=== PATIENT | female | born 1940 | race Hispanic/Latino ===

== ENCOUNTER 2017-02-15 16:27 | Inpatient (IN) | payer MEDICARE, MEDICAID ==
--- NOTE | 2017-02-15 17:59 | ED PDOC ---
HPI: Psych/Substance Abuse Time Seen by Provider: 02/15/17 17:17 Chief Complaint (Nursing): Psychiatric Evaluation Chief Complaint (Provider): Psychiatric Evaluation History Per: Patient History/Exam Limitations: no limitations Current Symptoms Are (Timing): Still Present Suicide/Self Injury Attempted (Context): None Severity: Moderate Associated Symptoms: Other (patient is hearing voices and reportedly sees the future) Additional Complaint(s): 77 year old female with a pertinent medical history of hypertension, hypercholesterolemia, schizophrenia, and COPD is [facility] for a psychiatric evaluation for increasing paranoid delusions. She reports that she can see the future and "it does not look good and I am going to suffer". She reports that she hears "screaming children, including my son is not but is buried alive". She denies having any medical complaints. PMD: Dr. Tobin Past Medical History Reviewed: Historical Data, Nursing Documentation, Vital Signs Vital Signs: Last Vital Signs Temp 98.4 F 02/15/17 16:38 Pulse 88 02/15/17 16:38 Resp 18 02/15/17 16:38 BP 114/69 02/15/17 16:38 Pulse Ox 94 L 02/15/17 16:38 - Medical History PMH: Anxiety, Asthma, Atrial Fibrillation, COPD, HTN, Hypercholesterolemia, Hypothyroidism, Schizophrenia, Seizures - Surgical History Surgical History: No Surg Hx - Family History Family History: States: No Known Family Hx - Living Arrangements Living Arrangements: Half-Way/Assist Lvng - Social History Current smoker - smoking cessation education provided: No Ex-Smoker (has not smoked in the last 12 months): Yes (patient stopped smoking 4x years ago) Alcohol: None Drugs: Denies - Immunization History Hx Tetanus Toxoid Vaccination: No (refuse) Hx Influenza Vaccination: No Hx Pneumococcal Vaccination: No - Home Medications Home Medications: Ambulatory Orders Medication Instructions Recorded Dronedarone [Multaq] 400 mg PO BID 02/15/17 Fluticasone/Salmeterol 250/50 1 puff IH Q12 02/15/17 [Advair Diskus] Furosemide [Lasix] 20 mg PO DAILY 02/15/17 Levothyroxine [Synthroid] 25 mcg PO DAILY 02/15/17 Metoprolol Succinate [Toprol XL] 25 mg PO DAILY 02/15/17 Ranitidine HCl [Zantac] 150 mg PO DAILY 02/15/17 cloZAPine [Clozaril] 100 mg PO HS 02/15/17 cloZAPine [Clozaril] 150 mg PO DAILY 02/15/17 diltiaZEM [Cardizem] 120 mg PO BID 02/15/17 - Allergies Allergies/Adverse Reactions: Allergies Allergy/AdvReac Type Severity Reaction Status Date / Time No Known Allergies Allergy Verified 02/15/17 16:36 Review of Systems ROS Statement: Except As Marked, All Systems Reviewed And Found Negative Constitutional: Negative for: Fever, Chills Cardiovascular: Negative for: Chest Pain Respiratory: Negative for: Shortness of Breath Psych: Positive for: Psychosis. Negative for: Suicidal ideation Physical Exam - Reviewed Nursing Documentation Reviewed: Yes Vital Signs Reviewed: Yes - Physical Exam Appears: Positive for: Well, Non-toxic, No Acute Distress Head Exam: Positive for: ATRAUMATIC, NORMOCEPHALIC Skin: Positive for: Normal Color, Warm, Dry Eye Exam: Positive for: EOMI, PERRL ENT: Negative for: Pharyngeal Erythema, Tonsillar Exudate Neck: Positive for: Painless ROM, Supple Cardiovascular/Chest: Positive for: Regular Rate, Rhythm Respiratory: Positive for: Wheezing (minimal diffuse expiratory wheeze). Negative for: Respiratory Distress Gastrointestinal/Abdominal: Positive for: Soft. Negative for: Tenderness Back: Positive for: Normal Inspection. Negative for: Vertebral Tenderness Extremity: Positive for: Normal ROM, Tenderness. Negative for: Deformity Neurologic/Psych: Positive for: Alert, Oriented (3x), Mood/Affect (flat affect, depressed mood. patient has delusions as reported in HPI.). Negative for: Motor /Sensory Deficits - Laboratory Results Result Diagrams: 02/16/17 06:25 02/15/17 18:04 - ECG O2 Sat by Pulse Oximetry: 94 (RA) Pulse Ox Interpretation: Abnormal Medical Decision Making Medical Decision Makin:17 Initial impression: 77 year old female with delusions. Initial plan: * XRay chest * EKG * crisis evaluation as ordered * bloodwork * labs * urine * accucheck Labs unremarkable. EKG unremarkable Crisis evaluated pt and spoke with family. Pt to be admitted to [facility]. Medically stable for [facility] floor. Scribe Attestation: Documented by Dari Fritz, acting as a scribe for Lay Freedman MD. Provider Scribe Attestation: All medical record entries made by the Scribe were at my direction and personally dictated by me. I have reviewed the chart and agree that the record accurately reflects my personal performance of the history, physical exam, medical decision making, and the department course for this patient. I have also personally directed, reviewed, and agree with the discharge instructions and disposition. Disposition - Clinical Impression Clinical Impression: Schizophrenia Counseled Patient/Family Regarding: Studies Performed, Diagnosis - Disposition Disposition Time: 19:00 Condition: STABLE - Pt Status Changed To: Hospital Disposition Of: Inpatient - Admit Certification Admit to Inpatient:: After my assessment, the patient will require hospitalization for at least two midnights. This is because of the severity of symptoms shown, intensity of services needed, and/or the medical risk in this patient being treated as an outpatient. - POA Present On Arrival: None
[2017-02-15 18:16] LABS: BASO # 0.1 K/uL (0.0-0.2); BASO % 0.9 % (0.0-2.0); EOS # 0.1 K/uL (0.0-0.7); EOS % 0.7 % (0.0-4.0); HEMOGLOBIN 12.6 g/dL (12.0-16.0); LYMPH # 1.9 K/uL (1.0-4.3); MEAN CELL VOLUME 91.2 fl (81.0-99.0); MEAN CORPUSCULAR HEMOGLOBIN 29.7 pg (27.0-31.0); MEAN CORPUSCULAR HGB CONC 32.5 g/dL (33.0-37.0); MEAN PLATELET VOLUME 7.2 fl (7.2-11.7); MONO # 1.3 K/uL (0.0-0.8); MONO % 10.8 % (0.0-10.0); NEUT % 72.6 % (50.0-75.0); NRBC % 0.1 % (0.0-0.0); RBC 4.24 Mil/uL (3.80-5.20); WHITE BLOOD COUNT 12.4 K/uL (4.8-10.8)
[2017-02-15 18:35] LABS: ALB/GLOB RATIO 1.4 (1.0-2.1); ALT/SGPT 36 U/L (9-52); AST/SGOT 24 U/L (14-36); BLOOD UREA NITROGEN 9 mg/dl (7-17); CALCIUM 9.4 mg/dL (8.4-10.2); GFR AFRICAN-AMERICAN > 60; GFR NON-AFRICAN AMERICAN > 60
[2017-02-15 18:54] LABS: INR 2.1 (0.9-1.2); PARTIAL THROMBOPLASTIN TIME 33.9 Seconds (25.6-37.1); PROTHROMBIN TIME 23.6 Seconds (9.8-13.1)
[2017-02-15] MEDS ORDERED: Magnesium Hydroxide Susp 30 ml UD PO PRN (20:27)
[2017-02-15] MEDS ORDERED: Bismuth Subsalicylate 262 mg/15 ml Sus (240 ml) PO PRN (20:27)
[2017-02-15] MEDS ORDERED: Alum-Mag Hydrox-Simethicone Susp (30 mL) PO PRN (20:27)
[2017-02-15] MEDS: Fluticasone-Salmeterol 250-50mcg Diskus IH SCH (22:17)
[2017-02-15] MEDS ORDERED: Fluticasone-Salmeterol 250-50mcg Diskus IH STA (23:06)
[2017-02-16 07:10] LABS: HEMOGLOBIN 11.8 g/dL (12.0-16.0); MEAN CELL VOLUME 90.4 fl (81.0-99.0); MEAN CORPUSCULAR HEMOGLOBIN 29.9 pg (27.0-31.0); MEAN CORPUSCULAR HGB CONC 33.1 g/dL (33.0-37.0); RBC 3.93 Mil/uL (3.80-5.20); RED CELL DISTRIBUTION WIDTH 15.1 % (11.5-14.5); WHITE BLOOD COUNT 10.8 K/uL (4.8-10.8)
[2017-02-16 07:30] LABS: T4 7.15 ug/dl (5.5-11.0)
[2017-02-16 07:47] LABS: FERRITIN 32.4 ng/mL
--- NOTE | 2017-02-16 08:18 | CARD ---
APPROVED REPORT EKG Measurement Heart [id number] <Conclusion> Normal sinus rhythm Possible Left atrial enlargement Left axis deviation Pulmonary disease pattern Nonspecific T wave abnormality Prolonged QT Abnormal ECG
[2017-02-16] MEDS: Metoprolol Succinate 25 mg XL Tab PO SCH (08:51)
[2017-02-16] MEDS: Levothyroxine 25 MCG TAB PO SCH (08:51)
--- NOTE | 2017-02-16 10:45 | RAD ---
HISTORY: ams COMPARISON: No prior. FINDINGS: LUNGS: No active pulmonary disease. PLEURA: No significant pleural effusion identified, no pneumothorax apparent. CARDIOVASCULAR: No radiographic findings to suggest acute or significant cardiovascular disease. OSSEOUS STRUCTURES: No significant abnormalities. VISUALIZED UPPER ABDOMEN: Normal. OTHER FINDINGS: None. IMPRESSION: No active disease.
[2017-02-16 11:49] LABS: PROTHROMBIN TIME 22.7 Seconds (9.8-13.1)
--- NOTE | 2017-02-16 12:48 | PCM.PSYCH ---
Initial Psychiatric Evaluation - Initial Psychiatric Evaluation Type of Admission: Voluntary Legal Status: DPOA Chief Complaint (in patient's own words): "They are going to kill me" Patient's Reaction to Hospitalization: History limited because the patient is a poor historian and is currently psychotic. History obtained from the chart and collateral history. HPI: 77 year old female with a pertinent medical history of hypertension, hypercholesterolemia, schizophrenia, and COPD is sent to the ED by her skilled nursing for a psychiatric evaluation for increasing paranoid delusions. She reports that she can see the future and it does not look good. She reports that she hears screaming children, including her son (who is alive). She denies having any medical complaints. She also reports that "they" are trying to kill her, when asked who they are, she said that entire world. She is unable to provide much information and can not state where she is or why she is in the hospital. She is oriented to February 2017. Collateral from ER: 77 y/o female with a pertinent medical hystory of hypertension, hypercholesterolemia, schizophenia and COPD is sent to the ED by her senior living for a psychiatric evaluation due to increase paranoid delusions. Pt reports that she can see the future, that she is seeing her son and sister, that she is Red and is going to be cruzified because she is jainism. Retirement reports stated that patient refer to herself as "Red'. Pt. states that when she hears music or noise, she is hearing her family members yelling for help. Pt states that she wrote the bible and she can see into her family future and "it doesn't look to good". Pt. refused to speak to the psychiatrist while she was in the skilled nursing. During assessment patient repeated being Harini, and stated that she know what her son was saying , patient is confused, delusional, naming family members that are deseased. Pt. was calm , no shows of distress, pt. stated that she knnow that her son was talking about harini and that people when they go is in a better place but that is not going to happen to her, for being Harini. Pt's son stated that patient have a long history of mental illness with psychiatric admission at [facility] and [facility], the last admission was two years ago. Family is asking for patient to be admitted for medication adjustment, patient was prescribed a new medication that family [place] that is causing patient to loose her balance as patient had incidents in which she had fall. Pt. had suicidal attempts in the past. As per family patient had been residing in a Retirement for a year, and she is scare of being in a new place, confused, son is asking for patient to be seeing by a neurologist as the same as a psychiatrist. Son believes that patient's medications need to be adjusted or need to be change. Radha Morales [phone] PPHx: As per family patient had numerous admissions in the past for schizophrenia, the last admission was 2 years ago at [facility]. PMD: Dr. Tobin PMHx: hypertension, hypercholesterolemia, schizophrenia, and COPD All: NKDA SHx: lives in a skilled nursing, POA are son + [id number] Current Medications: Active Medications Generic Name Dose Route Start Last Admin Trade Name Freq PRN Reason Stop Dose Admin Acetaminophen 650 mg 02/15/17 20:27 Tylenol 325mg Tab PO Q4 PRN Pain, moderate (4-7) Al Hydrox/Mg Hydrox/Simethicone 30 ml 02/15/17 20:27 Maalox Plus 30 Ml PO Q4 PRN Dyspepsia Bismuth Subsalicylate 524 mg 02/15/17 20:27 Pepto-Bismol PO Q4 PRN Diarrhea Clozapine 150 mg 02/16/17 10:30 02/16/17 11:30 Clozaril PO 150 mg DAILY JOON Administration Clozapine 100 mg 02/16/17 22:00 Clozaril PO HS JOON Diltiazem HCl 120 mg 02/16/17 09:00 02/16/17 08:50 Cardizem PO 120 mg BID JOON Administration Dronedarone 400 mg 02/16/17 09:00 02/16/17 10:58 Multaq PO 400 mg BID JOON Administration Furosemide 20 mg 02/16/17 09:00 02/16/17 08:50 Lasix PO 20 mg DAILY JOON Administration Levothyroxine Sodium 25 mcg 02/16/17 06:30 02/16/17 08:51 Synthroid PO 25 mcg DAILY@0630 JOON Administration Lorazepam 0.5 mg 02/16/17 05:01 Ativan PO 03/02/17 05:02 HS PRN Insomnia Lorazepam 0.5 mg 02/16/17 05:01 Ativan PO 03/02/17 05:02 Q6 PRN Anixety/Agitation Magnesium Hydroxide 30 ml 02/15/17 20:27 Milk Of Magnesia PO HS PRN Constipation Metoprolol Succinate 25 mg 02/16/17 09:00 02/16/17 08:51 Toprol Xl PO 25 mg DAILY JOON Administration Fluticasone/Salmeterol 1 puff 02/16/17 23:45 Advair Diskus 250/50 IH Q12 JOON Past Psychiatric History - Past Psychiatric History Previous Treatment History: Inpatient Pertinent Medical Hx (Current Medical&Sleep Prob, Allergies): Allergies Allergy/AdvReac Type Severity Reaction Status Date / Time No Known Allergies Allergy Verified 02/15/17 16:36 Dronedarone [Multaq] 400 mg PO BID 02/15/17 Fluticasone/Salmeterol 250/50 [Advair Diskus] 1 puff IH Q12 02/15/17 Furosemide [Lasix] 20 mg PO DAILY 02/15/17 Levothyroxine [Synthroid] 25 mcg PO DAILY 02/15/17 Metoprolol Succinate [Toprol XL] 25 mg PO DAILY 02/15/17 Ranitidine HCl [Zantac] 150 mg PO DAILY 02/15/17 cloZAPine [Clozaril] 100 mg PO HS 02/15/17 cloZAPine [Clozaril] 150 mg PO DAILY 02/15/17 diltiaZEM [Cardizem] 120 mg PO BID 02/15/17 Review of Systems - Psychiatric Psychiatric: Behavioral Changes, Confusion, Difficulty Concentrating, Other ( Delusions) Mental Status Examination - Personal Presentation Personal Presentation: Looks stated age - Affect Affect: Constricted - Motor Activity Motor Activity: Calm - Reliability in Providing Information Reliability in Providing Information: Poor, due to cognitve impairment - Speech Speech: Coherent, Other (Focused on discussing delusional content) - Mood Mood: Anxious - Formal Thought Process Formal Thought Process: Delusions, Paranoia - Obsessions/Compulsions Obsessions: No Compulsions: No - Cognitive Functions Orientation: Person, Time (February 2017) Sensorium: Alert Attention/Concentration: Easily distracted Judgement: Imparied, as evidence by: Poor judgement, Imparied, as evidence by: Lack of insight into illness Memory: Recent impaired, as evidence by: Inability to recall events of the day, Recent imparied as evidence by:Inability to complete 3/3 object recall, Remote impaired as evidenced by: Inability to recall sig life events, Remote impaired as evidenced by: Inability to recall historical events - Risk Risk: Diminished functioning - Strength & Assets Inventory Strength & Assets Inventory: Family support, Cooperative - Limitations Limitations: Decreased memory, recent DSM 5 DX - DSM 5 DSM 5 Diagnosis: Schizophrenia - Recommended/Plan of Treatment Treatment Recommendations and Plan of Treatment: -Admit to geriatric psychiatry unit -Increase Clozapine to 150 mg PO Q12 hr -Case discussed with POA, business writer given permission to adjust medications as clinically appropriate -Individual and group therapy -Disposition planning Projected ELOS: 5-7 days Discharge Plan and Discharge Criteria: Discharge when psychiatrically stable - Smoking Cessation Smoking Cessation Initiated: No Reason for not providing: Not indicated
[2017-02-16 14:53] LABS: FOLATE 6.7 ng/mL
--- NOTE | 2017-02-16 20:28 | CP.PCM.CON ---
History of Present Illness - History of Present Illness History of Present Illness: 77 yo female with history of AFib, HLD, Hypothyroid, COPD and [facility] Paranoid ideation Review of Systems - Review of Systems All systems: reviewed and no additional remarkable complaints except (aside from those mentioned above, 12 point system review were negative by me) Past Patient History - Tetanus Immunizations Tetanus Immunization: Unknown - Past Social History Smoking Status: Unknown If Ever Smoked Alcohol: None Drugs: Denies - CARDIAC Hx Atrial Fibrillation: Yes Hx Hypercholesterolemia: Yes Hx Hypertension: Yes - PULMONARY Hx Asthma: Yes Hx Chronic Obstructive Pulmonary Disease (COPD): Yes - NEUROLOGICAL Hx Seizures: Yes - ENDOCRINE/METABOLIC Hx Hypothyroidism: Yes - HEMATOLOGICAL/ONCOLOGICAL Hx Cancer: Yes (breast and colon) - MUSCULOSKELETAL/RHEUMATOLOGICAL Hx Falls: No - GASTROINTESTINAL Hx Gastroesophageal Reflux: Yes Other/Comment: COLON CA - GENITOURINARY/GYNECOLOGICAL Hx Incontinence: Yes - PSYCHIATRIC Hx Anxiety: Yes Hx Schizophrenia: Yes - SURGICAL HISTORY Hx Appendectomy: Yes Hx Breast Biopsy: Yes (r breast lumpectomy) Hx Cholecystectomy: Yes Hx Joint Replacement: Yes (l knee replacement) - ANESTHESIA Hx Anesthesia: Yes Meds Allergies/Adverse Reactions: Allergies Allergy/AdvReac Type Severity Reaction Status Date / Time No Known Allergies Allergy Verified 02/15/17 16:36 - Medications Medications: Current Medications Acetaminophen (Tylenol 325mg Tab) 650 mg PO Q4 PRN PRN Reason: Pain, moderate (4-7) Al Hydrox/Mg Hydrox/Simethicone (Maalox Plus 30 Ml) 30 ml PO Q4 PRN PRN Reason: Dyspepsia Bismuth Subsalicylate (Pepto-Bismol) 524 mg PO Q4 PRN PRN Reason: Diarrhea Clozapine (Clozaril) 150 mg PO DAILY [facility] Last Admin: 02/16/17 11:30 Dose: 150 mg Clozapine (Clozaril) 150 mg PO [facility] Diltiazem HCl (Cardizem) 120 mg PO BID [facility] Last Admin: 02/16/17 16:41 Dose: Not Given Dronedarone (Multaq) 400 mg PO BID [facility] Last Admin: 02/16/17 16:41 Dose: 400 mg Furosemide (Lasix) 20 mg PO DAILY [facility] Last Admin: 02/16/17 08:50 Dose: 20 mg Levothyroxine Sodium (Synthroid) 25 mcg PO DAILY@0630 [facility] Last Admin: 02/16/17 08:51 Dose: 25 mcg Lorazepam (Ativan) 0.5 mg PO HS PRN PRN Reason: Insomnia Stop: 03/02/17 05:02 Lorazepam (Ativan) 0.5 mg PO Q6 PRN PRN Reason: Anixety/Agitation Stop: 03/02/17 05:02 Magnesium Hydroxide (Milk Of Magnesia) 30 ml PO HS PRN PRN Reason: Constipation Metoprolol Succinate (Toprol Xl) 25 mg PO DAILY [facility] Last Admin: 02/16/17 08:51 Dose: 25 mg Fluticasone/Salmeterol (Advair Diskus 250/50) 1 puff IH Q12 [facility] Physical Exam - Constitutional Appears: No Acute Distress - Head Exam Head Exam: ATRAUMATIC - Eye Exam Eye Exam: absent: Scleral icterus - ENT Exam ENT Exam: Mucous Membranes Moist - Neck Exam Neck exam: Negative for: Meningismus - Respiratory Exam Respiratory Exam: absent: Rhonchi, Wheezes, Respiratory Distress - Cardiovascular Exam Cardiovascular Exam: REGULAR RHYTHM, +S1, +S2 - GI/Abdominal Exam GI & Abdominal Exam: Soft. absent: Tenderness - Rectal Exam Rectal Exam: Deferred - Neurological Exam Neurological exam: Alert, Oriented x3 - Psychiatric Exam Psychiatric exam: Normal Affect - Skin Skin Exam: Dry, Intact Results - Vital Signs Recent Vital Signs: Last Vital Signs Temp 99 F 02/16/17 16:05 Pulse 83 02/16/17 16:05 Resp 20 02/16/17 16:05 BP 107/66 02/16/17 16:05 Pulse Ox 94 L 02/16/17 15:37 - Labs Result Diagrams: 02/16/17 06:25 02/15/17 18:04 Labs: Laboratory Results - last 24 hr 02/16/17 02/16/17 02/16/17 06:25 06:25 06:25 WBC 10.8 RBC 3.93 Hgb 11.8 L Hct 35.6 MCV 90.4 MCH 29.9 MCHC 33.1 RDW 15.1 H Plt Count 447 H PT INR Hemoglobin A1c 5.8 Ferritin 32.4 Triglycerides 72 Cholesterol 147 LDL Cholesterol Direct 63 HDL Cholesterol 57 Vitamin B12 470 Folate 6.7 Free T4 Thyroxine (T4) 7.15 TSH 3rd Generation 2.13 RPR 02/16/17 02/16/17 02/16/17 06:25 06:25 10:50 WBC RBC Hgb Hct MCV MCH MCHC RDW Plt Count PT 22.7 H INR 2.0 H Hemoglobin A1c Ferritin Triglycerides Cholesterol LDL Cholesterol Direct HDL Cholesterol Vitamin B12 Folate Free T4 0.98 Thyroxine (T4) TSH 3rd Generation RPR Nonreactive Assessment & Plan (1) Schizophrenia Status: Acute Comment: psyche is managing (2) HTN (hypertension) Status: Acute Comment: BP stable. continue Metoprolol and Cardizem (3) Afib Status: Acute Comment: rate controlled. continue Cardizem and Metoprolol
[2017-02-17] MEDS: Levothyroxine 25 MCG TAB PO SCH (06:40)
[2017-02-17] MEDS: Fluticasone-Salmeterol 250-50mcg Diskus IH SCH ×2 (08:28→21:07)
[2017-02-17] MEDS: Metoprolol Succinate 25 mg XL Tab PO SCH (08:32)
--- NOTE | 2017-02-17 09:45 | PCM.PYCHPN ---
Psychiatric Progress Note - Psychiatric Progress Note Patient seen today, length of contact: Patient evaluated, case discussed with team, chart reviewed, 35 min Patient Chief Complaint: "They are going to kill me" Problems Identified/Issues Discussed: Patient continues to be paranoid and delusional that people want to kill her and her family. She constantly talks about her concerns that her family is in danger. She has difficulty reality testing. Denies AH/VH. Medication Change: No Medical Record Reviewed: Yes Mental Status Examination - Cognitive Function Orientation: Person, Time (February 2017) Memory: Impaired Attention: Poor Association: Loose Fund of Knowledge: Poor Decription of patient's judgement and insights: Poor insight/judgment - Mood Mood: Anxious - Affect Affect: Constricted - Formal Thought Process Formal Thought Process: Delusions, Paranoia Psychotic Thoughts and Behaviors: +Paranoid and persecutory delusions - Suicidal Ideation Suicidal Ideation: No - Homicidal Ideation Homicidal Ideation: No Goal/Treatment Plan - Goal/Treatment Plan Need for Continued Stay: Remain at risks for inpatient hospitalization, Discharge may exacerbated symptoms, Severe functional impairment Progress Toward Problem(s) and Goals/Treatment Plan: Schizophrenia; patient continues to be acutely psychotic and paranoid. -Continue Clozapine 150 mg PO Q12 hr -Case discussed with JAZMÍN, real estate underwriter given permission to adjust medications as clinically appropriate -Individual and group therapy -Disposition planning Estimated Date of D/C: 02/22/17 - Smoking Cessation Smoking Cessation Initiated: No Reason for not providing: Not indicated
[2017-02-17 23:17] LABS: SQUAMOUS EPITHIAL 1 /hpf (0-5); URINE BACTERIA RARE (<OCC); URINE BILIRUBIN NEGATIVE (NEGATIVE); URINE BLOOD NEGATIVE (NEGATIVE); URINE CLARITY CLEAR (Clear); URINE COLOR YELLOW (YELLOW); URINE GLUCOSE (UA) NEG (Normal); URINE LEUKOCYTE ESTERASE TRACE Leu/uL (Negative); URINE NITRATE NEGATIVE (NEGATIVE); URINE PROTEIN NEGATIVE (NEGATIVE); URINE UROBILINOGEN 0.2-1.0 mg/dL (0.2-1.0)
[2017-02-18] MEDS: Levothyroxine 25 MCG TAB PO SCH (05:50)
[2017-02-18] MEDS: Fluticasone-Salmeterol 250-50mcg Diskus IH SCH ×2 (09:09→21:13)
[2017-02-18] MEDS: Metoprolol Succinate 25 mg XL Tab PO SCH (09:11)
--- NOTE | 2017-02-18 09:17 | PCM.PYCHPN ---
Psychiatric Progress Note - Psychiatric Progress Note Patient seen today, length of contact: Patient evaluated, case discussed with team, chart reviewed, 35 min Patient Chief Complaint: "I want to see my sons" Problems Identified/Issues Discussed: Patient continues to be paranoid and delusional that people want to kill her and her family. She is currently refusing to talk with the selling underwriter. She later told the nurse that the selling underwriter is an actress, not a doctor. Denies AH/VH. Medication Change: No Medical Record Reviewed: Yes Mental Status Examination - Cognitive Function Orientation: Person, Time (February 2017) Memory: Impaired Attention: Poor Association: Loose Fund of Knowledge: Poor Decription of patient's judgement and insights: Poor insight/judgment - Mood Mood: Anxious - Affect Affect: Constricted - Formal Thought Process Formal Thought Process: Delusions, Paranoia Psychotic Thoughts and Behaviors: +Paranoid and persecutory delusions - Suicidal Ideation Suicidal Ideation: No - Homicidal Ideation Homicidal Ideation: No Goal/Treatment Plan - Goal/Treatment Plan Need for Continued Stay: Remain at risks for inpatient hospitalization, Discharge may exacerbated symptoms, Severe functional impairment Progress Toward Problem(s) and Goals/Treatment Plan: Schizophrenia; patient continues to be acutely psychotic and paranoid. -Continue Clozapine 150 mg PO Q12 hr; will consider further titration -Case discussed with writer JAZMÍN given permission to adjust medications as clinically appropriate -Individual and group therapy -Disposition planning Estimated Date of D/C: 02/22/17
[2017-02-18 09:31] LABS: INR 2.5 (0.9-1.2)
--- NOTE | 2017-02-19 08:41 | PCM.PYCHPN ---
Psychiatric Progress Note - Psychiatric Progress Note Patient seen today, length of contact: Patient evaluated, case discussed with team, chart reviewed, 35 min Patient Chief Complaint: "They're going to kill me" Problems Identified/Issues Discussed: Patient continues to be paranoid and delusional that people want to kill her and her family. She is unable to engage in reality testing. She does not know where she is or why she is in the hospital. No side effects to Clozaril noted. She refuses blood work intermittently due to paranoia. Denies AH/VH. Medication Change: Yes (Increase Clozaril to 175 mg PO AM/ 150 mg PO HS) Medical Record Reviewed: Yes Mental Status Examination - Cognitive Function Orientation: Person Memory: Impaired Attention: Poor Association: Loose Fund of Knowledge: Poor Decription of patient's judgement and insights: Poor insight/judgment - Mood Mood: Anxious - Affect Affect: Constricted - Formal Thought Process Formal Thought Process: Delusions, Paranoia Psychotic Thoughts and Behaviors: +Paranoid and persecutory delusions - Suicidal Ideation Suicidal Ideation: No - Homicidal Ideation Homicidal Ideation: No Goal/Treatment Plan - Goal/Treatment Plan Need for Continued Stay: Remain at risks for inpatient hospitalization, Discharge may exacerbated symptoms, Severe functional impairment Progress Toward Problem(s) and Goals/Treatment Plan: Schizophrenia; patient continues to be acutely psychotic and paranoid. -Increase Clozaril to 175 mg PO AM/ 150 mg PO HS -Case discussed with JAZMÍN, senior grant writer given permission to adjust medications as clinically appropriate -Individual and group therapy -Disposition planning Estimated Date of D/C: 02/25/17
[2017-02-19] MEDS: Fluticasone-Salmeterol 250-50mcg Diskus IH SCH ×2 (08:59→21:00)
[2017-02-19] MEDS: Metoprolol Succinate 25 mg XL Tab PO SCH (09:04)
[2017-02-19] MEDS: Levothyroxine 25 MCG TAB PO SCH (09:04)
[2017-02-19 13:56] LABS: PROTHROMBIN TIME 34.4 Seconds (9.8-13.1)
--- NOTE | 2017-02-20 08:18 | PCM.PYCHPN ---
Psychiatric Progress Note - Psychiatric Progress Note Patient seen today, length of contact: Patient evaluated, case discussed with team, chart reviewed, 35 min Patient Chief Complaint: "I need my sons" Problems Identified/Issues Discussed: Patient continues to be paranoid and delusional that people want to kill her and her family. She is unable to engage in reality testing. She does not know where she is or why she is in the hospital. No side effects to Clozaril noted. Denies AH/VH. Medication Change: Yes (Increase Clozaril to 150 mg PO AM/ 200 mg PO HS) Medical Record Reviewed: Yes Mental Status Examination - Cognitive Function Orientation: Person Memory: Impaired Attention: Poor Concentration: Poor Association: Loose Fund of Knowledge: Poor Decription of patient's judgement and insights: Poor insight/judgment - Mood Mood: Anxious - Affect Affect: Constricted - Speech Speech: Appropriate - Formal Thought Process Formal Thought Process: Delusions, Paranoia Psychotic Thoughts and Behaviors: +Paranoid and persecutory delusions - Suicidal Ideation Suicidal Ideation: No - Homicidal Ideation Homicidal Ideation: No Goal/Treatment Plan - Goal/Treatment Plan Need for Continued Stay: Remain at risks for inpatient hospitalization, Discharge may exacerbated symptoms, Severe functional impairment Progress Toward Problem(s) and Goals/Treatment Plan: Schizophrenia; patient continues to be acutely psychotic and paranoid. -Increase Clozaril to 150 mg PO AM/ 200 mg PO HS; Check Clozapine level -Case discussed with JAZMÍN, development writer given permission to adjust medications as clinically appropriate -Individual and group therapy -Disposition planning Estimated Date of D/C: 02/25/17
[2017-02-20 08:31] LABS: PROTHROMBIN TIME 34.6 Seconds (9.8-13.1)
[2017-02-20] MEDS: Fluticasone-Salmeterol 250-50mcg Diskus IH SCH ×2 (08:56→21:02)
[2017-02-20] MEDS: Levothyroxine 25 MCG TAB PO SCH (08:58)
[2017-02-20] MEDS: Metoprolol Succinate 25 mg XL Tab PO SCH (11:40)
[2017-02-21] MEDS: Fluticasone-Salmeterol 250-50mcg Diskus IH SCH ×2 (08:39→21:04)
[2017-02-21] MEDS: Levothyroxine 25 MCG TAB PO SCH (08:41)
--- NOTE | 2017-02-21 08:41 | PCM.PYCHPN ---
Psychiatric Progress Note - Psychiatric Progress Note Patient seen today, length of contact: Patient evaluated, case discussed with team, chart reviewed, 35 min Patient Chief Complaint: "I need my sons" Problems Identified/Issues Discussed: Patient continues to be paranoid and delusional that people want to kill her and her family. She does not know where she is or why she is in the hospital. Patient has some mild muscle rigidity noted by staff, will lower Clozapine at this time and monitor. She also has not slept well for 3 days. Denies AH/VH. Medication Change: Yes (Decrease Clozaril to 100 mg PO AM/ 200 mg PO HS) Medical Record Reviewed: Yes Mental Status Examination - Cognitive Function Orientation: Person Memory: Impaired Attention: Poor Concentration: Poor Association: Loose Fund of Knowledge: Poor Decription of patient's judgement and insights: Poor insight/judgment - Mood Mood: Anxious - Affect Affect: Constricted - Speech Speech: Appropriate - Formal Thought Process Formal Thought Process: Delusions, Paranoia, Other (Responding to internal stimuli) Psychotic Thoughts and Behaviors: +Paranoid and persecutory delusions - Suicidal Ideation Suicidal Ideation: No - Homicidal Ideation Homicidal Ideation: No Goal/Treatment Plan - Goal/Treatment Plan Need for Continued Stay: Remain at risks for inpatient hospitalization, Discharge may exacerbated symptoms, Severe functional impairment Progress Toward Problem(s) and Goals/Treatment Plan: Schizophrenia; patient continues to be acutely psychotic and paranoid. -Decrease Clozaril to 100 mg PO AM/ 200 mg PO HS; Check Clozapine level -Case discussed with POA, marketing copywriter given permission to adjust medications as clinically appropriate -Individual and group therapy -Disposition planning -Continue 1:1 for safety Estimated Date of D/C: 02/25/17
[2017-02-21] MEDS: Metoprolol Succinate 25 mg XL Tab PO SCH (11:10)
[2017-02-21 14:27] LABS: PROTHROMBIN TIME 23.9 Seconds (9.8-13.1)
[2017-02-21 14:28] LABS: INR 2.1 (0.9-1.2)
[2017-02-22] MEDS: Albuterol-Ipratrop 3 mg / 0.5 (3 ml) UD INH PRN ×2 (00:51→07:43)
[2017-02-22] MEDS: Levothyroxine 25 MCG TAB PO SCH ×2 (06:22→09:46)
[2017-02-22] MEDS: Albuterol-Ipratrop 3 mg / 0.5 (3 ml) UD INH SCH ×2 (07:45→11:43)
[2017-02-22 09:06] VITALS: PULSE 110; RESP 20; TEMP 97.2; O2SAT 90
[2017-02-22] MEDS: Fluticasone-Salmeterol 250-50mcg Diskus IH SCH (09:47)
[2017-02-22] MEDS: Metoprolol Succinate 25 mg XL Tab PO SCH (09:48)
[2017-02-22 09:49] VITALS: BP 108/78
--- NOTE | 2017-02-22 10:23 | RAD ---
PROCEDURE: CHEST RADIOGRAPH, 1 VIEW HISTORY: r/o pneumonia COMPARISON: Comparison chest 02/15/2017 FINDINGS: LUNGS: Poor inspiration with low lung volumes, crowded bronchovascular markings and mild bibasilar atelectasis. PLEURA: No pneumothorax or pleural fluid seen. CARDIOVASCULAR: Heart appears enlarged OSSEOUS STRUCTURES: No significant abnormalities. VISUALIZED UPPER ABDOMEN: Normal. OTHER FINDINGS: None. IMPRESSION: Poor inspiration with low lung volumes, crowded bronchovascular markings and mild bibasilar atelectasis. Scroll
[2017-02-22 10:27] LABS: HEMOGLOBIN 12.6 g/dL (12.0-16.0); MEAN CELL VOLUME 91.4 fl (81.0-99.0); MEAN CORPUSCULAR HEMOGLOBIN 30.4 pg (27.0-31.0); MEAN CORPUSCULAR HGB CONC 33.2 g/dL (33.0-37.0); RBC 4.14 Mil/uL (3.80-5.20); RED CELL DISTRIBUTION WIDTH 15.5 % (11.5-14.5)
[2017-02-22 10:45] LABS: BLOOD UREA NITROGEN 17 mg/dl (7-17); CALCIUM 9.5 mg/dL (8.4-10.2); GFR AFRICAN-AMERICAN > 60; GFR NON-AFRICAN AMERICAN > 60; INR 2.2 (0.9-1.2); PROTHROMBIN TIME 25.2 Seconds (9.8-13.1)
[2017-02-22] MEDS ORDERED: levoFLOXacin 500 MG TAB PO SCH (11:15)
[2017-02-22] MEDS ORDERED: Potassium Chloride 20 mEq/15 ml LIQ UD PO ONE (11:45)
--- NOTE | 2017-02-22 12:50 | PCM.PYCHDC ---
Mental Status Examination - Mental Status Examination Orientation: Person Memory: Impaired Attention: Poor Concentration: Poor Association: Loose Fund of Knowledge: Poor Formal Thought Process: Loosening of associations Description of patient's judgement and insight: Poor insight/judgment Psychotic Thoughts and Behaviors: +Paranoid and persecutory delusions Suicidal Ideation: No Current Homicidal Ideation?: No Discharge Summary - Discharge Note Reason for Hospitalization: History limited because the patient is a poor historian and is currently psychotic. History obtained from the chart and collateral history. HPI: 77 year old female with a pertinent medical history of hypertension, hypercholesterolemia, schizophrenia, and COPD is sent to the ED by her retirement for a psychiatric evaluation for increasing paranoid delusions. She reports that she can see the future and it does not look good. She reports that she hears screaming children, including her son (who is alive). She denies having any medical complaints. She also reports that "they" are trying to kill her, when asked who they are, she said that entire world. She is unable to provide much information and can not state where she is or why she is in the hospital. She is oriented to February 2017. Collateral from ER: 77 y/o female with a pertinent medical hystory of hypertension, hypercholesterolemia, schizophenia and COPD is sent to the ED by her [facility] for a psychiatric evaluation due to increase paranoid delusions. Pt reports that she can see the future, that she is seeing her son and sister, that she is Red and is going to be cruzified because she is mandaeism. Custodial reports stated that patient refer to herself as "Red'. Pt. states that when she hears music or noise, she is hearing her family members yelling for help. Pt states that she wrote the bible and she can see into her family future and "it doesn't look to good". Pt. refused to speak to the psychiatrist while she was in the retirement. During assessment patient repeated being Harini, and stated that she know what her son was saying , patient is confused, delusional, naming family members that are deseased. Pt. was calm , no shows of distress, pt. stated that she knnow that her son was talking about harini and that people when they go is in a better place but that is not going to happen to her, for being Harini. Pt's son stated that patient have a long history of mental illness with psychiatric admission at [facility] and [facility], the last admission was two years ago. Family is asking for patient to be admitted for medication adjustment, patient was prescribed a new medication that family beleive that is causing patient to loose her balance as patient had incidents in which she had fall. Pt. had suicidal attempts in the past. As per family patient had been residing in a Custodial for a year, and she is scare of being in a new place, confused, son is asking for patient to be seeing by a neurologist as the same as a psychiatrist. Son believes that patient's medications need to be adjusted or need to be change. Radha Luuper [phone] PPHx: As per family patient had numerous admissions in the past for schizophrenia, the last admission was 2 years ago at [facility]. PMD: Dr. Tobin PMHx: hypertension, hypercholesterolemia, schizophrenia, and COPD All: NKDA SHx: lives in a retirement, POA are son + [id number] Laboratory Data: Abnormal Lab Results 02/21/17 02/22/17 02/22/17 13:20 10:20 10:20 WBC 16.0 H RBC 4.14 Hgb 12.6 Hct 37.8 MCV 91.4 MCH 30.4 MCHC 33.2 RDW 15.5 H Plt Count 379 PT 23.9 H D 25.2 H INR 2.1 H D 2.2 H Sodium Potassium Chloride Carbon Dioxide Anion Gap BUN Creatinine Est GFR ( Amer) Est GFR (Non-Af Amer) Random Glucose Calcium 02/22/17 10:20 WBC RBC Hgb Hct MCV MCH MCHC RDW Plt Count PT INR Sodium 143 Potassium 3.0 L Chloride 102 Carbon Dioxide 30 Anion Gap 14 BUN 17 Creatinine 0.9 Est GFR ( Amer) > 60 Est GFR (Non-Af Amer) > 60 Random Glucose 120 H Calcium 9.5 Consultations:: List each consultation separately and include: 1. Reason for request. 2. Findings. 3. Follow-up Consultations: Medicine consult Summary of Hospital Course include:: 1. Description of specific treatment plan utilized for patients during their course of treatmen. 2. Summarize the time- course for resolution of acute symptoms and/or regressed behaviors. 3. Describe issues identified and worked on during hospitalization. 4. Describe medication utilized. 5. Describe medical problems identified and treated. 6. Reassessment of suicide risk Summary of Hospital Course: Patient treated with Clozapine which was increased to 100 mg PO AM/HS. Over the course of hospitalization, the patient has become medically ill with an URI r/o PNA; now acutely delirious, will be discharged to the ER for further evaluation. - Final Diagnosis (DSM 5) DSM 5: Schizophrenia Disposition: TRANS TO OBS Follow-up Treatment Plan: Schizophrenia; Patient treated with Clozapine which was increased to 100 mg PO AM/HS. Over the course of hospitalization, the patient has become medically ill with an URI r/o PNA; now acutely delirious, will be discharged to the ER for further evaluation. -Continue 1:1 for safety - Smoking Cessation Smoking Cessation Medication prescribed: No Reason for not providing: Not indicated - Antipsychotic Medications Pt discharged on 2 or more routine antipsychotic medications: No
[2017-02-22] MEDS ORDERED: Potassium CL 10mEq/100ml 100 ML IVPB SCH (13:00)
== END 2017-02-22 13:10 | disposition short-term general hospital (02) | DRG 885 ==
LOC: H.ER 16:27 → H.ERHOLD 19:10 → H.STEP 20:24
PROVIDERS: ADMIT Psychiatry & Neurology Psychiatry; ATTEND Psychiatry & Neurology Psychiatry
PROC: GZHZZZZ Group Psychotherapy (ICD-10-PCS; principal; 2017-02-15)
DX: F20.9 Schizophrenia, unspecified (principal); I48.91 Unspecified atrial fibrillation; J44.9 Chronic obstructive pulmonary disease, unspecified; I10 Essential (primary) hypertension; E03.9 Hypothyroidism, unspecified; E78.00 Pure hypercholesterolemia, unspecified; E78.5 Hyperlipidemia, unspecified; J06.9 Acute upper respiratory infection, unspecified; J45.909 Unspecified asthma, uncomplicated; Z87.891 Personal history of nicotine dependence

== ENCOUNTER 2017-02-22 13:37 | Inpatient (IN) | payer MEDICARE, MEDICAID ==
[2017-02-22 14:09] LABS: VENOUS BLOOD GAS BASE EXCESS 8.2 mmol/L (0.0-2.0); VENOUS BLOOD GAS PCO2 44 mmHg (40-60); VENOUS BLOOD GAS PO2 44 mm/Hg (30-55); VENOUS BLOOD PH 7.48 (7.32-7.43)
[2017-02-22 14:10] LABS: BASO # 0.1 K/uL (0.0-0.2); BASO % 0.3 % (0.0-2.0); EOS % 0.1 % (0.0-4.0); HEMOGLOBIN 12.4 g/dL (12.0-16.0); LYMPH # 1.2 K/uL (1.0-4.3); LYMPH % 6.3 % (20.0-40.0); MEAN CELL VOLUME 91.6 fl (81.0-99.0); MEAN CORPUSCULAR HEMOGLOBIN 30.3 pg (27.0-31.0); MEAN CORPUSCULAR HGB CONC 33.1 g/dL (33.0-37.0); MEAN PLATELET VOLUME 8.4 fl (7.2-11.7); MONO # 1.3 K/uL (0.0-0.8); MONO % 6.9 % (0.0-10.0); NEUT # 16.6 K/uL (1.8-7.0); NEUT % 86.4 % (50.0-75.0); PLATELET COUNT 398 K/uL (130-400); RBC 4.09 Mil/uL (3.80-5.20); RED CELL DISTRIBUTION WIDTH 15.1 % (11.5-14.5); WHITE BLOOD COUNT 19.3 K/uL (4.8-10.8)
[2017-02-22] MEDS ORDERED: Sodium Chloride 0.9% 1,000 ML IV STA (14:15)
[2017-02-22] MEDS ORDERED: Albuterol-Ipratrop 3 mg / 0.5 (3 ml) UD INH STA (14:20)
[2017-02-22] MEDS ORDERED: MethylPREDNISolone 40 mg Vial ONE (14:21)
[2017-02-22 14:22] LABS: ALB/GLOB RATIO 1.4 (1.0-2.1); ALBUMIN 4.1 g/dL (3.5-5.0); ALT/SGPT 35 U/L (9-52); AST/SGOT 29 U/L (14-36); BLOOD UREA NITROGEN 18 mg/dl (7-17); CALCIUM 9.4 mg/dL (8.4-10.2); GFR AFRICAN-AMERICAN > 60; GFR NON-AFRICAN AMERICAN > 60
[2017-02-22] MEDS ORDERED: Piperacillin/Tazobact 4.5 GM in Sodium Chloride 0.9% 100 ML IVPB STA (14:28)
--- NOTE | 2017-02-22 14:42 | ED PDOC ---
HPI: SOB/CHF/COPD Time Seen by Provider: 02/22/17 13:41 Chief Complaint (Nursing): Shortness Of Breath Chief Complaint (Provider): Shortness Of Breath History Per: Patient History/Exam Limitations: clinical condition (psychosis) Onset/Duration Of Symptoms: Days (x1; this morning) Current Symptoms Are (Timing): Still Present Additional Complaint(s): Dulce Medina is a 77 year old female with previous medical history of psychosis who presents to the emergency department from [facility] for an evaluation of shortness of breath, cough, and elevated WBC found on recent bloodwork since this morning. Patient is a poor historian due to her psychosis so further medical history was unable to be obtained. PMD: none provided Past Medical History Reviewed: Historical Data, Nursing Documentation, Vital Signs Vital Signs: Last Vital Signs Temp 97.8 F 02/24/17 08:16 Pulse 89 02/24/17 09:12 Resp 18 02/24/17 08:16 BP 116/69 02/24/17 09:12 Pulse Ox 99 02/24/17 08:16 - Medical History PMH: Anxiety, Asthma, Atrial Fibrillation, COPD, HTN, Hypercholesterolemia, Hypothyroidism, Schizophrenia, Seizures - Surgical History Surgical History: Appendectomy, Cholecystectomy - Family History Family History: States: Unknown Family Hx - Social History Alcohol: None Drugs: Denies - Immunization History Hx Tetanus Toxoid Vaccination: No (refuse) Hx Influenza Vaccination: No Hx Pneumococcal Vaccination: No - Home Medications Home Medications: Ambulatory Orders Medication Instructions Recorded Dronedarone [Multaq] 400 mg PO BID 02/15/17 Fluticasone/Salmeterol 250/50 1 puff IH Q12 02/15/17 [Advair Diskus 250/50] Furosemide [Lasix] 20 mg PO DAILY 02/15/17 Levothyroxine [Synthroid] 25 mcg PO DAILY 02/15/17 Metoprolol Succinate [Toprol XL] 25 mg PO DAILY 02/15/17 diltiaZEM [Cardizem] 120 mg PO BID 02/15/17 Albuterol/Ipratropium [Duoneb 3 3 ml INH RQ4 02/22/17 mg/0.5 mg (3 ml) UD] LORazepam [Ativan] 0.5 mg IM Q8 PRN vial 07/17/17 LORazepam [Ativan] 0.5 mg PO Q8 PRN tab 02/22/17 Warfarin [Coumadin] 3 mg PO QD5 tab 02/22/17 cloZAPine [Clozaril] 100 mg PO DAILY tab 02/22/17 cloZAPine [Clozaril] 200 mg PO HS tab 02/22/17 levoFLOXacin 500 mg in D5W 500 mg IVPB DAILY 02/22/17 [Levaquin 500MG] - Allergies Allergies/Adverse Reactions: Allergies Allergy/AdvReac Type Severity Reaction Status Date / Time No Known Allergies Allergy Verified 02/22/17 13:39 Review of Systems Review Of Systems: ROS cannot be obtained secondary to pt's inabilty to answer questions. (psychosis) Respiratory: Positive for: Cough, Shortness of Breath Physical Exam - Reviewed Nursing Documentation Reviewed: Yes Vital Signs Reviewed: Yes - Physical Exam Appears: Positive for: Non-toxic, No Acute Distress (but paranoid, mildly dyspneic and dehydrated). Negative for: Well Respiratory: Positive for: Rhonchi (bilaterally). Negative for: Normal Breath Sounds Neurologic/Psych: Positive for: Alert, press operator II-XII (intact bilaterally), Other ( garbled speech and has poor insight). Negative for: Oriented - Laboratory Results Result Diagrams: 02/24/17 06:05 02/24/17 06:10 - ECG O2 Sat by Pulse Oximetry: 95 (RA) Pulse Ox Interpretation: Normal Medical Decision Making Medical Decision Making: Initial Impression: Shortness of breath; Cough Initial Plan: * EKG * Labs * PTT * PT * CXR * Tylenol 650mg PO * Duoneb 3ml INH * Methylprednisolone 60mg IVP * NS 1,000ml IV per 1,000mls/hr * Vancocin 250ml IVPB * Zosyn 100ml IVPB * Blood culture * Urine culture * Urinary straight catherization * Urinalysis * Re-evaluation Time: 09:00 --EKG: findings of sinus tachycardia: 112 HR. Nonspecific changes Time: 13:53 --CXR: crowded bronchial markings Time: 15:00 --Patient appears febrile. Sepsis work-up ordered --Labs: increase in WBC --Admitted to hospital for hospital-acquired clinical pneumonia and further management Scribe Attestation: Documented by Amanda Morris, acting as a scribe for Jose Camejo III, MD. Provider Scribe Attestation: All medical record entries made by the Scribe were at my direction and personally dictated by me. I have reviewed the chart and agree that the record accurately reflects my personal performance of the history, physical exam, medical decision making, and the department course for this patient. I have also personally directed, reviewed, and agree with the discharge instructions and disposition. Disposition - Clinical Impression Clinical Impression: Pneumonia, SIRS (systemic inflammatory response syndrome), Respiratory distress - Patient ED Disposition Is Patient to be Admitted: Yes Doctor Will See Patient In The: Hospital Counseled Patient/Family Regarding: Studies Performed, Diagnosis, Need For Followup - Disposition Disposition Time: 15:00 Condition: STABLE - Pt Status Changed To: Hospital Disposition Of: Inpatient - Admit Certification Admit to Inpatient:: After my assessment, the patient will require hospitalization for at least two midnights. This is because of the severity of symptoms shown, intensity of services needed, and/or the medical risk in this patient being treated as an outpatient. - POA Present On Arrival: Poor Glycemic Control
[2017-02-22] MEDS ORDERED: Piperacillin/Tazobact 3.375 gm Inj IVPB ONE (14:46)
[2017-02-22] MEDS ORDERED: Vancomycin 1 g Inj ONE (14:46)
[2017-02-22 15:04] LABS: SQUAMOUS EPITHIAL < 1 /hpf (0-5); URINE BILIRUBIN NEGATIVE (NEGATIVE); URINE BLOOD NEGATIVE (NEGATIVE); URINE CLARITY CLEAR (Clear); URINE COLOR YELLOW (YELLOW); URINE GLUCOSE (UA) NEG (Normal); URINE LEUKOCYTE ESTERASE NEG Leu/uL (Negative); URINE NITRATE NEGATIVE (NEGATIVE); URINE PROTEIN NEGATIVE (NEGATIVE); URINE UROBILINOGEN 0.2-1.0 mg/dL (0.2-1.0)
[2017-02-22 15:05] LABS: LYMPHOCYTE 7 % (20-50); MONOCYTE 6 % (0-10); NEUTROPHIL 87 % (42-75); TOTAL CELLS COUNTED 100
[2017-02-22 15:06] LABS: PLATELET ESTIMATE NORMAL (NORMAL)
[2017-02-22 15:07] LABS: ANISOCYTOSIS SLIGHT
[2017-02-22 15:27] LABS: INR 2.4 (0.9-1.2); PARTIAL THROMBOPLASTIN TIME 40.3 Seconds (25.6-37.1); PROTHROMBIN TIME 27.3 Seconds (9.8-13.1)
--- NOTE | 2017-02-22 16:27 | CP.PCM.HP ---
History of Present Illness - History of Present Illness History of Present Illness: CC: LETHARGY, AMS HPI: [id number] PMH AFIB, HLD, hypothyroid, COPD, schizophrenia was initially admitted to [facility] for worsening paranoia and psychosis. Patient is poor historian, unable to give history due to psychiatric condition. Per nursing and psychiatry team, patient has been worsening clinically with cough and congestion, and today patient mental status became altered as she became increasingly agitated, delusional. WBC was elevated, +rhonchi on physical exam, in ER pt febrile 101.2 rectally. CXR neg, however this may be due to delay in pneumonia visibility on cxr. Pt received steroids and breathing treatments with some improvement. Patient admitted for sepsis due to pneumonia. Zosyn and Vanc started in ER. ROS: per HPI all other systems neg by me PMSH: AFIB, HLD, hypothyroid, COPD, schizophrenia, appendectomy, breast lumpectomy, cholecystectomy, L knee replacement FH: unable to obtain at this time SH: unable to obtain at this time MEDS as below NKDA Temp Pulse Resp BP Pulse Ox 100.8 F H 105 H 18 129/98 H 97 02/22/17 16:46 02/22/17 16:46 02/22/17 16:46 02/22/17 16:46 02/22/17 16:24 GEN: WDWN, alert, cooperative HEENT: NCAT, PERRL, EOMI dry MMM NECK: supple, no JVD, no lymphadenopathy CARDIAC: +S1S2 RRR LUNG: +rhochi bilaterally ABD: SOFT NT ND BSX4 NO MASSES NO HSM EXT: +pedal pulses, equal strength SKIN warm, dry PSYCH +PARANOIA, PSYCHOSIS 02/22/17 02/22/17 02/22/17 14:31 14:05 14:00 WBC RBC Hgb Hct MCV MCH MCHC RDW Plt Count MPV Neut % (Auto) Lymph % (Auto) Smyth % (Auto) Eos % (Auto) Baso % (Auto) Neut # Lymph # Smyth # Eos # Baso # Neutrophils % (Manual) Lymphocytes % (Manual) Monocytes % (Manual) Platelet Estimate Anisocytosis (manual) PT 27.3 H INR 2.4 H APTT 40.3 H pO2 44 VBG pH 7.48 H VBG pCO2 44 VBG HCO3 30.9 VBG Total CO2 34.2 H VBG O2 Sat (Calc) 84.3 H VBG Base Excess 8.2 H VBG Potassium 3.9 Glucose 125 H Lactate 1.8 FiO2 21.0 Sodium 143.0 Potassium Chloride 105.0 Carbon Dioxide Anion Gap BUN Creatinine Est GFR ( Amer) Est GFR (Non-Af Amer) Random Glucose Calcium Phosphorus Magnesium Total Bilirubin AST ALT Alkaline Phosphatase Total Protein Albumin Globulin Albumin/Globulin Ratio Venous Blood Potassium 3.9 Urine Color Yellow Urine Clarity Clear Urine pH 6.0 Ur Specific Caroline 1.011 Urine Protein Negative Urine Glucose (UA) Neg Urine Ketones Negative Urine Blood Negative Urine Nitrate Negative Urine Bilirubin Negative Urine Urobilinogen 0.2-1.0 Ur Leukocyte Esterase Neg Urine RBC (Auto) 1 Urine Microscopic WBC < 1 Ur Squamous Epith Cells < 1 02/22/17 02/22/17 14:00 14:00 WBC 19.3 H RBC 4.09 Hgb 12.4 Hct 37.5 MCV 91.6 MCH 30.3 MCHC 33.1 RDW 15.1 H Plt Count 398 MPV 8.4 Neut % (Auto) 86.4 H Lymph % (Auto) 6.3 L Smyth % (Auto) 6.9 Eos % (Auto) 0.1 Baso % (Auto) 0.3 Neut # 16.6 H Lymph # 1.2 Smyth # 1.3 H Eos # 0.0 Baso # 0.1 Neutrophils % (Manual) 87 H Lymphocytes % (Manual) 7 L Monocytes % (Manual) 6 Platelet Estimate Normal Anisocytosis (manual) Slight PT INR APTT pO2 VBG pH VBG pCO2 VBG HCO3 VBG Total CO2 VBG O2 Sat (Calc) VBG Base Excess VBG Potassium Glucose Lactate FiO2 Sodium 142 Potassium 3.3 L Chloride 102 Carbon Dioxide 29 Anion Gap 14 BUN 18 H Creatinine 0.9 Est GFR ( Amer) > 60 Est GFR (Non-Af Amer) > 60 Random Glucose 120 H Calcium 9.4 Phosphorus 3.9 Magnesium 2.0 Total Bilirubin 1.2 AST 29 ALT 35 Alkaline Phosphatase 117 Total Protein 7.0 Albumin 4.1 Globulin 2.9 Albumin/Globulin Ratio 1.4 Venous Blood Potassium Urine Color Urine Clarity Urine pH Ur Specific Caroline Urine Protein Urine Glucose (UA) Urine Ketones Urine Blood Urine Nitrate Urine Bilirubin Urine Urobilinogen Ur Leukocyte Esterase Urine RBC (Auto) Urine Microscopic WBC Ur Squamous Epith Cells cxr without any acute pathology 77F PMH AFIB, HLD, hypothyroid, COPD, schizophrenia was initially admitted to [facility] for worsening paranoia and psychosis. Patient is poor historian, unable to give history due to psychiatric condition. Per nursing and psychiatry team, patient has been worsening clinically with cough and congestion, and today patient mental status became altered as she became increasingly agitated, delusional. WBC was elevated, +rhonchi on physical exam, in ER pt febrile 101.2 rectally, tachycardic 110. CXR neg, however this may be due to delay in pneumonia visibility on cxr. Pt received steroids and breathing treatments with some improvement. Patient admitted for sepsis due to pneumonia. Zosyn and Vanc started in ER. Sepsis 2/2 Pneumonia on admission, Febrile 101.2, Tachycardic 110, WBC elevated, +rhonchi lactate was neg Vanc and Zosyn started in ER Bronchodilators Solumedrol 60 q8h repeat labs in AM AFIB HR 110 on Warfarin 3 mg po daily repeat PT INR in AM Toprol 25 mg po daily Diltiazem 120 mg po BID Hypothyroid cont synthroid Schizophrenia cont clozaril Psychiatry consult Present on Admission - Present on Admission Any Indicators Present on Admission: No Past Patient History - Tetanus Immunizations Tetanus Immunization: Unknown - Past Social History Alcohol: None Drugs: Denies - CARDIAC Hx Atrial Fibrillation: Yes Hx Hypercholesterolemia: Yes Hx Hypertension: Yes - PULMONARY Hx Asthma: Yes Hx Chronic Obstructive Pulmonary Disease (COPD): Yes - NEUROLOGICAL Hx Seizures: Yes - ENDOCRINE/METABOLIC Hx Hypothyroidism: Yes - HEMATOLOGICAL/ONCOLOGICAL Hx Cancer: Yes (breast and colon) - MUSCULOSKELETAL/RHEUMATOLOGICAL Hx Falls: No - GASTROINTESTINAL Hx Gastroesophageal Reflux: Yes - GENITOURINARY/GYNECOLOGICAL Hx Incontinence: Yes - PSYCHIATRIC Hx Anxiety: Yes Hx Schizophrenia: Yes - SURGICAL HISTORY Hx Appendectomy: Yes Hx Cholecystectomy: Yes - ANESTHESIA Hx Anesthesia: Yes Meds Allergies/Adverse Reactions: Allergies Allergy/AdvReac Type Severity Reaction Status Date / Time No Known Allergies Allergy Verified 02/22/17 13:39 Results - Vital Signs Recent Vital Signs: Last Vital Signs Temp 100.8 F H 02/22/17 16:24 Pulse 105 H 02/22/17 16:24 Resp 18 02/22/17 16:24 BP 129/98 H 02/22/17 16:24 Pulse Ox 97 02/22/17 16:24 - Labs Result Diagrams: 02/22/17 14:00 02/22/17 14:00
--- NOTE | 2017-02-22 17:05 | RAD ---
HISTORY: Fever, shortness of breath COMPARISON: February 21, 2017. Performed portable technique 09:00. TECHNIQUE: Chest PA and lateral FINDINGS: LUNGS: No active pulmonary disease. PLEURA: No significant pleural effusion identified. No pneumothorax apparent. CARDIOVASCULAR: No radiographic findings to suggest acute or significant cardiovascular disease. OSSEOUS STRUCTURES: No significant abnormalities. VISUALIZED UPPER ABDOMEN: Normal. OTHER FINDINGS: None. IMPRESSION: No active disease.
[2017-02-22] MEDS: Piperacillin/Tazobact 3.375 GM in Sodium Chloride 0.9% 100 ML IVPB SCH ×2 (20:06→20:07)
[2017-02-22] MEDS: Fluticasone-Salmeterol 250-50mcg Diskus IH SCH (21:19)
[2017-02-22] MEDS: Albuterol 0.083% Inhal Sol (2.5 mg/3 mL) UD INH SCH (21:25)
[2017-02-23] MEDS: methylPREDNISolone 60 MG in Sodium Chloride 0.9% 50 ML IVPB SCH ×3 (00:25→16:13)
[2017-02-23] MEDS: Piperacillin/Tazobact 3.375 GM in Sodium Chloride 0.9% 100 ML IVPB SCH ×3 (01:05→16:14)
[2017-02-23 05:18] LABS: BASO # 0.1 K/uL (0.0-0.2); BASO % 0.4 % (0.0-2.0); HEMOGLOBIN 12.2 g/dL (12.0-16.0); LYMPH # 0.7 K/uL (1.0-4.3); LYMPH % 3.7 % (20.0-40.0); MEAN CELL VOLUME 91.9 fl (81.0-99.0); MEAN CORPUSCULAR HEMOGLOBIN 29.4 pg (27.0-31.0); MONO # 0.4 K/uL (0.0-0.8); MONO % 1.8 % (0.0-10.0); NEUT # 18.9 K/uL (1.8-7.0); NEUT % 94.1 % (50.0-75.0); PLATELET COUNT 359 K/uL (130-400); RBC 4.15 Mil/uL (3.80-5.20); RED CELL DISTRIBUTION WIDTH 15.3 % (11.5-14.5); WHITE BLOOD COUNT 20.1 K/uL (4.8-10.8)
[2017-02-23 05:28] LABS: BLOOD UREA NITROGEN 24 mg/dl (7-17); CALCIUM 9.5 mg/dL (8.4-10.2); GFR AFRICAN-AMERICAN > 60; GFR NON-AFRICAN AMERICAN > 60
[2017-02-23 05:45] LABS: INR 2.8 (0.9-1.2); PARTIAL THROMBOPLASTIN TIME 36.2 Seconds (25.6-37.1)
[2017-02-23 05:53] LABS: PROTHROMBIN TIME 31.8 Seconds (9.8-13.1)
[2017-02-23] MEDS: Levothyroxine 25 MCG TAB PO SCH (06:00)
[2017-02-23] MEDS ORDERED: Potassium Chloride 20 mEq ER Tab PO ONE (07:23)
[2017-02-23 07:42] LABS: ANISOCYTOSIS SLIGHT; BANDS 2 % (0-2); LYMPHOCYTE 2 % (20-50); MONOCYTE 6 % (0-10); NEUTROPHIL 90 % (42-75); PLATELET ESTIMATE NORMAL (NORMAL); TOTAL CELLS COUNTED 100
[2017-02-23] MEDS: Albuterol 0.083% Inhal Sol (2.5 mg/3 mL) UD INH SCH ×3 (07:45→19:33)
[2017-02-23 08:58] LABS: INR 3.3 (0.9-1.2)
[2017-02-23 09:02] LABS: PROTHROMBIN TIME 38.7 Seconds (9.8-13.1)
[2017-02-23] MEDS: Metoprolol Succinate 25 mg XL Tab PO SCH (09:13)
--- NOTE | 2017-02-23 09:15 | CP.PCM.PN ---
Subjective - Date & Time of Evaluation Date of Evaluation: 02/23/17 Time of Evaluation: 08:30 - Subjective Subjective: No fever today + cough mild SOB sl wheeze denies CP no abd pain Objective - Vital Signs/Intake and Output Vital Signs (last 24 hours): Temp Pulse Resp BP Pulse Ox 97.7 F 99 H 18 111/60 97 02/23/17 08:10 02/23/17 08:10 02/23/17 08:10 02/23/17 08:10 02/23/17 08:10 - Medications Medications: Current Medications Albuterol Sulfate (Albuterol 0.083% Inhal Sybil (2.5 Mg/3 Ml) Ud) 2.5 mg INH RTID [facility] Last Admin: 02/23/17 07:45 Dose: 2.5 mg Clozapine (Clozaril) 100 mg PO DAILY [facility] Clozapine (Clozaril) 200 mg PO HS [facility] Last Admin: 02/22/17 21:11 Dose: 200 mg Diltiazem HCl (Cardizem) 120 mg PO BID [facility] Last Admin: 02/22/17 20:58 Dose: 120 mg Dronedarone (Multaq) 400 mg PO BID [facility] Last Admin: 02/22/17 20:58 Dose: 400 mg Furosemide (Lasix) 20 mg PO DAILY [facility] Vancomycin HCl 1 gm/ Sodium (Chloride) 250 mls @ 250 mls/hr IVPB Q12H [facility] Last Admin: 02/23/17 04:16 Dose: 250 mls/hr Piperacillin Sod/Tazobactam (Sod 3.375 gm/ Sodium Chloride) 100 mls @ 100 mls/ hr IVPB Q8 [facility] Last Admin: 02/23/17 01:05 Dose: 100 mls/hr Methylprednisolone 60 mg/ (Sodium Chloride) 50 mls @ 100 mls/hr IVPB Q8 [facility] Last Admin: 02/23/17 00:25 Dose: 100 mls/hr Levothyroxine Sodium (Synthroid) 25 mcg PO DAILY@0630 [facility] Last Admin: 02/23/17 06:00 Dose: 25 mcg Lorazepam (Ativan) 0.5 mg PO Q8 PRN PRN Reason: Anxiety Lorazepam (Ativan) 0.5 mg IM Q8 PRN PRN Reason: Agitation Last Admin: 02/22/17 22:40 Dose: 0.5 mg Metoprolol Succinate (Toprol Xl) 25 mg PO DAILY [facility] Fluticasone/Salmeterol (Advair Diskus 250/50) 1 puff IH Q12 [facility] Last Admin: 02/22/17 21:19 Dose: 1 puff Warfarin Sodium (Coumadin) 3 mg PO QD5 [facility] PRN Reason: Protocol Last Admin: 02/22/17 20:58 Dose: 3 mg - Labs Labs: 02/23/17 04:40 02/23/17 04:40 PT 38.7 Seconds (9.8-13.1) H D 02/23/17 08:30 INR 3.3 (0.9-1.2) H 02/23/17 08:30 APTT 36.2 Seconds (25.6-37.1) 02/23/17 04:40 - Constitutional Appears: Chronically Ill - Head Exam Head Exam: NORMAL INSPECTION, NORMOCEPHALIC - Eye Exam Eye Exam: EOMI, Normal appearance Pupil Exam: NORMAL ACCOMODATION - ENT Exam ENT Exam: Mucous Membranes Moist, Normal External Ear Exam - Neck Exam Neck Exam: Full ROM. absent: Meningismus - Respiratory Exam Respiratory Exam: Decreased Breath Sounds, Rales, Rhonchi, Wheezes. absent: Respiratory Distress - Cardiovascular Exam Cardiovascular Exam: REGULAR RHYTHM, +S1, +S2 - GI/Abdominal Exam GI & Abdominal Exam: Soft, Normal Bowel Sounds. absent: Tenderness - Extremities Exam Extremities Exam: Normal Capillary Refill. absent: Calf Tenderness, Pedal Edema - Back Exam Back Exam: absent: CVA tenderness (L), CVA tenderness (R) - Neurological Exam Neurological Exam: Alert, Awake Additional comments: orientd to person and place moves all extremities voice very tremulous - Psychiatric Exam Psychiatric exam: Agitated - Skin Skin Exam: Dry, Normal Color, Warm Assessment and Plan - Assessment and Plan (Free Text) Assessment: 77F PMH AFIB, HLD, hypothyroid, COPD, schizophrenia was initially admitted to [facility] for worsening paranoia and psychosis. Patient is poor historian, unable to give history due to psychiatric condition. Per nursing and psychiatry team, patient has been worsening clinically with cough and congestion, and today patient mental status became altered as she became increasingly agitated, delusional. WBC was elevated, +rhonchi on physical exam, in ER , pt febrile 101.2 rectally, tachycardic 110. CXR Pt received steroids and breathing treatments with some improvement. Patient admitted for sepsis due to pneumonia. Zosyn and Vanc started in ER. Sepsis 2/2 Pneumonia on admission, Febrile 101.2, Tachycardic 110, WBC elevated, +rhonchi lactate was neg CXR : neg cont Vanco and Zosyn ID consult : Dr Oliveira Pulm consult CT of the chest Speech for Swallow eval COPD Exacerbation Bronchodilators Solumedrol 60 q8h repeat labs in AM A. FIB, Paroxysmal INR = 3.3, will hold Coumadin for now Toprol 25 mg po daily Diltiazem 120 mg po BID Hypothyroid cont synthroid Schizophrenia cont clozaril Psychiatry consult
--- NOTE | 2017-02-23 09:22 | CARD ---
APPROVED REPORT EKG Measurement Heart [id number] <Conclusion> Sinus tachycardia Possible Left atrial enlargement Nonspecific T wave abnormality Abnormal ECG
[2017-02-23] MEDS: Fluticasone-Salmeterol 250-50mcg Diskus IH SCH ×2 (09:28→21:57)
--- NOTE | 2017-02-23 12:01 | CP.PCM.CON ---
History of Present Illness - History of Present Illness History of Present Illness: Infectious Disease consult Note- asked to see this patietn at the request of for pneumonia and sepsis. HPI- History obtained from the medical chart as pt. does not give any history and has schizophrenia not well controlled. Pt. is a 77 year old female with pmh of schizophrenia, hypothyroidism, COPD, and a.fib. apparently pt. was first admitted to [facility] for paranoia and psychosis and in [facility] pt. was noted to have thick cough and congested and was found to have increased wbc and worsening agitation and was transferred to ED and was found to have fever of 102 and rhonchi there and hence admitted to tele floor for further evaluation and treatment. pt. has been started on vanco and zosyn by the hospitalist team for presumed pneumonia. PMSH: AFIB, HLD, hypothyroid, COPD, schizophrenia, appendectomy, breast lumpectomy, cholecystectomy, L knee replacement FH: unable to obtain at this time SH: unable to obtain at this time MEDS as below NKDA Review of Systems - Review of Systems Review of Systems: ROS- unable to obtain as pt. does not answer any of my questions and just talks to herself. Past Patient History - Tetanus Immunizations Tetanus Immunization: Unknown - Past Social History Smoking Status: Former Smoker - CARDIAC Hx Atrial Fibrillation: Yes Hx Hypercholesterolemia: Yes Hx Hypertension: Yes - PULMONARY Hx Asthma: Yes Hx Chronic Obstructive Pulmonary Disease (COPD): Yes - NEUROLOGICAL Hx Seizures: Yes - ENDOCRINE/METABOLIC Hx Hypothyroidism: Yes - MUSCULOSKELETAL/RHEUMATOLOGICAL Hx Falls: No - GASTROINTESTINAL Hx Gastroesophageal Reflux: Yes - GENITOURINARY/GYNECOLOGICAL Hx Incontinence: Yes - PSYCHIATRIC Hx Anxiety: Yes Hx Schizophrenia: Yes Hx Substance Use: No - SURGICAL HISTORY Hx Appendectomy: Yes Hx Cholecystectomy: Yes - ANESTHESIA Hx Anesthesia: Yes Meds Allergies/Adverse Reactions: Allergies Allergy/AdvReac Type Severity Reaction Status Date / Time No Known Allergies Allergy Verified 02/22/17 13:39 - Medications Medications: Current Medications Albuterol Sulfate (Albuterol 0.083% Inhal Sybil (2.5 Mg/3 Ml) Ud) 2.5 mg INH RTID [facility] Last Admin: 02/23/17 07:45 Dose: 2.5 mg Clozapine (Clozaril) 100 mg PO DAILY ON LICENSE OF [facility] Last Admin: 02/23/17 09:28 Dose: 100 mg Clozapine (Clozaril) 200 mg PO HS ON [facility] OF [facility] Last Admin: 02/22/17 21:11 Dose: 200 mg Diltiazem HCl (Cardizem) 120 mg PO BID ON [facility] OF [facility] Last Admin: 02/23/17 09:28 Dose: 120 mg Dronedarone (Multaq) 400 mg PO BID ON [facility] Last Admin: 02/23/17 09:30 Dose: 400 mg Furosemide (Lasix) 20 mg PO DAILY ON [facility] Last Admin: 02/23/17 09:30 Dose: 20 mg Vancomycin HCl 1 gm/ Sodium (Chloride) 250 mls @ 250 mls/hr IVPB Q12H ON [facility] Last Admin: 02/23/17 04:16 Dose: 250 mls/hr Piperacillin Sod/Tazobactam (Sod 3.375 gm/ Sodium Chloride) 100 mls @ 100 mls/ hr IVPB Q8 ON [facility] Last Admin: 02/23/17 09:31 Dose: 100 mls/hr Methylprednisolone 60 mg/ (Sodium Chloride) 50 mls @ 100 mls/hr IVPB Q8 ON [facility] Last Admin: 02/23/17 09:31 Dose: 100 mls/hr Levothyroxine Sodium (Synthroid) 25 mcg PO DAILY@0630 ON [facility] Last Admin: 02/23/17 06:00 Dose: 25 mcg Lorazepam (Ativan) 0.5 mg PO Q8 PRN PRN Reason: Anxiety Lorazepam (Ativan) 0.5 mg IM Q8 PRN PRN Reason: Agitation Last Admin: 02/22/17 22:40 Dose: 0.5 mg Metoprolol Succinate (Toprol Xl) 25 mg PO DAILY ON [facility] Fluticasone/Salmeterol (Advair Diskus 250/50) 1 puff IH Q12 ON [facility] Last Admin: 02/23/17 09:28 Dose: 1 puff Physical Exam - Constitutional Appears: Agitated, Confused - Head Exam Head Exam: ATRAUMATIC - Eye Exam Eye Exam: EOMI - ENT Exam Additional comments: poor dentition, dry oral mucosa - Respiratory Exam Respiratory Exam: NORMAL BREATHING PATTERN Additional comments: decreased breasth sounds bibasilar no wheezing mild rhonchi - Cardiovascular Exam Cardiovascular Exam: RRR, +S1, +S2 - GI/Abdominal Exam GI & Abdominal Exam: Normal Bowel Sounds, Soft Additional comments: NT, ND - Extremities Exam Extremities exam: Positive for: normal inspection - Neurological Exam Neurological exam: Altered Results - Vital Signs Recent Vital Signs: Last Vital Signs Temp 97.7 F 02/23/17 08:10 Pulse 99 H 02/23/17 08:10 Resp 18 02/23/17 08:10 BP 118/76 02/23/17 09:30 Pulse Ox 97 02/23/17 08:10 - Labs Result Diagrams: 02/23/17 04:40 02/23/17 04:40 Labs: Laboratory Results - last 24 hr 02/23/17 02/23/17 02/23/17 04:40 04:40 04:40 WBC 20.1 H RBC 4.15 Hgb 12.2 Hct 38.1 MCV 91.9 MCH 29.4 MCHC 32.0 L RDW 15.3 H Plt Count 359 MPV 8.0 Neut % (Auto) 94.1 H Lymph % (Auto) 3.7 L [place] % (Auto) 1.8 Eos % (Auto) 0.0 Baso % (Auto) 0.4 Neut # 18.9 H Lymph # 0.7 L [place] # 0.4 Eos # 0.0 Baso # 0.1 Neutrophils % (Manual) 90 H Band Neutrophils % 2 Lymphocytes % (Manual) 2 L Monocytes % (Manual) 6 Platelet Estimate Normal Anisocytosis (manual) Slight PT 31.8 H INR 2.8 H APTT 36.2 Sodium 147 Potassium 3.4 L Chloride 107 Carbon Dioxide 27 Anion Gap 16 BUN 24 H Creatinine 0.9 Est GFR ( Amer) > 60 Est GFR (Non-Af Amer) > 60 Random Glucose 158 H Calcium 9.5 02/23/17 08:30 WBC RBC Hgb Hct MCV MCH MCHC RDW Plt Count MPV Neut % (Auto) Lymph % (Auto) [place] % (Auto) Eos % (Auto) Baso % (Auto) Neut # Lymph # [place] # Eos # Baso # Neutrophils % (Manual) Band Neutrophils % Lymphocytes % (Manual) Monocytes % (Manual) Platelet Estimate Anisocytosis (manual) PT 38.7 H D INR 3.3 H APTT Sodium Potassium Chloride Carbon Dioxide Anion Gap BUN Creatinine Est GFR ( Amer) Est GFR (Non-Af Amer) Random Glucose Calcium Laboratory Results - last 72 hr 02/22/17 02/22/17 02/22/17 14:00 14:00 14:00 WBC 19.3 H RBC 4.09 Hgb 12.4 Hct 37.5 MCV 91.6 MCH 30.3 MCHC 33.1 RDW 15.1 H Plt Count 398 MPV 8.4 Neut % (Auto) 86.4 H Lymph % (Auto) 6.3 L [place] % (Auto) 6.9 Eos % (Auto) 0.1 Baso % (Auto) 0.3 Neut # 16.6 H Lymph # 1.2 [place] # 1.3 H Eos # 0.0 Baso # 0.1 Neutrophils % (Manual) 87 H Band Neutrophils % Lymphocytes % (Manual) 7 L Monocytes % (Manual) 6 Platelet Estimate Normal Anisocytosis (manual) Slight PT 27.3 H INR 2.4 H APTT 40.3 H pO2 VBG pH VBG pCO2 VBG HCO3 VBG Total CO2 VBG O2 Sat (Calc) VBG Base Excess VBG Potassium Glucose Lactate FiO2 Sodium 142 Potassium 3.3 L Chloride 102 Carbon Dioxide 29 Anion Gap 14 BUN 18 H Creatinine 0.9 Est GFR ( Amer) > 60 Est GFR (Non-Af Amer) > 60 Random Glucose 120 H Calcium 9.4 Phosphorus 3.9 Magnesium 2.0 Total Bilirubin 1.2 AST 29 ALT 35 Alkaline Phosphatase 117 Total Protein 7.0 Albumin 4.1 Globulin 2.9 Albumin/Globulin Ratio 1.4 Venous Blood Potassium Urine Color Urine Clarity Urine pH Ur Specific [place] Urine Protein Urine Glucose (UA) Urine Ketones Urine Blood Urine Nitrate Urine Bilirubin Urine Urobilinogen Ur Leukocyte Esterase Urine RBC (Auto) Urine Microscopic WBC Ur Squamous Epith Cells 02/22/17 02/22/17 02/23/17 14:05 14:31 04:40 WBC 20.1 H RBC 4.15 Hgb 12.2 Hct 38.1 MCV 91.9 MCH 29.4 MCHC 32.0 L RDW 15.3 H Plt Count 359 MPV 8.0 Neut % (Auto) 94.1 H Lymph % (Auto) 3.7 L [place] % (Auto) 1.8 Eos % (Auto) 0.0 Baso % (Auto) 0.4 Neut # 18.9 H Lymph # 0.7 L [place] # 0.4 Eos # 0.0 Baso # 0.1 Neutrophils % (Manual) 90 H Band Neutrophils % 2 Lymphocytes % (Manual) 2 L Monocytes % (Manual) 6 Platelet Estimate Normal Anisocytosis (manual) Slight PT INR APTT pO2 44 VBG pH 7.48 H VBG pCO2 44 VBG HCO3 30.9 VBG Total CO2 34.2 H VBG O2 Sat (Calc) 84.3 H VBG Base Excess 8.2 H VBG Potassium 3.9 Glucose 125 H Lactate 1.8 FiO2 21.0 Sodium 143.0 Potassium Chloride 105.0 Carbon Dioxide Anion Gap BUN Creatinine Est GFR ( Amer) Est GFR (Non-Af Amer) Random Glucose Calcium Phosphorus Magnesium Total Bilirubin AST ALT Alkaline Phosphatase Total Protein Albumin Globulin Albumin/Globulin Ratio Venous Blood Potassium 3.9 Urine Color Yellow Urine Clarity Clear Urine pH 6.0 Ur Specific [place] 1.011 Urine Protein Negative Urine Glucose (UA) Neg Urine Ketones Negative Urine Blood Negative Urine Nitrate Negative Urine Bilirubin Negative Urine Urobilinogen 0.2-1.0 Ur Leukocyte Esterase Neg Urine RBC (Auto) 1 Urine Microscopic WBC < 1 Ur Squamous Epith Cells < 1 02/23/17 02/23/17 02/23/17 04:40 04:40 08:30 WBC RBC Hgb Hct MCV MCH MCHC RDW Plt Count MPV Neut % (Auto) Lymph % (Auto) [place] % (Auto) Eos % (Auto) Baso % (Auto) Neut # Lymph # [place] # Eos # Baso # Neutrophils % (Manual) Band Neutrophils % Lymphocytes % (Manual) Monocytes % (Manual) Platelet Estimate Anisocytosis (manual) PT 31.8 H 38.7 H D INR 2.8 H 3.3 H APTT 36.2 pO2 VBG pH VBG pCO2 VBG HCO3 VBG Total CO2 VBG O2 Sat (Calc) VBG Base Excess VBG Potassium Glucose Lactate FiO2 Sodium 147 Potassium 3.4 L Chloride 107 Carbon Dioxide 27 Anion Gap 16 BUN 24 H Creatinine 0.9 Est GFR ( Amer) > 60 Est GFR (Non-Af Amer) > 60 Random Glucose 158 H Calcium 9.5 Phosphorus Magnesium Total Bilirubin AST ALT Alkaline Phosphatase Total Protein Albumin Globulin Albumin/Globulin Ratio Venous Blood Potassium Urine Color Urine Clarity Urine pH Ur Specific [place] Urine Protein Urine Glucose (UA) Urine Ketones Urine Blood Urine Nitrate Urine Bilirubin Urine Urobilinogen Ur Leukocyte Esterase Urine RBC (Auto) Urine Microscopic WBC Ur Squamous Epith Cells Microbiology 02/22/17 14:00 Blood Blood Culture - Preliminary NO GROWTH AFTER 24 HOURS 02/22/17 14:31 Urine,Catheterized Urine Culture - Final No Growth (<1,000 CFU/ML) Accession No. : [id number] Patient Name / ID : LUIS ALBERTO SCALES / [id number] Exam Date : 02/22/2017 13:55:44 ( Approved ) Study Comment : Sex / Age : F / 77Y Creator : Armin Lorenzana MD Dictator : Armin Lorenzana MD Anesthesiologist Attending : Ribbon Tier : Armin Lorenzana MD Approver2 : Report Date : 02/22/2017 17:03:46 My Comment : HISTORY: Fever, shortness of breath COMPARISON: February 21, 2017. Performed portable technique 09:00. TECHNIQUE: Chest PA and lateral FINDINGS: LUNGS: No active pulmonary disease. PLEURA: No significant pleural effusion identified. No pneumothorax apparent. CARDIOVASCULAR: No radiographic findings to suggest acute or significant cardiovascular disease. OSSEOUS STRUCTURES: No significant abnormalities. VISUALIZED UPPER ABDOMEN: Normal. OTHER FINDINGS: None. IMPRESSION: No active disease. Accession No. : [id number] Patient Name / ID : LUIS ALBERTO SCALES / [id number] Exam Date : 02/23/2017 15:10:50 ( Approved ) Study Comment : Sex / Age : F / 77Y Creator : Armin Lorenzana MD Dictator : Armin Lorenzana MD Anesthesiologist Attending : Ribbon Tier : Armin Lorenzana MD Approver2 : Report Date : 02/23/2017 18:05:19 My Comment : PROCEDURE: CT Chest without contrast HISTORY: eval for Pneumonia COMPARISON: February 21, 2017. Two-view chest TECHNIQUE: Contiguous axial images were obtained through the chest without intravenous contrast enhancement. Sagittal and coronal reconstructions were performed. Radiation dose (DLP): 1255.68 mGy-cm. This CT exam was performed using one or more of the following dose reduction techniques: Automated exposure control, adjustment of the mA and/or kV according to patient size, and/or use of iterative reconstruction technique. FINDINGS: LUNGS: Bilateral lower lobe infiltrates right greater than left. Basilar/dependent atelectasis suggests perhaps aspiration pneumonia. MEDIASTINUM: Unremarkable thoracic aorta. No aneurysm. No radiographic findings to suggest acute or significant cardiovascular disease. Main pulmonary artery unremarkable. No vascular congestion. No lymphadenopathy. PLEURA: No pleural fluid. No pneumothorax. BONES: No fracture. No destructive lesion. UPPER ABDOMEN: Grossly unremarkable. OTHER FINDINGS: None. IMPRESSION: Bilateral lower lobe infiltrates right greater than left. No Assessment & Plan (1) Pneumonia Status: Acute (2) SIRS (systemic inflammatory response syndrome) Status: Acute (3) Schizophrenia Status: Acute (4) Leukocytosis Status: Acute - Assessment and Plan (Free Text) Assessment: A/P- 77 year old female with COPD, schizophrenia admitted with fever, leukocytosis and rhonchi found to have pneumonia on chest CT . afebrile now but had fever of 102 in ed. leukocytosis with left shift. chest ct reported as b/l lower lobe infiltrates. plan- check sputum cx. r/o legionell and mycoplasma. check blood cx x 2. monitor aspiration precautions. advise to continue with IV vancomycin to cover for possible MRSA. advise to d/c zosyn and place on meropenem for broader Gram neg coverage. advise to add zithromax as well to cover for atypicals. Thank you fro allowing met o take part in the care of this patient. will f/u inpatient.
--- NOTE | 2017-02-23 12:49 | PQF GENQUE ---
This form is a permanent part of the medical record 02/23/17 Dr. Escobar, Please clarify the type of atrial fibrillation if known. Documentation of a history of atrial fibrillation. EKG: Sinus tachycardia, possible LA enlargement, nonspecific T wave abnormality. Medications include: Coumadin, Cardizem, Multaq Clarification of your documentation is requested to better reflect the severity of illness and intensity of treatment of your patient. Indicators present PHYSICIAN'S RESPONSE Paroxysmal A fib Please clarify the type of atrial fibrillation: [] Chronic [] Paroxysmal [] Permanent [] Persistent [] Other (please specify type) [] Clinically unable to determine [] Unknown Based on your medical judgment of the clinical indicators outlined above please clarify the following: [] Practitioner response [] If unable to determine, please check the box, sign and date. Present On Admission (POA) Indicator: [] Present at the time of admission [] Not present at the time of admission [] Clinically Undetermined In responding to this query, please exercise your independent professional judgment. The fact that a question is asked does not imply that any particular answer is desired or expected. Thank you for your clarification on this documentation. If you have any questions please call:ext [phone] * Thank you, Alice Irizarry RN [facility]
--- NOTE | 2017-02-23 18:11 | CT ---
PROCEDURE: CT Chest without contrast HISTORY: eval for Pneumonia COMPARISON: February 21, 2017. Two-view chest TECHNIQUE: Contiguous axial images were obtained through the chest without intravenous contrast enhancement. Sagittal and coronal reconstructions were performed. Radiation dose (DLP): 1255.68 mGy-cm. This CT exam was performed using one or more of the following dose reduction techniques: Automated exposure control, adjustment of the mA and/or kV according to patient size, and/or use of iterative reconstruction technique. FINDINGS: LUNGS: Bilateral lower lobe infiltrates right greater than left. Basilar/dependent atelectasis suggests perhaps aspiration pneumonia. MEDIASTINUM: Unremarkable thoracic aorta. No aneurysm. No radiographic findings to suggest acute or significant cardiovascular disease. Main pulmonary artery unremarkable. No vascular congestion. No lymphadenopathy. PLEURA: No pleural fluid. No pneumothorax. BONES: No fracture. No destructive lesion. UPPER ABDOMEN: Grossly unremarkable. OTHER FINDINGS: None. IMPRESSION: Bilateral lower lobe infiltrates right greater than left. No
[2017-02-23] MEDS: Meropenem 1 GM in Sodium Chloride 0.9% 100 ML IVPB SCH (22:05)
[2017-02-24] MEDS: methylPREDNISolone 60 MG in Sodium Chloride 0.9% 50 ML IVPB SCH ×3 (00:14→21:17)
[2017-02-24] MEDS: Meropenem 1 GM in Sodium Chloride 0.9% 100 ML IVPB SCH ×3 (00:49→16:00)
[2017-02-24] MEDS: Levothyroxine 25 MCG TAB PO SCH (06:50)
--- NOTE | 2017-02-24 07:00 | PQF GENQUE ---
This form is a permanent part of the medical record 02/24/17 Dr. Escobar, After workup would you please clarify the possible type/ organism ( causing) of pneumonia if known. Admitted with sob, cough and elevated WBC from geropsych unit. CT chest bilateral pneumonia. WBC 19.3, Febrile. Medications include: Merrem and Vancomycin. 1. Please specify type of pneumonia in the progress notes: Aspiration pneumonia Please document specific aspirate (food, liquids, etc.) [place] (please indicate specific cause) Please indicate if this is postprocedural Bacterial (specify organism) Bronchopneumonia (specify organism) Interstitual pneumonia Organizing pneumonia/BOOP Pneumonia with influenza, [place]onne flu, or H1N1 flu RSV pneumonia Tuberculosis, pulmonary Viral pneumonia Other pneumonia (specify organism or type) Clinically unable to determine Unknown Note: Probable and suspected conditions can be coded as if they exist if still documented at the time of discharge. 2. Sputum culture grew . Please document the causal relationship to the pneumonia being treated. 3. Please specify the organism causing the pneumonia Note: CAP, HAP, and HCAP indicate where the pneumonia was acquired, not a specific type. Clarification of your documentation is requested to better reflect the severity of illness and intensity of treatment of your patient. PHYSICIAN'S RESPONSE Suspected Aspiration Pneumonia Based on your medical judgment of the clinical indicators outlined above please clarify the following: [] Practitioner response [] If unable to determine, please check the box, sign and date. Present On Admission (POA) Indicator: [] Present at the time of admission [] Not present at the time of admission [] Clinically Undetermined In responding to this query, please exercise your independent professional judgment. The fact that a question is asked does not imply that any particular answer is desired or expected. Thank you for your clarification on this documentation. If you have any questions please call:ext [phone] * Thank you, Alice Irizarry RN [facility]
[2017-02-24 07:22] LABS: BASO % 0.1 % (0.0-2.0); HEMOGLOBIN 11.3 g/dL (12.0-16.0); LYMPH % 6.4 % (20.0-40.0); MEAN CORPUSCULAR HEMOGLOBIN 30.1 pg (27.0-31.0); MEAN CORPUSCULAR HGB CONC 32.7 g/dL (33.0-37.0); MEAN PLATELET VOLUME 8.2 fl (7.2-11.7); MONO # 0.3 K/uL (0.0-0.8); MONO % 2.1 % (0.0-10.0); NEUT # 14.5 K/uL (1.8-7.0); NEUT % 91.4 % (50.0-75.0); PLATELET COUNT 362 K/uL (130-400); RBC 3.76 Mil/uL (3.80-5.20); RED CELL DISTRIBUTION WIDTH 15.4 % (11.5-14.5); WHITE BLOOD COUNT 15.9 K/uL (4.8-10.8)
[2017-02-24 07:30] LABS: ALB/GLOB RATIO 1.5 (1.0-2.1); ALBUMIN 3.8 g/dL (3.5-5.0); ALT/SGPT 47 U/L (9-52); AST/SGOT 33 U/L (14-36); BLOOD UREA NITROGEN 28 mg/dl (7-17); CALCIUM 9.5 mg/dL (8.4-10.2); GFR AFRICAN-AMERICAN > 60; GFR NON-AFRICAN AMERICAN > 60
[2017-02-24] MEDS: Albuterol 0.083% Inhal Sol (2.5 mg/3 mL) UD INH SCH ×3 (07:30→19:31)
[2017-02-24] MEDS ORDERED: Potassium CL 10mEq/100ml 100 ML IVPB SCH (08:00)
[2017-02-24] MEDS: Fluticasone-Salmeterol 250-50mcg Diskus IH SCH (09:10)
[2017-02-24] MEDS: Metoprolol Succinate 25 mg XL Tab PO SCH (09:12)
[2017-02-24 09:38] LABS: LYMPHOCYTE 4 % (20-50); MONOCYTE 1 % (0-10); NEUTROPHIL 95 % (42-75); TOTAL CELLS COUNTED 100
[2017-02-24 09:39] LABS: ANISOCYTOSIS SLIGHT; HYPOCHROMIC SLIGHT; LARGE PLATELETS PRESENT; OVALOCYTES SLIGHT; PLATELET ESTIMATE NORMAL (NORMAL); POIKILOCYTOSIS SLIGHT; SCHISTOCYTES SLIGHT; TEARDROP CELLS SLIGHT
[2017-02-24 09:40] LABS: INR 4.7 (0.9-1.2); PROTHROMBIN TIME 55.3 Seconds (9.8-13.1)
[2017-02-24] MEDS ORDERED: Potassium Chloride 20 mEq ER Tab PO ONE (09:45)
[2017-02-24] MEDS ORDERED: Potassium Chloride 20 mEq/15 ml LIQ UD PO ONE (10:19)
--- NOTE | 2017-02-24 11:56 | CP.PCM.PN ---
Subjective - Date & Time of Evaluation Date of Evaluation: 02/24/17 Time of Evaluation: 10:30 - Subjective Subjective: No fever for more than 24 hours still with cough denies SOB voice tremulous prob related to Psych med Pt is alert, oriented to person answers simple questions however at times just suddenly cries Denies CP No abd pain Objective - Vital Signs/Intake and Output Vital Signs (last 24 hours): Temp Pulse Resp BP Pulse Ox 97.8 F 89 18 116/69 95 02/24/17 08:16 02/24/17 09:12 02/24/17 08:16 02/24/17 09:12 02/24/17 10:39 - Medications Medications: Current Medications Albuterol Sulfate (Albuterol 0.083% Inhal Sybil (2.5 Mg/3 Ml) Ud) 2.5 mg INH RTID [facility] Last Admin: 02/24/17 07:30 Dose: 2.5 mg Clozapine (Clozaril) 100 mg PO DAILY [facility] Last Admin: 02/24/17 09:11 Dose: 100 mg Clozapine (Clozaril) 200 mg PO HS [facility] Last Admin: 02/23/17 21:58 Dose: 200 mg Diltiazem HCl (Cardizem) 120 mg PO BID [facility] Last Admin: 02/24/17 09:11 Dose: 120 mg Dronedarone (Multaq) 400 mg PO BID [facility] Last Admin: 02/24/17 09:12 Dose: 400 mg Furosemide (Lasix) 20 mg PO DAILY [facility] Last Admin: 02/24/17 09:11 Dose: 20 mg Vancomycin HCl 1 gm/ Sodium (Chloride) 250 mls @ 250 mls/hr IVPB Q12H [facility] Last Admin: 02/24/17 03:52 Dose: 250 mls/hr Meropenem 1 gm/ Sodium (Chloride) 100 mls @ 100 mls/hr IVPB Q8 [facility] Last Admin: 02/24/17 09:14 Dose: 100 mls/hr Methylprednisolone 60 mg/ (Sodium Chloride) 50 mls @ 100 mls/hr IVPB Q12 [facility] Last Admin: 02/24/17 09:13 Dose: 100 mls/hr Levothyroxine Sodium (Synthroid) 25 mcg PO DAILY@0630 [facility] Last Admin: 02/24/17 06:50 Dose: 25 mcg Lorazepam (Ativan) 0.5 mg PO Q8 PRN PRN Reason: Anxiety Last Admin: 02/24/17 00:09 Dose: 0.5 mg Lorazepam (Ativan) 0.5 mg IM Q8 PRN PRN Reason: Agitation Last Admin: 02/23/17 22:06 Dose: 0.5 mg Metoprolol Succinate (Toprol Xl) 25 mg PO DAILY [facility] Last Admin: 02/24/17 09:12 Dose: 25 mg - Labs Labs: 02/24/17 06:05 02/24/17 06:10 PT 55.3 Seconds (9.8-13.1) H* 02/24/17 09:05 INR 4.7 (0.9-1.2) H D 02/24/17 09:05 APTT 36.2 Seconds (25.6-37.1) 02/23/17 04:40 - Constitutional Appears: Chronically Ill - Head Exam Head Exam: NORMAL INSPECTION, NORMOCEPHALIC - Eye Exam Eye Exam: EOMI, Normal appearance Pupil Exam: NORMAL ACCOMMODATION - ENT Exam ENT Exam: Mucous Membranes Moist, Normal External Ear Exam - Neck Exam Neck Exam: Full ROM. absent: Meningismus - Respiratory Exam Respiratory Exam: + Rales, Rhonchi, Wheezes. absent: Respiratory Distress - Cardiovascular Exam Cardiovascular Exam: REGULAR RHYTHM, +S1, +S2 - GI/Abdominal Exam GI & Abdominal Exam: Soft, Normal Bowel Sounds. absent: Tenderness - Extremities Exam Extremities Exam: Normal Capillary Refill. absent: Calf Tenderness, Pedal Edema - Back Exam Back Exam: absent: CVA tenderness (L), CVA tenderness (R) - Neurological Exam Neurological Exam: Alert, Awake Additional comments: oriented to person and place moves all extremities voice very tremulous ( Parkinson like ? SE of Psych med) - Psychiatric Exam Psychiatric exam: Agitated - Skin Skin Exam: Dry, Normal Color, Warm Assessment and Plan (1) Sepsis due to pneumonia Status: Acute (2) Aspiration pneumonia Status: Suspected (3) Elevated INR (international normalized ratio) due to prior anticoagulant medication ingestion Status: Acute (4) Paroxysmal atrial fibrillation Status: Chronic (5) HTN (hypertension) Status: Chronic (6) Schizophrenia Status: Chronic (7) COPD with acute exacerbation Status: Acute (8) Supratherapeutic INR Status: Acute (9) Hypothyroidism Status: Chronic - Assessment and Plan (Free Text) Assessment: 77F PMH AFIB, HLD, hypothyroid, COPD, schizophrenia was initially admitted to [facility] for worsening paranoia and psychosis. Patient is poor historian, unable to give history due to psychiatric condition. Per nursing and psychiatry team, patient has been worsening clinically with cough and congestion, and today patient mental status became altered as she became increasingly agitated, delusional. WBC was elevated, +rhonchi on physical exam, in ER , pt febrile 101.2 rectally, tachycardic 110. CXR Pt received steroids and breathing treatments with some improvement. Patient admitted for sepsis due to pneumonia. Zosyn and Vanc started in ER. Sepsis 2/2 Pneumonia ( bilateral LL) prob Aspiration PNA on admission, Febrile 101.2, Tachycardic 110, WBC elevated, +rales and rhonchi lactate was neg CXR : neg cont Vanco and Meropenem ID consult : Dr Oliveira CT of the chest: bilateral lower lobe infiltrates Speech for Swallow eval Pulmonary consult: Dr Sandoval COPD Exacerbation Bronchodilators Solumedrol 60 q8h - decrease to q 12 repeat labs in AM A. FIB, Paroxysmal , rate controlled Toprol 25 mg po daily Diltiazem 120 mg po BID Hold Coumadin due to elevated level Supratherapeutic INR on Coumadin hold Coumadin no signs of bleeding monitor INR Hypothyroid Low TSH rpt in am with bT4 level Pt on Levothyroxine- decrease dose to 12.5 mg daily Schizophrenia cont clozaril Psychiatry consulted
--- NOTE | 2017-02-24 13:37 | CP.PCM.CON ---
History of Present Illness - History of Present Illness History of Present Illness: CC: COPD Exacerbation, PNA. 77 y/o F, seen in Pulmonary Consultation for moderate SOB associated to productive cough, chest congestion on DOA, with no relief. Pt was admitted in Psychiatric Unit for Schizophrenia on 02/15/17 and on 02/22/17 AM Pt began with new onset of present illness, eventually was sent to ER and after evaluation was admitted to Telemetry floor. Worsening symptoms: On evaluation WBC were elevated in 19.3, TMAx: 101.2 HR: 110. EKG + for Tachycardia and CT Chest showing PNA b/l. Also Hx of COPD/Asthma , former smoker. Aggravated factor: Pt poor historian, unable to cooperate with clinical information 2nd to psychiatric disorders. No: Fever, chills, n/v/d, abdominal pain, syncope, CP, LOC, sick contact. PMHx: COPD,HTN, A Fib, HLD, Hypothyroidism, E. Reflux, Anxiety, Schizophrenia, Seizure, Hx L TKR, Breast Ca, and Colon Ca. CT chest: LLL infiltrate b/l R > L. Review of Systems - Review of Systems Systems not reviewed;Unavailable: Acuity of Condition (Schyzophrenia, Paranoia) , Respiratory Distress Past Patient History - Tetanus Immunizations Tetanus Immunization: Unknown - Past Medical History & Family History Pertinent Family History: Unknown - Past Social History Smoking Status: Former Smoker Alcohol: None Drugs: Denies Home Situation {Lives}: With Family - CARDIAC Hx Cardiac Disorders: Yes Hx Atrial Fibrillation: Yes Hx Hypercholesterolemia: Yes Hx Hypertension: Yes - PULMONARY Hx Respiratory Disorders: Yes Hx Asthma: Yes Hx Chronic Obstructive Pulmonary Disease (COPD): Yes - NEUROLOGICAL Hx Neurological Disorder: Yes Hx Seizures: Yes - HEENT Hx HEENT Problems: No - RENAL Hx Chronic Kidney Disease: No - ENDOCRINE/METABOLIC Hx Endocrine Disorders: Yes Hx Hypothyroidism: Yes - HEMATOLOGICAL/ONCOLOGICAL Hx Blood Disorders: Yes Hx Cancer: Yes (breast and colon) - INTEGUMENTARY Hx Dermatological Problems: No - MUSCULOSKELETAL/RHEUMATOLOGICAL Hx Musculoskeletal Disorders: No Hx Falls: No - GASTROINTESTINAL Hx Gastrointestinal Disorders: Yes Hx Gastroesophageal Reflux: Yes - GENITOURINARY/GYNECOLOGICAL Hx Genitourinary Disorders: Yes Hx Incontinence: Yes - PSYCHIATRIC Hx Psychophysiologic Disorder: Yes Hx Anxiety: Yes Hx Schizophrenia: Yes - SURGICAL HISTORY Hx Surgeries: Yes Hx Appendectomy: Yes Hx Cholecystectomy: Yes - ANESTHESIA Hx Anesthesia: Yes Hx Anesthesia Reactions: No Meds Allergies/Adverse Reactions: Allergies Allergy/AdvReac Type Severity Reaction Status Date / Time No Known Allergies Allergy Verified 02/22/17 13:39 - Medications Medications: Current Medications Albuterol Sulfate (Albuterol 0.083% Inhal Sybil (2.5 Mg/3 Ml) Ud) 2.5 mg INH RTID [facility] Last Admin: 02/24/17 07:30 Dose: 2.5 mg Clozapine (Clozaril) 100 mg PO DAILY [facility] Last Admin: 02/24/17 09:11 Dose: 100 mg Clozapine (Clozaril) 200 mg PO HS [facility] Last Admin: 02/23/17 21:58 Dose: 200 mg Diltiazem HCl (Cardizem) 120 mg PO BID [facility] Last Admin: 02/24/17 09:11 Dose: 120 mg Dronedarone (Multaq) 400 mg PO BID [facility] Last Admin: 02/24/17 09:12 Dose: 400 mg Furosemide (Lasix) 20 mg PO DAILY [facility] Last Admin: 02/24/17 09:11 Dose: 20 mg Vancomycin HCl 1 gm/ Sodium (Chloride) 250 mls @ 250 mls/hr IVPB Q12H [facility] Last Admin: 02/24/17 03:52 Dose: 250 mls/hr Meropenem 1 gm/ Sodium (Chloride) 100 mls @ 100 mls/hr IVPB Q8 [facility] Last Admin: 02/24/17 09:14 Dose: 100 mls/hr Methylprednisolone 60 mg/ (Sodium Chloride) 50 mls @ 100 mls/hr IVPB Q12 [facility] Last Admin: 02/24/17 09:13 Dose: 100 mls/hr Levothyroxine Sodium (Synthroid) 25 mcg PO DAILY@0630 [facility] Last Admin: 02/24/17 06:50 Dose: 25 mcg Lorazepam (Ativan) 0.5 mg PO Q8 PRN PRN Reason: Anxiety Last Admin: 02/24/17 00:09 Dose: 0.5 mg Lorazepam (Ativan) 0.5 mg IM Q8 PRN PRN Reason: Agitation Last Admin: 02/23/17 22:06 Dose: 0.5 mg Metoprolol Succinate (Toprol Xl) 25 mg PO DAILY [facility] Last Admin: 02/24/17 09:12 Dose: 25 mg Physical Exam - Constitutional Appears: Agitated, Confused, Chronically Ill - Head Exam Head Exam: NORMAL INSPECTION - Eye Exam Eye Exam: PERRL - ENT Exam ENT Exam: Normal Oropharynx - Neck Exam Neck exam: Positive for: Normal Inspection - Respiratory Exam Respiratory Exam: Decreased Breath Sounds, Rales, Rhonchi (b/l) - Cardiovascular Exam Cardiovascular Exam: REGULAR RHYTHM - GI/Abdominal Exam GI & Abdominal Exam: Normal Bowel Sounds, Soft - Extremities Exam Extremities exam: Positive for: normal inspection - Neurological Exam Additional comments: Alert x 1, Awake, confused, moves all extremities, incomprehensible speech. - Psychiatric Exam Psychiatric exam: Agitated - Skin Skin Exam: Warm Results - Vital Signs Recent Vital Signs: Last Vital Signs Temp 98.1 F 02/24/17 12:27 Pulse 107 H 02/24/17 12:27 Resp 18 02/24/17 12:27 BP 125/63 02/24/17 12:27 Pulse Ox 97 02/24/17 12:27 reviewed Florentino - Labs Result Diagrams: 02/25/17 07:00 02/25/17 07:00 Labs: Laboratory Results - last 24 hr 02/23/17 02/24/17 02/24/17 20:55 06:05 06:10 WBC 15.9 H RBC 3.76 L Hgb 11.3 L Hct 34.6 MCV 92.0 MCH 30.1 MCHC 32.7 L RDW 15.4 H Plt Count 362 MPV 8.2 Neut % (Auto) 91.4 H Lymph % (Auto) 6.4 L [place] % (Auto) 2.1 Eos % (Auto) 0.0 Baso % (Auto) 0.1 Neut # 14.5 H Lymph # 1.0 [place] # 0.3 Eos # 0.0 Baso # 0.0 Neutrophils % (Manual) 95 H Lymphocytes % (Manual) 4 L Monocytes % (Manual) 1 Platelet Estimate Normal Large Platelets Present Hypochromasia (manual) Slight Poikilocytosis (manual Slight Anisocytosis (manual) Slight Tear Drop Cells Slight Ovalocytes Slight Schistocytes Slight PT INR Sodium 149 H Potassium 3.4 L Chloride 111 H Carbon Dioxide 30 Anion Gap 11 BUN 28 H Creatinine 0.9 Est GFR ( Amer) > 60 Est GFR (Non-Af Amer) > 60 Random Glucose 148 H Calcium 9.5 Total Bilirubin 0.7 AST 33 ALT 47 Alkaline Phosphatase 94 Total Protein 6.5 Albumin 3.8 Globulin 2.6 Albumin/Globulin Ratio 1.5 TSH 3rd Generation 0.34 L Vancomycin Trough 20.6 H 02/24/17 09:05 WBC RBC Hgb Hct MCV MCH MCHC RDW Plt Count MPV Neut % (Auto) Lymph % (Auto) [place] % (Auto) Eos % (Auto) Baso % (Auto) Neut # Lymph # [place] # Eos # Baso # Neutrophils % (Manual) Lymphocytes % (Manual) Monocytes % (Manual) Platelet Estimate Large Platelets Hypochromasia (manual) Poikilocytosis (manual Anisocytosis (manual) Tear Drop Cells Ovalocytes Schistocytes PT 55.3 H* INR 4.7 H D Sodium Potassium Chloride Carbon Dioxide Anion Gap BUN Creatinine Est GFR ( Amer) Est GFR (Non-Af Amer) Random Glucose Calcium Total Bilirubin AST ALT Alkaline Phosphatase Total Protein Albumin Globulin Albumin/Globulin Ratio TSH 3rd Generation Vancomycin Trough reviewed J.P. - EKG Data EKG comments: reviewed J.P. - Imaging and Cardiology Chest x-ray Status: Report reviewed by me (J.P.) CT scan - chest Status: Report reviewed by me (Juvenal.P.) Assessment & Plan (1) Pneumonia Status: Acute Priority: High (2) COPD with acute exacerbation Status: Acute Priority: High - Assessment and Plan (Free Text) Plan: Agree with current abx coverage, continue NC 2 L/M, Solumedrol and current Tx. - Date & Time Date: 02/24/17 Time: 10:30
[2017-02-25] MEDS: Meropenem 1 GM in Sodium Chloride 0.9% 100 ML IVPB SCH ×3 (01:22→16:38)
[2017-02-25] MEDS: Levothyroxine 25 MCG TAB PO SCH (06:26)
[2017-02-25 07:38] LABS: BASO % 0.1 % (0.0-2.0); HEMOGLOBIN 11.8 g/dL (12.0-16.0); LYMPH # 0.8 K/uL (1.0-4.3); LYMPH % 6.8 % (20.0-40.0); MEAN CELL VOLUME 92.4 fl (81.0-99.0); MEAN CORPUSCULAR HEMOGLOBIN 29.7 pg (27.0-31.0); MEAN CORPUSCULAR HGB CONC 32.1 g/dL (33.0-37.0); MEAN PLATELET VOLUME 8.1 fl (7.2-11.7); MONO # 0.3 K/uL (0.0-0.8); MONO % 2.8 % (0.0-10.0); NEUT # 10.6 K/uL (1.8-7.0); NEUT % 90.3 % (50.0-75.0); NRBC % 0.1 % (0.0-0.0); PLATELET COUNT 376 K/uL (130-400); RBC 3.99 Mil/uL (3.80-5.20); RED CELL DISTRIBUTION WIDTH 15.8 % (11.5-14.5); WHITE BLOOD COUNT 11.8 K/uL (4.8-10.8)
[2017-02-25] MEDS: Albuterol 0.083% Inhal Sol (2.5 mg/3 mL) UD INH SCH ×3 (07:45→20:36)
[2017-02-25 07:52] LABS: ALB/GLOB RATIO 1.5 (1.0-2.1); ALBUMIN 3.8 g/dL (3.5-5.0); ALT/SGPT 64 U/L (9-52); AST/SGOT 54 U/L (14-36); BLOOD UREA NITROGEN 35 mg/dl (7-17); CALCIUM 9.9 mg/dL (8.4-10.2); GFR AFRICAN-AMERICAN > 60; GFR NON-AFRICAN AMERICAN > 60
[2017-02-25 07:57] LABS: T4 7.66 ug/dl (5.5-11.0)
[2017-02-25 08:10] LABS: T3 0.611 nmol/L (1.49-2.60)
[2017-02-25] MEDS: methylPREDNISolone 60 MG in Sodium Chloride 0.9% 50 ML IVPB SCH ×2 (08:30→20:55)
[2017-02-25] MEDS ORDERED: Dextrose 5%/0.9% NS 1,000 ML IV SCH (09:30)
[2017-02-25 09:38] LABS: INR 4.8 (0.9-1.2)
[2017-02-25 09:41] LABS: PROTHROMBIN TIME 55.6 Seconds (9.8-13.1)
[2017-02-25] MEDS: Metoprolol Succinate 25 mg XL Tab PO SCH ×2 (09:53→10:34)
[2017-02-25] MEDS ORDERED: Flumazenil 0.1 mg/ml Inj (5ml) IVP ONE ×3 (10:12→20:13)
--- NOTE | 2017-02-25 10:13 | CP.PCM.PN ---
Subjective - Date & Time of Evaluation Date of Evaluation: 02/25/17 Time of Evaluation: 09:00 - Subjective Subjective: No fever pt was noted to be very lethargic by RN responds only to pain with eye opening, moves all ext- Romazicon gievn and pt woke up + cough Objective - Vital Signs/Intake and Output Vital Signs (last 24 hours): Temp Pulse Resp BP Pulse Ox 98.2 F 89 18 122/79 93 L 02/25/17 08:09 02/25/17 08:09 02/25/17 08:09 02/25/17 08:09 02/25/17 08:09 Intake and Output: 02/25/17 02/25/17 06:59 18:59 Intake Total 1050 Balance 1050 - Medications Medications: Current Medications Albuterol Sulfate (Albuterol 0.083% Inhal Sybil (2.5 Mg/3 Ml) Ud) 2.5 mg INH RTID [facility] Last Admin: 02/25/17 07:45 Dose: 2.5 mg Clozapine (Clozaril) 100 mg PO DAILY [facility] Last Admin: 02/25/17 09:52 Dose: Not Given Clozapine (Clozaril) 200 mg PO HS [facility] Last Admin: 02/24/17 21:18 Dose: 200 mg Diltiazem HCl (Cardizem) 120 mg PO BID [facility] Last Admin: 02/25/17 09:52 Dose: Not Given Dronedarone (Multaq) 400 mg PO BID [facility] Last Admin: 02/25/17 09:53 Dose: Not Given Furosemide (Lasix) 20 mg PO DAILY [facility] Last Admin: 02/25/17 09:52 Dose: Not Given Vancomycin HCl 1 gm/ Sodium (Chloride) 250 mls @ 250 mls/hr IVPB Q12H [facility] Last Admin: 02/25/17 04:13 Dose: Not Given Meropenem 1 gm/ Sodium (Chloride) 100 mls @ 100 mls/hr IVPB Q8 [facility] Last Admin: 02/25/17 09:53 Dose: 100 mls/hr Methylprednisolone 60 mg/ (Sodium Chloride) 50 mls @ 100 mls/hr IVPB Q12 [facility] Last Admin: 02/25/17 08:30 Dose: 100 mls/hr Dextrose (Dextrose 5% In Water 1000 Ml) 1,000 mls @ 125 mls/hr IV .Q8H [facility] Stop: 02/25/17 17:41 Levothyroxine Sodium (Synthroid) 12.5 mcg PO DAILY@0630 [facility] Last Admin: 02/25/17 06:26 Dose: 12.5 mcg Lorazepam (Ativan) 0.5 mg PO Q8 PRN PRN Reason: Anxiety Last Admin: 02/24/17 00:09 Dose: 0.5 mg Lorazepam (Ativan) 0.5 mg IM Q8 PRN PRN Reason: Agitation Last Admin: 02/24/17 20:12 Dose: 0.5 mg Metoprolol Succinate (Toprol Xl) 25 mg PO DAILY [facility] Last Admin: 02/25/17 09:53 Dose: Not Given - Labs Labs: 02/25/17 07:00 02/25/17 07:00 PT 55.6 Seconds (9.8-13.1) H* 02/25/17 08:20 INR 4.8 (0.9-1.2) H 02/25/17 08:20 APTT 36.2 Seconds (25.6-37.1) 02/23/17 04:40 Assessment and Plan (1) Sepsis due to pneumonia Status: Acute (2) Aspiration pneumonia Status: Deleted (3) Elevated INR (international normalized ratio) due to prior anticoagulant medication ingestion Status: Acute (4) Paroxysmal atrial fibrillation Status: Chronic (5) HTN (hypertension) Status: Chronic (6) Schizophrenia Status: Chronic (7) COPD with acute exacerbation Status: Acute (8) Supratherapeutic INR Status: Acute (9) Hypothyroidism Status: Chronic - Assessment and Plan (Free Text) Assessment: - Constitutional Appears: Chronically Ill, - Head Exam Head Exam: NORMAL INSPECTION, NORMOCEPHALIC - Eye Exam Eye Exam: EOMI, Normal appearance Pupil Exam: NORMAL ACCOMMODATION - ENT Exam ENT Exam: Mucous Membranes Moist, Normal External Ear Exam - Neck Exam Neck Exam: Full ROM. absent: Meningismus - Respiratory Exam Respiratory Exam: + Rales, Rhonchi, Wheezes. absent: Respiratory Distress - Cardiovascular Exam Cardiovascular Exam: REGULAR RHYTHM, +S1, +S2 - GI/Abdominal Exam GI & Abdominal Exam: Soft, Normal Bowel Sounds. absent: Tenderness - Extremities Exam Extremities Exam: Normal Capillary Refill. absent: Calf Tenderness, Pedal Edema - Back Exam Back Exam: absent: CVA tenderness (L), CVA tenderness (R) - Neurological Exam Neurological Exam: Alert, Awake Additional comments: oriented to person and place moves all extremities voice very tremulous ( Parkinson like ? SE of Psych med) - Psychiatric Exam Psychiatric exam: Agitated - Skin Skin Exam: Dry, Normal Color, Warm 77F PMH AFIB, HLD, hypothyroid, COPD, schizophrenia was initially admitted to [facility] for worsening paranoia and psychosis. Patient is poor historian, unable to give history due to psychiatric condition. Per nursing and psychiatry team, patient has been worsening clinically with cough and congestion, and today patient mental status became altered as she became increasingly agitated, delusional. WBC was elevated, +rhonchi on physical exam, in ER , pt febrile 101.2 rectally, tachycardic 110. CXR Pt received steroids and breathing treatments with some improvement. Patient admitted for sepsis due to pneumonia. Zosyn and Vanc started in ER. Sepsis 2/2 Pneumonia ( bilateral LL) prob Aspiration PNA on admission, Febrile 101.2, Tachycardic 110, WBC elevated, +rales and rhonchi lactate was neg CXR : neg cont Vanco and Meropenem ID consult : Dr Oliveira CT of the chest: bilateral lower lobe infiltrates Speech for Swallow eval - rec Pureed diet and to do Mod Barium Swallow Pulmonary consult: Dr Sandoval COPD Exacerbation Bronchodilators Solumedrol 60 q8h - decrease to q 12 repeat labs in AM A. FIB, Paroxysmal , rate controlled Toprol 25 mg po daily Diltiazem 120 mg po BID Hold Coumadin due to elevated level Supratherapeutic INR on Coumadin hold Coumadin no signs of bleeding monitor INR Hypothyroid Low TSH Pt on Levothyroxine- decrease dose to 12.5 mg daily Schizophrenia cont clozaril Psychiatry consulted Episode of Unresponsiveness sec to Ativan Pt noted to be very lethargic, responds to pain by eye opening received IV Ativan 2x last night Romazicon 0.2 mg given and pt woke up CT of head- neg bleed
[2017-02-25 10:46] LABS: ANISOCYTOSIS SLIGHT; LYMPHOCYTE 6 % (20-50); MONOCYTE 3 % (0-10); NEUTROPHIL 91 % (42-75); PLATELET ESTIMATE NORMAL (NORMAL); TOTAL CELLS COUNTED 100
[2017-02-25 10:47] LABS: HYPOCHROMIC SLIGHT; OVALOCYTES SLIGHT; POIKILOCYTOSIS SLIGHT; SCHISTOCYTES SLIGHT; TEARDROP CELLS SLIGHT
--- NOTE | 2017-02-25 12:19 | CT ---
PROCEDURE: CT HEAD WITHOUT CONTRAST. HISTORY: AMS, on Coumadin, r/o bleed COMPARISON: None available. TECHNIQUE: Axial computed tomography images were obtained through the head/brain without intravenous contrast. Radiation dose: Total exam DLP = 819.73 mGy-cm. This CT exam was performed using one or more of the following dose reduction techniques: Automated exposure control, adjustment of the mA and/or kV according to patient size, and/or use of iterative reconstruction technique. FINDINGS: HEMORRHAGE: No intracranial hemorrhage. BRAIN: No mass effect or edema. Moderate age-appropriate diffuse atrophy. Mild to moderate periventricular white matter lucency consistent with chronic microvascular ischemic change. No evidence of acute infarct. Please note that evaluation of the posterior fossa is limited due to patient motion and beam hardening artifact. VENTRICLES: Unremarkable. No hydrocephalus. CALVARIUM: Status post right occipital craniectomy. PARANASAL SINUSES: Large left maxillary retention cyst/polyp. MASTOID AIR CELLS: Unremarkable as visualized. No inflammatory changes. OTHER FINDINGS: None. IMPRESSION: No intracranial mass, hemorrhage or evidence of acute infarct. Age related involutional change. Limited evaluation of posterior fossa due to patient motion and beam hardening artifact. Status post right occipital craniectomy. Left maxillary retention cyst/polyp.
--- NOTE | 2017-02-25 14:18 | CP.PCM.PN ---
Subjective - Date & Time of Evaluation Date of Evaluation: 02/25/17 Time of Evaluation: 14:18 - Subjective Subjective: ID Note- Pt. seen and examined today. no new events overnight. resting in bed . Objective - Vital Signs/Intake and Output Vital Signs (last 24 hours): Temp Pulse Resp BP Pulse Ox 98.3 F 88 20 102/60 95 02/25/17 13:00 02/25/17 13:00 02/25/17 13:00 02/25/17 13:00 02/25/17 13:00 Intake and Output: 02/25/17 02/25/17 06:59 18:59 Intake Total 1050 Balance 1050 - Medications Medications: Current Medications Albuterol Sulfate (Albuterol 0.083% Inhal Sybil (2.5 Mg/3 Ml) Ud) 2.5 mg INH RTID [facility] Last Admin: 02/25/17 13:03 Dose: 2.5 mg Clozapine (Clozaril) 100 mg PO DAILY [facility] Last Admin: 02/25/17 10:33 Dose: 100 mg Clozapine (Clozaril) 200 mg PO HS [facility] Last Admin: 02/24/17 21:18 Dose: 200 mg Diltiazem HCl (Cardizem) 120 mg PO BID [facility] Last Admin: 02/25/17 10:33 Dose: 120 mg Dronedarone (Multaq) 400 mg PO BID [facility] Last Admin: 02/25/17 10:34 Dose: 400 mg Furosemide (Lasix) 20 mg PO DAILY [facility] Last Admin: 02/25/17 10:33 Dose: 20 mg Vancomycin HCl 1 gm/ Sodium (Chloride) 250 mls @ 250 mls/hr IVPB Q12H [facility] Last Admin: 02/25/17 04:13 Dose: Not Given Meropenem 1 gm/ Sodium (Chloride) 100 mls @ 100 mls/hr IVPB Q8 [facility] Last Admin: 02/25/17 09:53 Dose: 100 mls/hr Methylprednisolone 60 mg/ (Sodium Chloride) 50 mls @ 100 mls/hr IVPB Q12 [facility] Last Admin: 02/25/17 08:30 Dose: 100 mls/hr Dextrose (Dextrose 5% In Water 1000 Ml) 1,000 mls @ 125 mls/hr IV .Q8H [facility] Stop: 02/25/17 17:41 Last Admin: 02/25/17 10:43 Dose: 125 mls/hr Levothyroxine Sodium (Synthroid) 12.5 mcg PO DAILY@0630 [facility] Last Admin: 02/25/17 06:26 Dose: 12.5 mcg Lorazepam (Ativan) 0.5 mg PO Q8 PRN PRN Reason: Anxiety Last Admin: 02/24/17 00:09 Dose: 0.5 mg Lorazepam (Ativan) 0.5 mg IM Q8 PRN PRN Reason: Agitation Last Admin: 02/24/17 20:12 Dose: 0.5 mg Metoprolol Succinate (Toprol Xl) 25 mg PO DAILY [facility] Last Admin: 02/25/17 10:34 Dose: 25 mg - Labs Labs: - Additional Findings Additional findings: - Constitutional Appears: Agitated, Confused - Head Exam Head Exam: ATRAUMATIC - Eye Exam Eye Exam: EOMI - ENT Exam Additional comments: poor dentition, dry oral mucosa - Respiratory Exam Respiratory Exam: NORMAL BREATHING PATTERN Additional comments: decreased breasth sounds bibasilar no wheezing mild rhonchi - Cardiovascular Exam Cardiovascular Exam: RRR, +S1, +S2 - GI/Abdominal Exam GI & Abdominal Exam: Normal Bowel Sounds, Soft Additional comments: NT, ND - Extremities Exam Extremities exam: Positive for: normal inspection - Neurological Exam Neurological exam: awake with baseline schizophrenia Laboratory Results - last 72 hr 02/23/17 02/23/17 02/23/17 04:40 04:40 04:40 WBC 20.1 H RBC 4.15 Hgb 12.2 Hct 38.1 MCV 91.9 MCH 29.4 MCHC 32.0 L RDW 15.3 H Plt Count 359 MPV 8.0 Neut % (Auto) 94.1 H Lymph % (Auto) 3.7 L Dawes % (Auto) 1.8 Eos % (Auto) 0.0 Baso % (Auto) 0.4 Neut # 18.9 H Lymph # 0.7 L Dawes # 0.4 Eos # 0.0 Baso # 0.1 Neutrophils % (Manual) 90 H Band Neutrophils % 2 Lymphocytes % (Manual) 2 L Monocytes % (Manual) 6 Platelet Estimate Normal Large Platelets Hypochromasia (manual) Poikilocytosis (manual Anisocytosis (manual) Slight Tear Drop Cells Ovalocytes Schistocytes PT 31.8 H INR 2.8 H APTT 36.2 Sodium 147 Potassium 3.4 L Chloride 107 Carbon Dioxide 27 Anion Gap 16 BUN 24 H Creatinine 0.9 Est GFR ( Amer) > 60 Est GFR (Non-Af Amer) > 60 POC Glucose (mg/dL) Random Glucose 158 H Calcium 9.5 Total Bilirubin AST ALT Alkaline Phosphatase Total Protein Albumin Globulin Albumin/Globulin Ratio Thyroxine (T4) Total T3 TSH 3rd Generation Vancomycin Trough 02/23/17 02/23/17 02/24/17 08:30 20:55 06:05 WBC 15.9 H RBC 3.76 L Hgb 11.3 L Hct 34.6 MCV 92.0 MCH 30.1 MCHC 32.7 L RDW 15.4 H Plt Count 362 MPV 8.2 Neut % (Auto) 91.4 H Lymph % (Auto) 6.4 L Dawes % (Auto) 2.1 Eos % (Auto) 0.0 Baso % (Auto) 0.1 Neut # 14.5 H Lymph # 1.0 Dawes # 0.3 Eos # 0.0 Baso # 0.0 Neutrophils % (Manual) 95 H Band Neutrophils % Lymphocytes % (Manual) 4 L Monocytes % (Manual) 1 Platelet Estimate Normal Large Platelets Present Hypochromasia (manual) Slight Poikilocytosis (manual Slight Anisocytosis (manual) Slight Tear Drop Cells Slight Ovalocytes Slight Schistocytes Slight PT 38.7 H D INR 3.3 H APTT Sodium Potassium Chloride Carbon Dioxide Anion Gap BUN Creatinine Est GFR ( Amer) Est GFR (Non-Af Amer) POC Glucose (mg/dL) Random Glucose Calcium Total Bilirubin AST ALT Alkaline Phosphatase Total Protein Albumin Globulin Albumin/Globulin Ratio Thyroxine (T4) Total T3 TSH 3rd Generation Vancomycin Trough 20.6 H 02/24/17 02/24/17 02/24/17 06:10 09:05 17:31 WBC RBC Hgb Hct MCV MCH MCHC RDW Plt Count MPV Neut % (Auto) Lymph % (Auto) Dawes % (Auto) Eos % (Auto) Baso % (Auto) Neut # Lymph # Dawes # Eos # Baso # Neutrophils % (Manual) Band Neutrophils % Lymphocytes % (Manual) Monocytes % (Manual) Platelet Estimate Large Platelets Hypochromasia (manual) Poikilocytosis (manual Anisocytosis (manual) Tear Drop Cells Ovalocytes Schistocytes PT 55.3 H* INR 4.7 H D APTT Sodium 149 H Potassium 3.4 L Chloride 111 H Carbon Dioxide 30 Anion Gap 11 BUN 28 H Creatinine 0.9 Est GFR ( Amer) > 60 Est GFR (Non-Af Amer) > 60 POC Glucose (mg/dL) Random Glucose 148 H Calcium 9.5 Total Bilirubin 0.7 AST 33 ALT 47 Alkaline Phosphatase 94 Total Protein 6.5 Albumin 3.8 Globulin 2.6 Albumin/Globulin Ratio 1.5 Thyroxine (T4) Total T3 TSH 3rd Generation 0.34 L Vancomycin Trough 23.8 H 02/25/17 02/25/17 02/25/17 07:00 07:00 08:20 WBC 11.8 H RBC 3.99 Hgb 11.8 L Hct 36.8 MCV 92.4 MCH 29.7 MCHC 32.1 L RDW 15.8 H Plt Count 376 MPV 8.1 Neut % (Auto) 90.3 H Lymph % (Auto) 6.8 L Dawes % (Auto) 2.8 Eos % (Auto) 0.0 Baso % (Auto) 0.1 Neut # 10.6 H Lymph # 0.8 L Dawes # 0.3 Eos # 0.0 Baso # 0.0 Neutrophils % (Manual) 91 H Band Neutrophils % Lymphocytes % (Manual) 6 L Monocytes % (Manual) 3 Platelet Estimate Normal Large Platelets Hypochromasia (manual) Slight Poikilocytosis (manual Slight Anisocytosis (manual) Slight Tear Drop Cells Slight Ovalocytes Slight Schistocytes Slight PT 55.6 H* INR 4.8 H APTT Sodium 153 H Potassium 3.9 Chloride 114 H Carbon Dioxide 30 Anion Gap 13 BUN 35 H Creatinine 0.9 Est GFR ( Amer) > 60 Est GFR (Non-Af Amer) > 60 POC Glucose (mg/dL) Random Glucose 149 H Calcium 9.9 Total Bilirubin 0.7 AST 54 H D ALT 64 H D Alkaline Phosphatase 85 Total Protein 6.2 L Albumin 3.8 Globulin 2.5 Albumin/Globulin Ratio 1.5 Thyroxine (T4) 7.66 Total T3 0.611 L TSH 3rd Generation 0.26 L Vancomycin Trough 02/25/17 10:11 WBC RBC Hgb Hct MCV MCH MCHC RDW Plt Count MPV Neut % (Auto) Lymph % (Auto) Dawes % (Auto) Eos % (Auto) Baso % (Auto) Neut # Lymph # Dawes # Eos # Baso # Neutrophils % (Manual) Band Neutrophils % Lymphocytes % (Manual) Monocytes % (Manual) Platelet Estimate Large Platelets Hypochromasia (manual) Poikilocytosis (manual Anisocytosis (manual) Tear Drop Cells Ovalocytes Schistocytes PT INR APTT Sodium Potassium Chloride Carbon Dioxide Anion Gap BUN Creatinine Est GFR ( Amer) Est GFR (Non-Af Amer) POC Glucose (mg/dL) 139 H Random Glucose Calcium Total Bilirubin AST ALT Alkaline Phosphatase Total Protein Albumin Globulin Albumin/Globulin Ratio Thyroxine (T4) Total T3 TSH 3rd Generation Vancomycin Trough Microbiology 02/22/17 14:00 Blood Blood Culture - Preliminary NO GROWTH AFTER 3 DAYS 02/24/17 14:00 Urine,Catheterized Urine Culture - Final No Growth (<1,000 CFU/ML) 02/23/17 21:00 Blood-Venous Blood Culture - Preliminary NO GROWTH AFTER 24 HOURS 02/23/17 21:00 Blood-Venous Blood Culture - Preliminary NO GROWTH AFTER 24 HOURS 02/22/17 14:31 Urine,Catheterized Urine Culture - Final No Growth (<1,000 CFU/ML) Assessment and Plan (1) Pneumonia Status: Acute (2) SIRS (systemic inflammatory response syndrome) Status: Acute (3) Schizophrenia Status: Chronic (4) Leukocytosis Status: Acute - Assessment and Plan (Free Text) Assessment: A/P- 77 year old female with COPD, schizophrenia admitted with fever, leukocytosis and rhonchi found to have pneumonia on chest CT . clinically improving remains afebrile leukocytosis trending down. chest ct reported as b/l lower lobe infiltrates. blood cx- neg x 3 urine cx- neg x 2 plan- monitor aspiration precautions. advise to continue with IV vancomycin to cover for possible MRSA. day #3. however hold vanco today since trough is high. advise to continue with meropenem for broader Gram neg coverage. day $3 keep vanco trough <15. may need repeat chest CT in few days.
--- NOTE | 2017-02-25 15:33 | CP.PCM.PN ---
Subjective - Date & Time of Evaluation Date of Evaluation: 02/25/17 Time of Evaluation: 09:30 - Subjective Subjective: F/U PNA Pt lethargic, arousable, having cough during the exam. Objective - Vital Signs/Intake and Output Vital Signs (last 24 hours): Temp Pulse Resp BP Pulse Ox 98.3 F 88 20 102/60 95 02/25/17 13:00 02/25/17 13:00 02/25/17 13:00 02/25/17 13:00 02/25/17 13:00 Intake and Output: 02/25/17 02/25/17 06:59 18:59 Intake Total 1050 Balance 1050 - Medications Medications: Current Medications Albuterol Sulfate (Albuterol 0.083% Inhal Sybil (2.5 Mg/3 Ml) Ud) 2.5 mg INH RTID [facility] Last Admin: 02/25/17 13:03 Dose: 2.5 mg Clozapine (Clozaril) 100 mg PO DAILY [facility] Last Admin: 02/25/17 10:33 Dose: 100 mg Clozapine (Clozaril) 200 mg PO HS [facility] Last Admin: 02/24/17 21:18 Dose: 200 mg Diltiazem HCl (Cardizem) 120 mg PO BID [facility] Last Admin: 02/25/17 10:33 Dose: 120 mg Dronedarone (Multaq) 400 mg PO BID [facility] Last Admin: 02/25/17 10:34 Dose: 400 mg Furosemide (Lasix) 20 mg PO DAILY [facility] Last Admin: 02/25/17 10:33 Dose: 20 mg Vancomycin HCl 1 gm/ Sodium (Chloride) 250 mls @ 250 mls/hr IVPB Q12H [facility] Last Admin: 02/25/17 04:13 Dose: Not Given Meropenem 1 gm/ Sodium (Chloride) 100 mls @ 100 mls/hr IVPB Q8 [facility] Last Admin: 02/25/17 09:53 Dose: 100 mls/hr Methylprednisolone 60 mg/ (Sodium Chloride) 50 mls @ 100 mls/hr IVPB Q12 [facility] Last Admin: 02/25/17 08:30 Dose: 100 mls/hr Dextrose (Dextrose 5% In Water 1000 Ml) 1,000 mls @ 125 mls/hr IV .Q8H [facility] Stop: 02/25/17 17:41 Last Admin: 02/25/17 10:43 Dose: 125 mls/hr Levothyroxine Sodium (Synthroid) 12.5 mcg PO DAILY@0630 [facility] Last Admin: 02/25/17 06:26 Dose: 12.5 mcg Lorazepam (Ativan) 0.5 mg PO Q8 PRN PRN Reason: Anxiety Last Admin: 02/24/17 00:09 Dose: 0.5 mg Lorazepam (Ativan) 0.5 mg IM Q8 PRN PRN Reason: Agitation Last Admin: 02/24/17 20:12 Dose: 0.5 mg Metoprolol Succinate (Toprol Xl) 25 mg PO DAILY [facility] Last Admin: 02/25/17 10:34 Dose: 25 mg - Labs Labs: 02/25/17 07:00 02/25/17 07:00 PT 55.6 Seconds (9.8-13.1) H* 02/25/17 08:20 INR 4.8 (0.9-1.2) H 02/25/17 08:20 APTT 36.2 Seconds (25.6-37.1) 02/23/17 04:40 - Constitutional Appears: No Acute Distress, Chronically Ill - Head Exam Head Exam: NORMAL INSPECTION - Eye Exam Eye Exam: PERRL - ENT Exam ENT Exam: Normal Oropharynx - Neck Exam Neck Exam: Normal Inspection - Respiratory Exam Respiratory Exam: Decreased Breath Sounds, Rhonchi (b/l) - Cardiovascular Exam Cardiovascular Exam: REGULAR RHYTHM - GI/Abdominal Exam GI & Abdominal Exam: Soft, Normal Bowel Sounds - Extremities Exam Extremities Exam: Normal Inspection - Back Exam Back Exam: NORMAL INSPECTION - Neurological Exam Neurological Exam: Alert (Oriented x1, confused) Additional comments: Moves all extremities, incomprehensible speech. - Psychiatric Exam Additional comments: Calm - Skin Skin Exam: Warm Assessment and Plan (1) COPD with acute exacerbation Status: Acute (2) Pneumonia Status: Acute - Assessment and Plan (Free Text) Plan: Continue Vanco, Meropenem, Solumedrol, Albuterol and rest of Tx.
[2017-02-25] MEDS ORDERED: Dextrose 5%/0.45% NS 1,000 ML IV SCH (20:26)
[2017-02-25 22:14] LABS: ABG ALLEN TEST YES; ARTERIAL BLOOD GAS HCO3 34.3 mmol/L (21-28); ARTERIAL BLOOD GAS HEMOGLOBIN 11.8 g/dL (11.7-17.4); ARTERIAL BLOOD GAS O2 CAPACITY 16.2 mL/dL (16-24); ARTERIAL BLOOD GAS O2 CONTENT 14.9 ML/dL (15-23); ARTERIAL BLOOD GAS O2 SAT 92.2 % (95-98); ARTERIAL BLOOD GAS PCO2 46 mm/Hg (35-45); ARTERIAL BLOOD GAS PH 7.51 (7.35-7.45); ARTERIAL BLOOD GAS PO2 57 mm/Hg (80-100); ARTERIAL BLOOD GAS TCO2 38.1 mmol/L (22-28)
[2017-02-26] MEDS: Meropenem 1 GM in Sodium Chloride 0.9% 100 ML IVPB SCH ×3 (00:52→16:51)
[2017-02-26] MEDS: Levothyroxine 25 MCG TAB PO SCH (05:43)
[2017-02-26 06:57] LABS: BASO % 0.3 % (0.0-2.0); HEMOGLOBIN 11.7 g/dL (12.0-16.0); LYMPH % 6.6 % (20.0-40.0); MEAN CORPUSCULAR HEMOGLOBIN 29.7 pg (27.0-31.0); MEAN PLATELET VOLUME 8.2 fl (7.2-11.7); MONO # 0.5 K/uL (0.0-0.8); MONO % 3.8 % (0.0-10.0); NEUT # 12.8 K/uL (1.8-7.0); NEUT % 89.3 % (50.0-75.0); RBC 3.93 Mil/uL (3.80-5.20); RED CELL DISTRIBUTION WIDTH 15.4 % (11.5-14.5); WHITE BLOOD COUNT 14.3 K/uL (4.8-10.8)
[2017-02-26 07:17] LABS: ALB/GLOB RATIO 1.4 (1.0-2.1); ALBUMIN 3.3 g/dL (3.5-5.0); ALT/SGPT 116 U/L (9-52); AST/SGOT 86 U/L (14-36); BLOOD UREA NITROGEN 35 mg/dl (7-17); CALCIUM 9.3 mg/dL (8.4-10.2); GFR AFRICAN-AMERICAN > 60; GFR NON-AFRICAN AMERICAN > 60
[2017-02-26] MEDS: Albuterol 0.083% Inhal Sol (2.5 mg/3 mL) UD INH SCH ×3 (07:46→19:27)
[2017-02-26] MEDS ORDERED: Potassium Chloride 10 MEQ in Dextrose 5%/0.45% NS 1,000 ML IV SCH (08:12)
[2017-02-26] MEDS: Metoprolol Succinate 25 mg XL Tab PO SCH (08:58)
[2017-02-26] MEDS: methylPREDNISolone 60 MG in Sodium Chloride 0.9% 50 ML IVPB SCH ×2 (09:02→21:23)
[2017-02-26 10:07] LABS: INR 5.9 (0.9-1.2); PROTHROMBIN TIME 68.9 Seconds (9.8-13.1)
--- NOTE | 2017-02-26 10:12 | CP.PCM.PN ---
Subjective - Date & Time of Evaluation Date of Evaluation: 02/26/17 Time of Evaluation: 09:30 - Subjective Subjective: No fever Pt more alert and calm today- eating her breakfast and tolerating- no signs of aspiration was very lethargic yesterday - received 2 doses of Ativan the night before denies CP + cough no abd pain Objective - Vital Signs/Intake and Output Vital Signs (last 24 hours): Temp Pulse Resp BP Pulse Ox 98.2 F 87 18 121/77 98 02/26/17 08:17 02/26/17 08:58 02/26/17 08:17 02/26/17 08:58 02/26/17 08:17 - Medications Medications: Current Medications Albuterol Sulfate (Albuterol 0.083% Inhal Sybil (2.5 Mg/3 Ml) Ud) 2.5 mg INH RTID [facility] Last Admin: 02/26/17 07:46 Dose: 2.5 mg Clozapine (Clozaril) 100 mg PO DAILY [facility] Last Admin: 02/26/17 08:57 Dose: Not Given Clozapine (Clozaril) 200 mg PO HS [facility] Last Admin: 02/25/17 22:00 Dose: Not Given Diltiazem HCl (Cardizem) 120 mg PO BID [facility] Last Admin: 02/26/17 08:56 Dose: 120 mg Dronedarone (Multaq) 400 mg PO BID [facility] Last Admin: 02/26/17 08:56 Dose: 400 mg Furosemide (Lasix) 20 mg PO DAILY [facility] Last Admin: 02/26/17 08:57 Dose: 20 mg Vancomycin HCl 1 gm/ Sodium (Chloride) 250 mls @ 250 mls/hr IVPB Q12H [facility] Last Admin: 02/25/17 16:40 Dose: 250 mls/hr Meropenem 1 gm/ Sodium (Chloride) 100 mls @ 100 mls/hr IVPB Q8 [facility] Last Admin: 02/26/17 08:57 Dose: 100 mls/hr Methylprednisolone 60 mg/ (Sodium Chloride) 50 mls @ 100 mls/hr IVPB Q12 [facility] Last Admin: 02/26/17 09:02 Dose: 100 mls/hr Potassium Chloride 10 meq/ (Dextrose/Sodium Chloride) 1,005 mls @ 80 mls/hr IV .[id number] [facility] Stop: 02/27/17 09:19 Levothyroxine Sodium (Synthroid) 12.5 mcg PO DAILY@0630 [facility] Last Admin: 02/26/17 05:43 Dose: 12.5 mcg Lorazepam (Ativan) 0.5 mg PO Q8 PRN PRN Reason: Anxiety Last Admin: 02/24/17 00:09 Dose: 0.5 mg Lorazepam (Ativan) 0.5 mg IM Q8 PRN PRN Reason: Agitation Last Admin: 02/24/17 20:12 Dose: 0.5 mg Metoprolol Succinate (Toprol Xl) 25 mg PO DAILY [facility] Last Admin: 02/26/17 08:58 Dose: 25 mg - Labs Labs: 02/26/17 05:20 02/26/17 05:20 PT 68.9 Seconds (9.8-13.1) H* 02/26/17 08:50 INR 5.9 (0.9-1.2) H D 02/26/17 08:50 APTT 36.2 Seconds (25.6-37.1) 02/23/17 04:40 Assessment and Plan (1) Sepsis due to pneumonia Status: Acute (2) Aspiration pneumonia Status: Deleted (3) Elevated INR (international normalized ratio) due to prior anticoagulant medication ingestion Status: Acute (4) Paroxysmal atrial fibrillation Status: Chronic (5) HTN (hypertension) Status: Chronic (6) Schizophrenia Status: Chronic (7) COPD with acute exacerbation Status: Acute (8) Supratherapeutic INR Status: Acute (9) Hypothyroidism Status: Chronic - Assessment and Plan (Free Text) Assessment: - Constitutional Appears: Chronically Ill, - Head Exam Head Exam: NORMAL INSPECTION, NORMOCEPHALIC - Eye Exam Eye Exam: EOMI, Normal appearance Pupil Exam: NORMAL ACCOMMODATION - ENT Exam ENT Exam: Mucous Membranes Moist, Normal External Ear Exam - Neck Exam Neck Exam: Full ROM. absent: Meningismus - Respiratory Exam Respiratory Exam: + Rales, Rhonchi, Wheezes. absent: Respiratory Distress - Cardiovascular Exam Cardiovascular Exam: REGULAR RHYTHM, +S1, +S2 - GI/Abdominal Exam GI & Abdominal Exam: Soft, Normal Bowel Sounds. absent: Tenderness - Extremities Exam Extremities Exam: Normal Capillary Refill. absent: Calf Tenderness, Pedal Edema - Back Exam Back Exam: absent: CVA tenderness (L), CVA tenderness (R) - Neurological Exam Neurological Exam: Alert, Awake Additional comments: oriented to person and place moves all extremities voice very tremulous ( Parkinson like ? SE of Psych med) - Psychiatric Exam Psychiatric exam: calm - Skin Skin Exam: Dry, Normal Color, Warm 77F PMH AFIB, HLD, hypothyroid, COPD, schizophrenia was initially admitted to [facility] for worsening paranoia and psychosis. Patient is poor historian, unable to give history due to psychiatric condition. Per nursing and psychiatry team, patient has been worsening clinically with cough and congestion, and today patient mental status became altered as she became increasingly agitated, delusional. WBC was elevated, +rhonchi on physical exam, in ER , pt febrile 101.2 rectally, tachycardic 110. CXR Pt received steroids and breathing treatments with some improvement. Patient admitted for sepsis due to pneumonia. Sepsis 2/2 Pneumonia ( bilateral LL) prob Aspiration PNA on admission, Febrile 101.2, Tachycardic 110, WBC elevated, +rales and rhonchi lactate was neg CXR : neg cont Vanco and Meropenem ID consult : Dr Oliveira following pt CT of the chest: bilateral lower lobe infiltrates Speech for Swallow eval - rec Pureed diet and to do Mod Barium Swallow Pulmonary consult: Dr Sandoval COPD Exacerbation Bronchodilators Solumedrol 60 q8h - decrease to q 12 Acute Hypercapneic , Hypoxemic Respiratory Failure, Pt placed on 40% Ventimask - discussed with Dr Lori Heaton FIB, Paroxysmal , rate controlled Toprol 25 mg po daily Diltiazem 120 mg po BID Hold Coumadin due to elevated INR Supratherapeutic INR on Coumadin hold Coumadin no signs of bleeding monitor INR CT of head : neg Hematology consulted - discussed case with Dr millan - rec to information architect only very low dose Phytonadione 1mg SQ x 1 Hypothyroidism Low TSH Pt on Levothyroxine- decrease dose to 12.5 mg daily Schizophrenia cont Clozaril Psychiatry consulted- discussed case with Dr Camargo Will transfer pt to [facility] once medically stable Episode of Unresponsiveness sec to Ativan Pt noted to be very lethargic, responds to pain by eye opening received IV Ativan Romazicon 0.2 mg given and pt woke up CT of head- neg bleed Hypernatremia likely due to Dehydration IVF hydration with D5 W Abn LFT ? sec to medications will monitor
[2017-02-26] MEDS ORDERED: Phytonadione 1 mg/0.5 ml Inj (Neonatal) SC ONE (12:38)
[2017-02-26] MEDS ORDERED: Barium Sulfate Susp 0.1% w/v, 0.1% w/w 450 mL Bottle PO ONE (13:10)
--- NOTE | 2017-02-26 13:29 | CP.PCM.CON ---
History of Present Illness - History of Present Illness History of Present Illness: 77 year old female with a history of schizophrenia, HTN, HL, afib on anticoagulation, initially admitted for exacerbation of schizophrenia, currently being treated for pneumonia and COPD exacerbation with progressive coagulopathy. The patient is currently agitated and I am unable to obtain further history. Review of her medical records shows a progressive elevated on his PT/PTT. There are no overt signs of bleeding. Past medical, surgical, family, social history cannot be obtained from the patient. Allergies: Per documentation [facility] Review of systems cannot be obtained from the patient. Past Patient History - Tetanus Immunizations Tetanus Immunization: Unknown - Past Social History Smoking Status: Former Smoker Alcohol: None Drugs: Denies Home Situation {Lives}: With Family - CARDIAC Hx Cardiac Disorders: Yes Hx Atrial Fibrillation: Yes Hx Hypercholesterolemia: Yes Hx Hypertension: Yes - PULMONARY Hx Respiratory Disorders: Yes Hx Asthma: Yes Hx Chronic Obstructive Pulmonary Disease (COPD): Yes - NEUROLOGICAL Hx Neurological Disorder: Yes Hx Seizures: Yes - HEENT Hx HEENT Problems: No - RENAL Hx Chronic Kidney Disease: No - ENDOCRINE/METABOLIC Hx Endocrine Disorders: Yes Hx Hypothyroidism: Yes - HEMATOLOGICAL/ONCOLOGICAL Hx Blood Disorders: Yes Hx Cancer: Yes (breast and colon) - INTEGUMENTARY Hx Dermatological Problems: No - MUSCULOSKELETAL/RHEUMATOLOGICAL Hx Musculoskeletal Disorders: No Hx Falls: No - GASTROINTESTINAL Hx Gastrointestinal Disorders: Yes Hx Gastroesophageal Reflux: Yes - GENITOURINARY/GYNECOLOGICAL Hx Genitourinary Disorders: Yes Hx Incontinence: Yes - PSYCHIATRIC Hx Psychophysiologic Disorder: Yes Hx Anxiety: Yes Hx Schizophrenia: Yes - SURGICAL HISTORY Hx Surgeries: Yes Hx Appendectomy: Yes Hx Cholecystectomy: Yes - ANESTHESIA Hx Anesthesia: Yes Hx Anesthesia Reactions: No Meds Allergies/Adverse Reactions: Allergies Allergy/AdvReac Type Severity Reaction Status Date / Time No Known Allergies Allergy Verified 02/22/17 13:39 - Medications Medications: Current Medications Albuterol Sulfate (Albuterol 0.083% Inhal Sybil (2.5 Mg/3 Ml) Ud) 2.5 mg INH RTID [facility] Last Admin: 02/26/17 07:46 Dose: 2.5 mg Clozapine (Clozaril) 100 mg PO DAILY [facility] Last Admin: 02/26/17 08:57 Dose: Not Given Clozapine (Clozaril) 200 mg PO HS [facility] Last Admin: 02/25/17 22:00 Dose: Not Given Diltiazem HCl (Cardizem) 120 mg PO BID [facility] Last Admin: 02/26/17 08:56 Dose: 120 mg Dronedarone (Multaq) 400 mg PO BID [facility] Last Admin: 02/26/17 08:56 Dose: 400 mg Furosemide (Lasix) 20 mg PO DAILY [facility] Last Admin: 02/26/17 08:57 Dose: 20 mg Vancomycin HCl 1 gm/ Sodium (Chloride) 250 mls @ 250 mls/hr IVPB Q12H [facility] Last Admin: 02/25/17 16:40 Dose: 250 mls/hr Meropenem 1 gm/ Sodium (Chloride) 100 mls @ 100 mls/hr IVPB Q8 [facility] Last Admin: 02/26/17 08:57 Dose: 100 mls/hr Methylprednisolone 60 mg/ (Sodium Chloride) 50 mls @ 100 mls/hr IVPB Q12 [facility] Last Admin: 02/26/17 09:02 Dose: 100 mls/hr Potassium Chloride 10 meq/ (Dextrose/Sodium Chloride) 1,005 mls @ 80 mls/hr IV .[id number] [facility] Stop: 02/27/17 09:19 Last Admin: 02/26/17 11:37 Dose: 80 mls/hr Levothyroxine Sodium (Synthroid) 12.5 mcg PO DAILY@0630 [facility] Last Admin: 02/26/17 05:43 Dose: 12.5 mcg Lorazepam (Ativan) 0.5 mg PO Q8 PRN PRN Reason: Anxiety Last Admin: 02/24/17 00:09 Dose: 0.5 mg Lorazepam (Ativan) 0.5 mg IM Q8 PRN PRN Reason: Agitation Last Admin: 02/24/17 20:12 Dose: 0.5 mg Metoprolol Succinate (Toprol Xl) 25 mg PO DAILY [facility] Last Admin: 02/26/17 08:58 Dose: 25 mg Physical Exam - Head Exam Head Exam: ATRAUMATIC - Eye Exam Eye Exam: Normal appearance - ENT Exam ENT Exam: Mucous Membranes Dry - Respiratory Exam Respiratory Exam: Decreased Breath Sounds - Cardiovascular Exam Cardiovascular Exam: +S1, +S2 - GI/Abdominal Exam GI & Abdominal Exam: Normal Bowel Sounds - Extremities Exam Extremities exam: Positive for: normal inspection - Neurological Exam Neurological exam: Altered - Psychiatric Exam Psychiatric exam: Agitated - Skin Skin Exam: Warm Results - Vital Signs Recent Vital Signs: Last Vital Signs Temp 97.7 F 02/26/17 12:00 Pulse 84 02/26/17 12:00 Resp 18 02/26/17 12:00 BP 100/62 02/26/17 12:00 Pulse Ox 98 02/26/17 12:00 - Labs Result Diagrams: 02/28/17 05:30 02/28/17 05:30 Labs: Laboratory Results - last 24 hr 02/25/17 02/26/17 02/26/17 22:00 05:20 05:20 WBC 14.3 H RBC 3.93 Hgb 11.7 L Hct 36.5 MCV 93.0 MCH 29.7 MCHC 32.0 L RDW 15.4 H Plt Count 338 MPV 8.2 Neut % (Auto) 89.3 H Lymph % (Auto) 6.6 L Lee % (Auto) 3.8 Eos % (Auto) 0.0 Baso % (Auto) 0.3 Neut # 12.8 H Lymph # 1.0 Lee # 0.5 Eos # 0.0 Baso # 0.0 PT INR pCO2 46 H pO2 57 L HCO3 34.3 H ABG pH 7.51 H ABG Total CO2 38.1 H ABG O2 Saturation 92.2 L ABG O2 Content 14.9 L ABG Base Excess 12.2 H ABG Hemoglobin 11.8 ABG Carboxyhemoglobin 1.1 POC ABG HHb (Measured) 7.6 H ABG Methemoglobin 1.4 ABG O2 Capacity 16.2 Bernardo Test Yes A-a O2 Difference 57.0 Hgb O2 Saturation 89.9 L FiO2 24.0 Sodium Potassium Chloride Carbon Dioxide Anion Gap BUN Creatinine Est GFR ( Amer) Est GFR (Non-Af Amer) Random Glucose Calcium Total Bilirubin AST ALT Alkaline Phosphatase Total Protein Albumin Globulin Albumin/Globulin Ratio Vancomycin Trough 15.8 H 02/26/17 02/26/17 05:20 08:50 WBC RBC Hgb Hct MCV MCH MCHC RDW Plt Count MPV Neut % (Auto) Lymph % (Auto) Lee % (Auto) Eos % (Auto) Baso % (Auto) Neut # Lymph # Lee # Eos # Baso # PT 68.9 H* INR 5.9 H D pCO2 pO2 HCO3 ABG pH ABG Total CO2 ABG O2 Saturation ABG O2 Content ABG Base Excess ABG Hemoglobin ABG Carboxyhemoglobin POC ABG HHb (Measured) ABG Methemoglobin ABG O2 Capacity Bernardo Test A-a O2 Difference Hgb O2 Saturation FiO2 Sodium 149 H Potassium 3.5 L Chloride 110 H Carbon Dioxide 33 H Anion Gap 10 BUN 35 H Creatinine 0.9 Est GFR ( Amer) > 60 Est GFR (Non-Af Amer) > 60 Random Glucose 160 H Calcium 9.3 Total Bilirubin 0.7 AST 86 H D ALT 116 H D Alkaline Phosphatase 78 Total Protein 5.7 L Albumin 3.3 L Globulin 2.4 Albumin/Globulin Ratio 1.4 Vancomycin Trough Assessment & Plan (1) Coagulopathy Assessment and Plan: secondary to coumadin, now on hold agree with vit k 1mg subq Status: Acute (2) Leukocytosis Assessment and Plan: on antibiotics and steroids. Thank you for this interesting consult. Status: Acute
--- NOTE | 2017-02-26 15:10 | CP.PCM.PN ---
Subjective - Date & Time of Evaluation Date of Evaluation: 02/26/17 Time of Evaluation: 10:40 - Subjective Subjective: F/U COPD Exacerbation. Pt confused, lethargic, no A/D, coughing at times.. Objective - Vital Signs/Intake and Output Vital Signs (last 24 hours): Temp Pulse Resp BP Pulse Ox 97.7 F 84 18 100/62 98 02/26/17 12:00 02/26/17 12:00 02/26/17 12:00 02/26/17 12:00 02/26/17 12:00 - Medications Medications: Current Medications Albuterol Sulfate (Albuterol 0.083% Inhal Sybil (2.5 Mg/3 Ml) Ud) 2.5 mg INH RTID [facility] Last Admin: 02/26/17 13:58 Dose: Not Given Clozapine (Clozaril) 100 mg PO DAILY [facility] Last Admin: 02/26/17 08:57 Dose: Not Given Clozapine (Clozaril) 200 mg PO HS [facility] Last Admin: 02/25/17 22:00 Dose: Not Given Diltiazem HCl (Cardizem) 120 mg PO BID [facility] Last Admin: 02/26/17 08:56 Dose: 120 mg Dronedarone (Multaq) 400 mg PO BID [facility] Last Admin: 02/26/17 08:56 Dose: 400 mg Furosemide (Lasix) 20 mg PO DAILY [facility] Last Admin: 02/26/17 08:57 Dose: 20 mg Vancomycin HCl 1 gm/ Sodium (Chloride) 250 mls @ 250 mls/hr IVPB Q12H [facility] Last Admin: 02/25/17 16:40 Dose: 250 mls/hr Meropenem 1 gm/ Sodium (Chloride) 100 mls @ 100 mls/hr IVPB Q8 [facility] Last Admin: 02/26/17 08:57 Dose: 100 mls/hr Methylprednisolone 60 mg/ (Sodium Chloride) 50 mls @ 100 mls/hr IVPB Q12 [facility] Last Admin: 02/26/17 09:02 Dose: 100 mls/hr Potassium Chloride 10 meq/ (Dextrose/Sodium Chloride) 1,005 mls @ 80 mls/hr IV .[id number] [facility] Stop: 02/27/17 09:19 Last Admin: 02/26/17 11:37 Dose: 80 mls/hr Levothyroxine Sodium (Synthroid) 12.5 mcg PO DAILY@0630 [facility] Last Admin: 02/26/17 05:43 Dose: 12.5 mcg Lorazepam (Ativan) 0.5 mg PO Q8 PRN PRN Reason: Anxiety Last Admin: 02/24/17 00:09 Dose: 0.5 mg Lorazepam (Ativan) 0.5 mg IM Q8 PRN PRN Reason: Agitation Last Admin: 02/24/17 20:12 Dose: 0.5 mg Metoprolol Succinate (Toprol Xl) 25 mg PO DAILY [facility] Last Admin: 02/26/17 08:58 Dose: 25 mg - Labs Labs: 02/26/17 05:20 02/26/17 05:20 PT 68.9 Seconds (9.8-13.1) H* 02/26/17 08:50 INR 5.9 (0.9-1.2) H D 02/26/17 08:50 APTT 36.2 Seconds (25.6-37.1) 02/23/17 04:40 - Constitutional Appears: No Acute Distress, Chronically Ill - Head Exam Head Exam: NORMAL INSPECTION - Eye Exam Eye Exam: PERRL - ENT Exam ENT Exam: Normal Oropharynx - Neck Exam Neck Exam: Normal Inspection - Respiratory Exam Respiratory Exam: Decreased Breath Sounds, Rhonchi (b/l) - Cardiovascular Exam Cardiovascular Exam: REGULAR RHYTHM - GI/Abdominal Exam GI & Abdominal Exam: Soft, Normal Bowel Sounds - Extremities Exam Extremities Exam: Normal Inspection - Back Exam Back Exam: NORMAL INSPECTION - Neurological Exam Additional comments: Lethargic, O x 1, moves all extremities, incomprehensible speech. - Psychiatric Exam Additional comments: Calm - Skin Skin Exam: Warm Assessment and Plan (1) COPD with acute exacerbation Status: Acute (2) Pneumonia Status: Acute - Assessment and Plan (Free Text) Plan: Continue Vanco, Merren, Solumedrol.
--- NOTE | 2017-02-26 15:19 | CP.PCM.CON ---
History of Present Illness - History of Present Illness History of Present Illness: psychiatry consult ordered by dr. pickering reason: psychosis hpi: pt was transfered from step unit earlier for this week with pneumonia. currently on telemetry. dr. pickering states pt was overly sedated after getting low dose of ativan for restlessness and inability to sleep. pt on clozaril 100mg in am and 200mg hs. pt is too confused to give information now and is with a rebreather mask. she is currently calm and redirectable. history from dr. richards's psych assessment is below: Collateral from ER: 77 y/o female with a pertinent medical hystory of hypertension, hypercholesterolemia, schizophenia and COPD is sent to the ED by her skilled nursing for a psychiatric evaluation due to increase paranoid delusions. Pt reports that she can see the future, that she is seeing her son and sister, that she is Red and is going to be cruzified because she is uatsdin. [facility] reports stated that patient refer to herself as "Red'. Pt. states that when she hears music or noise, she is hearing her family members yelling for help. Pt states that she wrote the bible and she can see into her family future and "it doesn't look to good". Pt. refused to speak to the psychiatrist while she was in the [facility]. During assessment patient repeated being Harini, and stated that she know what her son was saying , patient is confused, delusional, naming family members that are deseased. Pt. was calm , no shows of distress, pt. stated that she knnow that her son was talking about harini and that people when they go is in a better place but that is not going to happen to her, for being Harini. Pt's son stated that patient have a long history of mental illness with psychiatric admission at [facility] and [facility], the last admission was two years ago. Family is asking for patient to be admitted for medication adjustment, patient was prescribed a new medication that family beleive that is causing patient to loose her balance as patient had incidents in which she had fall. Pt. had suicidal attempts in the past. As per family patient had been residing in a [facility] for a year, and she is scare of being in a new place, confused, son is asking for patient to be seeing by a neurologist as the same as a psychiatrist. Son believes that patient's medications need to be adjusted or need to be change. Radha Morales [phone] PPHx: As per family patient had numerous admissions in the past for schizophrenia, the last admission was 2 years ago at [facility]. PMD: Dr. Tobin PMHx: hypertension, hypercholesterolemia, schizophrenia, and COPD All: NKDA SHx: lives in a [facility], POA are son + [id number] mse: pt is oriented to self only. she is mumbling and has some moments where her speech is clear. she talks about her grandson but she is mostly mumbling her speech. mood is anxious. affect constricted. unable to assess memory. no aggression or agitation. poor i/j. assessment: schizophrenia delirum secondry to pneumonia recommendation: would hold am dose of clozaril and may consider restarting at lower dose avoid benzodiazapine medications as very sedating combined with clozaril low dose of remeron 7.5mg hs prn for insomnia low dose of haldol for confusion/agitation 1mg q 4hr prn. can return to step when medically stable will follow Past Patient History - Tetanus Immunizations Tetanus Immunization: Unknown - Past Social History Smoking Status: Former Smoker Alcohol: None Drugs: Denies Home Situation {Lives}: With Family - CARDIAC Hx Cardiac Disorders: Yes Hx Atrial Fibrillation: Yes Hx Hypercholesterolemia: Yes Hx Hypertension: Yes - PULMONARY Hx Respiratory Disorders: Yes Hx Asthma: Yes Hx Chronic Obstructive Pulmonary Disease (COPD): Yes - NEUROLOGICAL Hx Neurological Disorder: Yes Hx Seizures: Yes - HEENT Hx HEENT Problems: No - RENAL Hx Chronic Kidney Disease: No - ENDOCRINE/METABOLIC Hx Endocrine Disorders: Yes Hx Hypothyroidism: Yes - HEMATOLOGICAL/ONCOLOGICAL Hx Blood Disorders: Yes Hx Cancer: Yes (breast and colon) - INTEGUMENTARY Hx Dermatological Problems: No - MUSCULOSKELETAL/RHEUMATOLOGICAL Hx Musculoskeletal Disorders: No Hx Falls: No - GASTROINTESTINAL Hx Gastrointestinal Disorders: Yes Hx Gastroesophageal Reflux: Yes - GENITOURINARY/GYNECOLOGICAL Hx Genitourinary Disorders: Yes Hx Incontinence: Yes - PSYCHIATRIC Hx Psychophysiologic Disorder: Yes Hx Anxiety: Yes Hx Schizophrenia: Yes - SURGICAL HISTORY Hx Surgeries: Yes Hx Appendectomy: Yes Hx Cholecystectomy: Yes - ANESTHESIA Hx Anesthesia: Yes Hx Anesthesia Reactions: No Meds Allergies/Adverse Reactions: Allergies Allergy/AdvReac Type Severity Reaction Status Date / Time No Known Allergies Allergy Verified 02/22/17 13:39 - Medications Medications: Current Medications Albuterol Sulfate (Albuterol 0.083% Inhal Sybil (2.5 Mg/3 Ml) Ud) 2.5 mg INH RTID [facility] Last Admin: 02/26/17 13:58 Dose: Not Given Clozapine (Clozaril) 100 mg PO DAILY [facility] Last Admin: 02/26/17 08:57 Dose: Not Given Clozapine (Clozaril) 200 mg PO HS [facility] Last Admin: 02/25/17 22:00 Dose: Not Given Diltiazem HCl (Cardizem) 120 mg PO BID [facility] Last Admin: 02/26/17 08:56 Dose: 120 mg Dronedarone (Multaq) 400 mg PO BID [facility] Last Admin: 02/26/17 08:56 Dose: 400 mg Furosemide (Lasix) 20 mg PO DAILY [facility] Last Admin: 02/26/17 08:57 Dose: 20 mg Vancomycin HCl 1 gm/ Sodium (Chloride) 250 mls @ 250 mls/hr IVPB Q12H [facility] Last Admin: 02/25/17 16:40 Dose: 250 mls/hr Meropenem 1 gm/ Sodium (Chloride) 100 mls @ 100 mls/hr IVPB Q8 [facility] Last Admin: 02/26/17 08:57 Dose: 100 mls/hr Methylprednisolone 60 mg/ (Sodium Chloride) 50 mls @ 100 mls/hr IVPB Q12 [facility] Last Admin: 02/26/17 09:02 Dose: 100 mls/hr Potassium Chloride 10 meq/ (Dextrose/Sodium Chloride) 1,005 mls @ 80 mls/hr IV .[id number] [facility] Stop: 02/27/17 09:19 Last Admin: 02/26/17 11:37 Dose: 80 mls/hr Levothyroxine Sodium (Synthroid) 12.5 mcg PO DAILY@0630 [facility] Last Admin: 02/26/17 05:43 Dose: 12.5 mcg Lorazepam (Ativan) 0.5 mg PO Q8 PRN PRN Reason: Anxiety Last Admin: 02/24/17 00:09 Dose: 0.5 mg Lorazepam (Ativan) 0.5 mg IM Q8 PRN PRN Reason: Agitation Last Admin: 07/19/17 20:12 Dose: 0.5 mg Metoprolol Succinate (Toprol Xl) 25 mg PO DAILY [facility] Last Admin: 02/26/17 08:58 Dose: 25 mg Results - Vital Signs Recent Vital Signs: Last Vital Signs Temp 97.7 F 02/26/17 12:00 Pulse 84 02/26/17 12:00 Resp 18 02/26/17 12:00 BP 100/62 02/26/17 12:00 Pulse Ox 98 02/26/17 12:00 - Labs Result Diagrams: 02/26/17 05:20 02/26/17 05:20 Labs: Laboratory Results - last 24 hr 02/25/17 02/26/17 02/26/17 22:00 05:20 05:20 WBC 14.3 H RBC 3.93 Hgb 11.7 L Hct 36.5 MCV 93.0 MCH 29.7 MCHC 32.0 L RDW 15.4 H Plt Count 338 MPV 8.2 Neut % (Auto) 89.3 H Lymph % (Auto) 6.6 L [place] % (Auto) 3.8 Eos % (Auto) 0.0 Baso % (Auto) 0.3 Neut # 12.8 H Lymph # 1.0 [place] # 0.5 Eos # 0.0 Baso # 0.0 PT INR pCO2 46 H pO2 57 L HCO3 34.3 H ABG pH 7.51 H ABG Total CO2 38.1 H ABG O2 Saturation 92.2 L ABG O2 Content 14.9 L ABG Base Excess 12.2 H ABG Hemoglobin 11.8 ABG Carboxyhemoglobin 1.1 POC ABG HHb (Measured) 7.6 H ABG Methemoglobin 1.4 ABG O2 Capacity 16.2 Bernardo Test Yes A-a O2 Difference 57.0 Hgb O2 Saturation 89.9 L FiO2 24.0 Sodium Potassium Chloride Carbon Dioxide Anion Gap BUN Creatinine Est GFR ( Amer) Est GFR (Non-Af Amer) Random Glucose Calcium Total Bilirubin AST ALT Alkaline Phosphatase Total Protein Albumin Globulin Albumin/Globulin Ratio Vancomycin Trough 15.8 H 02/26/17 02/26/17 05:20 08:50 WBC RBC Hgb Hct MCV MCH MCHC RDW Plt Count MPV Neut % (Auto) Lymph % (Auto) [place] % (Auto) Eos % (Auto) Baso % (Auto) Neut # Lymph # [place] # Eos # Baso # PT 68.9 H* INR 5.9 H D pCO2 pO2 HCO3 ABG pH ABG Total CO2 ABG O2 Saturation ABG O2 Content ABG Base Excess ABG Hemoglobin ABG Carboxyhemoglobin POC ABG HHb (Measured) ABG Methemoglobin ABG O2 Capacity Bernardo Test A-a O2 Difference Hgb O2 Saturation FiO2 Sodium 149 H Potassium 3.5 L Chloride 110 H Carbon Dioxide 33 H Anion Gap 10 BUN 35 H Creatinine 0.9 Est GFR ( Amer) > 60 Est GFR (Non-Af Amer) > 60 Random Glucose 160 H Calcium 9.3 Total Bilirubin 0.7 AST 86 H D ALT 116 H D Alkaline Phosphatase 78 Total Protein 5.7 L Albumin 3.3 L Globulin 2.4 Albumin/Globulin Ratio 1.4 Vancomycin Trough
[2017-02-27] MEDS: Meropenem 1 GM in Sodium Chloride 0.9% 100 ML IVPB SCH ×3 (02:44→16:40)
[2017-02-27] MEDS: Levothyroxine 25 MCG TAB PO SCH (06:00)
[2017-02-27 07:15] LABS: BASO % 0.1 % (0.0-2.0); HEMOGLOBIN 12.4 g/dL (12.0-16.0); LYMPH % 7.2 % (20.0-40.0); MEAN CELL VOLUME 92.8 fl (81.0-99.0); MEAN CORPUSCULAR HEMOGLOBIN 29.7 pg (27.0-31.0); MEAN PLATELET VOLUME 8.5 fl (7.2-11.7); MONO # 0.4 K/uL (0.0-0.8); NEUT # 12.7 K/uL (1.8-7.0); NEUT % 89.7 % (50.0-75.0); NRBC % 0.1 % (0.0-0.0); RBC 4.17 Mil/uL (3.80-5.20); RED CELL DISTRIBUTION WIDTH 15.5 % (11.5-14.5); WHITE BLOOD COUNT 14.1 K/uL (4.8-10.8)
[2017-02-27 07:19] LABS: ALB/GLOB RATIO 1.4 (1.0-2.1); ALBUMIN 3.3 g/dL (3.5-5.0); ALT/SGPT 132 U/L (9-52); AST/SGOT 58 U/L (14-36); BLOOD UREA NITROGEN 34 mg/dl (7-17); CALCIUM 9.2 mg/dL (8.4-10.2); GFR AFRICAN-AMERICAN > 60; GFR NON-AFRICAN AMERICAN > 60
[2017-02-27 07:42] LABS: INR 4.5 (0.9-1.2)
[2017-02-27 07:47] LABS: PROTHROMBIN TIME 52.3 Seconds (9.8-13.1)
[2017-02-27] MEDS: Albuterol 0.083% Inhal Sol (2.5 mg/3 mL) UD INH SCH ×3 (08:06→19:27)
[2017-02-27] MEDS: methylPREDNISolone 60 MG in Sodium Chloride 0.9% 50 ML IVPB SCH (08:38)
[2017-02-27] MEDS: Metoprolol Succinate 25 mg XL Tab PO SCH (08:39)
--- NOTE | 2017-02-27 09:41 | CP.PCM.PN ---
Subjective - Date & Time of Evaluation Date of Evaluation: 02/27/17 Time of Evaluation: 09:30 - Subjective Subjective: Patient seen and examined bedside.Elderly female, lying in bed in NAD ,sleepy. at present not responding to any questions but as per staff danny more awake earlier and was responding to questions Hemodynamically stable, afebrile , on ventimask FIo2 40 % saturating 98 % BP 138 /81 HR 86 WBC 14 K Hgb 12 No acute issues overnight. Objective - Vital Signs/Intake and Output Vital Signs (last 24 hours): Temp Pulse Resp BP Pulse Ox 97.5 F L 86 20 138/81 99 02/27/17 08:33 02/27/17 08:39 02/27/17 08:33 02/27/17 08:39 02/27/17 08:33 - Medications Medications: Current Medications Albuterol Sulfate (Albuterol 0.083% Inhal Sybil (2.5 Mg/3 Ml) Ud) 2.5 mg INH RTID [facility] Last Admin: 02/27/17 08:06 Dose: 2.5 mg Clozapine (Clozaril) 200 mg PO HS [facility] Last Admin: 02/26/17 21:22 Dose: 200 mg Diltiazem HCl (Cardizem) 120 mg PO BID [facility] Last Admin: 02/27/17 08:38 Dose: 120 mg Dronedarone (Multaq) 400 mg PO BID [facility] Last Admin: 02/27/17 08:38 Dose: 400 mg Furosemide (Lasix) 20 mg PO DAILY [facility] Last Admin: 02/27/17 08:38 Dose: 20 mg Vancomycin HCl 1 gm/ Sodium (Chloride) 250 mls @ 250 mls/hr IVPB Q12H [facility] Last Admin: 02/25/17 16:40 Dose: 250 mls/hr Meropenem 1 gm/ Sodium (Chloride) 100 mls @ 100 mls/hr IVPB Q8 [facility] Last Admin: 02/27/17 08:37 Dose: 100 mls/hr Methylprednisolone 60 mg/ (Sodium Chloride) 50 mls @ 100 mls/hr IVPB Q12 [facility] Last Admin: 02/27/17 08:38 Dose: 100 mls/hr Levothyroxine Sodium (Synthroid) 12.5 mcg PO DAILY@0630 [facility] Last Admin: 02/27/17 06:00 Dose: 12.5 mcg Metoprolol Succinate (Toprol Xl) 25 mg PO DAILY [facility] Last Admin: 02/27/17 08:39 Dose: 25 mg Mirtazapine (Remeron) 7.5 mg PO HS PRN PRN Reason: Insomnia - Labs Labs: 02/27/17 06:56 02/27/17 06:56 PT 52.3 Seconds (9.8-13.1) H* 02/27/17 06:56 INR 4.5 (0.9-1.2) H D 02/27/17 06:56 APTT 36.2 Seconds (25.6-37.1) 02/23/17 04:40 - Constitutional Appears: Non-toxic, In Acute Distress, Other (sleepy ) - Head Exam Head Exam: ATRAUMATIC, NORMOCEPHALIC - Eye Exam Eye Exam: PERRL - ENT Exam ENT Exam: Mucous Membranes Dry, Normal Exam - Neck Exam Neck Exam: Normal Inspection - Respiratory Exam Respiratory Exam: absent: Accessory Muscle Use, Wheezes, Respiratory Distress Additional comments: coarse breath sounds bilaterally - Cardiovascular Exam Cardiovascular Exam: Irregular Rhythm, +S1, +S2. absent: JVD - GI/Abdominal Exam GI & Abdominal Exam: Soft, Normal Bowel Sounds. absent: Distended, Guarding, Tenderness, Rebound - Rectal Exam Rectal Exam: Deferred - Extremities Exam Extremities Exam: Full ROM, Normal Capillary Refill, Normal Inspection. absent : Pedal Edema - Neurological Exam Additional comments: sleepy , not responding to questions - Skin Skin Exam: Dry, Warm Assessment and Plan - Assessment and Plan (Free Text) Assessment: 77 F with PMH AFIB, HLD, hypothyroid, COPD, schizophrenia was initially admitted to [facility] for worsening paranoia and psychosis. Patient is poor historian, unable to give history due to psychiatric condition. Per nursing and psychiatry team, patient had been worsening clinically with cough ,congestion, and worsening mental status, increasingly agitated, delusional. WBC was elevated, +rhonchi on physical exam,febrile 101.2 rectally, tachycardic 110. Patient admitted for sepsis due to pneumonia. 1.Sepsis 2/2 Pneumonia ( bilateral LL) prob Aspiration PNA on admission, Febrile 101.2, Tachycardic 110, WBC elevated, +rales and rhonchi lactate was neg CXR : neg CT of the chest: bilateral lower lobe infiltrates cont Vanco and Meropenem ID consult : Dr Oliveira following pt Speech for Swallow eval appreciated and recommended pureed diet f/u Modified Barium Swallow report Pulmonary consult: Dr Sandoval 2.COPD Exacerbation Bronchodilators stella Solumedrol 40 Q12 3.Acute Hypercapneic , Hypoxemic Respiratory Failure, improving on venti mask FIO2 40 % saturating 98% 4.A. FIB, Paroxysmal , rate controlled Toprol 25 mg po daily Diltiazem 120 mg po BID INR 4.5 today Hold Coumadin due to elevated INR 5.Supratherapeutic INR on Coumadin hold Coumadin no signs of bleeding CT of head : neg Hematology consulted, Dr Downs . Given l Phytonadione 1mg SQ x 1 6.Hypothyroidism Low TSH Pt was on Levothyroxine decreased dose to 12.5 mg daily 7.Schizophrenia cont Clozaril bedtime Started Remeron HS for sleep Avoid benzos haldol PRN for agitation Psychiatry consulted Will transfer pt to [facility] once medically stable 8.Episode of Unresponsiveness sec to Ativan Pt noted to be very lethargic, responds to pain by eye opening received IV Ativan Romazicon 0.2 mg given and pt woke up CT of head- neg bleed 9.Hypernatremia likely due to Dehydration IVF hydration with D5 W improving 10.Abn LFT ? sec to medications will monitor 11. DVT prophylaxis on Coumadin SCD
--- NOTE | 2017-02-27 15:37 | CP.PCM.PN ---
Subjective - Date & Time of Evaluation Date of Evaluation: 02/27/17 Time of Evaluation: 13:00 - Subjective Subjective: F/U COPD Exacerbation. Pt confused, able to talk, no A/D, on Ventimask 40%, no desaturating according to nurses , f/u CT Chest , continue Yudith Bertrand , trial of NC after reviewing CT Chest Objective - Vital Signs/Intake and Output Vital Signs (last 24 hours): Temp Pulse Resp BP Pulse Ox 98.4 F 81 18 118/74 93 L 02/27/17 12:00 02/27/17 12:00 02/27/17 12:00 02/27/17 12:00 02/27/17 12:00 - Medications Medications: Current Medications Albuterol Sulfate (Albuterol 0.083% Inhal Sybil (2.5 Mg/3 Ml) Ud) 2.5 mg INH RTID [facility] Last Admin: 02/27/17 14:06 Dose: 2.5 mg Clozapine (Clozaril) 200 mg PO HS [facility] Last Admin: 02/26/17 21:22 Dose: 200 mg Diltiazem HCl (Cardizem) 120 mg PO BID [facility] Last Admin: 02/27/17 08:38 Dose: 120 mg Dronedarone (Multaq) 400 mg PO BID [facility] Last Admin: 02/27/17 08:38 Dose: 400 mg Furosemide (Lasix) 20 mg PO DAILY [facility] Last Admin: 02/27/17 08:38 Dose: 20 mg Haloperidol Lactate (Haldol) 1 mg IVP Q4 PRN PRN Reason: Agitation Vancomycin HCl 1 gm/ Sodium (Chloride) 250 mls @ 250 mls/hr IVPB Q12H [facility] Last Admin: 02/25/17 16:40 Dose: 250 mls/hr Meropenem 1 gm/ Sodium (Chloride) 100 mls @ 100 mls/hr IVPB Q8 [facility] Last Admin: 02/27/17 08:37 Dose: 100 mls/hr Methylprednisolone 40 mg/ (Sodium Chloride) 50 mls @ 100 mls/hr IV Q12 [facility] Levothyroxine Sodium (Synthroid) 12.5 mcg PO DAILY@0630 [facility] Last Admin: 02/27/17 06:00 Dose: 12.5 mcg Metoprolol Succinate (Toprol Xl) 25 mg PO DAILY [facility] Last Admin: 02/27/17 08:39 Dose: 25 mg Mirtazapine (Remeron) 7.5 mg PO HS PRN PRN Reason: Insomnia - Labs Labs: 02/27/17 06:56 02/27/17 06:56 PT 52.3 Seconds (9.8-13.1) H* 02/27/17 06:56 INR 4.5 (0.9-1.2) H D 02/27/17 06:56 APTT 36.2 Seconds (25.6-37.1) 02/23/17 04:40 - Constitutional Appears: No Acute Distress, Chronically Ill - Head Exam Head Exam: NORMAL INSPECTION - Eye Exam Eye Exam: PERRL - ENT Exam ENT Exam: Normal Oropharynx - Neck Exam Neck Exam: Normal Inspection - Respiratory Exam Respiratory Exam: Decreased Breath Sounds (at bases), Rhonchi (b/l) Additional comments: Crackles at bases - Cardiovascular Exam Cardiovascular Exam: REGULAR RHYTHM - GI/Abdominal Exam GI & Abdominal Exam: Soft, Normal Bowel Sounds - Extremities Exam Extremities Exam: Normal Inspection - Back Exam Back Exam: NORMAL INSPECTION - Neurological Exam Neurological Exam: Alert (Oriented x1, confused) Additional comments: ves all extremities, incomprehensible sound - Psychiatric Exam Additional comments: Calm - Skin Skin Exam: Warm Assessment and Plan (1) COPD with acute exacerbation Status: Acute (2) Pneumonia Status: Acute - Assessment and Plan (Free Text) Plan: Continue Vanco, Merren, Solumedrol, Albuterol, f/u CT Chest.
[2017-02-27] MEDS: methylPREDNISolone 40 MG in Sodium Chloride 0.9% 50 ML IV SCH (21:15)
[2017-02-28] MEDS: Meropenem 1 GM in Sodium Chloride 0.9% 100 ML IVPB SCH ×3 (00:02→16:23)
[2017-02-28] MEDS: Levothyroxine 25 MCG TAB PO SCH (06:15)
[2017-02-28] MEDS: Albuterol 0.083% Inhal Sol (2.5 mg/3 mL) UD INH SCH ×3 (07:40→19:14)
[2017-02-28 08:35] LABS: HEMOGLOBIN 12.7 g/dL (12.0-16.0); MEAN CELL VOLUME 91.8 fl (81.0-99.0); MEAN CORPUSCULAR HEMOGLOBIN 28.9 pg (27.0-31.0); MEAN CORPUSCULAR HGB CONC 31.5 g/dL (33.0-37.0); RBC 4.39 Mil/uL (3.80-5.20); RED CELL DISTRIBUTION WIDTH 14.9 % (11.5-14.5); WHITE BLOOD COUNT 16.8 K/uL (4.8-10.8)
[2017-02-28] MEDS: methylPREDNISolone 40 MG in Sodium Chloride 0.9% 50 ML IV SCH ×2 (08:48→22:41)
[2017-02-28] MEDS: Metoprolol Succinate 25 mg XL Tab PO SCH (08:49)
[2017-02-28 09:05] LABS: BLOOD UREA NITROGEN 32 mg/dl (7-17); GFR AFRICAN-AMERICAN > 60; GFR NON-AFRICAN AMERICAN > 60
[2017-02-28 09:06] LABS: CALCIUM 9.3 mg/dL (8.4-10.2)
[2017-02-28 09:23] LABS: INR 1.6 (0.9-1.2); PROTHROMBIN TIME 18.3 Seconds (9.8-13.1)
--- NOTE | 2017-02-28 09:52 | CT ---
PROCEDURE: CT Chest without contrast HISTORY: follow up, respiratory status COMPARISON: None. TECHNIQUE: Contiguous axial images were obtained through the chest without intravenous contrast enhancement. Sagittal and coronal reconstructions were performed. Radiation dose (DLP): 544 mGy-cm. This CT exam was performed using one or more of the following dose reduction techniques: Automated exposure control, adjustment of the mA and/or kV according to patient size, and/or use of iterative reconstruction technique. FINDINGS: LUNGS: Clear lungs. Visualized airway clear. MEDIASTINUM: Unremarkable thoracic aorta. No aneurysm. Cardiomegaly sized heart. Main pulmonary artery unremarkable. No vascular congestion. No lymphadenopathy. Small pericardial effusion. PLEURA: Small bilateral pleural effusions. BONES: No fracture. No destructive lesion. UPPER ABDOMEN: Grossly unremarkable. OTHER FINDINGS: None. IMPRESSION: Small bilateral pleural effusions. Small pericardial effusion. Cardiomegaly.
--- NOTE | 2017-02-28 09:56 | CP.PCM.PN ---
Subjective - Date & Time of Evaluation Date of Evaluation: 02/28/17 Time of Evaluation: 08:00 - Subjective Subjective: Patient seen and examined bedside.Elderly female, lying in bed in NAD , sleeping. As per staff no acute issues overnight, communicating minimally , follwing simple commands Hemodynamically stable, afebrile , on ventimask FIO2 40 % saturating 97 % With coarse upper airway breathing WBC 16 K Hgb 12 No acute issues overnight. Objective - Vital Signs/Intake and Output Vital Signs (last 24 hours): Temp Pulse Resp BP Pulse Ox 98.0 F 87 20 134/85 97 02/28/17 08:00 02/28/17 08:49 02/28/17 08:00 02/28/17 08:50 02/28/17 08:00 - Medications Medications: Current Medications Albuterol Sulfate (Albuterol 0.083% Inhal Sybil (2.5 Mg/3 Ml) Ud) 2.5 mg INH RTID [facility] Last Admin: 02/27/17 19:27 Dose: 2.5 mg Clozapine (Clozaril) 200 mg PO HS [facility] Last Admin: 02/27/17 21:14 Dose: 200 mg Diltiazem HCl (Cardizem) 120 mg PO BID [facility] Last Admin: 02/28/17 08:49 Dose: 120 mg Dronedarone (Multaq) 400 mg PO BID [facility] Last Admin: 02/28/17 08:49 Dose: 400 mg Furosemide (Lasix) 20 mg PO DAILY [facility] Last Admin: 02/28/17 08:50 Dose: 20 mg Haloperidol Lactate (Haldol) 1 mg IVP Q4 PRN PRN Reason: Agitation Meropenem 1 gm/ Sodium (Chloride) 100 mls @ 100 mls/hr IVPB Q8 [facility] Last Admin: 02/28/17 08:48 Dose: 100 mls/hr Methylprednisolone 40 mg/ (Sodium Chloride) 50 mls @ 100 mls/hr IV Q12 [facility] Last Admin: 02/28/17 08:48 Dose: 100 mls/hr Vancomycin HCl 1 gm/ Sodium (Chloride) 250 mls @ 166.667 mls/hr IVPB DAILY [facility] Levothyroxine Sodium (Synthroid) 12.5 mcg PO DAILY@0630 [facility] Last Admin: 02/28/17 06:15 Dose: 12.5 mcg Metoprolol Succinate (Toprol Xl) 25 mg PO DAILY [facility] Last Admin: 02/28/17 08:49 Dose: 25 mg Mirtazapine (Remeron) 7.5 mg PO HS PRN PRN Reason: Insomnia - Labs Labs: 02/28/17 05:30 02/28/17 05:30 PT 18.3 Seconds (9.8-13.1) H D 02/28/17 05:30 INR 1.6 (0.9-1.2) H D 02/28/17 05:30 APTT 36.2 Seconds (25.6-37.1) 02/23/17 04:40 - Constitutional Appears: Non-toxic, No Acute Distress - Head Exam Head Exam: ATRAUMATIC, NORMOCEPHALIC - Eye Exam Eye Exam: PERRL - ENT Exam ENT Exam: Mucous Membranes Moist, Normal Exam - Neck Exam Neck Exam: Normal Inspection - Respiratory Exam Respiratory Exam: NORMAL BREATHING PATTERN. absent: Wheezes, Respiratory Distress Additional comments: coarse breath sounds more from upper airway - Cardiovascular Exam Cardiovascular Exam: Irregular Rhythm. absent: JVD - GI/Abdominal Exam GI & Abdominal Exam: Soft, Normal Bowel Sounds. absent: Distended, Guarding, Tenderness, Rebound - Rectal Exam Rectal Exam: Deferred - Extremities Exam Extremities Exam: Full ROM, Normal Capillary Refill, Normal Inspection. absent : Pedal Edema - Neurological Exam Additional comments: following simple commands - Skin Skin Exam: Dry, Pallor, Warm Assessment and Plan - Assessment and Plan (Free Text) Assessment: 77 F with PMH AFIB, HLD, hypothyroid, COPD, schizophrenia was initially admitted to [facility] for worsening paranoia and psychosis. Patient is poor historian, unable to give history due to psychiatric condition. Per nursing and psychiatry team, patient had been worsening clinically with cough ,congestion, and worsening mental status, increasingly agitated, delusional. WBC was elevated, +rhonchi on physical exam,febrile 101.2 rectally, tachycardic 110. Patient admitted for sepsis due to pneumonia. 1.Sepsis 2/2 Pneumonia ( bilateral LL) prob Aspiration PNA on admission, Febrile 101.2, Tachycardic 110, WBC elevated, +rales and rhonchi lactate was neg CXR : neg CT of the chest: bilateral lower lobe infiltrates cont Vanco and Meropenem ID consult : Dr Forouzesh following pt Speech for Swallow eval appreciated and recommended pureed diet f/u Modified Barium Swallow report Pulmonary consult: Dr Sandoval will repeat CT chest 2.COPD Exacerbation Bronchodilators tappered Solumedrol 40 Q12 3.Acute Hypercapneic , Hypoxemic Respiratory Failure, improving on venti mask FIO2 40 % saturating 98% 4.A. FIB, Paroxysmal , rate controlled Toprol 25 mg po daily Diltiazem 120 mg po BID INR 1.6 today Will give Coumadin 2 mg Po today 5.Supratherapeutic INR on Coumadin held Coumadin no signs of bleeding CT of head : neg Hematology consulted, Dr Downs . Given l Phytonadione 1mg SQ x 1 INR 1.6 today 6.Hypothyroidism Low TSH Pt was on Levothyroxine decreased dose to 12.5 mg daily 7.Schizophrenia cont Clozaril bedtime Started Remeron HS for sleep Avoid benzos haldol PRN for agitation Psychiatry consulted Will transfer pt to [facility] once medically stable 8.Episode of Unresponsiveness sec to Ativan Pt noted to be very lethargic, responds to pain by eye opening received IV Ativan Romazicon 0.2 mg given and pt woke up CT of head- neg bleed 9.Hypernatremia likely due to Dehydration IVF hydration with D5 W improving 10.Abn LFT ? sec to medications will monitor 11. DVT prophylaxis on Coumadin SCD
--- NOTE | 2017-02-28 14:16 | CP.PCM.PN ---
Subjective - Date & Time of Evaluation Date of Evaluation: 02/27/17 Time of Evaluation: 16:00 - Subjective Subjective: Appears comfortable Objective - Vital Signs/Intake and Output Vital Signs (last 24 hours): Temp Pulse Resp BP Pulse Ox 98.1 F 83 20 121/75 97 02/28/17 12:00 02/28/17 12:00 02/28/17 12:00 02/28/17 12:00 02/28/17 12:00 - Medications Medications: Current Medications Albuterol Sulfate (Albuterol 0.083% Inhal Sybil (2.5 Mg/3 Ml) Ud) 2.5 mg INH RTID [facility] Last Admin: 02/28/17 13:44 Dose: 2.5 mg Clozapine (Clozaril) 200 mg PO HS [facility] Last Admin: 02/27/17 21:14 Dose: 200 mg Diltiazem HCl (Cardizem) 120 mg PO BID [facility] Last Admin: 02/28/17 08:49 Dose: 120 mg Dronedarone (Multaq) 400 mg PO BID [facility] Last Admin: 02/28/17 08:49 Dose: 400 mg Furosemide (Lasix) 20 mg PO DAILY [facility] Last Admin: 02/28/17 08:50 Dose: 20 mg Haloperidol Lactate (Haldol) 1 mg IVP Q4 PRN PRN Reason: Agitation Meropenem 1 gm/ Sodium (Chloride) 100 mls @ 100 mls/hr IVPB Q8 [facility] Last Admin: 02/28/17 08:48 Dose: 100 mls/hr Methylprednisolone 40 mg/ (Sodium Chloride) 50 mls @ 100 mls/hr IV Q12 [facility] Last Admin: 02/28/17 08:48 Dose: 100 mls/hr Vancomycin HCl 1 gm/ Sodium (Chloride) 250 mls @ 166.667 mls/hr IVPB DAILY [facility] Last Admin: 02/28/17 10:08 Dose: 166.667 mls/hr Levothyroxine Sodium (Synthroid) 12.5 mcg PO DAILY@0630 [facility] Last Admin: 02/28/17 06:15 Dose: 12.5 mcg Metoprolol Succinate (Toprol Xl) 25 mg PO DAILY [facility] Last Admin: 02/28/17 08:49 Dose: 25 mg Mirtazapine (Remeron) 7.5 mg PO HS PRN PRN Reason: Insomnia Warfarin Sodium (Coumadin) 2 mg PO QD5 [facility] PRN Reason: Protocol Stop: 02/28/17 17:01 - Labs Labs: 02/28/17 05:30 02/28/17 05:30 PT 18.3 Seconds (9.8-13.1) H D 02/28/17 05:30 INR 1.6 (0.9-1.2) H D 02/28/17 05:30 APTT 36.2 Seconds (25.6-37.1) 02/23/17 04:40 - Head Exam Head Exam: ATRAUMATIC - Eye Exam Eye Exam: Normal appearance - ENT Exam ENT Exam: Mucous Membranes Dry - Respiratory Exam Respiratory Exam: NORMAL BREATHING PATTERN - Cardiovascular Exam Cardiovascular Exam: +S1, +S2 - GI/Abdominal Exam GI & Abdominal Exam: Normal Bowel Sounds - Extremities Exam Extremities Exam: Pedal Edema Assessment and Plan (1) Coagulopathy Assessment & Plan: INR improving s/p vit k Status: Acute (2) Leukocytosis Assessment & Plan: on antibiotics and steroid. Status: Acute
--- NOTE | 2017-02-28 15:41 | CP.PCM.PN ---
Subjective - Date & Time of Evaluation Date of Evaluation: 02/28/17 Time of Evaluation: 12:20 - Subjective Subjective: F/U COPD Exacerbation. Pt awake, confused, no A/D. Objective - Vital Signs/Intake and Output Vital Signs (last 24 hours): Temp Pulse Resp BP Pulse Ox 98.1 F 83 20 121/75 97 02/28/17 12:00 02/28/17 12:00 02/28/17 12:00 02/28/17 12:00 02/28/17 12:00 - Medications Medications: Current Medications Albuterol Sulfate (Albuterol 0.083% Inhal Sybil (2.5 Mg/3 Ml) Ud) 2.5 mg INH RTID [facility] Last Admin: 02/28/17 13:44 Dose: 2.5 mg Clozapine (Clozaril) 200 mg PO HS [facility] Last Admin: 02/27/17 21:14 Dose: 200 mg Diltiazem HCl (Cardizem) 120 mg PO BID [facility] Last Admin: 02/28/17 08:49 Dose: 120 mg Dronedarone (Multaq) 400 mg PO BID [facility] Last Admin: 02/28/17 08:49 Dose: 400 mg Furosemide (Lasix) 20 mg PO DAILY [facility] Last Admin: 02/28/17 08:50 Dose: 20 mg Haloperidol Lactate (Haldol) 1 mg IVP Q4 PRN PRN Reason: Agitation Meropenem 1 gm/ Sodium (Chloride) 100 mls @ 100 mls/hr IVPB Q8 [facility] Last Admin: 02/28/17 08:48 Dose: 100 mls/hr Methylprednisolone 40 mg/ (Sodium Chloride) 50 mls @ 100 mls/hr IV Q12 [facility] Last Admin: 02/28/17 08:48 Dose: 100 mls/hr Vancomycin HCl 1 gm/ Sodium (Chloride) 250 mls @ 166.667 mls/hr IVPB DAILY [facility] Last Admin: 02/28/17 10:08 Dose: 166.667 mls/hr Levothyroxine Sodium (Synthroid) 12.5 mcg PO DAILY@0630 [facility] Last Admin: 02/28/17 06:15 Dose: 12.5 mcg Metoprolol Succinate (Toprol Xl) 25 mg PO DAILY [facility] Last Admin: 02/28/17 08:49 Dose: 25 mg Mirtazapine (Remeron) 7.5 mg PO HS PRN PRN Reason: Insomnia Warfarin Sodium (Coumadin) 2 mg PO QD5 [facility] PRN Reason: Protocol Stop: 02/28/17 17:01 - Labs Labs: 02/28/17 05:30 02/28/17 05:30 PT 18.3 Seconds (9.8-13.1) H D 02/28/17 05:30 INR 1.6 (0.9-1.2) H D 02/28/17 05:30 APTT 36.2 Seconds (25.6-37.1) 02/23/17 04:40 - Constitutional Appears: No Acute Distress, Chronically Ill - Head Exam Head Exam: NORMAL INSPECTION - Eye Exam Eye Exam: PERRL - ENT Exam ENT Exam: Normal Oropharynx - Neck Exam Neck Exam: Normal Inspection - Respiratory Exam Respiratory Exam: Decreased Breath Sounds - Cardiovascular Exam Cardiovascular Exam: REGULAR RHYTHM - GI/Abdominal Exam GI & Abdominal Exam: Soft, Normal Bowel Sounds - Extremities Exam Extremities Exam: Normal Inspection - Back Exam Back Exam: NORMAL INSPECTION - Neurological Exam Neurological Exam: Alert (Oriented x1, confused) Additional comments: Moves all extremities, incomprehensible speech. - Psychiatric Exam Additional comments: Calm. - Skin Skin Exam: Warm Assessment and Plan (1) COPD with acute exacerbation Status: Acute (2) Pneumonia Assessment & Plan: Resolved. Status: Acute - Assessment and Plan (Free Text) Plan: Continue current Tx.
[2017-03-01] MEDS: Meropenem 1 GM in Sodium Chloride 0.9% 100 ML IVPB SCH ×3 (00:34→17:57)
[2017-03-01] MEDS ORDERED: guaiFENesin 200 mg/10 ml Syrup UD PO ONE (00:46)
[2017-03-01 05:52] LABS: ABG ALLEN TEST YES; ARTERIAL BLOOD GAS HCO3 34.1 mmol/L (21-28); ARTERIAL BLOOD GAS HEMOGLOBIN 12.6 g/dL (11.7-17.4); ARTERIAL BLOOD GAS O2 CAPACITY 17.3 mL/dL (16-24); ARTERIAL BLOOD GAS O2 CONTENT 16.8 ML/dL (15-23); ARTERIAL BLOOD GAS O2 SAT 97.1 % (95-98); ARTERIAL BLOOD GAS PCO2 47 mm/Hg (35-45); ARTERIAL BLOOD GAS PO2 78 mm/Hg (80-100); ARTERIAL BLOOD GAS TCO2 38.1 mmol/L (22-28)
[2017-03-01 06:13] LABS: HEMOGLOBIN 12.6 g/dL (12.0-16.0); MEAN CELL VOLUME 91.5 fl (81.0-99.0); MEAN CORPUSCULAR HEMOGLOBIN 29.7 pg (27.0-31.0); MEAN CORPUSCULAR HGB CONC 32.4 g/dL (33.0-37.0); RBC 4.26 Mil/uL (3.80-5.20); RED CELL DISTRIBUTION WIDTH 15.1 % (11.5-14.5); WHITE BLOOD COUNT 21.1 K/uL (4.8-10.8)
[2017-03-01] MEDS: Levothyroxine 25 MCG TAB PO SCH (06:13)
[2017-03-01 06:23] LABS: ALBUMIN 2.9 g/dL (3.5-5.0); ALT/SGPT 80 U/L (9-52); AST/SGOT 24 U/L (14-36); BLOOD UREA NITROGEN 34 mg/dl (7-17); CALCIUM 8.7 mg/dL (8.4-10.2); GFR AFRICAN-AMERICAN > 60; GFR NON-AFRICAN AMERICAN > 60
[2017-03-01 06:31] LABS: ALB/GLOB RATIO 1.3 (1.0-2.1)
[2017-03-01 06:45] LABS: INR 1.2 (0.9-1.2); PROTHROMBIN TIME 14.1 Seconds (9.8-13.1)
[2017-03-01] MEDS: Albuterol 0.083% Inhal Sol (2.5 mg/3 mL) UD INH SCH ×3 (07:59→19:36)
[2017-03-01] MEDS: Metoprolol Succinate 25 mg XL Tab PO SCH (09:53)
[2017-03-01] MEDS: methylPREDNISolone 40 MG in Sodium Chloride 0.9% 50 ML IV SCH (09:55)
--- NOTE | 2017-03-01 09:59 | CP.PCM.PN ---
Subjective - Date & Time of Evaluation Date of Evaluation: 03/01/17 Time of Evaluation: 09:15 - Subjective Subjective: No fever Pt more alert today conversant, eating breakfast denies CP On 40% Ventimask- will change to nasal cannula denies abd pain Objective - Vital Signs/Intake and Output Vital Signs (last 24 hours): Temp Pulse Resp BP Pulse Ox 97.8 F 85 18 145/89 100 03/01/17 08:14 03/01/17 09:53 03/01/17 08:14 03/01/17 09:53 03/01/17 08:14 - Medications Medications: Current Medications Albuterol Sulfate (Albuterol 0.083% Inhal Sybil (2.5 Mg/3 Ml) Ud) 2.5 mg INH RTID [facility] Last Admin: 03/01/17 07:59 Dose: 2.5 mg Clozapine (Clozaril) 200 mg PO HS [facility] Last Admin: 02/28/17 22:41 Dose: 200 mg Diltiazem HCl (Cardizem) 120 mg PO BID [facility] Last Admin: 03/01/17 09:52 Dose: 120 mg Dronedarone (Multaq) 400 mg PO BID [facility] Last Admin: 03/01/17 09:53 Dose: 400 mg Furosemide (Lasix) 20 mg PO DAILY [facility] Last Admin: 03/01/17 09:52 Dose: 20 mg Haloperidol Lactate (Haldol) 1 mg IVP Q4 PRN PRN Reason: Agitation Meropenem 1 gm/ Sodium (Chloride) 100 mls @ 100 mls/hr IVPB Q8 [facility] Last Admin: 03/01/17 09:55 Dose: 100 mls/hr Methylprednisolone 40 mg/ (Sodium Chloride) 50 mls @ 100 mls/hr IV Q12 [facility] Last Admin: 03/01/17 09:55 Dose: 100 mls/hr Vancomycin HCl 1 gm/ Sodium (Chloride) 250 mls @ 166.667 mls/hr IVPB DAILY [facility] Last Admin: 03/01/17 09:54 Dose: 166.667 mls/hr Levothyroxine Sodium (Synthroid) 12.5 mcg PO DAILY@0630 [facility] Last Admin: 03/01/17 06:13 Dose: 12.5 mcg Metoprolol Succinate (Toprol Xl) 25 mg PO DAILY [facility] Last Admin: 03/01/17 09:53 Dose: 25 mg Mirtazapine (Remeron) 7.5 mg PO HS PRN PRN Reason: Insomnia Last Admin: 03/01/17 00:33 Dose: 7.5 mg Warfarin Sodium (Coumadin) 3 mg PO QD5 [facility] PRN Reason: Protocol Stop: 03/01/17 17:01 - Labs Labs: 03/01/17 05:00 03/01/17 05:00 PT 14.1 Seconds (9.8-13.1) H 03/01/17 05:00 INR 1.2 (0.9-1.2) 03/01/17 05:00 APTT 36.2 Seconds (25.6-37.1) 02/23/17 04:40 - Constitutional Appears: Chronically Ill, - Head Exam Head Exam: NORMAL INSPECTION, NORMOCEPHALIC - Eye Exam Eye Exam: EOMI, Normal appearance Pupil Exam: NORMAL ACCOMMODATION - ENT Exam ENT Exam: Mucous Membranes Moist, Normal External Ear Exam - Neck Exam Neck Exam: Full ROM. absent: Meningismus - Respiratory Exam Respiratory Exam: + Rales, Rhonchi, . absent: Respiratory Distress neg wheeze - Cardiovascular Exam Cardiovascular Exam: REGULAR RHYTHM, +S1, +S2 - GI/Abdominal Exam GI & Abdominal Exam: Soft, Normal Bowel Sounds. absent: Tenderness - Extremities Exam Extremities Exam: Normal Capillary Refill. absent: Calf Tenderness, Pedal Edema - Back Exam Back Exam: absent: CVA tenderness (L), CVA tenderness (R) - Neurological Exam Neurological Exam: Alert, Awake Additional comments: oriented to person and place moves all extremities voice very tremulous ( Parkinson like ? SE of Psych med) - Psychiatric Exam Psychiatric exam: calm - Skin Skin Exam: Dry, Normal Color, Warm Assessment and Plan (1) Sepsis due to pneumonia Status: Acute (2) Aspiration pneumonia Status: Deleted (3) Elevated INR (international normalized ratio) due to prior anticoagulant medication ingestion Status: Acute (4) Paroxysmal atrial fibrillation Status: Chronic (5) HTN (hypertension) Status: Chronic (6) Schizophrenia Status: Chronic (7) COPD with acute exacerbation Status: Acute (8) Supratherapeutic INR Status: Acute (9) Hypothyroidism Status: Chronic - Assessment and Plan (Free Text) Assessment: 77 F with PMH AFIB, HLD, hypothyroid, COPD, schizophrenia was [facility]ia and psychosis. Patient is poor historian, unable to give history due to psychiatric condition. Per nursing and psychiatry team, patient had been worsening clinically with cough ,congestion, and worsening mental status, increasingly agitated, delusional. WBC was elevated, +rhonchi on physical exam,febrile 101.2 rectally, tachycardic 110. Patient admitted for sepsis due to pneumonia. 1.Sepsis 2/2 Pneumonia ( bilateral LL) prob Aspiration PNA on admission, Febrile 101.2, Tachycardic 110, WBC elevated, +rales and rhonchi lactate was neg CXR : neg CT of the chest: bilateral lower lobe infiltrates cont Vanco and Meropenem ID consult : Dr Oliveira following pt Speech for Swallow eval appreciated and recommended pureed diet f/u Modified Barium Swallow report Pulmonary consult: Dr Sandoval Repeat CT chest : improvement 2.COPD Exacerbation Bronchodilators tapered Solumedrol 30 Q12 3.Acute Hypercapneic , Hypoxemic Respiratory Failure, improving on venti mask FIO2 40 % saturating 98%- will change to Nasal cannula 3 liters 4. A. Fib , Paroxysmal , rate controlled Toprol 25 mg po daily Diltiazem 120 mg po BID INR 1.2 today Will give Coumadin 3 mg Po today 5.Supratherapeutic INR on Coumadin held Coumadin no signs of bleeding CT of head : neg Hematology consulted, Dr Downs . Pt had received 1 dose Phytonadione 1mg SQ INR 1.2 today 6.Hypothyroidism Low TSH Pt was on Levothyroxine decreased dose to 12.5 mg daily 7.Schizophrenia cont Clozaril bedtime Started Remeron HS for sleep Avoid benzos haldol PRN for agitation Psychiatry consulted Will transfer pt to [facility] once medically stable 8.Episode of Unresponsiveness sec to Ativan Pt noted to be very lethargic, responds to pain by eye opening received IV Ativan Romazicon 0.2 mg given and pt woke up CT of head- neg bleed 9.Hypernatremia likely due to Dehydration IVF hydration with D5 W improving 10.Abn LFT ? sec to medications improving will monitor 11. DVT prophylaxis on Coumadin SCD
--- NOTE | 2017-03-01 11:52 | CP.PCM.PN ---
Subjective - Date & Time of Evaluation Date of Evaluation: 03/01/17 Time of Evaluation: 11:52 - Subjective Subjective: ID Note- Pt. seen and examined today. no new events overnight as per nurse Objective - Vital Signs/Intake and Output Vital Signs (last 24 hours): Temp Pulse Resp BP Pulse Ox 97.8 F 85 18 145/89 100 03/01/17 08:14 03/01/17 09:53 03/01/17 08:14 03/01/17 09:53 03/01/17 08:14 - Medications Medications: Current Medications Albuterol Sulfate (Albuterol 0.083% Inhal Sybil (2.5 Mg/3 Ml) Ud) 2.5 mg INH RTID [facility] Last Admin: 03/01/17 07:59 Dose: 2.5 mg Clozapine (Clozaril) 200 mg PO HS [facility] Last Admin: 02/28/17 22:41 Dose: 200 mg Diltiazem HCl (Cardizem) 120 mg PO BID [facility] Last Admin: 03/01/17 09:52 Dose: 120 mg Dronedarone (Multaq) 400 mg PO BID [facility] Last Admin: 03/01/17 09:53 Dose: 400 mg Furosemide (Lasix) 20 mg PO DAILY [facility] Last Admin: 03/01/17 09:52 Dose: 20 mg Haloperidol Lactate (Haldol) 1 mg IVP Q4 PRN PRN Reason: Agitation Meropenem 1 gm/ Sodium (Chloride) 100 mls @ 100 mls/hr IVPB Q8 [facility] Last Admin: 03/01/17 09:55 Dose: 100 mls/hr Methylprednisolone 40 mg/ (Sodium Chloride) 50 mls @ 100 mls/hr IV Q12 [facility] Last Admin: 03/01/17 09:55 Dose: 100 mls/hr Vancomycin HCl 1 gm/ Sodium (Chloride) 250 mls @ 166.667 mls/hr IVPB DAILY [facility] Last Admin: 03/01/17 09:54 Dose: 166.667 mls/hr Levothyroxine Sodium (Synthroid) 12.5 mcg PO DAILY@0630 [facility] Last Admin: 03/01/17 06:13 Dose: 12.5 mcg Metoprolol Succinate (Toprol Xl) 25 mg PO DAILY [facility] Last Admin: 03/01/17 09:53 Dose: 25 mg Mirtazapine (Remeron) 7.5 mg PO HS PRN PRN Reason: Insomnia Last Admin: 03/01/17 00:33 Dose: 7.5 mg Warfarin Sodium (Coumadin) 3 mg PO QD5 [facility] PRN Reason: Protocol Stop: 03/01/17 17:01 - Labs Labs: - Additional Findings Additional findings: - Constitutional Appears: Agitated, Confused - Head Exam Head Exam: ATRAUMATIC - Eye Exam Eye Exam: EOMI - ENT Exam Additional comments: poor dentition, dry oral mucosa - Respiratory Exam Respiratory Exam: NORMAL BREATHING PATTERN Additional comments: decreased breath sounds bibasilar no wheezing mild rhonchi - Cardiovascular Exam Cardiovascular Exam: RRR, +S1, +S2 - GI/Abdominal Exam GI & Abdominal Exam: Normal Bowel Sounds, Soft Additional comments: NT, ND - Extremities Exam Extremities exam: Positive for: normal inspection - Neurological Exam Neurological exam: awake with baseline schizophrenia Laboratory Results - last 72 hr 02/27/17 02/27/17 02/27/17 06:56 06:56 06:56 WBC 14.1 H RBC 4.17 Hgb 12.4 Hct 38.7 MCV 92.8 MCH 29.7 MCHC 32.0 L RDW 15.5 H Plt Count 329 MPV 8.5 Neut % (Auto) 89.7 H Lymph % (Auto) 7.2 L Gooding % (Auto) 3.0 Eos % (Auto) 0.0 Baso % (Auto) 0.1 Neut # 12.7 H Lymph # 1.0 Gooding # 0.4 Eos # 0.0 Baso # 0.0 PT 52.3 H* INR 4.5 H D pCO2 pO2 HCO3 ABG pH ABG Total CO2 ABG O2 Saturation ABG O2 Content ABG Base Excess ABG Hemoglobin ABG Carboxyhemoglobin POC ABG HHb (Measured) ABG Methemoglobin ABG O2 Capacity Bernardo Test A-a O2 Difference Hgb O2 Saturation Vent Mode FiO2 Sodium 146 Potassium 3.6 Chloride 107 Carbon Dioxide 32 H Anion Gap 11 BUN 34 H Creatinine 0.8 Est GFR ( Amer) > 60 Est GFR (Non-Af Amer) > 60 Random Glucose 143 H Calcium 9.2 Total Bilirubin 0.7 AST 58 H D ALT 132 H Alkaline Phosphatase 81 Total Protein 5.6 L Albumin 3.3 L Globulin 2.4 Albumin/Globulin Ratio 1.4 Vancomycin Trough 0702/28/17 02/28/17 06:56 05:30 05:30 WBC 16.8 H RBC 4.39 Hgb 12.7 Hct 40.3 MCV 91.8 MCH 28.9 MCHC 31.5 L RDW 14.9 H Plt Count 360 MPV Neut % (Auto) Lymph % (Auto) Gooding % (Auto) Eos % (Auto) Baso % (Auto) Neut # Lymph # Gooding # Eos # Baso # PT 18.3 H D INR 1.6 H D pCO2 pO2 HCO3 ABG pH ABG Total CO2 ABG O2 Saturation ABG O2 Content ABG Base Excess ABG Hemoglobin ABG Carboxyhemoglobin POC ABG HHb (Measured) ABG Methemoglobin ABG O2 Capacity Bernardo Test A-a O2 Difference Hgb O2 Saturation Vent Mode FiO2 Sodium Potassium Chloride Carbon Dioxide Anion Gap BUN Creatinine Est GFR ( Amer) Est GFR (Non-Af Amer) Random Glucose Calcium Total Bilirubin AST ALT Alkaline Phosphatase Total Protein Albumin Globulin Albumin/Globulin Ratio Vancomycin Trough 8.2 02/28/17 03/01/17 03/01/17 05:30 05:00 05:00 WBC 21.1 H RBC 4.26 Hgb 12.6 Hct 39.0 MCV 91.5 MCH 29.7 MCHC 32.4 L RDW 15.1 H Plt Count 301 MPV Neut % (Auto) Lymph % (Auto) Gooding % (Auto) Eos % (Auto) Baso % (Auto) Neut # Lymph # Gooding # Eos # Baso # PT 14.1 H INR 1.2 pCO2 pO2 HCO3 ABG pH ABG Total CO2 ABG O2 Saturation ABG O2 Content ABG Base Excess ABG Hemoglobin ABG Carboxyhemoglobin POC ABG HHb (Measured) ABG Methemoglobin ABG O2 Capacity Bernardo Test A-a O2 Difference Hgb O2 Saturation Vent Mode FiO2 Sodium 143 Potassium 3.5 L Chloride 104 Carbon Dioxide 38 H Anion Gap 5 L BUN 32 H Creatinine 0.7 Est GFR ( Amer) > 60 Est GFR (Non-Af Amer) > 60 Random Glucose 116 H Calcium 9.3 Total Bilirubin AST ALT Alkaline Phosphatase Total Protein Albumin Globulin Albumin/Globulin Ratio Vancomycin Trough 03/01/17 03/01/17 05:00 05:37 WBC RBC Hgb Hct MCV MCH MCHC RDW Plt Count MPV Neut % (Auto) Lymph % (Auto) Gooding % (Auto) Eos % (Auto) Baso % (Auto) Neut # Lymph # Gooding # Eos # Baso # PT INR pCO2 47 H pO2 78 L HCO3 34.1 H ABG pH 7.50 H ABG Total CO2 38.1 H ABG O2 Saturation 97.1 ABG O2 Content 16.8 ABG Base Excess 11.9 H ABG Hemoglobin 12.6 ABG Carboxyhemoglobin 1.2 POC ABG HHb (Measured) 2.8 ABG Methemoglobin 1.3 ABG O2 Capacity 17.3 Bernardo Test Yes A-a O2 Difference 148.0 Hgb O2 Saturation 94.7 L Vent Mode Venti mask FiO2 40.0 Sodium 142 Potassium 3.5 L Chloride 105 Carbon Dioxide 34 H Anion Gap 7 L BUN 34 H Creatinine 0.7 Est GFR ( Amer) > 60 Est GFR (Non-Af Amer) > 60 Random Glucose 100 Calcium 8.7 Total Bilirubin 0.8 AST 24 ALT 80 H D Alkaline Phosphatase 86 Total Protein 5.2 L Albumin 2.9 L Globulin 2.3 Albumin/Globulin Ratio 1.3 Vancomycin Trough Microbiology 02/23/17 21:00 Blood-Venous Blood Culture - Final NO GROWTH AFTER 5 DAYS 02/23/17 21:00 Blood-Venous Gram Stain - Final TEST NOT PERFORMED 02/23/17 21:00 Blood-Venous Blood Culture - Final NO GROWTH AFTER 5 DAYS 02/22/17 14:00 Blood Blood Culture - Final NO GROWTH AFTER 5 DAYS 02/22/17 14:00 Blood Gram Stain - Final TEST NOT PERFORMED 02/24/17 14:00 Urine,Catheterized Urine Culture - Final No Growth (<1,000 CFU/ML) 02/22/17 14:31 Urine,Catheterized Urine Culture - Final No Growth (<1,000 CFU/ML) Accession No. : [id number] Patient Name / ID : LUIS ALBERTO SCALES / [id number] Exam Date : 02/27/2017 15:34:14 ( Approved ) Study Comment : Sex / Age : F / 77Y Creator : Nino Garcia MD Dictator : Nino Garcia MD Air Quality Manager : Piano Sounding Board Matcher : Nino Garcia MD Approver2 : Report Date : 02/28/2017 09:46:34 My Comment : PROCEDURE: CT Chest without contrast HISTORY: follow up, respiratory status COMPARISON: None. TECHNIQUE: Contiguous axial images were obtained through the chest without intravenous contrast enhancement. Sagittal and coronal reconstructions were performed. Radiation dose (DLP): 544 mGy-cm. This CT exam was performed using one or more of the following dose reduction techniques: Automated exposure control, adjustment of the mA and/or kV according to patient size, and/or use of iterative reconstruction technique. FINDINGS: LUNGS: Clear lungs. Visualized airway clear. MEDIASTINUM: Unremarkable thoracic aorta. No aneurysm. Cardiomegaly sized heart. Main pulmonary artery unremarkable. No vascular congestion. No lymphadenopathy. Small pericardial effusion. PLEURA: Small bilateral pleural effusions. BONES: No fracture. No destructive lesion. UPPER ABDOMEN: Grossly unremarkable. OTHER FINDINGS: None. IMPRESSION: Small bilateral pleural effusions. Small pericardial effusion. Cardiomegaly. v Assessment and Plan (1) Pneumonia Status: Acute (2) SIRS (systemic inflammatory response syndrome) Status: Acute (3) Schizophrenia Status: Chronic (4) Leukocytosis Status: Acute - Assessment and Plan (Free Text) Assessment: A/P- 77 year old female with COPD, schizophrenia admitted with fever, leukocytosis and rhonchi found to have pneumonia on chest CT . remains afebrile leukocytosis once again rising chest ct reported as b/l lower lobe infiltrates. blood cx- neg x 3 urine cx- neg x 2 plan- monitor aspiration precautions. advise to continue with IV vancomycin to cover for possible MRSA. day #7 advise to continue with meropenem for broader Gram neg coverage. day $7 keep vanco trough <15. leukocytosis could also be partially secondary to the IV steroids as well. perhaps monitor wbc while tapering steroids. also pt. does have b/l pleural effusions and may need thoracenthesis and further evaluation of the fluid . advise to check another blood cx and UA. if any loose stools advise to also check for stool c.diff.
[2017-03-01] MEDS ORDERED: Potassium Chloride 20 mEq/15 ml LIQ UD PO ONE (16:20)
--- NOTE | 2017-03-01 16:36 | CP.PCM.PN ---
Subjective - Date & Time of Evaluation Date of Evaluation: 03/01/17 Time of Evaluation: 12:40 - Subjective Subjective: F/U COPD Exacerbation. Pt appear at times confused, c/o at times for cough, no A/D. Objective - Vital Signs/Intake and Output Vital Signs (last 24 hours): Temp Pulse Resp BP Pulse Ox 98.6 F 87 16 102/63 98 03/01/17 15:54 03/01/17 15:54 03/01/17 15:54 03/01/17 15:54 03/01/17 15:54 - Medications Medications: Current Medications Albuterol Sulfate (Albuterol 0.083% Inhal Sybil (2.5 Mg/3 Ml) Ud) 2.5 mg INH RTID [facility] Last Admin: 03/01/17 13:08 Dose: 2.5 mg Clozapine (Clozaril) 200 mg PO HS [facility] Last Admin: 02/28/17 22:41 Dose: 200 mg Diltiazem HCl (Cardizem) 120 mg PO BID [facility] Last Admin: 03/01/17 09:52 Dose: 120 mg Dronedarone (Multaq) 400 mg PO BID [facility] Last Admin: 03/01/17 09:53 Dose: 400 mg Furosemide (Lasix) 20 mg PO DAILY [facility] Last Admin: 03/01/17 09:52 Dose: 20 mg Haloperidol Lactate (Haldol) 1 mg IVP Q4 PRN PRN Reason: Agitation Meropenem 1 gm/ Sodium (Chloride) 100 mls @ 100 mls/hr IVPB Q8 [facility] Last Admin: 03/01/17 09:55 Dose: 100 mls/hr Vancomycin HCl 1 gm/ Sodium (Chloride) 250 mls @ 166.667 mls/hr IVPB DAILY [facility] Last Admin: 03/01/17 09:54 Dose: 166.667 mls/hr Methylprednisolone 30 mg/ (Sodium Chloride) 50 mls @ 100 mls/hr IV Q12 [facility] Levothyroxine Sodium (Synthroid) 12.5 mcg PO DAILY@0630 [facility] Last Admin: 03/01/17 06:13 Dose: 12.5 mcg Metoprolol Succinate (Toprol Xl) 25 mg PO DAILY [facility] Last Admin: 03/01/17 09:53 Dose: 25 mg Mirtazapine (Remeron) 7.5 mg PO HS PRN PRN Reason: Insomnia Last Admin: 03/01/17 00:33 Dose: 7.5 mg Warfarin Sodium (Coumadin) 3 mg PO QD5 [facility] PRN Reason: Protocol Stop: 03/01/17 17:01 - Labs Labs: 03/01/17 05:00 03/01/17 05:00 PT 14.1 Seconds (9.8-13.1) H 03/01/17 05:00 INR 1.2 (0.9-1.2) 03/01/17 05:00 APTT 36.2 Seconds (25.6-37.1) 02/23/17 04:40 - Constitutional Appears: No Acute Distress, Chronically Ill - Head Exam Head Exam: NORMAL INSPECTION - Eye Exam Eye Exam: PERRL - ENT Exam ENT Exam: Normal Oropharynx - Neck Exam Neck Exam: Normal Inspection - Respiratory Exam Respiratory Exam: Decreased Breath Sounds - Cardiovascular Exam Cardiovascular Exam: REGULAR RHYTHM - GI/Abdominal Exam GI & Abdominal Exam: Soft, Normal Bowel Sounds - Extremities Exam Extremities Exam: Normal Inspection - Back Exam Back Exam: NORMAL INSPECTION - Neurological Exam Neurological Exam: Alert (Oriented x1, incomprenhensible speech) - Psychiatric Exam Additional comments: Calm - Skin Skin Exam: Warm Assessment and Plan (1) COPD with acute exacerbation Status: Acute (2) Pneumonia Status: Acute - Assessment and Plan (Free Text) Plan: CT Chest Lungs clear, Pneumonia resolving , COPD Exacerbation improved , NC O2 , taper Steroids, Antibiotic cooverage as per ID
[2017-03-01] MEDS ORDERED: Sodium Chloride 3% for Inhalation 4 ML VIAL.NEB IH PRN (21:00)
[2017-03-01] MEDS: methylPREDNISolone 30 MG in Sodium Chloride 0.9% 50 ML IV SCH (21:40)
[2017-03-02] MEDS: Meropenem 1 GM in Sodium Chloride 0.9% 100 ML IVPB SCH ×3 (00:17→17:51)
[2017-03-02] MEDS: Levothyroxine 25 MCG TAB PO SCH ×2 (05:47→05:51)
[2017-03-02] MEDS: Albuterol 0.083% Inhal Sol (2.5 mg/3 mL) UD INH SCH ×2 (07:20→13:10)
[2017-03-02] MEDS: Metoprolol Succinate 25 mg XL Tab PO SCH (09:42)
[2017-03-02] MEDS: methylPREDNISolone 30 MG in Sodium Chloride 0.9% 50 ML IV SCH ×2 (09:43→22:01)
--- NOTE | 2017-03-02 14:28 | CP.PCM.PN ---
Subjective - Date & Time of Evaluation Date of Evaluation: 03/02/17 Time of Evaluation: 13:30 - Subjective Subjective: F/U COPD Exacerbation. Pt with no specific c/o, occasional cough, on NC 3 L/M. Objective - Vital Signs/Intake and Output Vital Signs (last 24 hours): Temp Pulse Resp BP Pulse Ox 98.0 F 85 18 115/76 98 03/02/17 12:00 03/02/17 12:00 03/02/17 12:00 03/02/17 12:00 03/02/17 12:00 Intake and Output: 03/02/17 03/02/17 06:59 18:59 Intake Total 200 Balance 200 - Medications Medications: Current Medications Albuterol Sulfate (Albuterol 0.083% Inhal Sybil (2.5 Mg/3 Ml) Ud) 2.5 mg INH RTID [facility] Last Admin: 03/02/17 13:10 Dose: 2.5 mg Apixaban (Eliquis) 2.5 mg PO BID [facility] PRN Reason: Protocol Clozapine (Clozaril) 200 mg PO HS [facility] Last Admin: 03/01/17 21:57 Dose: 200 mg Diltiazem HCl (Cardizem) 120 mg PO BID [facility] Last Admin: 03/02/17 09:41 Dose: 120 mg Dronedarone (Multaq) 400 mg PO BID [facility] Last Admin: 03/02/17 09:41 Dose: 400 mg Famotidine (Pepcid) 20 mg PO BID [facility] Furosemide (Lasix) 20 mg PO DAILY [facility] Last Admin: 03/02/17 09:41 Dose: 20 mg Haloperidol Lactate (Haldol) 1 mg IVP Q4 PRN PRN Reason: Agitation Meropenem 1 gm/ Sodium (Chloride) 100 mls @ 100 mls/hr IVPB Q8 [facility] Last Admin: 03/02/17 09:44 Dose: 100 mls/hr Vancomycin HCl 1 gm/ Sodium (Chloride) 250 mls @ 166.667 mls/hr IVPB DAILY [facility] Last Admin: 03/02/17 09:43 Dose: 166.667 mls/hr Methylprednisolone 30 mg/ (Sodium Chloride) 50 mls @ 100 mls/hr IV Q12 [facility] Last Admin: 03/02/17 09:43 Dose: 100 mls/hr Levothyroxine Sodium (Synthroid) 12.5 mcg PO DAILY@0630 [facility] Last Admin: 03/02/17 05:51 Dose: Not Given Metoprolol Succinate (Toprol Xl) 25 mg PO DAILY [facility] Last Admin: 03/02/17 09:42 Dose: 25 mg Mirtazapine (Remeron) 7.5 mg PO HS PRN PRN Reason: Insomnia Last Admin: 03/01/17 00:33 Dose: 7.5 mg - Labs Labs: 03/01/17 05:00 03/01/17 05:00 PT 14.1 Seconds (9.8-13.1) H 03/01/17 05:00 INR 1.2 (0.9-1.2) 03/01/17 05:00 APTT 36.2 Seconds (25.6-37.1) 02/23/17 04:40 - Constitutional Appears: No Acute Distress, Chronically Ill - Head Exam Head Exam: NORMAL INSPECTION - Eye Exam Eye Exam: PERRL - ENT Exam ENT Exam: Normal Oropharynx - Neck Exam Neck Exam: Normal Inspection - Respiratory Exam Respiratory Exam: Rhonchi (b/l) - Cardiovascular Exam Cardiovascular Exam: REGULAR RHYTHM - GI/Abdominal Exam GI & Abdominal Exam: Soft, Normal Bowel Sounds - Extremities Exam Extremities Exam: Normal Inspection - Back Exam Back Exam: NORMAL INSPECTION - Neurological Exam Neurological Exam: Alert (Oriented x1, confused) Additional comments: Moves all extremities, incomprehensible speech. - Psychiatric Exam Additional comments: Calm - Skin Skin Exam: Warm Assessment and Plan (1) COPD with acute exacerbation Assessment & Plan: Improved Status: Acute (2) Pneumonia Status: Resolved - Assessment and Plan (Free Text) Plan: Continue Duoneb, abx coverage, Pt to be transferred to Gerophcych unit.
--- NOTE | 2017-03-02 15:10 | RAD ---
PROCEDURE: Modified barium swallow study. HISTORY: r/o aspiration COMPARISON: None available. TECHNIQUE: Under fluoroscopic guidance, barium meals of various consistency were administered to the patient by the speech pathologist. FINDINGS: No limited penetration was observed during this study but no definite aspiration. IMPRESSION: Limited penetration to the vocal cords was encountered. No definite aspiration. . Please refer to the detailed report and recommendations of the speech pathologist.
[2017-03-02 16:12] VITALS: O2SAT 98
--- NOTE | 2017-03-02 18:06 | CP.PCM.DIS ---
Provider - Provider Date of Admission: 02/22/17 15:00 Attending physician: Yessica Kam DO Consults: ID: Dr Oliveira Pulm: Dr Sandoval Psych: Dr Camargo hematology : Dr Infante Time Spent in preparation of Discharge (in minutes): 40 Diagnosis - Discharge Diagnosis (1) Sepsis due to pneumonia Status: Acute (2) Aspiration pneumonia Status: Deleted Priority: High (3) Elevated INR (international normalized ratio) due to prior anticoagulant medication ingestion Status: Acute (4) Paroxysmal atrial fibrillation Status: Chronic (5) HTN (hypertension) Status: Chronic (6) Schizophrenia Status: Chronic (7) COPD with acute exacerbation Status: Acute Priority: High (8) Supratherapeutic INR Status: Acute (9) Hypothyroidism Status: Chronic Hospital Course - Lab Results Lab Results: Micro Results 03/01/17 16:49 Blood-Venous Blood Culture - Preliminary NO GROWTH AFTER 24 HOURS 02/23/17 21:00 Blood-Venous Blood Culture - Final NO GROWTH AFTER 5 DAYS 02/23/17 21:00 Blood-Venous Gram Stain - Final TEST NOT PERFORMED 02/23/17 21:00 Blood-Venous Blood Culture - Final NO GROWTH AFTER 5 DAYS 02/24/17 14:00 Urine,Catheterized Urine Culture - Final No Growth (<1,000 CFU/ML) Most Recent Lab Values WBC 21.1 K/uL (4.8-10.8) H 03/01/17 05:00 RBC 4.26 Mil/uL (3.80-5.20) 03/01/17 05:00 Hgb 12.6 g/dL (12.0-16.0) 03/01/17 05:00 Hct 39.0 % (34.0-47.0) 03/01/17 05:00 MCV 91.5 fl (81.0-99.0) 03/01/17 05:00 MCH 29.7 pg (27.0-31.0) 03/01/17 05:00 MCHC 32.4 g/dL (33.0-37.0) L 03/01/17 05:00 RDW 15.1 % (11.5-14.5) H 03/01/17 05:00 Plt Count 301 K/uL (130-400) 03/01/17 05:00 MPV 8.5 fl (7.2-11.7) 02/27/17 06:56 Neut % (Auto) 89.7 % (50.0-75.0) H 02/27/17 06:56 Lymph % (Auto) 7.2 % (20.0-40.0) L 02/27/17 06:56 [place] % (Auto) 3.0 % (0.0-10.0) 02/27/17 06:56 Eos % (Auto) 0.0 % (0.0-4.0) 02/27/17 06:56 Baso % (Auto) 0.1 % (0.0-2.0) 02/27/17 06:56 Neut # 12.7 K/uL (1.8-7.0) H 02/27/17 06:56 Lymph # 1.0 K/uL (1.0-4.3) 02/27/17 06:56 [place] # 0.4 K/uL (0.0-0.8) 02/27/17 06:56 Eos # 0.0 K/uL (0.0-0.7) 02/27/17 06:56 Baso # 0.0 K/uL (0.0-0.2) 02/27/17 06:56 Neutrophils % (Manual) 91 % (42-75) H 02/25/17 07:00 Band Neutrophils % 2 % (0-2) 02/23/17 04:40 Lymphocytes % (Manual) 6 % (20-50) L 02/25/17 07:00 Monocytes % (Manual) 3 % (0-10) 02/25/17 07:00 Platelet Estimate Normal (NORMAL) 02/25/17 07:00 Large Platelets Present 02/24/17 06:05 Hypochromasia (manual) Slight 02/25/17 07:00 Poikilocytosis (manual Slight 02/25/17 07:00 Anisocytosis (manual) Slight 02/25/17 07:00 Tear Drop Cells Slight 02/25/17 07:00 Ovalocytes Slight 02/25/17 07:00 Schistocytes Slight 02/25/17 07:00 PT 14.1 Seconds (9.8-13.1) H 03/01/17 05:00 INR 1.2 (0.9-1.2) 03/01/17 05:00 APTT 36.2 Seconds (25.6-37.1) 02/23/17 04:40 pCO2 47 mm/Hg (35-45) H 03/01/17 05:37 pO2 78 mm/Hg (80-100) L 03/01/17 05:37 HCO3 34.1 mmol/L (21-28) H 03/01/17 05:37 ABG pH 7.50 (7.35-7.45) H 03/01/17 05:37 ABG Total CO2 38.1 mmol/L (22-28) H 03/01/17 05:37 ABG O2 Saturation 97.1 % (95-98) 03/01/17 05:37 ABG O2 Content 16.8 ML/dL (15-23) 03/01/17 05:37 ABG Base Excess 11.9 mmol/L (-2.0-3.0) H 03/01/17 05:37 ABG Hemoglobin 12.6 g/dL (11.7-17.4) 03/01/17 05:37 ABG Carboxyhemoglobin 1.2 % (0.5-1.5) 03/01/17 05:37 POC ABG HHb (Measured) 2.8 % (0.0-5.0) 03/01/17 05:37 ABG Methemoglobin 1.3 % (0.0-3.0) 03/01/17 05:37 ABG O2 Capacity 17.3 mL/dL (16-24) 03/01/17 05:37 Bernardo Test Yes 03/01/17 05:37 VBG pH 7.48 (7.32-7.43) H 02/22/17 14:05 VBG pCO2 44 mmHg (40-60) 02/22/17 14:05 VBG HCO3 30.9 mmol/L 02/22/17 14:05 VBG Total CO2 34.2 mmol/L (22-28) H 02/22/17 14:05 VBG O2 Sat (Calc) 84.3 % (40-65) H 02/22/17 14:05 VBG Base Excess 8.2 mmol/L (0.0-2.0) H 02/22/17 14:05 VBG Potassium 3.9 mmol/L (3.6-5.2) 02/22/17 14:05 A-a O2 Difference 148.0 mm/Hg 03/01/17 05:37 Hgb O2 Saturation 94.7 % (95.0-98.0) L 03/01/17 05:37 Sodium 143.0 mmol/L (132-148) 02/22/17 14:05 Chloride 105.0 mmol/L (98-107) 02/22/17 14:05 Glucose 125 mg/dL (65-105) H 02/22/17 14:05 Lactate 1.8 mmol/L (0.7-2.1) 02/22/17 14:05 Vent Mode Venti mask 03/01/17 05:37 FiO2 40.0 % 03/01/17 05:37 Sodium 142 mmol/l (132-148) 03/01/17 05:00 Potassium 3.5 MMOL/L (3.6-5.0) L 03/01/17 05:00 Chloride 105 mmol/L (98-107) 03/01/17 05:00 Carbon Dioxide 34 mmol/L (22-30) H 03/01/17 05:00 Anion Gap 7 (10-20) L 03/01/17 05:00 BUN 34 mg/dl (7-17) H 03/01/17 05:00 Creatinine 0.7 mg/dL (0.7-1.2) 03/01/17 05:00 Est GFR ( Amer) > 60 03/01/17 05:00 Est GFR (Non-Af Amer) > 60 03/01/17 05:00 POC Glucose (mg/dL) 139 mg/dL (65-110) H 02/25/17 10:11 Random Glucose 100 mg/dL (65-105) 03/01/17 05:00 Calcium 8.7 mg/dL (8.4-10.2) 03/01/17 05:00 Phosphorus 3.9 mg/dl (2.5-4.5) 02/22/17 14:00 Magnesium 2.0 MG/DL (1.6-2.3) 02/22/17 14:00 Total Bilirubin 0.8 mg/dl (0.2-1.3) 03/01/17 05:00 AST 24 U/L (14-36) 03/01/17 05:00 ALT 80 U/L (9-52) H D 03/01/17 05:00 Alkaline Phosphatase 86 U/L (38-126) 03/01/17 05:00 Total Protein 5.2 G/DL (6.3-8.2) L 03/01/17 05:00 Albumin 2.9 g/dL (3.5-5.0) L 03/01/17 05:00 Globulin 2.3 gm/dL (2.2-3.9) 03/01/17 05:00 Albumin/Globulin Ratio 1.3 (1.0-2.1) 03/01/17 05:00 Thyroxine (T4) 7.66 ug/dl (5.5-11.0) 02/25/17 07:00 Total T3 0.611 nmol/L (1.49-2.60) L 02/25/17 07:00 TSH 3rd Generation 0.26 mIU/ML (0.46-4.68) L 02/25/17 07:00 Venous Blood Potassium 3.9 mmol/L (3.6-5.2) 02/22/17 14:05 Urine Color Yellow (YELLOW) 02/22/17 14:31 Urine Clarity Clear (Clear) 02/22/17 14:31 Urine pH 6.0 (5.0-8.0) 02/22/17 14:31 Ur Specific [place] 1.011 (1.003-1.030) 02/22/17 14:31 Urine Protein Negative mg/dL (NEGATIVE) 02/22/17 14:31 Urine Glucose (UA) Neg mg/dL (Normal) 02/22/17 14:31 Urine Ketones Negative mg/dL (NEGATIVE) 02/22/17 14:31 Urine Blood Negative (NEGATIVE) 02/22/17 14:31 Urine Nitrate Negative (NEGATIVE) 02/22/17 14:31 Urine Bilirubin Negative (NEGATIVE) 02/22/17 14:31 Urine Urobilinogen 0.2-1.0 mg/dL (0.2-1.0) 02/22/17 14:31 Ur Leukocyte Esterase Neg Jeanne/uL (Negative) 02/22/17 14:31 Urine RBC (Auto) 1 /hpf (0-3) 02/22/17 14:31 Urine Microscopic WBC < 1 /hpf (0-5) 02/22/17 14:31 Ur Squamous Epith Cells < 1 /hpf (0-5) 02/22/17 14:31 Vancomycin Trough 8.2 ug/mL (5.0-10.0) 02/27/17 06:56 Mycoplasma pneumon IgM 270 U/mL (<770) 02/25/17 07:00 - Hospital Course Hospital Course: 77 F with PMH AFIB, HLD, hypothyroid, COPD, schizophrenia was initially admitted to [facility] for worsening paranoia and psychosis. Patient is poor historian, unable to give history due to psychiatric condition. Per nursing and psychiatry team, patient had been worsening clinically with cough ,congestion, and worsening mental status, increasingly agitated, delusional. WBC was elevated, +rhonchi on physical exam,febrile 101.2 rectally, tachycardic 110. Patient admitted for sepsis due to pneumonia. 1.Sepsis 2/2 Pneumonia ( bilateral LL) prob Aspiration PNA, improved on admission, Febrile 101.2, Tachycardic 110, WBC elevated, +rales and rhonchi lactate was neg CXR : neg CT of the chest: bilateral lower lobe infiltrates cont Vanco and Meropenem ID consult : Dr Oliveira following pt Speech for Swallow eval appreciated and recommended pureed diet f/u Modified Barium Swallow report Pulmonary consult: Dr Sandoval Repeat CT chest : improved infiltrates Pt medical stable to go back to [facility] cont IV abx x 3 more days 2.COPD Exacerbation Bronchodilators tapered Solumedrol 30 Q12 -change to Prednisone 40 mg daily - slowly taper once in Psych unit 3.Acute Hypercapneic , Hypoxemic Respiratory Failure, improving Saturation 98 on Nasal cannula 3 liters 4. A. Fib , Paroxysmal , rate controlled Toprol 25 mg po daily Diltiazem 120 mg po BID INR 1.2 yesterday - pt refused blood drawing despite exaplanation of benefits/ risk Discussed with dr Infante - rec to change Coumadin to Eliquis so ther will be no need for INR monitoring 5.Supratherapeutic INR on Coumadin held Coumadin no signs of bleeding CT of head : neg Hematology consulted, Dr Downs . Pt had received 1 dose Phytonadione 1mg SQ 6.Hypothyroidism Low TSH Pt was on Levothyroxine decreased dose to 12.5 mg daily 7.Schizophrenia cont Clozaril bedtime Started Remeron HS for sleep Avoid benzos haldol PRN for agitation Psychiatry consulted Will transfer pt to [facility] now that pt is medicall stable 8.Episode of Unresponsiveness sec to Ativan received IV Ativan Romazicon 0.2 mg given and pt woke up CT of head- neg bleed 9.Hypernatremia likely due to Dehydration received IVF hydration with D5 W improved 10.Abn LFT ? sec to medications improving will monitor 11. DVT prophylaxis On Eliquis SCD Discharge Exam - Head Exam Head Exam: NORMAL INSPECTION - Eye Exam Eye Exam: EOMI, Normal appearance Pupil Exam: NORMAL ACCOMODATION - ENT Exam ENT Exam: Mucous Membranes Moist, Normal External Ear Exam - Neck Exam Neck exam: Full Rom - Respiratory Exam Respiratory Exam: Rhonchi, NORMAL BREATHING PATTERN. absent: Respiratory Distress - Cardiovascular Exam Cardiovascular Exam: REGULAR RHYTHM, +S1, +S2 - GI/Abdominal Exam GI & Abdominal Exam: Normal Bowel Sounds, Soft. absent: Tenderness - Extremities Exam Extremities exam: full ROM, normal capillary refill, pedal pulses present - Back Exam Back exam: FULL ROM. absent: CVA tenderness (L), CVA tenderness (R) - Neurological Exam Neurological exam: Alert, CN II-XII Intact, Reflexes Normal Additional comments: oriented to person and place - Psychiatric Exam Psychiatric exam: Normal Affect - Skin Skin Exam: Dry, Normal Color, Warm Discharge Plan - Discharge Medications Prescriptions: Meropenem IV 1 gm in NS [Merrem IV 1 gm Premix] 1 gm IVPB Q8 3 Days predniSONE [Prednisone] 40 mg PO DAILY #20 tab Vancomycin/0.9 % Sod Chloride [Vancomycin 1 G/100Ml-0.9% NaCl] 1 gm IV Q12 3 Days - Follow Up Plan Condition: STABLE Disposition: DISCHARGE TO PSYCH HOSPITAL Additional Instructions: dc pt to [facility] once son has signed consent for admission cont IV Meropenem and Vanco x 3 more days
--- NOTE | 2017-03-02 19:12 | CP.PCM.PN ---
Subjective - Date & Time of Evaluation Date of Evaluation: 03/01/17 Time of Evaluation: 19:05 - Subjective Subjective: Reports to lots of bruises from phlebotomy draws. Objective - Vital Signs/Intake and Output Vital Signs (last 24 hours): Temp Pulse Resp BP Pulse Ox 97.6 F 80 20 101/62 98 03/02/17 16:11 03/02/17 16:11 03/02/17 16:11 03/02/17 16:11 03/02/17 16:11 Intake and Output: 03/02/17 03/03/17 18:59 06:59 Intake Total 200 Balance 200 - Medications Medications: Current Medications Albuterol/Ipratropium (Duoneb 3 Mg/0.5 Mg (3 Ml) Ud) 3 ml INH RTID JOON Apixaban (Eliquis) 2.5 mg PO BID JOON PRN Reason: Protocol Last Admin: 03/02/17 17:50 Dose: 2.5 mg Clozapine (Clozaril) 200 mg PO HS [facility] Last Admin: 03/01/17 21:57 Dose: 200 mg Diltiazem HCl (Cardizem) 120 mg PO BID [facility] Last Admin: 03/02/17 17:50 Dose: 120 mg Dronedarone (Multaq) 400 mg PO BID [facility] Last Admin: 03/02/17 17:50 Dose: 400 mg Famotidine (Pepcid) 20 mg PO BID [facility] Last Admin: 03/02/17 17:50 Dose: 20 mg Furosemide (Lasix) 20 mg PO DAILY [facility] Last Admin: 03/02/17 09:41 Dose: 20 mg Haloperidol Lactate (Haldol) 1 mg IVP Q4 PRN PRN Reason: Agitation Meropenem 1 gm/ Sodium (Chloride) 100 mls @ 100 mls/hr IVPB Q8 [facility] Last Admin: 03/02/17 17:51 Dose: 100 mls/hr Vancomycin HCl 1 gm/ Sodium (Chloride) 250 mls @ 166.667 mls/hr IVPB DAILY [facility] Last Admin: 03/02/17 09:43 Dose: 166.667 mls/hr Methylprednisolone 30 mg/ (Sodium Chloride) 50 mls @ 100 mls/hr IV Q12 [facility] Last Admin: 03/02/17 09:43 Dose: 100 mls/hr Levothyroxine Sodium (Synthroid) 12.5 mcg PO DAILY@0630 [facility] Last Admin: 03/02/17 05:51 Dose: Not Given Metoprolol Succinate (Toprol Xl) 25 mg PO DAILY [facility] Last Admin: 03/02/17 09:42 Dose: 25 mg Mirtazapine (Remeron) 7.5 mg PO HS PRN PRN Reason: Insomnia Last Admin: 03/01/17 00:33 Dose: 7.5 mg - Labs Labs: 03/01/17 05:00 03/01/17 05:00 PT 14.1 Seconds (9.8-13.1) H 03/01/17 05:00 INR 1.2 (0.9-1.2) 03/01/17 05:00 APTT 36.2 Seconds (25.6-37.1) 02/23/17 04:40 - Head Exam Head Exam: ATRAUMATIC - Eye Exam Eye Exam: Normal appearance - ENT Exam ENT Exam: Mucous Membranes Dry - Respiratory Exam Respiratory Exam: NORMAL BREATHING PATTERN - Cardiovascular Exam Cardiovascular Exam: +S1, +S2 - GI/Abdominal Exam GI & Abdominal Exam: Normal Bowel Sounds - Extremities Exam Extremities Exam: Normal Inspection Assessment and Plan (1) Coagulopathy Assessment & Plan: secondary to coumadin s/p vit k subq Status: Acute (2) Leukocytosis Assessment & Plan: on antibiotics and steroids Status: Acute
--- NOTE | 2017-03-02 19:16 | CP.PCM.PN ---
Subjective - Date & Time of Evaluation Date of Evaluation: 03/02/17 Time of Evaluation: 15:00 - Subjective Subjective: No complaints switched to Eliquis as was not compliant with blood draws for coumadin monitoring Objective - Vital Signs/Intake and Output Vital Signs (last 24 hours): Temp Pulse Resp BP Pulse Ox 97.6 F 80 20 101/62 98 03/02/17 16:11 03/02/17 16:11 03/02/17 16:11 03/02/17 16:11 03/02/17 16:11 Intake and Output: 03/02/17 03/03/17 18:59 06:59 Intake Total 200 Balance 200 - Medications Medications: Current Medications Albuterol/Ipratropium (Duoneb 3 Mg/0.5 Mg (3 Ml) Ud) 3 ml INH RTID JOON Apixaban (Eliquis) 2.5 mg PO BID JOON PRN Reason: Protocol Last Admin: 03/02/17 17:50 Dose: 2.5 mg Clozapine (Clozaril) 200 mg PO HS [facility] Last Admin: 03/01/17 21:57 Dose: 200 mg Diltiazem HCl (Cardizem) 120 mg PO BID [facility] Last Admin: 03/02/17 17:50 Dose: 120 mg Dronedarone (Multaq) 400 mg PO BID [facility] Last Admin: 03/02/17 17:50 Dose: 400 mg Famotidine (Pepcid) 20 mg PO BID [facility] Last Admin: 03/02/17 17:50 Dose: 20 mg Furosemide (Lasix) 20 mg PO DAILY [facility] Last Admin: 03/02/17 09:41 Dose: 20 mg Haloperidol Lactate (Haldol) 1 mg IVP Q4 PRN PRN Reason: Agitation Meropenem 1 gm/ Sodium (Chloride) 100 mls @ 100 mls/hr IVPB Q8 [facility] Last Admin: 03/02/17 17:51 Dose: 100 mls/hr Vancomycin HCl 1 gm/ Sodium (Chloride) 250 mls @ 166.667 mls/hr IVPB DAILY [facility] Last Admin: 03/02/17 09:43 Dose: 166.667 mls/hr Methylprednisolone 30 mg/ (Sodium Chloride) 50 mls @ 100 mls/hr IV Q12 [facility] Last Admin: 03/02/17 09:43 Dose: 100 mls/hr Levothyroxine Sodium (Synthroid) 12.5 mcg PO DAILY@0630 [facility] Last Admin: 03/02/17 05:51 Dose: Not Given Metoprolol Succinate (Toprol Xl) 25 mg PO DAILY [facility] Last Admin: 03/02/17 09:42 Dose: 25 mg Mirtazapine (Remeron) 7.5 mg PO HS PRN PRN Reason: Insomnia Last Admin: 03/01/17 00:33 Dose: 7.5 mg - Labs Labs: 03/01/17 05:00 03/01/17 05:00 PT 14.1 Seconds (9.8-13.1) H 03/01/17 05:00 INR 1.2 (0.9-1.2) 03/01/17 05:00 APTT 36.2 Seconds (25.6-37.1) 02/23/17 04:40 - Head Exam Head Exam: ATRAUMATIC - Eye Exam Eye Exam: Normal appearance - ENT Exam ENT Exam: Mucous Membranes Dry - Respiratory Exam Respiratory Exam: Decreased Breath Sounds - Cardiovascular Exam Cardiovascular Exam: +S1, +S2 - GI/Abdominal Exam GI & Abdominal Exam: Normal Bowel Sounds - Extremities Exam Extremities Exam: Normal Inspection Assessment and Plan (1) Coagulopathy Assessment & Plan: s/p vit k coumadin switched to Eliquis as pt not compliant with INR monitoring on coumadin Status: Acute (2) Leukocytosis Assessment & Plan: on antibiotics and steroids. Status: Acute
[2017-03-02] MEDS ORDERED: Albuterol-Ipratrop 3 mg / 0.5 (3 ml) UD INH SCH (20:00)
[2017-03-02 20:01] VITALS: BP 106/58; RESP 18; TEMP 98
[2017-03-02 20:34] VITALS: PULSE 79
[2017-03-03 09:17] LABS: URINE CLARITY CLEAR (Clear); URINE COLOR YELLOW (YELLOW)
[2017-03-03 09:18] LABS: URINE BILIRUBIN NEGATIVE (NEGATIVE); URINE BLOOD NEGATIVE (NEGATIVE); URINE GLUCOSE (UA) 50 mg/dL mg/dL (Normal)
[2017-03-03 09:19] LABS: SQUAMOUS EPITHIAL 3 /hpf (0-5); URINE LEUKOCYTE ESTERASE NEG Leu/uL (Negative); URINE NITRATE NEGATIVE (NEGATIVE); URINE UROBILINOGEN 0.2-1.0 mg/dL (0.2-1.0)
== END 2017-03-02 23:15 | DRG 177 ==
LOC: H.ER 13:37 → H.ERHOLD 15:00 → H.TEL 17:41
PROVIDERS: ADMIT Student in an Organized Health Care Education/Training Program; ATTEND Student in an Organized Health Care Education/Training Program
PROC: 5A0955Z Assistance with Respiratory Ventilation, Greater than 96 Consecutive Hours (ICD-10-PCS; principal; 2017-02-22)
DX: J69.0 Pneumonitis due to inhalation of food and vomit (principal); A41.9 Sepsis, unspecified organism; J96.02 Acute respiratory failure with hypercapnia; J96.01 Acute respiratory failure with hypoxia; E87.0 Hyperosmolality and hypernatremia; I48.0 Paroxysmal atrial fibrillation; E86.0 Dehydration; F05 Delirium due to known physiological condition; I10 Essential (primary) hypertension; J44.1 Chronic obstructive pulmonary disease with (acute) exacerbation; E03.9 Hypothyroidism, unspecified; E78.5 Hyperlipidemia, unspecified; F20.9 Schizophrenia, unspecified; E78.00 Pure hypercholesterolemia, unspecified; Z96.652 Presence of left artificial knee joint; J45.909 Unspecified asthma, uncomplicated; Z79.01 Long term (current) use of anticoagulants; T45.515A Adverse effect of anticoagulants, initial encounter; Z85.038 Personal history of other malignant neoplasm of large intestine; Z85.3 Personal history of malignant neoplasm of breast; R79.1 Abnormal coagulation profile; T42.4X5A Adverse effect of benzodiazepines, initial encounter; R41.82 Altered mental status, unspecified; R79.89 Other specified abnormal findings of blood chemistry; Z91.19 Patient's noncompliance with other medical treatment and regimen

== ENCOUNTER 2017-03-02 23:51 | Inpatient (IN) | payer MEDICARE, MEDICAID ==
[2017-03-02 23:58] VITALS: BMI 28.3
[2017-03-03] MEDS ORDERED: Magnesium Hydroxide Susp 30 ml UD PO PRN
[2017-03-03] MEDS ORDERED: Bismuth Subsalicylate 262 mg/15 ml Sus (240 ml) PO PRN
[2017-03-03] MEDS ORDERED: Alum-Mag Hydrox-Simethicone Susp (30 mL) PO PRN
[2017-03-03] MEDS ORDERED: Patient's Own Med (Meropenem Iv 1 Gm In Ns [Merrem Iv 1 Gm Premix] 1 GM) IVPB SCH (01:00)
[2017-03-03] MEDS: Meropenem 1 GM/NS 100 ML IVPB SCH ×3 (07:09→17:13)
[2017-03-03 08:01] LABS: HEMATOCRIT 39.5 % (34.0-47.0); MEAN CELL VOLUME 90.4 fl (81.0-99.0); MEAN CORPUSCULAR HEMOGLOBIN 29.8 pg (27.0-31.0); RED CELL DISTRIBUTION WIDTH 15.2 % (11.5-14.5)
[2017-03-03 08:14] LABS: BLOOD UREA NITROGEN 28 mg/dl (7-17); CARBON DIOXIDE 32 mmol/L (22-30); CHLORIDE 105 mmol/L (98-107); GFR AFRICAN-AMERICAN > 60; GLUCOSE,RANDOM 114 mg/dL (65-105); POTASSIUM 4.2 MMOL/L (3.6-5.0); SODIUM 142 mmol/l (132-148)
[2017-03-03] MEDS ORDERED: VANCOMYCIN IV SCH (09:00)
[2017-03-03] MEDS ORDERED: SOD CHLORIDE IV SCH (09:00)
[2017-03-03] MEDS: Fluticasone-Salmeterol 250-50mcg Diskus IH SCH ×2 (09:00→21:28)
[2017-03-03] MEDS: Levothyroxine 25 MCG TAB PO SCH (09:02)
[2017-03-03] MEDS: Metoprolol Succinate 25 mg XL Tab PO SCH (09:20)
--- NOTE | 2017-03-03 11:42 | CP.PCM.CON ---
History of Present Illness - History of Present Illness History of Present Illness: REASON FOR CONSULT: PER HOSPITAL PROTOCOL 77 F with PMH AFIB, HLD, hypothyroid, COPD, schizophrenia was initially admitted to [facility] for worsening paranoia and psychosis. Patient then developed sepsis 2/2 pneumonia and was admitted as inpatient. Patient was successfully treated, and is now readmitted to [facility] for further management and treatment of her delusions. ROS: per HPI all other systems neg by me PMSH: AFIB, HLD, hypothyroid, COPD, schizophrenia, appendectomy, breast lumpectomy, cholecystectomy, L knee replacement FH: unable to obtain at this time delusional SH: unable to obtain at this time delusional MEDS as below NKDA Temp Pulse Resp BP Pulse Ox 97.2 F L 86 19 129/82 99 03/03/17 06:00 03/03/17 09:20 03/03/17 06:00 03/03/17 09:20 03/03/17 00:00 GEN: WDWN, alert, cooperative HEENT: NCAT, PERRL, EOMI dry MMM NECK: supple, no JVD, no lymphadenopathy CARDIAC: +S1S2 RRR LUNG: CTAB NO WRR ABD: SOFT NT ND BSX4 NO MASSES NO HSM EXT: +pedal pulses, equal strength SKIN warm, dry PSYCH +PARANOIA, PSYCHOSIS 03/03/17 07:00 03/03/17 07:00 03/03/17 00:00 Acetaminophen [Tylenol 325mg tab] 650 mg PO Q4 PRN Aluminum Hydroxide/Magnesium [Maalox Plus 30 ml] 30 ml PO Q4 PRN Bismuth Subsalicylate [Pepto-Bismol] 524 mg PO Q4 PRN LORazepam [Ativan] 0.5 mg PO HS PRN LORazepam [Ativan] 0.5 mg PO Q6 PRN Magnesium Hydroxide [Milk Of Magnesia] 30 ml PO HS PRN 03/03/17 00:15 Mirtazapine [Remeron] 7.5 mg PO HS PRN 03/03/17 01:00 Meropenem [Merrem IV] 1 gm Sodium Chloride 0.9% 100 ml IVPB Q8 03/03/17 06:30 Levothyroxine [Synthroid] 12.5 mcg PO DAILY@0630 03/03/17 08:00 Albuterol/Ipratropium [Duoneb 3 mg/0.5 mg (3 ml) UD] 3 ml INH RTID 03/03/17 09:00 Apixaban [Eliquis] 2.5 mg PO BID Anticoagulation Clinical Indication: Atrial Fibrillation Dronedarone [Multaq] 400 mg PO BID Famotidine [Pepcid] 20 mg PO BID Fluticasone/Salmeterol 250/50 [Advair Diskus 250/50] 1 puff IH Q12 Furosemide [Lasix] 20 mg PO DAILY Metoprolol Succinate [Toprol XL] 25 mg PO DAILY Vancomycin [Vancomycin Inj] 1 gm Sodium Chloride 0.9% 250 ml IVPB Q12 cloZAPine [Clozaril] 100 mg PO DAILY diltiaZEM [Cardizem] 120 mg PO BID predniSONE [predniSONE Tab] 40 mg PO DAILY 03/03/17 22:00 cloZAPine [Clozaril] 200 mg PO HS 77 F with PMH AFIB, HLD, hypothyroid, COPD, schizophrenia was initially admitted to [facility] for worsening paranoia and psychosis. Patient then developed sepsis 2/2 pneumonia and was admitted as inpatient. Patient was successfully treated, and is now readmitted to [facility] for further management and treatment of her delusions. Pneumonia cont vanc and merrem three more days, discontinue 03/06/17 COPD Exacerbation STABLE Bronchodilators -change to Prednisone 40 mg daily - slowly taper once in Psych unit A. Fib , Paroxysmal , rate controlled Toprol 25 mg po daily Diltiazem 120 mg po BID PATIENT ON ELIQUIS Hypothyroidism Low TSH Pt was on Levothyroxine decreased dose to 12.5 mg daily Schizophrenia cont Clozaril bedtime Started Remeron HS for sleep Avoid benzos haldol PRN for agitation MANAGEMENT PER PSYCH Past Patient History - Tetanus Immunizations Tetanus Immunization: Unknown - Past Social History Smoking Status: Former Smoker - CARDIAC Hx Cardiac Disorders: Yes Hx Atrial Fibrillation: Yes Hx Hypercholesterolemia: Yes Hx Hypertension: Yes - PULMONARY Hx Respiratory Disorders: Yes Hx Asthma: Yes Hx Chronic Obstructive Pulmonary Disease (COPD): Yes Hx Pneumonia: Yes - NEUROLOGICAL Hx Neurological Disorder: Yes Hx Seizures: Yes - HEENT Hx HEENT Problems: No - RENAL Hx Chronic Kidney Disease: No - ENDOCRINE/METABOLIC Hx Endocrine Disorders: Yes Hx Hypothyroidism: Yes - HEMATOLOGICAL/ONCOLOGICAL Hx Blood Disorders: Yes Hx Cancer: Yes (colon) - INTEGUMENTARY Hx Dermatological Problems: No - MUSCULOSKELETAL/RHEUMATOLOGICAL Hx Musculoskeletal Disorders: No Hx Falls: Yes - GASTROINTESTINAL Hx Gastrointestinal Disorders: Yes Hx Gastroesophageal Reflux: Yes - GENITOURINARY/GYNECOLOGICAL Hx Genitourinary Disorders: Yes Hx Incontinence: Yes - PSYCHIATRIC Hx Anxiety: Yes Hx Schizophrenia: Yes Hx Substance Use: (unable to answer) - SURGICAL HISTORY Hx Surgeries: Yes Hx Appendectomy: Yes Hx Cholecystectomy: Yes Other/Comment: Lumpectomy right breast - ANESTHESIA Hx Anesthesia: Yes Hx Anesthesia Reactions: No Meds Allergies/Adverse Reactions: Allergies Allergy/AdvReac Type Severity Reaction Status Date / Time No Known Allergies Allergy Verified 02/22/17 13:39 - Medications Medications: Current Medications Acetaminophen (Tylenol 325mg Tab) 650 mg PO Q4 PRN PRN Reason: Pain, moderate (4-7) Al Hydrox/Mg Hydrox/Simethicone (Maalox Plus 30 Ml) 30 ml PO Q4 PRN PRN Reason: Dyspepsia Albuterol/Ipratropium (Duoneb 3 Mg/0.5 Mg (3 Ml) Ud) 3 ml INH RTID [facility] Apixaban (Eliquis) 2.5 mg PO BID [facility] PRN Reason: Protocol Last Admin: 03/03/17 09:05 Dose: 2.5 mg Bismuth Subsalicylate (Pepto-Bismol) 524 mg PO Q4 PRN PRN Reason: Diarrhea Clozapine (Clozaril) 100 mg PO DAILY [facility] Last Admin: 03/03/17 09:04 Dose: 100 mg Clozapine (Clozaril) 200 mg PO [facility] Diltiazem HCl (Cardizem) 120 mg PO BID [facility] Last Admin: 03/03/17 09:05 Dose: 120 mg Dronedarone (Multaq) 400 mg PO BID [facility] Last Admin: 03/03/17 09:04 Dose: 400 mg Famotidine (Pepcid) 20 mg PO BID [facility] Last Admin: 03/03/17 09:04 Dose: 20 mg Furosemide (Lasix) 20 mg PO DAILY [facility] Last Admin: 03/03/17 09:05 Dose: 20 mg Meropenem 1 gm/ Sodium (Chloride) 100 mls @ 100 mls/hr IVPB Q8 [facility] Last Admin: 03/03/17 07:09 Dose: 100 mls/hr Vancomycin HCl 1 gm/ Sodium (Chloride) 250 mls @ 166.667 mls/hr IVPB Q12 [facility] Last Admin: 03/03/17 09:10 Dose: 166.667 mls/hr Levothyroxine Sodium (Synthroid) 12.5 mcg PO DAILY@0630 [facility] Last Admin: 03/03/17 09:02 Dose: 12.5 mcg Lorazepam (Ativan) 0.5 mg PO HS PRN PRN Reason: Insomnia Stop: 03/17/17 00:01 Lorazepam (Ativan) 0.5 mg PO Q6 PRN PRN Reason: Anixety/Agitation Stop: 03/17/17 00:01 Magnesium Hydroxide (Milk Of Magnesia) 30 ml PO HS PRN PRN Reason: Constipation Metoprolol Succinate (Toprol Xl) 25 mg PO DAILY [facility] Last Admin: 03/03/17 09:20 Dose: 25 mg Mirtazapine (Remeron) 7.5 mg PO HS PRN PRN Reason: Insomnia Prednisone (Prednisone Tab) 40 mg PO DAILY [facility] Fluticasone/Salmeterol (Advair Diskus 250/50) 1 puff IH Q12 [facility] Last Admin: 03/03/17 09:00 Dose: 1 puff Results - Vital Signs Recent Vital Signs: Last Vital Signs Temp 97.2 F L 03/03/17 06:00 Pulse 86 03/03/17 09:20 Resp 19 03/03/17 06:00 BP 129/82 03/03/17 09:20 Pulse Ox 99 03/03/17 00:00 - Labs Result Diagrams: 03/03/17 07:00 03/03/17 07:00 Labs: Laboratory Results - last 24 hr 03/03/17 03/03/17 07:00 07:00 WBC 21.0 H RBC 4.37 Hgb 13.0 Hct 39.5 MCV 90.4 MCH 29.8 MCHC 33.0 RDW 15.2 H Plt Count 239 Sodium 142 Potassium 4.2 Chloride 105 Carbon Dioxide 32 H Anion Gap 9 L BUN 28 H Creatinine 0.7 Est GFR ( Amer) > 60 Est GFR (Non-Af Amer) > 60 Random Glucose 114 H Calcium 9.0
--- NOTE | 2017-03-03 15:19 | PCM.PSYCH ---
Initial Psychiatric Evaluation - Initial Psychiatric Evaluation Type of Admission: Voluntary Legal Status: DPOA Chief Complaint (in patient's own words): "They are taking out my eye balls." Patient's Reaction to Hospitalization: HPI: 77 F with PMH AFIB, HLD, hypothyroid, COPD, schizophrenia was initially admitted to [facility] for worsening paranoia and psychosis. Patient then developed sepsis 2/2 pneumonia and was admitted as inpatient. Patient was successfully treated, and is now readmitted to [facility] for further management and treatment of her delusions. Patient continues to be delusional believing that her life and her families life are in danger. She yelled at the pattern chart writer in would not engage in a full evaluation due to her acute psychosis and agitation. PMSH: AFIB, HLD, hypothyroid, COPD, schizophrenia, appendectomy, breast lumpectomy, cholecystectomy, L knee replacement PPHx: As per family patient had numerous admissions in the past for schizophrenia, the last admission was 2 years ago at [facility]. PMD: Dr. Tobin PMHx: hypertension, hypercholesterolemia, schizophrenia, and COPD All: NKDA SHx: lives in a chcf, POA are son + [id number] Current Medications: Active Medications Generic Name Dose Route Start Last Admin Trade Name Freq PRN Reason Stop Dose Admin Acetaminophen 650 mg 03/03/17 00:00 Tylenol 325mg Tab PO Q4 PRN Pain, moderate (4-7) Al Hydrox/Mg Hydrox/Simethicone 30 ml 03/03/17 00:00 Maalox Plus 30 Ml PO Q4 PRN Dyspepsia Albuterol/Ipratropium 3 ml 03/03/17 08:00 Duoneb 3 Mg/0.5 Mg (3 Ml) Ud INH RTID JOON Apixaban 2.5 mg 03/03/17 09:00 03/03/17 09:05 Eliquis PO 2.5 mg BID JOON Administration Protocol Bismuth Subsalicylate 524 mg 03/03/17 00:00 Pepto-Bismol PO Q4 PRN Diarrhea Clozapine 100 mg 03/03/17 09:00 03/03/17 09:04 Clozaril PO 100 mg DAILY JOON Administration Clozapine 200 mg 03/03/17 22:00 Clozaril PO HS JONO Diltiazem HCl 120 mg 03/03/17 09:00 03/03/17 09:05 Cardizem PO 120 mg BID JOON Administration Dronedarone 400 mg 03/03/17 09:00 03/03/17 09:04 Multaq PO 400 mg BID JOON Administration Famotidine 20 mg 03/03/17 09:00 03/03/17 09:04 Pepcid PO 20 mg BID JOON Administration Furosemide 20 mg 03/03/17 09:00 03/03/17 09:05 Lasix PO 20 mg DAILY JOON Administration Meropenem 1 gm/ Sodium 100 mls @ 100 mls/hr 03/03/17 01:00 03/03/17 13:50 Chloride IVPB 100 mls/hr Q8 JOON Administration Vancomycin HCl 1 gm/ Sodium 250 mls @ 166.667 mls/hr 03/03/17 09:00 03/03/17 09:10 Chloride IVPB 166.667 mls/hr Q12 JOON Administration Levothyroxine Sodium 12.5 mcg 03/03/17 06:30 03/03/17 09:02 Synthroid PO 12.5 mcg DAILY@0630 JOON Administration Lorazepam 0.5 mg 03/03/17 00:00 Ativan PO 03/17/17 00:01 HS PRN Insomnia Lorazepam 0.5 mg 03/03/17 00:00 03/03/17 13:49 Ativan PO 03/17/17 00:01 0.5 mg Q6 PRN Administration Anixety/Agitation Magnesium Hydroxide 30 ml 03/03/17 00:00 Milk Of Magnesia PO HS PRN Constipation Metoprolol Succinate 25 mg 03/03/17 09:00 03/03/17 09:20 Toprol Xl PO 25 mg DAILY JOON Administration Mirtazapine 7.5 mg 03/03/17 00:15 Remeron PO HS PRN Insomnia Prednisone 40 mg 03/03/17 09:00 03/03/17 13:49 Prednisone Tab PO 40 mg DAILY JOON Administration Fluticasone/Salmeterol 1 puff 03/03/17 09:00 03/03/17 09:00 Advair Diskus 250/50 IH 1 puff Q12 JOON Administration Past Psychiatric History - Past Psychiatric History Previous Treatment History: Inpatient Pertinent Medical Hx (Current Medical&Sleep Prob, Allergies): Allergies Allergy/AdvReac Type Severity Reaction Status Date / Time No Known Allergies Allergy Verified 02/22/17 13:39 Dronedarone [Multaq] 400 mg PO BID 02/15/17 Fluticasone/Salmeterol 250/50 [Advair Diskus 250/50] 1 puff IH Q12 02/15/17 Furosemide [Lasix] 20 mg PO DAILY 02/15/17 Metoprolol Succinate [Toprol XL] 25 mg PO DAILY 02/15/17 diltiaZEM [Cardizem] 120 mg PO BID 02/15/17 cloZAPine [Clozaril] 200 mg PO HS tab 02/22/17 Albuterol/Ipratropium [Duoneb 3 mg/0.5 mg (3 ml) UD] 3 ml INH RTID 03/02/17 Apixaban [Eliquis] 2.5 mg PO BID tab 03/02/17 Famotidine [Pepcid] 20 mg PO BID tab 03/02/17 Haloperidol Lactate [Haldol] 1 mg IVP Q4 PRN vial 03/02/17 Levothyroxine [Synthroid] 12.5 mcg PO DAILY@0630 tab 03/02/17 Meropenem IV 1 gm in NS [Merrem IV 1 gm Premix] 1 gm IVPB Q8 3 Days 03/02/17 Mirtazapine [Remeron] 7.5 mg PO HS PRN tab 03/02/17 Vancomycin/0.9 % Sod Chloride [Vancomycin 1 G/100Ml-0.9% NaCl] 1 gm IV Q12 3 Days 03/02/17 cloZAPine [Clozaril] 200 mg PO HS tab 03/02/17 predniSONE [Prednisone] 40 mg PO DAILY #20 tab 03/02/17 Review of Systems - Psychiatric Psychiatric: As Per HPI, Abnormal Sleep Pattern, Behavioral Changes, Confusion, Difficulty Concentrating, Irritability, Paranoia, Other (Delusions) Mental Status Examination - Personal Presentation Personal Presentation: Looks stated age - Affect Affect: Constricted, Other (Irritable at times) - Motor Activity Motor Activity: Psychomotor Agitation - Reliability in Providing Information Reliability in Providing Information: Poor, due to alteration in thoughts, Poor , due to cognitve impairment - Speech Speech: Irrelevant, Tangential - Mood Mood: Anxious - Formal Thought Process Formal Thought Process: Delusions, Paranoia - Hallucinations/Delusions Additional comments: +Paranoid delusions - Obsessions/Compulsions Obsessions: No Compulsions: No - Cognitive Functions Orientation: Person, Place, Situation Sensorium: Alert Judgement: Imparied, as evidence by: Poor judgement, Imparied, as evidence by: Lack of insight into illness Memory: Recent impaired, as evidence by: Inability to recall events of the day, Recent imparied as evidence by:Inability to complete 3/3 object recall - Risk Risk: Diminished functioning - Strength & Assets Inventory Strength & Assets Inventory: Family support DSM 5 DX - DSM 5 DSM 5 Diagnosis: Schizophrenia - Recommended/Plan of Treatment Treatment Recommendations and Plan of Treatment: Schizophrenia; patient acutely psychotic, willl require inpatient admission for acute stabilization. -Admit to psychiatry -Increase Clozaril to 100 mg PO Daily/ 225 mg PO HS -Individual and group therapy -Disposition planning -Medicine consult appreciated Projected ELOS: 5-7 days Discharge Plan and Discharge Criteria: Discharge when psychiatrically stable - Smoking Cessation Smoking Cessation Initiated: No Reason for not providing: Not indicated
[2017-03-03] MEDS: Nystatin 100,000 Units/ml Oral Susp 5 ml UD PO SCH (21:19)
[2017-03-04] MEDS: Meropenem 1 GM/NS 100 ML IVPB SCH ×3 (00:43→18:06)
[2017-03-04] MEDS: Albuterol-Ipratrop 3 mg / 0.5 (3 ml) UD INH SCH ×2 (08:32→13:30)
[2017-03-04] MEDS: Fluticasone-Salmeterol 250-50mcg Diskus IH SCH ×2 (09:40→22:00)
[2017-03-04] MEDS: Nystatin 100,000 Units/ml Oral Susp 5 ml UD PO SCH ×2 (09:44→21:27)
[2017-03-04] MEDS: Levothyroxine 25 MCG TAB PO SCH (09:46)
[2017-03-04] MEDS: Metoprolol Succinate 25 mg XL Tab PO SCH (09:46)
--- NOTE | 2017-03-04 12:02 | PCM.PYCHPN ---
Psychiatric Progress Note - Psychiatric Progress Note Patient seen today, length of contact: Patient evaluated, case discussed with team, chart reviewed, 35 min Patient Chief Complaint: "Take me to my locker!" Problems Identified/Issues Discussed: Patient continues to be disorganized and delusional. She yells at times for unclear reasons. She continues to have cough and excessive mucus due to resolving PNA. Medication Change: No Medical Record Reviewed: Yes Mental Status Examination - Cognitive Function Orientation: Person, Place, Situation Memory: Impaired Association: Loose - Mood Mood: Anxious - Affect Affect: Constricted, Other (Irritable at times) - Formal Thought Process Formal Thought Process: Delusions, Paranoia Psychotic Thoughts and Behaviors: +Delusions - Suicidal Ideation Suicidal Ideation: No - Homicidal Ideation Homicidal Ideation: No Goal/Treatment Plan - Goal/Treatment Plan Need for Continued Stay: Remain at risks for inpatient hospitalization, Discharge may exacerbated symptoms, Severe functional impairment Progress Toward Problem(s) and Goals/Treatment Plan: Schizophrenia; patient acutely psychotic, willl require inpatient admission for acute stabilization. -Continue Clozaril 100 mg PO Daily/ 225 mg PO HS -Individual and group therapy -Disposition planning -Medicine consult appreciated Estimated Date of D/C: 03/09/17
[2017-03-05] MEDS: Meropenem 1 GM/NS 100 ML IVPB SCH ×3 (01:03→22:24)
[2017-03-05] MEDS: Levothyroxine 25 MCG TAB PO SCH (06:30)
[2017-03-05] MEDS: Albuterol-Ipratrop 3 mg / 0.5 (3 ml) UD INH SCH ×2 (08:45→14:00)
[2017-03-05] MEDS: Fluticasone-Salmeterol 250-50mcg Diskus IH SCH ×2 (08:50→21:37)
[2017-03-05] MEDS: Nystatin 100,000 Units/ml Oral Susp 5 ml UD PO SCH ×2 (10:30→21:36)
[2017-03-05] MEDS: Metoprolol Succinate 25 mg XL Tab PO SCH (10:31)
[2017-03-05 11:18] LABS: EOS % 0.1 % (0.0-4.0); HEMATOCRIT 42.1 % (34.0-47.0); LYMPH # 0.9 K/uL (1.0-4.3); LYMPH % 4.7 % (20.0-40.0); MEAN CELL VOLUME 92.5 fl (81.0-99.0); MEAN CORPUSCULAR HEMOGLOBIN 29.5 pg (27.0-31.0); MEAN CORPUSCULAR HGB CONC 31.8 g/dL (33.0-37.0); MEAN PLATELET VOLUME 9.1 fl (7.2-11.7); MONO # 0.7 K/uL (0.0-0.8); MONO % 3.3 % (0.0-10.0); NEUT # 18.5 K/uL (1.8-7.0); NEUT % 91.9 % (50.0-75.0); PLATELET COUNT 241 K/uL (130-400); RED CELL DISTRIBUTION WIDTH 15.5 % (11.5-14.5); WHITE BLOOD COUNT 20.1 K/uL (4.8-10.8)
[2017-03-05 11:46] LABS: NEUTROPHIL 93 % (42-75); TOTAL CELLS COUNTED 100
[2017-03-05 11:57] LABS: ALB/GLOB RATIO 1.3 (1.0-2.1); ALKALINE PHOSPHATASE 110 U/L (38-126); ALT/SGPT 61 U/L (9-52); AST/SGOT 34 U/L (14-36); BILIRUBIN,TOTAL 1.4 mg/dl (0.2-1.3); BLOOD UREA NITROGEN 25 mg/dl (7-17); CALCIUM 9.1 mg/dL (8.4-10.2); CARBON DIOXIDE 33 mmol/L (22-30); CHLORIDE 102 mmol/L (98-107); GFR AFRICAN-AMERICAN > 60; GLUCOSE,RANDOM 111 mg/dL (65-105); POTASSIUM 3.8 MMOL/L (3.6-5.0); SODIUM 144 mmol/l (132-148); TOTAL PROTEIN 6.1 G/DL (6.3-8.2)
--- NOTE | 2017-03-05 12:09 | PCM.PYCHPN ---
Psychiatric Progress Note - Psychiatric Progress Note Patient seen today, length of contact: Patient evaluated, case discussed with team, chart reviewed, 35 min Patient Chief Complaint: "You are trying to hurt me" Problems Identified/Issues Discussed: Patient continues to be disorganized and delusional. She yells at times for unclear reasons. She continues to have cough and excessive mucus due to resolving PNA. She also has excess salivation, likely due to Clozaril, will not increase dosage at this time and will continue to monitor. Medication Change: No Medical Record Reviewed: Yes Mental Status Examination - Cognitive Function Orientation: Person, Place, Situation Memory: Impaired Attention: Poor Concentration: Poor Association: Loose Fund of Knowledge: Poor Decription of patient's judgement and insights: Poor insight/judgment - Mood Mood: Anxious - Affect Affect: Constricted, Other (Irritable at times) - Speech Speech: Loud - Formal Thought Process Formal Thought Process: Delusions, Paranoia Psychotic Thoughts and Behaviors: +Delusions - Suicidal Ideation Suicidal Ideation: No - Homicidal Ideation Homicidal Ideation: No Goal/Treatment Plan - Goal/Treatment Plan Need for Continued Stay: Remain at risks for inpatient hospitalization, Discharge may exacerbated symptoms, Severe functional impairment Progress Toward Problem(s) and Goals/Treatment Plan: Schizophrenia; patient acutely psychotic, willl require inpatient admission for acute stabilization. -Continue Clozaril 100 mg PO Daily/ 225 mg PO HS -Individual and group therapy -Disposition planning -Medicine consult appreciated Estimated Date of D/C: 03/09/17 - Smoking Cessation Smoking Cessation Initiated: No Reason for not providing: Not indicated
[2017-03-05] MEDS: Levalbuterol 1.25 MG/3 ML Inhal Soln UD INH SCH (19:36)
[2017-03-05 20:06] VITALS: O2SAT 95
[2017-03-06] MEDS: Levalbuterol 1.25 MG/3 ML Inhal Soln UD INH SCH ×4 (01:13→19:24)
[2017-03-06] MEDS: Meropenem 1 GM/NS 100 ML IVPB SCH ×3 (04:58→21:42)
[2017-03-06] MEDS: Nystatin 100,000 Units/ml Oral Susp 5 ml UD PO SCH ×2 (09:16→21:33)
[2017-03-06] MEDS: Metoprolol Succinate 25 mg XL Tab PO SCH (09:19)
[2017-03-06] MEDS: Levothyroxine 25 MCG TAB PO SCH (09:19)
[2017-03-06] MEDS: Fluticasone-Salmeterol 250-50mcg Diskus IH SCH ×2 (09:37→21:33)
--- NOTE | 2017-03-06 10:20 | PCM.PYCHPN ---
Psychiatric Progress Note - Psychiatric Progress Note Patient seen today, length of contact: Patient evaluated, case discussed with team, chart reviewed, 35 min Patient Chief Complaint: pt has remained very delusional and paranoid and also medically sick with pneumonia with a lot of cough and fluids in chest and need to be suctioned all the time . Medical Problems: [place] [id number] DSM 5 Symptoms Update: schizoaffective disorder Medication Change: No Medical Record Reviewed: Yes Mental Status Examination - Cognitive Function Orientation: Person, Place, Situation Memory: Impaired Attention: Poor Concentration: Poor Association: Loose Fund of Knowledge: Poor - Mood Mood: Anxious - Affect Affect: Constricted, Other (Irritable at times) - Speech Speech: Loud - Formal Thought Process Formal Thought Process: Delusions, Paranoia - Suicidal Ideation Suicidal Ideation: No - Homicidal Ideation Homicidal Ideation: No Goal/Treatment Plan - Goal/Treatment Plan Need for Continued Stay: Remain at risks for inpatient hospitalization, Discharge may exacerbated symptoms, Severe functional impairment Progress Toward Problem(s) and Goals/Treatment Plan: will continue to stabilize clozaril and monitir WBC and spoke with dr michaels who will follow up on pt and will order chest xray to evaluate the status of pnemonia and will follow his recommendations. Estimated Date of D/C: 03/09/17
[2017-03-07] MEDS: Levalbuterol 1.25 MG/3 ML Inhal Soln UD INH SCH ×4 (03:15→20:00)
[2017-03-07] MEDS: Meropenem 1 GM/NS 100 ML IVPB SCH ×3 (05:09→21:49)
[2017-03-07] MEDS: Fluticasone-Salmeterol 250-50mcg Diskus IH SCH ×2 (10:21→21:44)
[2017-03-07] MEDS: Levothyroxine 25 MCG TAB PO SCH (10:22)
[2017-03-07] MEDS: Nystatin 100,000 Units/ml Oral Susp 5 ml UD PO SCH ×2 (10:23→21:44)
[2017-03-07] MEDS: Metoprolol Succinate 25 mg XL Tab PO SCH (10:23)
--- NOTE | 2017-03-07 15:48 | PCM.PYCHPN ---
Psychiatric Progress Note - Psychiatric Progress Note Patient seen today, length of contact: Patient evaluated, case discussed with team, chart reviewed, 35 min Patient Chief Complaint: pt has remained very delusional and paranoid and also medically sick with pneumonia with a lot of cough and fluids in chest and need to be suctioned all the time . Medical Problems: [place] [id number] Medication Change: No Medical Record Reviewed: Yes Mental Status Examination - Cognitive Function Orientation: Person, Place, Situation Memory: Impaired Attention: Poor Concentration: Poor Association: Loose Fund of Knowledge: Poor - Mood Mood: Anxious - Affect Affect: Constricted, Other (Irritable at times) - Speech Speech: Loud - Formal Thought Process Formal Thought Process: Delusions, Paranoia - Suicidal Ideation Suicidal Ideation: No - Homicidal Ideation Homicidal Ideation: No Goal/Treatment Plan - Goal/Treatment Plan Need for Continued Stay: Remain at risks for inpatient hospitalization, Discharge may exacerbated symptoms, Severe functional impairment Progress Toward Problem(s) and Goals/Treatment Plan: will continue to stabilize clozaril and monitir WBC and spoke with dr michaels who will follow up on pt and will order chest xray to evaluate the status of pnemonia and will follow his recommendations. Estimated Date of D/C: 03/09/17
[2017-03-07 16:46] LABS: BASO # 0.1 K/uL (0.0-0.2); BASO % 0.4 % (0.0-2.0); EOS # 0.1 K/uL (0.0-0.7); EOS % 0.3 % (0.0-4.0); HEMATOCRIT 37.2 % (34.0-47.0); LYMPH # 0.3 K/uL (1.0-4.3); MEAN CELL VOLUME 91.4 fl (81.0-99.0); MEAN CORPUSCULAR HEMOGLOBIN 29.6 pg (27.0-31.0); MEAN CORPUSCULAR HGB CONC 32.4 g/dL (33.0-37.0); MEAN PLATELET VOLUME 8.7 fl (7.2-11.7); MONO # 0.4 K/uL (0.0-0.8); MONO % 2.3 % (0.0-10.0); NEUT # 16.5 K/uL (1.8-7.0); NRBC % 0.3 % (0.0-0.0); PLATELET COUNT 236 K/uL (130-400); RED CELL DISTRIBUTION WIDTH 15.2 % (11.5-14.5); WHITE BLOOD COUNT 17.4 K/uL (4.8-10.8)
[2017-03-07 17:02] LABS: BLOOD UREA NITROGEN 21 mg/dl (7-17); CALCIUM 8.6 mg/dL (8.4-10.2); CARBON DIOXIDE 31 mmol/L (22-30); CHLORIDE 105 mmol/L (98-107); GFR AFRICAN-AMERICAN > 60; GLUCOSE,RANDOM 144 mg/dL (65-105); SODIUM 141 mmol/l (132-148)
[2017-03-07 17:10] LABS: NEUTROPHIL 96 % (42-75); TOTAL CELLS COUNTED 100
--- NOTE | 2017-03-07 17:15 | CP.PCM.PN ---
Subjective - Date & Time of Evaluation Date of Evaluation: 03/07/17 Time of Evaluation: 17:00 - Subjective Subjective: Patient seen and examined. She was wide awake and very responsive verbally. 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 Denied SOB. Objective - Vital Signs/Intake and Output Vital Signs (last 24 hours): Temp Pulse Resp BP Pulse Ox 97.6 F 79 18 114/69 95 03/07/17 16:48 03/07/17 16:48 03/07/17 16:48 03/07/17 16:48 03/05/17 18:00 - Medications Medications: Current Medications Acetaminophen (Tylenol 325mg Tab) 650 mg PO Q4 PRN PRN Reason: Pain, moderate (4-7) Al Hydrox/Mg Hydrox/Simethicone (Maalox Plus 30 Ml) 30 ml PO Q4 PRN PRN Reason: Dyspepsia Apixaban (Eliquis) 2.5 mg PO BID [facility] PRN Reason: Protocol Last Admin: 03/07/17 10:23 Dose: 2.5 mg Bismuth Subsalicylate (Pepto-Bismol) 524 mg PO Q4 PRN PRN Reason: Diarrhea Clotrimazole (Lotrimin 1% Cream) 1 applic TOP BID [facility] Last Admin: 03/07/17 10:24 Dose: 1 applic Clozapine (Clozaril) 100 mg PO DAILY [facility] Last Admin: 03/07/17 10:25 Dose: 100 mg Clozapine (Clozaril) 200 mg PO [facility] Last Admin: 03/06/17 21:32 Dose: 200 mg Clozapine (Clozaril) 25 mg PO HS [facility] Last Admin: 03/06/17 21:32 Dose: 25 mg Diltiazem HCl (Cardizem) 120 mg PO BID [facility] Last Admin: 03/07/17 10:25 Dose: Not Given Dronedarone (Multaq) 400 mg PO BID [facility] Last Admin: 03/07/17 10:23 Dose: 400 mg Famotidine (Pepcid) 20 mg PO BID [facility] Last Admin: 03/07/17 10:23 Dose: 20 mg Furosemide (Lasix) 20 mg PO DAILY [facility] Last Admin: 03/06/17 09:14 Dose: 20 mg Meropenem 1 gm/ Sodium (Chloride) 100 mls @ 100 mls/hr IVPB Q8@0500,1300,2100 [facility] Last Admin: 03/07/17 12:24 Dose: 100 mls/hr Vancomycin HCl 1 gm/ Sodium (Chloride) 250 mls @ 166.667 mls/hr IVPB Q12@0100, 1300 [facility] Last Admin: 03/07/17 13:52 Dose: 166.667 mls/hr Levalbuterol HCl (Xopenex) 1.25 mg INH RQ6 [facility] Last Admin: 03/07/17 13:51 Dose: 1.25 mg Levothyroxine Sodium (Synthroid) 12.5 mcg PO DAILY@0630 [facility] Last Admin: 03/07/17 10:22 Dose: 12.5 mcg Lorazepam (Ativan) 0.5 mg PO HS PRN PRN Reason: Insomnia Stop: 03/17/17 00:01 Last Admin: 03/03/17 23:19 Dose: 0.5 mg Lorazepam (Ativan) 0.5 mg PO Q6 PRN PRN Reason: Anixety/Agitation Stop: 03/17/17 00:01 Last Admin: 03/03/17 13:49 Dose: 0.5 mg Magnesium Hydroxide (Milk Of Magnesia) 30 ml PO HS PRN PRN Reason: Constipation Metoprolol Succinate (Toprol Xl) 25 mg PO DAILY [facility] Last Admin: 03/07/17 10:23 Dose: Not Given Mirtazapine (Remeron) 7.5 mg PO HS PRN PRN Reason: Insomnia Nystatin (Nystatin Oral Susp) 5 ml PO AMHS [facility] Last Admin: 03/07/17 10:23 Dose: 5 ml Prednisone (Prednisone Tab) 40 mg PO DAILY [facility] Last Admin: 03/07/17 10:22 Dose: 40 mg Fluticasone/Salmeterol (Advair Diskus 250/50) 1 puff IH Q12 [facility] Last Admin: 03/07/17 10:21 Dose: 1 puff - Labs Labs: 03/07/17 16:42 03/07/17 16:42 - Constitutional Appears: No Acute Distress - Head Exam Head Exam: ATRAUMATIC - Eye Exam Eye Exam: Normal appearance - ENT Exam ENT Exam: Mucous Membranes Moist - Neck Exam Neck Exam: absent: Meningismus - Respiratory Exam Respiratory Exam: Rhonchi. absent: Wheezes, Respiratory Distress - Cardiovascular Exam Cardiovascular Exam: REGULAR RHYTHM, +S1, +S2 - GI/Abdominal Exam GI & Abdominal Exam: Soft. absent: Tenderness - Rectal Exam Rectal Exam: Deferred - Extremities Exam Extremities Exam: absent: Pedal Edema - Neurological Exam Neurological Exam: Alert, Awake - Psychiatric Exam Psychiatric exam: Normal Affect - Skin Skin Exam: Dry, Intact Assessment and Plan - Assessment and Plan (Free Text) Assessment: 77 yo female with history of COPD, HTN, AFib, Hypothyroid and Schizophrenia initially admitted to [facility] because of worsening psychosis admitted to regular floor because of Sepsis secondary to Pneumonia and COPD exacerbation. Patient was treated with IV antibiotics, steroid and bronchodilators and did well. She was transferred back to [facility] for continuation of psychiatric management with the recommendation of continuation of IV Meropenem and Vancomycin for a complete course of 2 weeks. 1. Pneumonia last Chest CT (02/27/2017) showed bilateral pleural effusion with clear lungs in comparison to bilateral lower lobe infiltrates on Chest CT on 02/23/2017 tomorrow will be the last day (day 14) of IV Meropenem and Vancomycin then DC has been afebrile but continue to have leukocytosis probably secondary steroid ( decrease Prednisone to 20mg PO daily q am repeat CXray 2. COPD Exacerbation continue tapering steroid Duoneb q 4hrs prn for SOB/wheezing Advair 1 puff q 12hrs 3. AFib , Paroxysmal rate controlled Multaq 400mg PO BID Toprol 25 mg po daily Diltiazem 120 mg po BID continue Eliquis 4. Hypothyroidism continue Levothyroxine 12.5 mcg daily 5. Schizophrenia psyche is managing
[2017-03-08] MEDS: Levalbuterol 1.25 MG/3 ML Inhal Soln UD INH SCH ×2 (00:59→08:32)
[2017-03-08] MEDS ORDERED: Albuterol-Ipratrop 3 mg / 0.5 (3 ml) UD INH STA (04:49)
[2017-03-08] MEDS: Meropenem 1 GM/NS 100 ML IVPB SCH (05:01)
[2017-03-08] MEDS ORDERED: Albuterol-Ipratrop 3 mg / 0.5 (3 ml) UD ONE (05:07)
[2017-03-08 06:17] VITALS: BP 134/76; RESP 24; TEMP 97.3
[2017-03-08] MEDS: Fluticasone-Salmeterol 250-50mcg Diskus IH SCH (09:09)
[2017-03-08] MEDS: Levothyroxine 25 MCG TAB PO SCH (09:15)
[2017-03-08] MEDS: Metoprolol Succinate 25 mg XL Tab PO SCH (09:16)
[2017-03-08 09:17] VITALS: PULSE 120
--- NOTE | 2017-03-08 10:27 | PCM.PYCHDC ---
Mental Status Examination - Mental Status Examination Orientation: Person Memory: Impaired Mood: Neutral Affect: Constricted Speech: Soft Attention: Poor Concentration: Poor Association: Loose Fund of Knowledge: Poor Formal Thought Process: Loosening of associations Description of patient's judgement and insight: Poor insight/judgment Psychotic Thoughts and Behaviors: +Delusions Suicidal Ideation: No Current Homicidal Ideation?: No Discharge Summary - Discharge Note Reason for Hospitalization: HPI: 77 F with PMH AFIB, HLD, hypothyroid, COPD, schizophrenia was initially admitted to [facility] for worsening paranoia and psychosis. Patient then developed sepsis 2/2 pneumonia and was admitted as inpatient. Patient was successfully treated, and is now readmitted to [facility] for further management and treatment of her delusions. Patient continues to be delusional believing that her life and her families life are in danger. She yelled at the movie writer in would not engage in a full evaluation due to her acute psychosis and agitation. PMSH: AFIB, HLD, hypothyroid, COPD, schizophrenia, appendectomy, breast lumpectomy, cholecystectomy, L knee replacement PPHx: As per family patient had numerous admissions in the past for schizophrenia, the last admission was 2 years ago at [facility]. PMD: Dr. Tobin PMHx: hypertension, hypercholesterolemia, schizophrenia, and COPD All: NKDA SHx: lives in a snf, POA are son + [id number] Laboratory Data: Abnormal Lab Results 03/07/17 03/07/17 16:42 16:42 WBC 17.4 H RBC 4.07 Hgb 12.1 Hct 37.2 MCV 91.4 MCH 29.6 MCHC 32.4 L RDW 15.2 H Plt Count 236 MPV 8.7 Neut % (Auto) 95.0 H Lymph % (Auto) 2.0 L O'Brien % (Auto) 2.3 Eos % (Auto) 0.3 Baso % (Auto) 0.4 Neut # 16.5 H Lymph # 0.3 L O'Brien # 0.4 Eos # 0.1 Baso # 0.1 Neutrophils % (Manual) 96 H Lymphocytes % (Manual) 2 L Monocytes % (Manual) 2 Platelet Estimate Normal Sodium 141 Potassium 4.0 Chloride 105 Carbon Dioxide 31 H Anion Gap 9 L BUN 21 H Creatinine 0.8 Est GFR ( Amer) > 60 Est GFR (Non-Af Amer) > 60 Random Glucose 144 H Calcium 8.6 Consultations:: List each consultation separately and include: 1. Reason for request. 2. Findings. 3. Follow-up Consultations: Medicine consult Summary of Hospital Course include:: 1. Description of specific treatment plan utilized for patients during their course of treatmen. 2. Summarize the time- course for resolution of acute symptoms and/or regressed behaviors. 3. Describe issues identified and worked on during hospitalization. 4. Describe medication utilized. 5. Describe medical problems identified and treated. 6. Reassessment of suicide risk Summary of Hospital Course: Patient re-admitted to the psychiatry s/p medical admission for PNA and sepsis, patient is now starting to decompensate medically, desaturating, tachycardic and delirious, no longer medically stable, will be sent to the ER for further treatment and stabilization. - Final Diagnosis (DSM 5) Condition upon Discharge: GOOD DSM 5: Schizophrenia, Pneumonia Disposition: TRANS TO OBS Follow-up Treatment Plan: Schizophrenia; Patient re-admitted to the psychiatry s/p medical admission for PNA and sepsis, patient is now starting to decompensate medically, desaturating , tachycardic and delirious, no longer medically stable, will be sent to the ER for further treatment and stabilization. -Continue Clozaril 100 mg PO Daily/ 225 mg PO HS -Discharge to ER for medical treatment and stabilization - Smoking Cessation Smoking Cessation Medication prescribed: No Reason for not providing: Not indicated - Antipsychotic Medications Pt discharged on 2 or more routine antipsychotic medications: No
--- NOTE | 2017-03-08 11:36 | RAD ---
HISTORY: follow up for bilateral lower lobe infiltrates COMPARISON: 02/22/2017 two-view chest. 02/27/2017 CT abdomen and pelvis FINDINGS: LUNGS: No active pulmonary disease. PLEURA: No significant pleural effusion identified, no pneumothorax apparent. CARDIOVASCULAR: No radiographic findings to suggest acute or significant cardiovascular disease. OSSEOUS STRUCTURES: No significant abnormalities. VISUALIZED UPPER ABDOMEN: Normal. OTHER FINDINGS: None. IMPRESSION: No active disease. No significant interval change compared to the prior chest radiograph performed February 22, 2017.
[2017-03-08] MEDS ORDERED: Sodium Chloride 0.9% 50 ML IV ONE (14:00)
[2017-03-08] MEDS ORDERED: Iodixanol 320 MG/ML 100 ML BOTTLE IV ONE (14:00)
== END 2017-03-08 10:55 | disposition short-term general hospital (02) | DRG 885 ==
LOC: H.STEP 23:51
PROVIDERS: ADMIT Psychiatry & Neurology Psychiatry; ATTEND Psychiatry & Neurology Psychiatry
PROC: GZHZZZZ Group Psychotherapy (ICD-10-PCS; principal; 2017-03-02)
PROC: GZ58ZZZ Individual Psychotherapy, Cognitive-Behavioral (ICD-10-PCS; 2017-03-03)
PROC: 3E0F73Z Introduction of Anti-inflammatory into Respiratory Tract, Via Natural or Artificial Opening (ICD-10-PCS; 2017-03-03)
DX: F25.9 Schizoaffective disorder, unspecified (principal); J18.9 Pneumonia, unspecified organism; J44.0 Chronic obstructive pulmonary disease with (acute) lower respiratory infection; I48.0 Paroxysmal atrial fibrillation; J44.1 Chronic obstructive pulmonary disease with (acute) exacerbation; F22 Delusional disorders; I10 Essential (primary) hypertension; E03.9 Hypothyroidism, unspecified; E78.5 Hyperlipidemia, unspecified; E78.00 Pure hypercholesterolemia, unspecified; K21.9 Gastro-esophageal reflux disease without esophagitis; M17.0 Bilateral primary osteoarthritis of knee; Z96.652 Presence of left artificial knee joint; Z87.891 Personal history of nicotine dependence; Z87.01 Personal history of pneumonia (recurrent)

== ENCOUNTER 2017-03-08 11:05 | Inpatient (IN) | payer MEDICARE, MEDICAID ==
[2017-03-08] MEDS ORDERED: Albuterol-Ipratrop 3 mg / 0.5 (3 ml) UD IH STA (11:22)
--- NOTE | 2017-03-08 11:29 | ED PDOC ---
HPI: SOB/CHF/COPD Time Seen by Provider: 03/08/17 11:17 Chief Complaint (Nursing): Shortness Of Breath Chief Complaint (Provider): shortness of breath, congestion, and oxidation desaturations History Per: Patient History/Exam Limitations: no limitations Onset/Duration Of Symptoms: Hrs (prior to arrival ) Current Symptoms Are (Timing): Still Present Additional Complaint(s): Dulce Medina, 77 year old female transferred from [facility] presents to the ED for shortness of breath, congestion, and oxidation desaturations occurring since this morning. The patient states she is tired but denies chest pain. She reports being transferred to [facility] after admission for pneumonia and has continued IV antibiotics [facility] Of note, the patient has a past medical history inclusive of dementia and pneumonia. PMD: Mando Cuello MD Past Medical History Reviewed: Historical Data, Nursing Documentation, Vital Signs Vital Signs: Last Vital Signs Temp 100.4 F H 03/08/17 11:39 Pulse 95 H 03/08/17 13:45 Resp 26 H 03/08/17 13:45 BP 117/76 03/08/17 13:45 Pulse Ox 95 03/08/17 13:45 - Medical History PMH: Anxiety, Asthma, Atrial Fibrillation, COPD, Dementia, HTN, Hypercholesterolemia, Hypothyroidism, Pneumonia, Schizophrenia, Seizures Denies: Chronic Kidney Disease - Surgical History Surgical History: Appendectomy, Cholecystectomy - Family History Family History: States: Unknown Family Hx - Immunization History Hx Tetanus Toxoid Vaccination: No (refuse) Hx Influenza Vaccination: No Hx Pneumococcal Vaccination: No - Home Medications Home Medications: Ambulatory Orders Medication Instructions Recorded Dronedarone [Multaq] 400 mg PO BID 02/15/17 Furosemide [Lasix] 20 mg PO DAILY 02/15/17 Metoprolol Succinate [Toprol XL] 25 mg PO DAILY 02/15/17 diltiaZEM [Cardizem] 120 mg PO BID 02/15/17 Apixaban [Eliquis] 2.5 mg PO BID tab 03/02/17 Famotidine [Pepcid] 20 mg PO BID tab 03/02/17 Levothyroxine [Synthroid] 12.5 mcg PO DAILY@0630 tab 03/02/17 Meropenem IV 1 gm in NS [Merrem IV 1 gm IVPB Q8 3 Days 03/02/17 1 gm Premix] Mirtazapine [Remeron] 7.5 mg PO HS PRN tab 03/02/17 Vancomycin/0.9 % Sod Chloride 1 gm IV Q12 3 Days 03/02/17 [Vancomycin 1 G/100Ml-0.9% NaCl] predniSONE [predniSONE Tab] 40 mg PO DAILY #20 tab 03/02/17 Clotrimazole 1% Cream [Lotrimin 1% 1 applic TOP BID 03/08/17 CREAM] LORazepam [Ativan] 0.5 mg PO HS PRN tab 03/08/17 LORazepam [Ativan] 0.5 mg PO Q6 PRN tab 03/08/17 Levalbuterol [Xopenex] 1.25 mg INH RQ6 03/08/17 Nystatin [Nystatin Oral Susp] 5 ml PO AMHS 03/08/17 cloZAPine [Clozaril] 100 mg PO DAILY tab 03/08/17 cloZAPine [Clozaril] 200 mg PO HS tab 03/08/17 - Allergies Allergies/Adverse Reactions: Allergies Allergy/AdvReac Type Severity Reaction Status Date / Time No Known Allergies Allergy Verified 02/22/17 13:39 Review of Systems ROS Statement: Except As Marked, All Systems Reviewed And Found Negative Constitutional: Positive for: Other (tired) Cardiovascular: Negative for: Chest Pain Respiratory: Positive for: Shortness of Breath (congestion and oxidation desaturations) Physical Exam - Reviewed Nursing Documentation Reviewed: Yes Vital Signs Reviewed: Yes - Physical Exam Appears: Positive for: Well, Non-toxic, No Acute Distress Head Exam: Positive for: ATRAUMATIC, NORMAL INSPECTION, NORMOCEPHALIC Cardiovascular/Chest: Positive for: Regular Rate, Rhythm Respiratory: Positive for: Rhonchi (coarse rhonchi bilaterally). Negative for: Wheezing, Respiratory Distress Gastrointestinal/Abdominal: Positive for: Normal Exam, Soft. Negative for: Tenderness Extremity: Negative for: Calf Tenderness, Swelling Neurologic/Psych: Positive for: Alert, Oriented (x2), Mood/Affect (sleepy, arousable, responding to questions ). Negative for: Motor/Sensory Deficits - Laboratory Results Result Diagrams: 03/08/17 12:00 03/08/17 12:00 Medical Decision Making Medical Decision Making: Impression: Shortness of breath, congestion, oxidation desaturations Plan: * VBG Shock panel * COMP Metabolic panel * ED Urine Dipstick * ED EKG * CBC (With Differential) * D Dimer [COAG] * Blood Culture * Peak Flow pre/post * Chest portable [RAD] * Duoneb 3 mg/0.5 mg (3 ml) UD 3 ml IH Stat * Reevaluation Scribe Attestation: Documented by Zuleima Luo, acting as a scribe for Valeriy Billings MD. Provider Scribe Attestation: All medical record entries made by the Scribe were at my direction and personally dictated by me. I have reviewed the chart and agree that the record accurately reflects my personal performance of the history, physical exam, medical decision making, and the department course for this patient. I have also personally directed, reviewed, and agree with the discharge instructions and disposition. Disposition - Clinical Impression Clinical Impression: SIRS (systemic inflammatory response syndrome), COPD with acute exacerbation - Patient ED Disposition Is Patient to be Admitted: Yes - Disposition Disposition Time: 14:44 Condition: FAIR - Pt Status Changed To: Hospital Disposition Of: Inpatient - Admit Certification Admit to Inpatient:: After my assessment, the patient will require hospitalization for at least two midnights. This is because of the severity of symptoms shown, intensity of services needed, and/or the medical risk in this patient being treated as an outpatient. - POA Present On Arrival: None
[2017-03-08] MEDS ORDERED: Albuterol-Ipratrop 3 mg / 0.5 (3 ml) UD ONE (11:50)
[2017-03-08 12:23] LABS: VENOUS BLOOD GAS BASE EXCESS 10.2 mmol/L (0.0-2.0); VENOUS BLOOD GAS PCO2 52 mmHg (40-60); VENOUS BLOOD GAS PO2 34 mm/Hg (30-55); VENOUS BLOOD PH 7.45 (7.32-7.43)
[2017-03-08 12:38] LABS: ALB/GLOB RATIO 1.2 (1.0-2.1); ALT/SGPT 53 U/L (9-52); AST/SGOT 29 U/L (14-36); BLOOD UREA NITROGEN 19 mg/dl (7-17); CALCIUM 8.5 mg/dL (8.4-10.2); GFR AFRICAN-AMERICAN > 60; GFR NON-AFRICAN AMERICAN > 60
[2017-03-08 12:51] LABS: BASO % 0.2 % (0.0-2.0); EOS % 0.1 % (0.0-4.0); HEMOGLOBIN 11.9 g/dL (12.0-16.0); LYMPH # 0.6 K/uL (1.0-4.3); LYMPH % 5.1 % (20.0-40.0); MEAN CELL VOLUME 90.2 fl (81.0-99.0); MEAN CORPUSCULAR HEMOGLOBIN 29.8 pg (27.0-31.0); MEAN CORPUSCULAR HGB CONC 33.1 g/dL (33.0-37.0); MEAN PLATELET VOLUME 8.9 fl (7.2-11.7); MONO # 0.8 K/uL (0.0-0.8); MONO % 6.3 % (0.0-10.0); NEUT # 10.9 K/uL (1.8-7.0); NEUT % 88.3 % (50.0-75.0); RBC 3.99 Mil/uL (3.80-5.20); RED CELL DISTRIBUTION WIDTH 15.4 % (11.5-14.5); WHITE BLOOD COUNT 12.3 K/uL (4.8-10.8)
--- NOTE | 2017-03-08 14:33 | RAD ---
HISTORY: Cough. Portable study 12:30. COMPARISON: March 07, 2017. FINDINGS: LUNGS: No active pulmonary disease. PLEURA: No significant pleural effusion identified, no pneumothorax apparent. CARDIOVASCULAR: No radiographic findings to suggest acute or significant cardiovascular disease. OSSEOUS STRUCTURES: No significant abnormalities. VISUALIZED UPPER ABDOMEN: Normal. OTHER FINDINGS: None. IMPRESSION: No active disease. No significant interval change compared to the prior examination(s).
[2017-03-08 15:44] LABS: SQUAMOUS EPITHIAL < 1 /hpf (0-5); URINE BILIRUBIN NEGATIVE (NEGATIVE); URINE BLOOD NEGATIVE (NEGATIVE); URINE CLARITY CLEAR (Clear); URINE COLOR STRAW (YELLOW); URINE GLUCOSE (UA) NEG (Normal); URINE HYALINE CAST 0-2 /hpf (0-2); URINE LEUKOCYTE ESTERASE NEG Leu/uL (Negative); URINE NITRATE NEGATIVE (NEGATIVE); URINE PROTEIN NEGATIVE (NEGATIVE); URINE UROBILINOGEN 0.2-1.0 mg/dL (0.2-1.0)
--- NOTE | 2017-03-08 17:26 | US ---
PROCEDURE: Bilateral lower extremity venous duplex Doppler. HISTORY: elevated d dimer COMPARISON: None available. TECHNIQUE: Bilateral common femoral, superficial femoral, popliteal and posterior tibial veins were evaluated. Flow was assessed with color Doppler, compressibility, assessment of phasic flow and augmentation response. FINDINGS: COMMON FEMORAL VEIN: Right CFV: Unremarkable. Left CFV: Unremarkable. SUPERFICIAL FEMORAL VEIN: Right SFV: Unremarkable. Left SFV: Unremarkable. POPLITEAL VEIN: Right Popliteal: Unremarkable. Left Popliteal: Unremarkable. POSTERIOR TIBIAL VEIN: Right PTV: Unremarkable. Left PTV: Unremarkable. OTHER FINDINGS: None. IMPRESSION: No evidence of deep venous thrombosis.
[2017-03-08] MEDS ORDERED: diltiaZEM 100 mg Vial ( ADD-VANTAGE ) IV ONE (18:07)
[2017-03-08] MEDS ORDERED: Digoxin 500 mcg/2ml (0.5 mg/2ml) Inj ONE (18:07)
[2017-03-08] MEDS ORDERED: Digoxin 500 mcg/2ml (0.5 mg/2ml) Inj IVP ONE (18:12)
[2017-03-08 18:27] LABS: ABG ALLEN TEST YES; ARTERIAL BLOOD GAS HCO3 32.6 mmol/L (21-28); ARTERIAL BLOOD GAS HEMOGLOBIN 11.6 g/dL (11.7-17.4); ARTERIAL BLOOD GAS O2 CAPACITY 15.5 mL/dL (16-24); ARTERIAL BLOOD GAS O2 CONTENT 14.9 ML/dL (15-23); ARTERIAL BLOOD GAS O2 SAT 95.9 % (95-98); ARTERIAL BLOOD GAS PCO2 39 mm/Hg (35-45); ARTERIAL BLOOD GAS PH 7.54 (7.35-7.45); ARTERIAL BLOOD GAS PO2 57 mm/Hg (80-100); ARTERIAL BLOOD GAS TCO2 34.5 mmol/L (22-28)
--- NOTE | 2017-03-08 18:46 | CP.PCM.HP ---
History of Present Illness - History of Present Illness History of Present Illness: 77 yo female with history of COPD, HTN, AFib, Hypothyroid and Schizophrenia was admitted to [facility] because of worsening psychosis. While in the unit patient became SOB accompanied with coughing and fever. She was transferred to the ER and was found to have bilateral lower lobe pneumonia on Chest CT and had leukocytosis. She was diagnosed with Sepsis secondary to Pneumonia and was admitted in telemetry. She was put on IV Zosyn and Vanco and then switched to Meropenem and Vanco. Pt did well and was sent back to [facility] with the IV antibiotics. She was sent back to the ER after 6 days with the complaint that patient was desaturating and becoming congested. The patient having completed 14 days of IV antibiotics again was admitted to telemetry diagnosed with COPD exacerbation. While patient was being brought up in telemetry she suddenly developed AFib with RVR (140/min). She was brought back to the ER and was given 20mg of Cardizem IV followed with Cardizem drip at 8mg/hr plus 0.5mg of Digoxin IV. Heart rate went back to normal range. Pt denied chest pain or SOB during this episode. Present on Admission - Present on Admission Any Indicators Present on Admission: No History of DVT/PE: No History of Uncontrolled Diabetes: No Urinary Catheter: No Decubitus Ulcer Present: No Review of Systems - Review of Systems All systems: reviewed and no additional remarkable complaints except (aside from those mentioned above, 12 point system review were negative by me) Past Patient History - Tetanus Immunizations Tetanus Immunization: Unknown - Past Medical History & Family History Past Family History: Reviewed and not pertinent - Past Social History Smoking Status: Former Smoker Alcohol: None Drugs: Denies - CARDIAC Hx Atrial Fibrillation: Yes Hx Hypercholesterolemia: Yes Hx Hypertension: Yes - PULMONARY Hx Asthma: Yes Hx Chronic Obstructive Pulmonary Disease (COPD): Yes Hx Pneumonia: Yes - NEUROLOGICAL Hx Dementia: Yes Hx Seizures: Yes - HEENT Hx HEENT Problems: No - RENAL Hx Chronic Kidney Disease: No - ENDOCRINE/METABOLIC Hx Hypothyroidism: Yes - HEMATOLOGICAL/ONCOLOGICAL Hx Cancer: Yes (colon) - INTEGUMENTARY Hx Dermatological Problems: No - MUSCULOSKELETAL/RHEUMATOLOGICAL Hx Falls: Yes - GASTROINTESTINAL Hx Gastrointestinal Disorders: Yes Hx Gastroesophageal Reflux: Yes - GENITOURINARY/GYNECOLOGICAL Hx Genitourinary Disorders: Yes Hx Incontinence: Yes - PSYCHIATRIC Hx Anxiety: Yes Hx Schizophrenia: Yes - SURGICAL HISTORY Hx Appendectomy: Yes Hx Cholecystectomy: Yes - ANESTHESIA Hx Anesthesia: Yes Hx Anesthesia Reactions: No Meds Allergies/Adverse Reactions: Allergies Allergy/AdvReac Type Severity Reaction Status Date / Time No Known Allergies Allergy Verified 02/22/17 13:39 Physical Exam - Constitutional Appears: No Acute Distress - Head Exam Head Exam: ATRAUMATIC - Eye Exam Eye Exam: absent: Scleral icterus - ENT Exam ENT Exam: Mucous Membranes Moist - Neck Exam Neck exam: Negative for: Meningismus - Respiratory Exam Respiratory Exam: Rhonchi. absent: Wheezes, Respiratory Distress - Cardiovascular Exam Cardiovascular Exam: Irregular Rhythm - GI/Abdominal Exam GI & Abdominal Exam: Soft. absent: Tenderness - Rectal Exam Rectal Exam: Deferred - Neurological Exam Neurological exam: Alert - Psychiatric Exam Psychiatric exam: Flat Affect - Skin Skin Exam: Dry, Intact Results - Vital Signs Recent Vital Signs: Last Vital Signs Temp 98.9 F 03/08/17 15:28 Pulse 93 H 03/08/17 15:28 Resp 24 03/08/17 15:28 BP 117/85 03/08/17 15:28 Pulse Ox 95 03/08/17 15:28 - Labs Result Diagrams: 03/08/17 12:00 03/08/17 12:00 Labs: Laboratory Results - last 24 hr 03/08/17 15:32 Urine Color Straw Urine Clarity Clear Urine pH 7.0 Ur Specific [place] 1.010 Urine Protein Negative Urine Glucose (UA) Neg Urine Ketones Negative Urine Blood Negative Urine Nitrate Negative Urine Bilirubin Negative Urine Urobilinogen 0.2-1.0 Ur Leukocyte Esterase Neg Urine Microscopic WBC < 1 Ur Squamous Epith Cells < 1 Hyaline Casts 0-2 Assessment & Plan (1) COPD with acute exacerbation Status: Acute Priority: High Comment: Xopenex 1.25mg via nebulizer q 6hrs. Advair 1 puff Q 12hrs. SoluMedrol 40mg IV q 12hrs (2) Atrial fibrillation with RVR Status: Acute Comment: continue Cardizem drip at 8mg/hr. Metoprolol Succinate 25mg PO daily. Multag 400mg PO BID. cardiology consult with Dr Diez. ECHO. Eliquis 2.5mg PO BID (3) HTN (hypertension) Status: Chronic Comment: BP stable. Metoprolol Succinate 25mg PO daily (4) Hypothyroidism Status: Chronic Comment: Levothyroxine 12.5mcg PO daily. TSH in am
[2017-03-08] MEDS ORDERED: Potassium Chloride 20 mEq ER Tab PO STA (19:15)
[2017-03-08] MEDS: Levalbuterol 1.25 MG/3 ML Inhal Soln UD INH SCH (20:43)
[2017-03-09] MEDS: Levalbuterol 1.25 MG/3 ML Inhal Soln UD INH SCH ×4 (01:15→19:49)
[2017-03-09 06:19] LABS: BASO % 0.2 % (0.0-2.0); EOS % 0.2 % (0.0-4.0); HEMOGLOBIN 11.8 g/dL (12.0-16.0); LYMPH % 6.9 % (20.0-40.0); MEAN CELL VOLUME 92.9 fl (81.0-99.0); MEAN CORPUSCULAR HEMOGLOBIN 29.8 pg (27.0-31.0); MEAN PLATELET VOLUME 8.4 fl (7.2-11.7); MONO % 6.8 % (0.0-10.0); NEUT # 12.3 K/uL (1.8-7.0); NEUT % 85.9 % (50.0-75.0); RBC 3.96 Mil/uL (3.80-5.20); RED CELL DISTRIBUTION WIDTH 15.8 % (11.5-14.5); WHITE BLOOD COUNT 14.3 K/uL (4.8-10.8)
[2017-03-09] MEDS: Levothyroxine 25 MCG TAB PO SCH (06:26)
[2017-03-09 06:32] LABS: BLOOD UREA NITROGEN 20 mg/dl (7-17); CALCIUM 8.6 mg/dL (8.4-10.2); GFR AFRICAN-AMERICAN > 60; GFR NON-AFRICAN AMERICAN > 60
[2017-03-09] MEDS: Metoprolol Succinate 25 mg XL Tab PO SCH (08:21)
--- NOTE | 2017-03-09 11:40 | CP.PCM.PN ---
Subjective - Date & Time of Evaluation Date of Evaluation: 03/09/17 Time of Evaluation: 09:00 - Subjective Subjective: Patient was seen and evaluated bedside. Lethargic. Responds to name calling, does not follow any commands HR better controlled ,back in sinus rhythm , afebrile As per staff unable to do CTA chest due to agitation. Objective - Vital Signs/Intake and Output Vital Signs (last 24 hours): Temp Pulse Resp BP Pulse Ox 97.4 F L 103 H 20 122/77 97 03/09/17 08:08 03/09/17 08:21 03/09/17 08:08 03/09/17 08:21 03/09/17 08:08 - Medications Medications: Current Medications Apixaban (Eliquis) 2.5 mg PO BID [facility] PRN Reason: Protocol Last Admin: 03/09/17 08:20 Dose: 2.5 mg Clotrimazole (Lotrimin 1% Cream) 1 applic TOP BID [facility] Last Admin: 03/09/17 08:20 Dose: 1 applic Clozapine (Clozaril) 200 mg PO HS [facility] Last Admin: 03/08/17 21:09 Dose: 200 mg Clozapine (Clozaril) 100 mg PO DAILY [facility] Last Admin: 03/09/17 08:19 Dose: 100 mg Diltiazem HCl (Cardizem) 120 mg PO BID [facility] Last Admin: 03/09/17 08:18 Dose: 120 mg Dronedarone (Multaq) 400 mg PO BID [facility] Last Admin: 03/09/17 08:20 Dose: 400 mg Famotidine (Pepcid) 20 mg PO BID [facility] Last Admin: 03/09/17 08:21 Dose: 20 mg Furosemide (Lasix) 20 mg PO DAILY [facility] Last Admin: 03/09/17 08:20 Dose: 20 mg Diltiazem HCl 100 mg/ Sodium (Chloride) 100 mls @ 5 mls/hr IV .Q20H ONE; 5 MG/ HR PRN Reason: Protocol Stop: 03/09/17 14:29 Last Admin: 03/08/17 18:31 Dose: 5 mls/hr Levalbuterol HCl (Xopenex) 1.25 mg INH RQ6 [facility] Last Admin: 03/09/17 07:31 Dose: 1.25 mg Levothyroxine Sodium (Synthroid) 12.5 mcg PO DAILY@0630 [facility] Last Admin: 03/09/17 06:26 Dose: 12.5 mcg Lorazepam (Ativan) 0.5 mg PO Q6 PRN PRN Reason: Anixety/Agitation Lorazepam (Ativan) 0.5 mg PO HS PRN PRN Reason: Insomnia Metoprolol Succinate (Toprol Xl) 25 mg PO DAILY [facility] Last Admin: 03/09/17 08:21 Dose: 25 mg Mirtazapine (Remeron) 7.5 mg PO HS PRN PRN Reason: Insomnia - Labs Labs: 03/09/17 05:15 03/09/17 05:15 - Constitutional Appears: Confused, Chronically Ill, Other (lethargic) - Head Exam Head Exam: NORMOCEPHALIC - Eye Exam Eye Exam: EOMI, PERRL - ENT Exam ENT Exam: Mucous Membranes Dry, Normal Exam - Neck Exam Neck Exam: Normal Inspection - Respiratory Exam Respiratory Exam: absent: Accessory Muscle Use, Prolonged Expiratory Phase, Rhonchi, Wheezes Additional comments: on Venti mask saturating 91 % ,lethargic coarse upper airway noise - Cardiovascular Exam Cardiovascular Exam: REGULAR RHYTHM - GI/Abdominal Exam GI & Abdominal Exam: Soft, Normal Bowel Sounds. absent: Distended, Guarding, Tenderness, Rebound - Rectal Exam Rectal Exam: Deferred - Extremities Exam Extremities Exam: Full ROM, Normal Inspection. absent: Calf Tenderness, Pedal Edema - Neurological Exam Additional comments: lethargic, not following any commands - Skin Skin Exam: Dry, Pallor, Warm Assessment and Plan - Assessment and Plan (Free Text) Assessment: 77 yo female with history of COPD, HTN, AFib, Hypothyroid and Schizophrenia was admitted to [facility] because of worsening psychosis. While in the unit patient became SOB accompanied with coughing and fever so was transferred to acute care and diagnosed with bilateral lower lobe pneumonia and was treated with IV Meropenem and Vanxcomycin full course finished 03/08) Pt did well and was sent back to [facility] with the IV antibiotics. She was sent back to the ER after 6 days whil phoebe IV antibiotics with the complaint that patient was desaturating and becoming congested. The patient having completed 14 days of IV antibiotics again was admitted to telemetry diagnosed with acute Hypoxemic respiratory failure . While patient was being brought up in telemetry she suddenly developed AFib with RVR (140/min). She was given 20mg of Cardizem IV followed with Cardizem drip . at present back in SR 1. Acute hypoxemic respiratory failure unclear etiology PO2 57 CXr showed no infiltrate patient very lethargic on Venti mask FIO2 40 %, Will change to High flow O2 15 LMP FIo2 50 % Pulmonary on cosnult D- dimer elevated so will need to rule out PE\ CTA chest was nort performed due to agitation. Justin try again today Keep HOB elevated. Aspiration precautions Puree diet 2. COPD with acute exacerbation pulmonary on consult Xopenex 1.25mg via nebulizer q 6hrs. Advair 1 puff Q 12hrs. SoluMedrol 3. Atrial fibrillation with RVR rate controlled , SR at pre6.sent Will d/.c cardizem drip continue Metoprolol Succinate 25mg PO daily. Multag 400mg PO BID. cardiology consult with Dr Diez. f/u ECHO report on Eliquis 2.5mg PO BID 4.HTN (hypertension) Chronic BP stable. Metoprolol Succinate 25mg PO daily 5. Hypothyroidism Chronic Levothyroxine 12.5mcg PO daily. 6. Schizophrenia with psychosis continue management as per psych 7. DVt prophylaxis on Eliquis
[2017-03-09 14:34] LABS: ABG ALLEN TEST YES; ARTERIAL BLOOD GAS HCO3 34.6 mmol/L (21-28); ARTERIAL BLOOD GAS HEMOGLOBIN 11.7 g/dL (11.7-17.4); ARTERIAL BLOOD GAS O2 CONTENT 15.4 ML/dL (15-23); ARTERIAL BLOOD GAS PCO2 40 mm/Hg (35-45); ARTERIAL BLOOD GAS PH 7.56 (7.35-7.45); ARTERIAL BLOOD GAS PO2 66 mm/Hg (80-100)
--- NOTE | 2017-03-09 18:58 | CP.PCM.CON ---
History of Present Illness - History of Present Illness History of Present Illness: CC: Respiratory Failure. Pulmonary consult for a 77 y/o F, that was transfer on 03/08/17 AM to ER [facility], [place] from Geropsychiatric unit due to increased moderate to severe SOB associated to chest congestion, intermittent cough, productive yellowish phlegms , non bloody, TMAx: 100.4. Worsening symptom: Respiratory Failure, Pt found with with decreased Sat in the 70's even with the V Mask at 50%. Pt with a previous admission to [address] [place] [address] on 02/22/17 and Tx for PNA, COPD Exacerbation, after stable, she was transferred to Geropsych Unit for worsening psychosis, also to continue with IV abx coverage ( Elza and Yudith). After 6 days in this unit, Pt's developed worsening SOB with oxigen desaturation and was sent to ED for new evaluation and Pt was admitted. When Pt was living the ER to Telemetry, Suddenly, had an episode of A Fib with RVR of 140/min, Pt was brought again to ER Unit and was given 20 mg Cardizem IV bolus and after started on Cardizem drip and Digoxin 0.5, there after BP became stable and was admitted to Telemetry. No: Bloody cough, no chills, abdominal pain, urinary symptoms, CP, LOC, syncope , sick contact. PMHx: COPD, PNA, A Fib, HTN, HLD, Hypothyroidism, Anxiety, Schizophrenia, Seizure, E Reflux, Hx. L TKR, Hx. Colon Ca. CXR showed: No active disease, no significant interval change compared to previous examination. Review of Systems - Review of Systems Systems not reviewed;Unavailable: Acuity of Condition, Respiratory Distress Past Patient History - Tetanus Immunizations Tetanus Immunization: Unknown - Past Medical History & Family History Past Medical History?: Yes Pertinent Family History: Unknown - Past Social History Smoking Status: Former Smoker Alcohol: None Drugs: Denies Home Situation {Lives}: With Family - CARDIAC Hx Cardiac Disorders: Yes Hx Atrial Fibrillation: Yes Hx Hypercholesterolemia: Yes Hx Hypertension: Yes - PULMONARY Hx Respiratory Disorders: Yes Hx Asthma: Yes Hx Chronic Obstructive Pulmonary Disease (COPD): Yes Hx Pneumonia: Yes - NEUROLOGICAL Hx Neurological Disorder: Yes Hx Dementia: Yes Hx Seizures: Yes - HEENT Hx HEENT Problems: No - RENAL Hx Chronic Kidney Disease: No - ENDOCRINE/METABOLIC Hx Endocrine Disorders: Yes Hx Hypothyroidism: Yes - HEMATOLOGICAL/ONCOLOGICAL Hx Blood Disorders: Yes Hx Cancer: Yes (colon) - INTEGUMENTARY Hx Dermatological Problems: No - MUSCULOSKELETAL/RHEUMATOLOGICAL Hx Musculoskeletal Disorders: Yes Hx Falls: Yes - GASTROINTESTINAL Hx Gastrointestinal Disorders: Yes Hx Gastroesophageal Reflux: Yes - GENITOURINARY/GYNECOLOGICAL Hx Genitourinary Disorders: Yes - PSYCHIATRIC Hx Psychophysiologic Disorder: Yes Hx Anxiety: Yes Hx Schizophrenia: Yes Hx Substance Use: No - SURGICAL HISTORY Hx Surgeries: Yes Hx Appendectomy: Yes Hx Cholecystectomy: Yes - ANESTHESIA Hx Anesthesia: Yes Hx Anesthesia Reactions: No Meds Allergies/Adverse Reactions: Allergies Allergy/AdvReac Type Severity Reaction Status Date / Time No Known Allergies Allergy Verified 02/22/17 13:39 - Medications Medications: Current Medications Apixaban (Eliquis) 2.5 mg PO BID [facility] PRN Reason: Protocol Last Admin: 03/09/17 16:54 Dose: 2.5 mg Clotrimazole (Lotrimin 1% Cream) 1 applic TOP BID [facility] Last Admin: 03/09/17 16:54 Dose: 1 applic Clozapine (Clozaril) 200 mg PO HS [facility] Last Admin: 03/08/17 21:09 Dose: 200 mg Clozapine (Clozaril) 100 mg PO DAILY [facility] Last Admin: 03/09/17 08:19 Dose: 100 mg Diltiazem HCl (Cardizem) 120 mg PO BID [facility] Last Admin: 03/09/17 16:53 Dose: 120 mg Dronedarone (Multaq) 400 mg PO BID [facility] Last Admin: 03/09/17 16:54 Dose: 400 mg Famotidine (Pepcid) 20 mg PO BID [facility] Last Admin: 03/09/17 16:54 Dose: 20 mg Furosemide (Lasix) 20 mg PO DAILY [facility] Last Admin: 03/09/17 08:20 Dose: 20 mg Sodium Chloride (Sodium Chloride 0.45%) 1,000 mls @ 100 mls/hr IV .Q10H [facility] Stop: 03/10/17 18:32 Levalbuterol HCl (Xopenex) 1.25 mg INH RQ6 [facility] Last Admin: 03/09/17 13:23 Dose: 1.25 mg Levothyroxine Sodium (Synthroid) 12.5 mcg PO DAILY@0630 [facility] Last Admin: 03/09/17 06:26 Dose: 12.5 mcg Lorazepam (Ativan) 0.5 mg PO Q6 PRN PRN Reason: Anixety/Agitation Lorazepam (Ativan) 0.5 mg PO HS PRN PRN Reason: Insomnia Metoprolol Succinate (Toprol Xl) 25 mg PO DAILY [facility] Last Admin: 03/09/17 08:21 Dose: 25 mg Mirtazapine (Remeron) 7.5 mg PO HS PRN PRN Reason: Insomnia Physical Exam - Constitutional Appears: Chronically Ill - Head Exam Head Exam: NORMAL INSPECTION - Eye Exam Eye Exam: PERRL - ENT Exam ENT Exam: Normal Exam - Neck Exam Neck exam: Positive for: Normal Inspection - Respiratory Exam Respiratory Exam: Decreased Breath Sounds, Rhonchi (b/l) - Cardiovascular Exam Cardiovascular Exam: REGULAR RHYTHM - GI/Abdominal Exam GI & Abdominal Exam: Normal Bowel Sounds, Soft - Extremities Exam Extremities exam: Positive for: normal inspection - Back Exam Back exam: NORMAL INSPECTION - Neurological Exam Additional comments: Lethargic, not answering questions , not following commands , movements U/E, L/ E - Psychiatric Exam Additional comments: Lethargic - Skin Skin Exam: Warm Results - Vital Signs Recent Vital Signs: Last Vital Signs Temp 98.6 F 03/09/17 16:25 Pulse 88 03/09/17 16:25 Resp 18 03/09/17 16:25 BP 92/58 L 03/09/17 16:25 Pulse Ox 91 L 03/09/17 16:25 reviewed Florentino - Labs Result Diagrams: 03/10/17 05:45 03/10/17 05:45 Labs: Laboratory Results - last 24 hr 03/08/17 03/09/17 03/09/17 19:03 05:15 05:15 WBC 14.3 H RBC 3.96 Hgb 11.8 L Hct 36.8 MCV 92.9 D MCH 29.8 MCHC 32.0 L RDW 15.8 H Plt Count 210 MPV 8.4 Neut % (Auto) 85.9 H Lymph % (Auto) 6.9 L [place] % (Auto) 6.8 Eos % (Auto) 0.2 Baso % (Auto) 0.2 Neut # 12.3 H Lymph # 1.0 [place] # 1.0 H Eos # 0.0 Baso # 0.0 pCO2 pO2 HCO3 ABG pH ABG Total CO2 ABG O2 Saturation ABG O2 Content ABG Base Excess ABG Hemoglobin ABG Carboxyhemoglobin POC ABG HHb (Measured) ABG Methemoglobin ABG O2 Capacity Bernardo Test A-a O2 Difference Hgb O2 Saturation Vent Mode FiO2 Sodium 142 Potassium 3.8 Chloride 106 Carbon Dioxide 32 H Anion Gap 8 L BUN 20 H Creatinine 0.7 Est GFR ( Amer) > 60 Est GFR (Non-Af Amer) > 60 Random Glucose 86 Calcium 8.6 Troponin I 0.0490 03/09/17 13:35 WBC RBC Hgb Hct MCV MCH MCHC RDW Plt Count MPV Neut % (Auto) Lymph % (Auto) [place] % (Auto) Eos % (Auto) Baso % (Auto) Neut # Lymph # [place] # Eos # Baso # pCO2 40 pO2 66 L HCO3 34.6 H ABG pH 7.56 H ABG Total CO2 37.0 H ABG O2 Saturation 96.0 ABG O2 Content 15.4 ABG Base Excess 12.5 H ABG Hemoglobin 11.7 ABG Carboxyhemoglobin 1.3 POC ABG HHb (Measured) 3.9 ABG Methemoglobin 1.5 ABG O2 Capacity 16.0 Bernardo Test Yes A-a O2 Difference 241.0 Hgb O2 Saturation 93.4 L Vent Mode Vm FiO2 50.0 Sodium Potassium Chloride Carbon Dioxide Anion Gap BUN Creatinine Est GFR ( Amer) Est GFR (Non-Af Amer) Random Glucose Calcium Troponin I reviewed J.P. - EKG Data EKG comments: reviewed J.P. - Imaging and Cardiology Chest x-ray Status: Report reviewed by me (J.P.) CT scan - chest Status: Report reviewed by me (CT chest of 02/23/17 and 02/27/17.) Venous US Status: Report reviewed by me (J.P.) Assessment & Plan (1) Acute hypoxemic respiratory failure Status: Acute Priority: High (2) COPD with acute exacerbation Status: Acute Priority: High - Assessment and Plan (Free Text) Plan: Agree with management , continue O2 , Xopenex , attempt to do CTA , Patient is on 1:1 on RSR now - Date & Time Date: 03/09/17 Time: 10:40
[2017-03-09] MEDS: Sodium Chloride 0.45% 1,000 ML IV SCH (19:02)
--- NOTE | 2017-03-09 22:36 | PCM.RRTMUL ---
CREPE LAMINATOR OPERATOR Nurse Assessment - Situation CREPE LAMINATOR OPERATOR Responder Arrival Time:: 19:27 Location:: Room Number:: 415 CREPE LAMINATOR OPERATOR Reason for Call: O2 Saturation below 90% CREPE LAMINATOR OPERATOR Called By: RN - IV IV Inserted during CREPE LAMINATOR OPERATOR?: No - Respiratory Oxygen Delivery Method:: High-Flow Received Nebulizer Treatments:: Yes (Xopenex) Was the Patient Ventilated with Bag/Mask 100% O2?: No Secretions Suctioned?: Yes Was the Patient Intubated?: No Was the Patient Placed on a Ventilator?: No - Ventilator Settings FIO2 (% Oxygen):: 50 - Medication Medications Administered During CREPE LAMINATOR OPERATOR :: Xopenex neb - Diagnostic Test Ordered EKG:: No Chest X-Ray:: No CT Scan:: No CPR started during CREPE LAMINATOR OPERATOR?: No - Vital Signs Blood Pressure:: 96/41 Pulse Rate:: 84 Respiratory Rate:: 25 Temperature:: 98.2 F Oxygen Saturation:: 87 - Fidel Coma Scale Coma Scale Eye Opening:: Spontaneous Coma Scale Motor:: Obeys Commands Movement Coma Scale Verbal:: Confused/able to answer Coma Scale Total:: 14 - Time CREPE LAMINATOR OPERATOR Ended Time CREPE LAMINATOR OPERATOR Ended:: 19:50 - Vital Signs at end of CREPE LAMINATOR OPERATOR Blood Pressure:: 93/47 Pulse Rate:: 88 Respiratory Rate:: 25 O2 Sat by Pulse Oximetry:: 95 - Recommendations 5) CREPE LAMINATOR OPERATOR Level of Care Recommendations: Remain in current setting 6) Notifications: Attending Physician I.Reason for CREPE LAMINATOR OPERATOR - A) Acute Change in Patient: (Select all that apply): Staff member or family is worried about patient, Acute change in SpO2 less - Constitutional Appears: Confused - Head Head Exam: ATRAUMATIC, NORMAL INSPECTION, NORMOCEPHALIC - Respiratory Exam Respiratory Exam: absent: Wheezes, Respiratory Distress Additional comments: Good air entry present b/l - Cardiovascular Exam Cardiovascular Exam: REGULAR RHYTHM, RRR, +S1, +S2. absent: Tachycardia - GI/Abdominal Exam GI & Abdominal Exam: Soft. absent: Tenderness - Neurological Exam Neurological Exam: Awake. absent: Oriented x3 Plan - A. End of CREPE LAMINATOR OPERATOR Vital Signs: Blood Pressure: 93/47 Pulse Rate: 88 O2 Sat by Pulse Oximetry: 96 - B. Assessment of Findings&Treatment Plan Patient is a 77 y/o F with PMH including COPD, HTN, AFib, Hypothyroidism and Schizophrenia currently admitted for acute hypoxemic respiratory failure. CREPE LAMINATOR OPERATOR was called for patient after she began desatting to 80% range. On responder arrival, patient was arousable but confused and lethargic as per her baseline. She is able to follow simple instructions but is at times agitated. A STAT duoneb treatment was ordered and her high flow O2 was increased to 100%. Lungs remained clear to auscultation and no apparent respiratory distress was noted. Thick oral secretions were suctioned. During assessment patient O2 sat improved to the 97% range and her high flow O2 was gradually titrated down from 100% to 50% while maintaining O2 Sat of 96%. Plan -Monitor O2 Sats closely -Keep head of bed elevated -Recommend periodic oral suctioning to clear secretions -Will consider duoneb treatments as needed
[2017-03-10] MEDS ORDERED: Chlorhexidine Gluconate 1 APPL/PKT TP ONE (00:23)
[2017-03-10] MEDS: Levalbuterol 1.25 MG/3 ML Inhal Soln UD INH SCH ×4 (01:08→19:53)
[2017-03-10] MEDS: Sodium Chloride 0.45% 1,000 ML IV SCH ×2 (05:10→16:44)
[2017-03-10] MEDS: Levothyroxine 25 MCG TAB PO SCH (06:42)
[2017-03-10 06:57] LABS: BLOOD UREA NITROGEN 20 mg/dl (7-17); CALCIUM 8.1 mg/dL (8.4-10.2); GFR AFRICAN-AMERICAN > 60; GFR NON-AFRICAN AMERICAN > 60
[2017-03-10 06:58] LABS: HEMOGLOBIN 10.7 g/dL (12.0-16.0); MEAN CORPUSCULAR HEMOGLOBIN 29.9 pg (27.0-31.0); MEAN CORPUSCULAR HGB CONC 32.5 g/dL (33.0-37.0); RBC 3.58 Mil/uL (3.80-5.20); RED CELL DISTRIBUTION WIDTH 15.6 % (11.5-14.5); WHITE BLOOD COUNT 11.2 K/uL (4.8-10.8)
[2017-03-10] MEDS: guaiFENesin-DM 600-30 mg ER Tab PO SCH ×2 (08:28→16:44)
[2017-03-10] MEDS: Metoprolol Succinate 25 mg XL Tab PO SCH (08:29)
--- NOTE | 2017-03-10 10:34 | CP.PCM.PN ---
Subjective - Date & Time of Evaluation Date of Evaluation: 03/10/17 Time of Evaluation: 10:00 - Subjective Subjective: Pt seen and examined. Sleeping peacefully with no sign of respiratory difficulty on 2LPM O2 supplement by NC saturating at 96%. Had PHOTOGRAPHIC SPOTTER last night because of O2 desaturation. Objective - Vital Signs/Intake and Output Vital Signs (last 24 hours): Temp Pulse Resp BP Pulse Ox 97.8 F 79 20 109/72 97 03/10/17 08:14 03/10/17 08:29 03/10/17 08:14 03/10/17 08:29 03/10/17 08:14 - Medications Medications: Current Medications Apixaban (Eliquis) 2.5 mg PO BID [facility] PRN Reason: Protocol Last Admin: 03/10/17 08:29 Dose: 2.5 mg Clotrimazole (Lotrimin 1% Cream) 1 applic TOP BID [facility] Last Admin: 03/10/17 08:30 Dose: 1 applic Clozapine (Clozaril) 200 mg PO HS [facility] Last Admin: 03/09/17 22:30 Dose: 200 mg Clozapine (Clozaril) 100 mg PO DAILY [facility] Last Admin: 03/10/17 08:29 Dose: 100 mg Diltiazem HCl (Cardizem) 120 mg PO BID [facility] Last Admin: 03/10/17 08:28 Dose: 120 mg Dronedarone (Multaq) 400 mg PO BID [facility] Last Admin: 03/10/17 08:29 Dose: 400 mg Famotidine (Pepcid) 20 mg PO BID [facility] Last Admin: 03/10/17 08:35 Dose: 20 mg Furosemide (Lasix) 20 mg PO DAILY [facility] Last Admin: 03/10/17 08:28 Dose: 20 mg Guaifenesin/Dextromethorphan (Mucinex-Dm 600-30 Mg) 1 tab PO BID [facility] Last Admin: 03/10/17 08:28 Dose: 1 tab Sodium Chloride (Sodium Chloride 0.45%) 1,000 mls @ 100 mls/hr IV .Q10H [facility] Stop: 03/10/17 18:32 Last Admin: 03/10/17 05:10 Dose: 100 mls/hr Levalbuterol HCl (Xopenex) 1.25 mg INH RQ6 [facility] Last Admin: 03/10/17 08:12 Dose: 1.25 mg Levothyroxine Sodium (Synthroid) 12.5 mcg PO DAILY@0630 [facility] Last Admin: 03/10/17 06:42 Dose: 12.5 mcg Lorazepam (Ativan) 0.5 mg PO Q6 PRN PRN Reason: Anixety/Agitation Lorazepam (Ativan) 0.5 mg PO HS PRN PRN Reason: Insomnia Last Admin: 03/09/17 22:31 Dose: 0.5 mg Metoprolol Succinate (Toprol Xl) 25 mg PO DAILY [facility] Last Admin: 03/10/17 08:29 Dose: 25 mg Mirtazapine (Remeron) 7.5 mg PO HS PRN PRN Reason: Insomnia - Labs Labs: 03/10/17 05:45 03/10/17 05:45 - Constitutional Appears: No Acute Distress - Head Exam Head Exam: ATRAUMATIC - ENT Exam ENT Exam: Mucous Membranes Moist - Neck Exam Neck Exam: absent: Meningismus - Respiratory Exam Respiratory Exam: Decreased Breath Sounds. absent: Rhonchi, Wheezes, Respiratory Distress - Cardiovascular Exam Cardiovascular Exam: REGULAR RHYTHM, +S1, +S2 - GI/Abdominal Exam GI & Abdominal Exam: Soft. absent: Tenderness - Rectal Exam Rectal Exam: Deferred - Extremities Exam Extremities Exam: absent: Pedal Edema - Skin Skin Exam: Dry, Intact Assessment and Plan (1) COPD with acute exacerbation Status: Acute (2) Atrial fibrillation with RVR Status: Acute (3) HTN (hypertension) Status: Chronic (4) Hypothyroidism Status: Chronic - Assessment and Plan (Free Text) Assessment: 77 yo female with history of COPD, HTN, AFib, Hypothyroid and Schizophrenia was admitted to [facility] because of worsening psychosis. While in the unit patient became SOB accompanied with coughing and fever so was transferred to acute care and diagnosed with bilateral lower lobe pneumonia and was treated with IV Meropenem and Vancomycin (full course finished 03/08) Pt did well and was sent back to [facility] with the IV antibiotics. She was sent back to the ER after 6 days while on IV antibiotics with the complaint that patient was desaturating and becoming congested. The patient having completed 14 days of IV antibiotics again was admitted to telemetry diagnosed with acute Hypoxemic respiratory failure . While patient was being brought up in telemetry she suddenly developed AFib with RVR (140/min). She was given 20mg of Cardizem IV followed with Cardizem drip . at present back in SR 1. Acute hypoxemic respiratory failure unclear etiology had PHOTOGRAPHIC SPOTTER last night because of desaturation, responded with Duoneb and suctioning PO2 66 CXr showed no infiltrate patient sleeping peacefully while on O2 2LPM via NC saturating at 96% CTA to rule out PE (D-dimer was elevated) still pending Prednisone 40mg PO daily Pulmonology consult with Dr Sandoval 2. COPD with acute exacerbation Xopenex 1.25mg via nebulizer q 6hrs. Advair 1 puff Q 12hrs Prednisone 40mg PO daily 3. Atrial fibrillation with RVR rate controlled, presently in sinus off Cardizem drip continue Metoprolol Succinate 25mg PO daily, Multag 400mg PO BID and Cardiziem 120mg PO BID follow up cardiology consult with Dr Diez. ECHO report pending on Eliquis 2.5mg PO BID 4.HTN (hypertension) Chronic BP stable. continue Metoprolol and Cardizem 5. Hypothyroidism Chronic Levothyroxine 12.5mcg PO daily. 6. Schizophrenia with psychosis continue management as per psych 7. DVT prophylaxis on Eliquis
--- NOTE | 2017-03-10 10:55 | CARD ---
APPROVED REPORT EXAM: Two-dimensional and M-mode echocardiogram with Doppler and color Doppler. Other Information Quality : AverageRhythm : NSR INDICATION Atrial Fibrillation 2D DIMENSIONS IVSd1.12 (0.7-1.1cm)LVDd4.51 (3.9-5.9cm) PWd0.82 (0.7-1.1cm)IVSs1.07 (0.8-1.2cm) LVDs3.25 (2.5-4.0cm)FS (%) 28.0 % PWs1.20 (0.8-1.2cm) M-Mode DIMENSIONS Left Atrium (MM)3.44 (2.5-4.0cm)IVSd1.06 (0.7-1.1cm) Aortic Root3.21 (2.2-3.7cm)LVDd4.63 (4.0-5.6cm) Aortic Cusp Exc.1.79 (1.5-2.0cm)PWd1.22 (0.7-1.1cm) IVSs1.32 cmFS (%) 32 % LVDs3.14 (2.0-3.8cm)PWs1.46 cm Mitral Valve E/A ratio0.0 TDI E/Lateral E'0.0E/Medial E'0.0 LEFT VENTRICLE The left ventricle is normal size. There is normal left ventricular wall thickness. The left ventricular function is normal. The left ventricular ejection fraction is 50-55% There is focal akinesis and dyskinesis localized to the apex not reported due to atria fibrillation No left ventricle thrombus noted on this study. There is no ventricular septal defect visualized. There is no left ventricular aneurysm. There is no mass noted in the left ventricle. RIGHT VENTRICLE The right ventricle is normal size. There is normal right ventricular wall thickness. The right ventricular systolic function is normal. ATRIA The left atrium size is normal. The right atrium size is normal. The interatrial septum is intact with no evidence for an atrial septal defect. AORTIC VALVE The aortic valve is normal in structure and function. No aortic regurgitation is present. There is no aortic valvular stenosis. There is no aortic valvular vegetation. MITRAL VALVE The mitral valve is normal in structure and function. There is no evidence of mitral valve prolapse. There is no mitral valve stenosis. There is no mitral valve regurgitation noted. TRICUSPID VALVE The tricuspid valve is normal in structure and function. There is no tricuspid valve regurgitation noted. There is no tricuspid valve prolapse or vegetation. There is no tricuspid valve stenosis. PULMONIC VALVE The pulmonary valve is normal in structure and function. There is no pulmonic valvular regurgitation. There is no pulmonic valvular stenosis. GREAT VESSELS The aortic root is normal in size. The ascending aorta is normal in size. The IVC is normal in size and collapses >50% with inspiration. PERICARDIAL EFFUSION There is a small pericardial effusion. There is no pleural effusion. <Conclusion> Normal LV systolic function Apical Akinesis/ Dyskinesis Small Pericardial Effusion
[2017-03-10] MEDS: Potassium Chloride 10 mEq ER Tab PO SCH (12:40)
--- NOTE | 2017-03-10 14:29 | CP.PCM.PN ---
Subjective - Date & Time of Evaluation Date of Evaluation: 03/10/17 Time of Evaluation: 09:10 - Subjective Subjective: Acute Respiratory Failure. Pt sleepy, unable to wake up, had Ativan last night for agitation. Objective - Vital Signs/Intake and Output Vital Signs (last 24 hours): Temp Pulse Resp BP Pulse Ox 96.8 F L 84 20 102/64 96 03/10/17 13:02 03/10/17 13:02 03/10/17 13:02 03/10/17 13:02 03/10/17 13:02 - Medications Medications: Current Medications Apixaban (Eliquis) 2.5 mg PO BID [facility] PRN Reason: Protocol Last Admin: 03/10/17 08:29 Dose: 2.5 mg Clotrimazole (Lotrimin 1% Cream) 1 applic TOP BID [facility] Last Admin: 03/10/17 08:30 Dose: 1 applic Clozapine (Clozaril) 200 mg PO HS [facility] Last Admin: 03/09/17 22:30 Dose: 200 mg Clozapine (Clozaril) 100 mg PO DAILY [facility] Last Admin: 03/10/17 08:29 Dose: 100 mg Diltiazem HCl (Cardizem) 120 mg PO BID [facility] Last Admin: 03/10/17 08:28 Dose: 120 mg Dronedarone (Multaq) 400 mg PO BID [facility] Last Admin: 03/10/17 08:29 Dose: 400 mg Famotidine (Pepcid) 20 mg PO BID [facility] Last Admin: 03/10/17 08:35 Dose: 20 mg Furosemide (Lasix) 20 mg PO DAILY [facility] Last Admin: 03/10/17 08:28 Dose: 20 mg Guaifenesin/Dextromethorphan (Mucinex-Dm 600-30 Mg) 1 tab PO BID [facility] Last Admin: 03/10/17 08:28 Dose: 1 tab Sodium Chloride (Sodium Chloride 0.45%) 1,000 mls @ 100 mls/hr IV .Q10H [facility] Stop: 03/10/17 18:32 Last Admin: 03/10/17 05:10 Dose: 100 mls/hr Levalbuterol HCl (Xopenex) 1.25 mg INH RQ6 [facility] Last Admin: 03/10/17 13:24 Dose: 1.25 mg Levothyroxine Sodium (Synthroid) 12.5 mcg PO DAILY@0630 [facility] Last Admin: 03/10/17 06:42 Dose: 12.5 mcg Lorazepam (Ativan) 0.5 mg PO Q6 PRN PRN Reason: Anixety/Agitation Lorazepam (Ativan) 0.5 mg PO HS PRN PRN Reason: Insomnia Last Admin: 03/09/17 22:31 Dose: 0.5 mg Metoprolol Succinate (Toprol Xl) 25 mg PO DAILY [facility] Last Admin: 03/10/17 08:29 Dose: 25 mg Mirtazapine (Remeron) 7.5 mg PO HS PRN PRN Reason: Insomnia Potassium Chloride (Klor-Con 10) 10 meq PO DAILY [facility] Last Admin: 03/10/17 12:40 Dose: 10 meq Prednisone (Prednisone Tab) 40 mg PO DAILY [facility] Last Admin: 03/10/17 12:37 Dose: 40 mg - Labs Labs: 03/10/17 05:45 03/10/17 05:45 - Constitutional Appears: No Acute Distress, Chronically Ill - Head Exam Head Exam: NORMAL INSPECTION - Eye Exam Eye Exam: PERRL - ENT Exam ENT Exam: Normal Oropharynx - Neck Exam Neck Exam: Normal Inspection - Respiratory Exam Respiratory Exam: Decreased Breath Sounds, Rhonchi (b/l) - Cardiovascular Exam Cardiovascular Exam: REGULAR RHYTHM - GI/Abdominal Exam GI & Abdominal Exam: Soft, Normal Bowel Sounds - Extremities Exam Extremities Exam: Normal Inspection - Back Exam Back Exam: NORMAL INSPECTION - Neurological Exam Additional comments: Lethargic - Skin Skin Exam: Warm Assessment and Plan (1) Acute hypoxemic respiratory failure Status: Acute (2) COPD with acute exacerbation Status: Acute - Assessment and Plan (Free Text) Plan: Discussed with hospitalist, Pt still hypoxemic, to have CTA today.
[2017-03-10] MEDS ORDERED: Iodixanol 320 MG/ML 100 ML BOTTLE IV ONE (15:42)
[2017-03-10] MEDS ORDERED: Sodium Chloride 0.9% 50 ML IV ONE (15:43)
--- NOTE | 2017-03-10 17:06 | CT ---
CTA chest PE protocol Indication: Elevated D-dimer, shortness of breath Technique: Contiguous axial images were obtained through the chest with intravenous contrast enhancement. Sagittal and coronal reconstructions were generated and reviewed. This CT exam was performed using 1 or more of the falling dose reduction techniques: Automated exposure control, adjustment of the MAA and/or kV according to patient size, and/or use of iterative reconstruction technique. IV Contrast: 90 mL Visipaque 320 Radiation dose (DLP): 382.59 MGy-cm. Comparison: Chest x-ray performed 03/08/17, CT chest without contrast performed 02/27/17 Findings: Visualized portions of the inferior thyroid gland demonstrates 8 mm left lower pole hypodense nodule. The mediastinal and hilar vascular structures appear within normal limits. Mild cardiomegaly. Small pericardial effusion. Coronary artery calcifications. No large central or segmental pulmonary embolus evident. Trace bilateral pleural effusions. Interval development of large left and small right lower lobe consolidations. Lingular atelectasis/infiltrate. Small to moderate hiatal hernia/ distal esophageal wall thickening. Limited visualized portions of the upper abdomen demonstrates cholecystectomy clips. Abdomen bilateral low-density renal lesions, possibly cysts; suggest further evaluation with renal ultrasound. Degenerative changes of the spine. Impression: No large central or segmental pulmonary embolus evident. Trace bilateral pleural effusions. Interval development of large left and small right lower lobe consolidations. Lingular atelectasis/infiltrate. Small to moderate hiatal hernia/ distal esophageal wall thickening. Limited visualized portions of the upper abdomen demonstrates cholecystectomy clips. Abdomen bilateral low-density renal lesions, possibly cysts; suggest further evaluation with renal ultrasound. Mild cardiomegaly. Small pericardial effusion. Coronary artery calcifications. 8 mm left lower pole thyroid nodule.
--- NOTE | 2017-03-10 18:29 | CARD ---
APPROVED REPORT EKG Measurement Heart [id number] <Conclusion> Normal sinus rhythm Possible Left atrial enlargement Low voltage QRS Nonspecific T wave abnormality Abnormal ECG
[2017-03-11] MEDS: Levalbuterol 1.25 MG/3 ML Inhal Soln UD INH SCH ×4 (01:01→20:00)
[2017-03-11] MEDS: Levothyroxine 25 MCG TAB PO SCH (06:04)
[2017-03-11 07:10] LABS: BASO % 0.3 % (0.0-2.0); BLOOD UREA NITROGEN 21 mg/dl (7-17); CALCIUM 8.7 mg/dL (8.4-10.2); GFR AFRICAN-AMERICAN > 60; GFR NON-AFRICAN AMERICAN > 60; HEMOGLOBIN 11.2 g/dL (12.0-16.0); LYMPH # 1.2 K/uL (1.0-4.3); LYMPH % 9.4 % (20.0-40.0); MEAN CELL VOLUME 90.8 fl (81.0-99.0); MEAN CORPUSCULAR HEMOGLOBIN 29.7 pg (27.0-31.0); MEAN CORPUSCULAR HGB CONC 32.7 g/dL (33.0-37.0); MEAN PLATELET VOLUME 8.8 fl (7.2-11.7); MONO # 0.5 K/uL (0.0-0.8); MONO % 3.6 % (0.0-10.0); NEUT # 11.2 K/uL (1.8-7.0); NEUT % 86.7 % (50.0-75.0); PLATELET COUNT 235 K/uL (130-400); RBC 3.77 Mil/uL (3.80-5.20); RED CELL DISTRIBUTION WIDTH 15.1 % (11.5-14.5); WHITE BLOOD COUNT 12.9 K/uL (4.8-10.8)
[2017-03-11] MEDS: Potassium Chloride 10 mEq ER Tab PO SCH (08:34)
[2017-03-11] MEDS: guaiFENesin-DM 600-30 mg ER Tab PO SCH ×2 (08:35→17:18)
[2017-03-11] MEDS: Metoprolol Succinate 25 mg XL Tab PO SCH (08:36)
[2017-03-11 08:58] LABS: LYMPHOCYTE 8 % (20-50); MONOCYTE 3 % (0-10); NEUTROPHIL 89 % (42-75); PLATELET ESTIMATE NORMAL (NORMAL); TOTAL CELLS COUNTED 100
[2017-03-11 08:59] LABS: ANISOCYTOSIS SLIGHT; HYPOCHROMIC SLIGHT; OVALOCYTES SLIGHT; SCHISTOCYTES SLIGHT; TEARDROP CELLS SLIGHT
--- NOTE | 2017-03-11 12:50 | CP.PCM.PN ---
Subjective - Date & Time of Evaluation Date of Evaluation: 03/11/17 Time of Evaluation: 10:25 - Subjective Subjective: No AD , Awake,alert , able to talk , confused, not answering questions , Objective - Vital Signs/Intake and Output Vital Signs (last 24 hours): Temp Pulse Resp BP Pulse Ox 97.9 F 78 20 99/59 L 100 03/11/17 12:00 03/11/17 12:00 03/11/17 12:00 03/11/17 12:00 03/11/17 12:00 - Medications Medications: Current Medications Apixaban (Eliquis) 2.5 mg PO BID [facility] PRN Reason: Protocol Last Admin: 03/11/17 08:34 Dose: 2.5 mg Clotrimazole (Lotrimin 1% Cream) 1 applic TOP BID [facility] Last Admin: 03/10/17 16:46 Dose: 1 applic Clozapine (Clozaril) 200 mg PO HS [facility] Last Admin: 03/10/17 21:49 Dose: 200 mg Clozapine (Clozaril) 100 mg PO DAILY [facility] Last Admin: 03/11/17 08:34 Dose: 100 mg Diltiazem HCl (Cardizem) 120 mg PO BID [facility] Last Admin: 03/11/17 08:33 Dose: 120 mg Dronedarone (Multaq) 400 mg PO BID [facility] Last Admin: 03/11/17 08:35 Dose: 400 mg Famotidine (Pepcid) 20 mg PO BID [facility] Last Admin: 03/11/17 08:36 Dose: 20 mg Furosemide (Lasix) 20 mg PO DAILY [facility] Last Admin: 03/11/17 08:34 Dose: 20 mg Guaifenesin/Dextromethorphan (Mucinex-Dm 600-30 Mg) 1 tab PO BID [facility] Last Admin: 03/11/17 08:35 Dose: 1 tab Levalbuterol HCl (Xopenex) 1.25 mg INH RQ6 [facility] Last Admin: 03/11/17 08:31 Dose: 1.25 mg Levothyroxine Sodium (Synthroid) 12.5 mcg PO DAILY@0630 [facility] Last Admin: 03/11/17 06:04 Dose: 12.5 mcg Lorazepam (Ativan) 0.5 mg PO Q6 PRN PRN Reason: Anixety/Agitation Lorazepam (Ativan) 0.5 mg PO HS PRN PRN Reason: Insomnia Last Admin: 03/09/17 22:31 Dose: 0.5 mg Metoprolol Succinate (Toprol Xl) 25 mg PO DAILY [facility] Last Admin: 03/11/17 08:36 Dose: 25 mg Mirtazapine (Remeron) 7.5 mg PO HS PRN PRN Reason: Insomnia Potassium Chloride (Klor-Con 10) 10 meq PO DAILY [facility] Last Admin: 03/11/17 08:34 Dose: 10 meq Prednisone (Prednisone Tab) 40 mg PO DAILY [facility] Last Admin: 03/11/17 08:35 Dose: 40 mg - Labs Labs: 03/11/17 06:10 03/11/17 06:10 - Constitutional Appears: Chronically Ill - Head Exam Head Exam: NORMAL INSPECTION - Eye Exam Pupil Exam: PERRL - ENT Exam ENT Exam: Normal External Ear Exam - Neck Exam Neck Exam: Normal Inspection - Respiratory Exam Respiratory Exam: Decreased Breath Sounds (at bases), Rales (crackles few at bases), Rhonchi (few at bases) - Cardiovascular Exam Cardiovascular Exam: REGULAR RHYTHM - GI/Abdominal Exam GI & Abdominal Exam: Soft, Normal Bowel Sounds - Extremities Exam Extremities Exam: Normal Inspection - Back Exam Back Exam: NORMAL INSPECTION - Neurological Exam Additional comments: confused, calm , Patient does not follows commands , moves all extremities - Psychiatric Exam Additional comments: Confused - Skin Skin Exam: Warm Assessment and Plan (1) Acute hypoxemic respiratory failure Status: Acute (2) COPD with acute exacerbation Status: Acute (3) Pneumonia Status: Acute - Assessment and Plan (Free Text) Plan: CT Chest recurrent Pneumonia , no P/E, f/u ABG on N/C 3 L/m , Antibiotic coverage by ID
--- NOTE | 2017-03-11 12:55 | CP.PCM.CON ---
History of Present Illness - History of Present Illness History of Present Illness: Infectious Disease Consult Note- as ked to see this patient at the request of for recurrent Pneumonia. HPI- Patient known to me from her last admission here. Pt. is a 77 year old female who was recetnly here for b/l pneumonia sent from [facility] and had completed 14 days of IV meropenem and vancomycin and was doing much better and was transferred back to [facility]. pt. has pmh of COPD, HTN, A.fib, schizophrenia , pt. was sent back to ED after being back in [facility] for six days for deaturationa nd hypoxemia. as per med records While patient was being brought up in telemetry she suddenly developed AFib with RVR (140/min). She was brought back to the ER and was given 20mg of Cardizem IV followed with Cardizem drip at 8mg/hr plus 0.5mg of Digoxin IV. Heart rate went back to normal range. Pt denied chest pain or SOB during this episode. she is now again on tele unit and i'm being asked to evaluate since her CTA was read as negative for PE but large left lower lobe consolidation and trace b/ l pleural effuiosn.( as per report) . cxr was read as negative. currently pt. is resting in bed in NAD. has ventimask on. she does not c/o any sob or any fever . Review of Systems - Review of Systems Review of Systems: ROS- does not answer most of my questions but when asked about sob or cough or fever she denies it. Past Patient History - Tetanus Immunizations Tetanus Immunization: Unknown - Past Medical History & Family History Past Medical History?: Yes - Past Social History Smoking Status: Former Smoker Alcohol: None Drugs: Denies Home Situation {Lives}: With Family - CARDIAC Hx Cardiac Disorders: Yes Hx Atrial Fibrillation: Yes Hx Hypercholesterolemia: Yes Hx Hypertension: Yes - PULMONARY Hx Respiratory Disorders: Yes Hx Asthma: Yes Hx Chronic Obstructive Pulmonary Disease (COPD): Yes Hx Pneumonia: Yes - NEUROLOGICAL Hx Neurological Disorder: Yes Hx Dementia: Yes Hx Seizures: Yes - HEENT Hx HEENT Problems: No - RENAL Hx Chronic Kidney Disease: No - ENDOCRINE/METABOLIC Hx Endocrine Disorders: Yes Hx Hypothyroidism: Yes - INTEGUMENTARY Hx Dermatological Problems: No - MUSCULOSKELETAL/RHEUMATOLOGICAL Hx Musculoskeletal Disorders: Yes Hx Falls: Yes - GASTROINTESTINAL Hx Gastrointestinal Disorders: Yes Hx Gastroesophageal Reflux: Yes - GENITOURINARY/GYNECOLOGICAL Hx Genitourinary Disorders: Yes - PSYCHIATRIC Hx Psychophysiologic Disorder: Yes Hx Anxiety: Yes Hx Schizophrenia: Yes Hx Substance Use: No - SURGICAL HISTORY Hx Surgeries: Yes Hx Appendectomy: Yes Hx Cholecystectomy: Yes - ANESTHESIA Hx Anesthesia: Yes Hx Anesthesia Reactions: No Meds Allergies/Adverse Reactions: Allergies Allergy/AdvReac Type Severity Reaction Status Date / Time No Known Allergies Allergy Verified 02/22/17 13:39 - Medications Medications: Current Medications Apixaban (Eliquis) 2.5 mg PO BID [facility] PRN Reason: Protocol Last Admin: 03/11/17 08:34 Dose: 2.5 mg Clotrimazole (Lotrimin 1% Cream) 1 applic TOP BID [facility] Last Admin: 03/10/17 16:46 Dose: 1 applic Clozapine (Clozaril) 200 mg PO HS [facility] Last Admin: 03/10/17 21:49 Dose: 200 mg Clozapine (Clozaril) 100 mg PO DAILY [facility] Last Admin: 03/11/17 08:34 Dose: 100 mg Diltiazem HCl (Cardizem) 120 mg PO BID [facility] Last Admin: 03/11/17 08:33 Dose: 120 mg Dronedarone (Multaq) 400 mg PO BID [facility] Last Admin: 03/11/17 08:35 Dose: 400 mg Famotidine (Pepcid) 20 mg PO BID [facility] Last Admin: 03/11/17 08:36 Dose: 20 mg Furosemide (Lasix) 20 mg PO DAILY [facility] Last Admin: 03/11/17 08:34 Dose: 20 mg Guaifenesin/Dextromethorphan (Mucinex-Dm 600-30 Mg) 1 tab PO BID [facility] Last Admin: 03/11/17 08:35 Dose: 1 tab Levalbuterol HCl (Xopenex) 1.25 mg INH RQ6 [facility] Last Admin: 03/11/17 08:31 Dose: 1.25 mg Levothyroxine Sodium (Synthroid) 12.5 mcg PO DAILY@0630 [facility] Last Admin: 03/11/17 06:04 Dose: 12.5 mcg Lorazepam (Ativan) 0.5 mg PO Q6 PRN PRN Reason: Anixety/Agitation Lorazepam (Ativan) 0.5 mg PO HS PRN PRN Reason: Insomnia Last Admin: 03/09/17 22:31 Dose: 0.5 mg Metoprolol Succinate (Toprol Xl) 25 mg PO DAILY [facility] Last Admin: 03/11/17 08:36 Dose: 25 mg Mirtazapine (Remeron) 7.5 mg PO HS PRN PRN Reason: Insomnia Potassium Chloride (Klor-Con 10) 10 meq PO DAILY [facility] Last Admin: 03/11/17 08:34 Dose: 10 meq Prednisone (Prednisone Tab) 40 mg PO DAILY [facility] Last Admin: 03/11/17 08:35 Dose: 40 mg Physical Exam - Constitutional Appears: No Acute Distress - Head Exam Head Exam: ATRAUMATIC - Eye Exam Eye Exam: EOMI - Neck Exam Neck exam: Positive for: Full Rom - Respiratory Exam Respiratory Exam: NORMAL BREATHING PATTERN Additional comments: bibasilar crackles no wheezing - Cardiovascular Exam Cardiovascular Exam: Irregular Rhythm Additional comments: irregularly irregular - GI/Abdominal Exam GI & Abdominal Exam: Normal Bowel Sounds, Soft Additional comments: NT, Nd - Extremities Exam Extremities exam: Positive for: normal inspection - Neurological Exam Additional comments: awake remains at her baseline schizophrenic sattes no agitation currently Results - Vital Signs Recent Vital Signs: Last Vital Signs Temp 97.9 F 03/11/17 12:00 Pulse 78 03/11/17 12:00 Resp 20 03/11/17 12:00 BP 99/59 L 03/11/17 12:00 Pulse Ox 100 03/11/17 12:00 - Labs Result Diagrams: 03/11/17 06:10 03/11/17 06:10 Labs: Laboratory Results - last 24 hr 03/11/17 03/11/17 06:10 06:10 WBC 12.9 H RBC 3.77 L Hgb 11.2 L Hct 34.2 MCV 90.8 MCH 29.7 MCHC 32.7 L RDW 15.1 H Plt Count 235 MPV 8.8 Neut % (Auto) 86.7 H Lymph % (Auto) 9.4 L [place] % (Auto) 3.6 Eos % (Auto) 0.0 Baso % (Auto) 0.3 Neut # 11.2 H Lymph # 1.2 [place] # 0.5 Eos # 0.0 Baso # 0.0 Neutrophils % (Manual) 89 H Lymphocytes % (Manual) 8 L Monocytes % (Manual) 3 Platelet Estimate Normal Hypochromasia (manual) Slight Anisocytosis (manual) Slight Tear Drop Cells Slight Ovalocytes Slight Schistocytes Slight Sodium 139 Potassium 3.5 L Chloride 102 Carbon Dioxide 30 Anion Gap 11 BUN 21 H Creatinine 0.7 Est GFR ( Amer) > 60 Est GFR (Non-Af Amer) > 60 Random Glucose 88 Calcium 8.7 TSH 3rd Generation 1.06 Laboratory Results - last 72 hr 03/08/17 03/08/17 03/08/17 15:32 18:20 19:03 WBC RBC Hgb Hct MCV MCH MCHC RDW Plt Count MPV Neut % (Auto) Lymph % (Auto) [place] % (Auto) Eos % (Auto) Baso % (Auto) Neut # Lymph # [place] # Eos # Baso # Neutrophils % (Manual) Lymphocytes % (Manual) Monocytes % (Manual) Platelet Estimate Hypochromasia (manual) Anisocytosis (manual) Tear Drop Cells Ovalocytes Schistocytes pCO2 39 pO2 57 L HCO3 32.6 H ABG pH 7.54 H ABG Total CO2 34.5 H ABG O2 Saturation 95.9 ABG O2 Content 14.9 L ABG Base Excess 10.0 H ABG Hemoglobin 11.6 L ABG Carboxyhemoglobin 2.4 H POC ABG HHb (Measured) 3.9 ABG Methemoglobin 2.3 ABG O2 Capacity 15.5 L Bernardo Test Yes A-a O2 Difference 251.0 Hgb O2 Saturation 91.4 L Vent Mode FiO2 50.0 Blood Gas Comments Sodium Potassium Chloride Carbon Dioxide Anion Gap BUN Creatinine Est GFR ( Amer) Est GFR (Non-Af Amer) Random Glucose Calcium Troponin I 0.0490 TSH 3rd Generation Urine Color Straw Urine Clarity Clear Urine pH 7.0 Ur Specific [place] 1.010 Urine Protein Negative Urine Glucose (UA) Neg Urine Ketones Negative Urine Blood Negative Urine Nitrate Negative Urine Bilirubin Negative Urine Urobilinogen 0.2-1.0 Ur Leukocyte Esterase Neg Urine Microscopic WBC < 1 Ur Squamous Epith Cells < 1 Hyaline Casts 0-2 03/09/17 03/09/17 03/09/17 05:15 05:15 13:35 WBC 14.3 H RBC 3.96 Hgb 11.8 L Hct 36.8 MCV 92.9 D MCH 29.8 MCHC 32.0 L RDW 15.8 H Plt Count 210 MPV 8.4 Neut % (Auto) 85.9 H Lymph % (Auto) 6.9 L [place] % (Auto) 6.8 Eos % (Auto) 0.2 Baso % (Auto) 0.2 Neut # 12.3 H Lymph # 1.0 [place] # 1.0 H Eos # 0.0 Baso # 0.0 Neutrophils % (Manual) Lymphocytes % (Manual) Monocytes % (Manual) Platelet Estimate Hypochromasia (manual) Anisocytosis (manual) Tear Drop Cells Ovalocytes Schistocytes pCO2 40 pO2 66 L HCO3 34.6 H ABG pH 7.56 H ABG Total CO2 37.0 H ABG O2 Saturation 96.0 ABG O2 Content 15.4 ABG Base Excess 12.5 H ABG Hemoglobin 11.7 ABG Carboxyhemoglobin 1.3 POC ABG HHb (Measured) 3.9 ABG Methemoglobin 1.5 ABG O2 Capacity 16.0 Bernardo Test Yes A-a O2 Difference 241.0 Hgb O2 Saturation 93.4 L Vent Mode Vm FiO2 50.0 Blood Gas Comments Sodium 142 Potassium 3.8 Chloride 106 Carbon Dioxide 32 H Anion Gap 8 L BUN 20 H Creatinine 0.7 Est GFR ( Amer) > 60 Est GFR (Non-Af Amer) > 60 Random Glucose 86 Calcium 8.6 Troponin I TSH 3rd Generation Urine Color Urine Clarity Urine pH Ur Specific [place] Urine Protein Urine Glucose (UA) Urine Ketones Urine Blood Urine Nitrate Urine Bilirubin Urine Urobilinogen Ur Leukocyte Esterase Urine Microscopic WBC Ur Squamous Epith Cells Hyaline Casts 03/10/17 03/10/17 03/11/17 05:45 05:45 06:10 WBC 11.2 H RBC 3.58 L Hgb 10.7 L Hct 33.0 L MCV 92.0 MCH 29.9 MCHC 32.5 L RDW 15.6 H Plt Count 187 MPV Neut % (Auto) Lymph % (Auto) [place] % (Auto) Eos % (Auto) Baso % (Auto) Neut # Lymph # [place] # Eos # Baso # Neutrophils % (Manual) Lymphocytes % (Manual) Monocytes % (Manual) Platelet Estimate Hypochromasia (manual) Anisocytosis (manual) Tear Drop Cells Ovalocytes Schistocytes pCO2 pO2 HCO3 ABG pH ABG Total CO2 ABG O2 Saturation ABG O2 Content ABG Base Excess ABG Hemoglobin ABG Carboxyhemoglobin POC ABG HHb (Measured) ABG Methemoglobin ABG O2 Capacity Bernardo Test A-a O2 Difference Hgb O2 Saturation Vent Mode FiO2 Blood Gas Comments Sodium 136 139 Potassium 3.3 L 3.5 L Chloride 102 102 Carbon Dioxide 30 30 Anion Gap 7 L 11 BUN 20 H 21 H Creatinine 0.7 0.7 Est GFR ( Amer) > 60 > 60 Est GFR (Non-Af Amer) > 60 > 60 Random Glucose 86 88 Calcium 8.1 L 8.7 Troponin I TSH 3rd Generation 1.06 Urine Color Urine Clarity Urine pH Ur Specific [place] Urine Protein Urine Glucose (UA) Urine Ketones Urine Blood Urine Nitrate Urine Bilirubin Urine Urobilinogen Ur Leukocyte Esterase Urine Microscopic WBC Ur Squamous Epith Cells Hyaline Casts 03/11/17 03/11/17 06:10 14:06 WBC 12.9 H RBC 3.77 L Hgb 11.2 L Hct 34.2 MCV 90.8 MCH 29.7 MCHC 32.7 L RDW 15.1 H Plt Count 235 MPV 8.8 Neut % (Auto) 86.7 H Lymph % (Auto) 9.4 L [place] % (Auto) 3.6 Eos % (Auto) 0.0 Baso % (Auto) 0.3 Neut # 11.2 H Lymph # 1.2 [place] # 0.5 Eos # 0.0 Baso # 0.0 Neutrophils % (Manual) 89 H Lymphocytes % (Manual) 8 L Monocytes % (Manual) 3 Platelet Estimate Normal Hypochromasia (manual) Slight Anisocytosis (manual) Slight Tear Drop Cells Slight Ovalocytes Slight Schistocytes Slight pCO2 42 pO2 74 L HCO3 33.0 H ABG pH 7.52 H ABG Total CO2 35.6 H ABG O2 Saturation 97.0 ABG O2 Content 15.1 ABG Base Excess 10.4 H ABG Hemoglobin 11.3 L ABG Carboxyhemoglobin 1.2 POC ABG HHb (Measured) 2.9 ABG Methemoglobin 1.4 ABG O2 Capacity 15.6 L Bernardo Test Yes A-a O2 Difference 109.0 Hgb O2 Saturation 94.4 L Vent Mode FiO2 33.0 Blood Gas Comments 3l/m nc.rb Sodium Potassium Chloride Carbon Dioxide Anion Gap BUN Creatinine Est GFR ( Amer) Est GFR (Non-Af Amer) Random Glucose Calcium Troponin I TSH 3rd Generation Urine Color Urine Clarity Urine pH Ur Specific [place] Urine Protein Urine Glucose (UA) Urine Ketones Urine Blood Urine Nitrate Urine Bilirubin Urine Urobilinogen Ur Leukocyte Esterase Urine Microscopic WBC Ur Squamous Epith Cells Hyaline Casts Microbiology 03/08/17 12:00 Blood-Venous Blood Culture - Preliminary NO GROWTH AFTER 3 DAYS 03/08/17 15:32 Urine,Catheterized Urine Culture - Final No Growth (<1,000 CFU/ML) Microbiology 03/01/17 16:49 Blood-Venous Blood Culture - Final 03/01/17 16:49 Blood-Venous Gram Stain - Final NO GROWTH AFTER 5 DAYS TEST NOT PERFORMED 02/24/17 14:00 Urine,Catheterized Urine Culture - Final No Growth (<1,000 CFU/ML) 02/23/17 21:00 Blood-Venous Blood Culture - Final 02/23/17 21:00 Blood-Venous Gram Stain - Final NO GROWTH AFTER 5 DAYS TEST NOT PERFORMED 02/23/17 21:00 Blood-Venous Blood Culture - Final 02/23/17 21:00 Blood-Venous NO GROWTH AFTER 5 DAYS 02/22/17 14:31 Urine,Catheterized Urine Culture - Final No Growth (<1,000 CFU/ML) 02/22/17 14:00 Blood Blood Culture - Final 02/22/17 14:00 Blood Gram Stain - Final NO GROWTH AFTER 5 DAYS TEST NOT PERFORMED Accession No. : [id number] Patient Name / ID : LUIS ALBERTO SCALES / [id number] Exam Date : 03/10/2017 16:26:45 ( Approved ) Study Comment : Sex / Age : F / 77Y Creator : Layla Arriaga MD Dictator : Hvac Specialist : Mobile Developer : Layla Arriaga MD Approver2 : Report Date : 03/10/2017 17:04:09 My Comment : CTA chest PE protocol Indication: Elevated D-dimer, shortness of breath Technique: Contiguous axial images were obtained through the chest with intravenous contrast enhancement. Sagittal and coronal reconstructions were generated and reviewed. This CT exam was performed using 1 or more of the falling dose reduction techniques: Automated exposure control, adjustment of the MAA and/or kV according to patient size, and/or use of iterative reconstruction technique. IV Contrast: 90 mL Visipaque 320 Radiation dose (DLP): 382.59 MGy-cm. Comparison: Chest x-ray performed 03/08/17, CT chest without contrast performed Findings: Visualized portions of the inferior thyroid gland demonstrates 8 mm left lower pole hypodense nodule. The mediastinal and hilar vascular structures appear within normal limits. Mild cardiomegaly. Small pericardial effusion. Coronary artery calcifications. No large central or segmental pulmonary embolus evident. Trace bilateral pleural effusions. Interval development of large left and small right lower lobe consolidations. Lingular atelectasis/infiltrate. Small to moderate hiatal hernia/ distal esophageal wall thickening. Limited visualized portions of the upper abdomen demonstrates cholecystectomy clips. Abdomen bilateral low-density renal lesions, possibly cysts; suggest further evaluation with renal ultrasound. Degenerative changes of the spine. Impression: No large central or segmental pulmonary embolus evident. Trace bilateral pleural effusions. Interval development of large left and small right lower lobe consolidations. Lingular atelectasis/infiltrate. Small to moderate hiatal hernia/ distal esophageal wall thickening. Limited visualized portions of the upper abdomen demonstrates cholecystectomy clips. Abdomen bilateral low-density renal lesions, possibly cysts; suggest further evaluation with renal ultrasound. Mild cardiomegaly. Small pericardial effusion. Coronary artery calcifications. 8 mm left lower pole thyroid nodule. Accession No. : [id number] Patient Name / ID : LUIS ALBERTO SCALES / [id number] Exam Date : 03/08/2017 12:25:18 ( Approved ) Study Comment : Sex / Age : F / 77Y Creator : Armin Lorenzana MD Dictator : Armin Lorenzana MD Hvac Specialist : Mobile Developer : Armin Lorenzana MD Approver2 : Report Date : 03/08/2017 14:31:50 My Comment : HISTORY: Cough. Portable study 12:30. COMPARISON: March 07, 2017. FINDINGS: LUNGS: No active pulmonary disease. PLEURA: No significant pleural effusion identified, no pneumothorax apparent. CARDIOVASCULAR: No radiographic findings to suggest acute or significant cardiovascular disease. OSSEOUS STRUCTURES: No significant abnormalities. VISUALIZED UPPER ABDOMEN: Normal. OTHER FINDINGS: None. IMPRESSION: No active disease. No significant interval change compared to the prior examination(s). Assessment & Plan (1) Acute hypoxemic respiratory failure Status: Acute Priority: High (2) Atrial fibrillation with RVR Status: Acute (3) COPD with acute exacerbation Status: Acute Priority: High - Assessment and Plan (Free Text) Assessment: A/P- 77 year old female with schizophrenia, COPD, hypothyroidism, A.Fib with recent pneumonia and fever sna dleukocytsois who was treated with 14 days of IV abx ( meropenem and vanco) did well and was transferred back to [facility] again readmitted with hypoxemia and desaturation. no fever only has minimal leukocytosis and much lowert than prior admission ( is also on steroids).Etiology for her hypoxemia might be multifactorial COPD exacerbation vs cardiac as pt. was found to be in a.fib with rapid RVR. CT chest report noted, however pt. has already completed 14 days of broad spectrum antibiotics. aspiration pneumonitis is also a high possibility. plan- check sputum cx. pt. might need frequent suctioning as she has thick sputum and can't expectorate. in the interim advise to place on IV zosyn for COPD exacerbation, possible asp pneumonitis. already tested neg for mycoplasma. check urine legionella. keep HOB elevated. bronchodilators and pulmonary treatment as per chief of internal medicine. if no improvement may need bronchoscopy. Thank you for allowing me to take part in the care of this patient. all above d/w Hospitalist.
[2017-03-11 14:14] LABS: ABG ALLEN TEST YES; ARTERIAL BLOOD GAS HEMOGLOBIN 11.3 g/dL (11.7-17.4); ARTERIAL BLOOD GAS O2 CAPACITY 15.6 mL/dL (16-24); ARTERIAL BLOOD GAS O2 CONTENT 15.1 ML/dL (15-23); ARTERIAL BLOOD GAS PCO2 42 mm/Hg (35-45); ARTERIAL BLOOD GAS PH 7.52 (7.35-7.45); ARTERIAL BLOOD GAS PO2 74 mm/Hg (80-100); ARTERIAL BLOOD GAS TCO2 35.6 mmol/L (22-28)
--- NOTE | 2017-03-11 14:50 | CP.PCM.PN ---
Subjective - Date & Time of Evaluation Date of Evaluation: 03/11/17 Time of Evaluation: 14:30 - Subjective Subjective: Pt seen and examined. Breathing comfortably and easy with NC at 2LPM of O2 saturating at 97%. Denied any complaint. Objective - Vital Signs/Intake and Output Vital Signs (last 24 hours): Temp Pulse Resp BP Pulse Ox 97.9 F 78 20 99/59 L 100 03/11/17 12:00 03/11/17 12:00 03/11/17 12:00 03/11/17 12:00 03/11/17 12:00 - Medications Medications: Current Medications Apixaban (Eliquis) 2.5 mg PO BID [facility] PRN Reason: Protocol Last Admin: 03/11/17 08:34 Dose: 2.5 mg Clotrimazole (Lotrimin 1% Cream) 1 applic TOP BID [facility] Last Admin: 03/11/17 13:28 Dose: Not Given Clozapine (Clozaril) 200 mg PO HS [facility] Last Admin: 03/10/17 21:49 Dose: 200 mg Clozapine (Clozaril) 100 mg PO DAILY [facility] Last Admin: 03/11/17 08:34 Dose: 100 mg Diltiazem HCl (Cardizem) 120 mg PO BID [facility] Last Admin: 03/11/17 08:33 Dose: 120 mg Dronedarone (Multaq) 400 mg PO BID [facility] Last Admin: 03/11/17 08:35 Dose: 400 mg Famotidine (Pepcid) 20 mg PO BID [facility] Last Admin: 03/11/17 08:36 Dose: 20 mg Furosemide (Lasix) 20 mg PO DAILY [facility] Last Admin: 03/11/17 08:34 Dose: 20 mg Guaifenesin/Dextromethorphan (Mucinex-Dm 600-30 Mg) 1 tab PO BID [facility] Last Admin: 03/11/17 08:35 Dose: 1 tab Piperacillin Sod/Tazobactam (Sod 2.25 gm/ Sodium Chloride) 100 mls @ 100 mls/ hr IVPB Q6 [facility] Levalbuterol HCl (Xopenex) 1.25 mg INH RQ6 [facility] Last Admin: 03/11/17 13:51 Dose: 1.25 mg Levothyroxine Sodium (Synthroid) 12.5 mcg PO DAILY@0630 [facility] Last Admin: 03/11/17 06:04 Dose: 12.5 mcg Lorazepam (Ativan) 0.5 mg PO Q6 PRN PRN Reason: Anixety/Agitation Lorazepam (Ativan) 0.5 mg PO HS PRN PRN Reason: Insomnia Last Admin: 03/09/17 22:31 Dose: 0.5 mg Metoprolol Succinate (Toprol Xl) 25 mg PO DAILY [facility] Last Admin: 03/11/17 08:36 Dose: 25 mg Mirtazapine (Remeron) 7.5 mg PO HS PRN PRN Reason: Insomnia Potassium Chloride (Klor-Con 10) 10 meq PO DAILY [facility] Last Admin: 03/11/17 08:34 Dose: 10 meq Prednisone (Prednisone Tab) 40 mg PO DAILY [facility] Last Admin: 03/11/17 08:35 Dose: 40 mg - Labs Labs: 03/11/17 06:10 03/11/17 06:10 - Constitutional Appears: No Acute Distress - Head Exam Head Exam: ATRAUMATIC - Eye Exam Eye Exam: absent: Scleral icterus - ENT Exam ENT Exam: Mucous Membranes Moist - Neck Exam Neck Exam: absent: Meningismus - Respiratory Exam Respiratory Exam: Decreased Breath Sounds. absent: Rhonchi, Wheezes - Cardiovascular Exam Cardiovascular Exam: REGULAR RHYTHM, +S1, +S2 - GI/Abdominal Exam GI & Abdominal Exam: Soft. absent: Tenderness - Rectal Exam Rectal Exam: Deferred - Neurological Exam Neurological Exam: Alert - Psychiatric Exam Psychiatric exam: Normal Affect - Skin Skin Exam: Dry, Intact Assessment and Plan (1) COPD with acute exacerbation Status: Acute (2) Atrial fibrillation with RVR Status: Acute (3) HTN (hypertension) Status: Chronic (4) Hypothyroidism Status: Chronic - Assessment and Plan (Free Text) Assessment: 77 yo female with history of COPD, HTN, AFib, Hypothyroid and Schizophrenia was admitted to [facility] because of worsening psychosis. While in the unit patient became SOB accompanied with coughing and fever. She was transferred to acute care with a diagnosis of bilateral lower lobe pneumonia. She was treated with IV Meropenem and Vancomycin for 2 weeks. Pt did well and was sent back to [facility] with the IV antibiotics. She completed the 2 weeks of IV antibiotics in Psyche unit but then noted to be congested and desaturating. She was sent back to ER for evaluation and was admitted to telemetry diagnosed with Hypoxemic Respiratory Failure While being brought up to telemetry, patient suddenly went into AFib with RVR ( 140/min). She was given 20mg of Cardizem IV followed with Cardizem drip . at present back in SR 1. Acute hypoxemic respiratory failure bilateral lower lobe pneumonia probably secondary to aspiration CTA read as large left lower lobe infiltrate and small right lower lobe infiltrate appreciate ID consult with Dr Roxanne Smiley 3.375gm IV q 6hrs patient breathing easily on O2 2LPM via NC saturating at 97% Pulmonology consult with Dr Sandoval 2. COPD with acute exacerbation Xopenex 1.25mg via nebulizer q 6hrs. Advair 1 puff Q 12hrs Prednisone 30mg PO daily 3. Atrial fibrillation with RVR rate controlled, presently in sinus continue Metoprolol Succinate 25mg PO daily, Multag 400mg PO BID and Cardiziem 120mg PO BID follow up cardiology consult with Dr Diez. ECHO: normal LV function, apical akinesis on Eliquis 2.5mg PO BID 4.HTN (hypertension) Chronic BP stable. continue Metoprolol and Cardizem 5. Hypothyroidism Chronic Levothyroxine 12.5mcg PO daily. 6. Schizophrenia with psychosis continue management as per psych 7. DVT prophylaxis on Eliquis
[2017-03-12] MEDS: Levalbuterol 1.25 MG/3 ML Inhal Soln UD INH SCH ×4 (01:19→19:38)
[2017-03-12] MEDS: Levothyroxine 25 MCG TAB PO SCH (05:40)
[2017-03-12] MEDS ORDERED: Chlorhexidine Gluconate 1 APPL/PKT TP ONE (06:08)
[2017-03-12 09:35] LABS: BASO % 0.3 % (0.0-2.0); EOS % 0.1 % (0.0-4.0); HEMOGLOBIN 11.3 g/dL (12.0-16.0); LYMPH # 1.9 K/uL (1.0-4.3); LYMPH % 14.2 % (20.0-40.0); MEAN CELL VOLUME 90.6 fl (81.0-99.0); MEAN CORPUSCULAR HEMOGLOBIN 29.6 pg (27.0-31.0); MEAN CORPUSCULAR HGB CONC 32.7 g/dL (33.0-37.0); MEAN PLATELET VOLUME 8.2 fl (7.2-11.7); MONO # 0.6 K/uL (0.0-0.8); MONO % 4.6 % (0.0-10.0); NEUT # 10.5 K/uL (1.8-7.0); NEUT % 80.8 % (50.0-75.0); NRBC % 0.1 % (0.0-0.0); RBC 3.82 Mil/uL (3.80-5.20); RED CELL DISTRIBUTION WIDTH 15.2 % (11.5-14.5); WHITE BLOOD COUNT 13.1 K/uL (4.8-10.8)
[2017-03-12 09:49] LABS: BLOOD UREA NITROGEN 22 mg/dl (7-17); GFR AFRICAN-AMERICAN > 60; GFR NON-AFRICAN AMERICAN > 60
[2017-03-12] MEDS: Metoprolol Succinate 25 mg XL Tab PO SCH (09:51)
[2017-03-12] MEDS: Potassium Chloride 10 mEq ER Tab PO SCH (09:52)
[2017-03-12] MEDS: guaiFENesin-DM 600-30 mg ER Tab PO SCH ×2 (09:56→16:58)
[2017-03-12] MEDS ORDERED: Potassium Chloride 20 mEq/15 ml LIQ UD PO ONE (10:08)
--- NOTE | 2017-03-12 10:10 | CP.PCM.PN ---
Subjective - Date & Time of Evaluation Date of Evaluation: 03/12/17 Time of Evaluation: 09:30 - Subjective Subjective: Pt is doing well No fever Saturating 97 to 98% on 3 liters NC Calm and cooperative this am follows simple commands ate her breakfast + cough Will d/c 1:1 and observe pt Objective - Vital Signs/Intake and Output Vital Signs (last 24 hours): Temp Pulse Resp BP Pulse Ox 96.7 F L 80 18 131/83 100 03/12/17 08:00 03/12/17 09:51 03/12/17 08:00 03/12/17 09:52 03/12/17 08:00 - Medications Medications: Current Medications Apixaban (Eliquis) 2.5 mg PO BID [facility] PRN Reason: Protocol Last Admin: 03/12/17 09:54 Dose: 2.5 mg Clotrimazole (Lotrimin 1% Cream) 1 applic TOP BID [facility] Last Admin: 03/11/17 18:47 Dose: Not Given Clozapine (Clozaril) 200 mg PO HS [facility] Last Admin: 03/11/17 21:58 Dose: 200 mg Clozapine (Clozaril) 100 mg PO DAILY [facility] Last Admin: 03/12/17 09:53 Dose: 100 mg Diltiazem HCl (Cardizem) 120 mg PO BID [facility] Last Admin: 03/12/17 09:53 Dose: 120 mg Dronedarone (Multaq) 400 mg PO BID [facility] Last Admin: 03/12/17 09:56 Dose: 400 mg Famotidine (Pepcid) 20 mg PO BID [facility] Last Admin: 03/12/17 09:53 Dose: 20 mg Furosemide (Lasix) 20 mg PO DAILY [facility] Last Admin: 03/12/17 09:52 Dose: 20 mg Guaifenesin/Dextromethorphan (Mucinex-Dm 600-30 Mg) 1 tab PO BID [facility] Last Admin: 03/12/17 09:56 Dose: 1 tab Piperacillin Sod/Tazobactam (Sod 2.25 gm/ Sodium Chloride) 100 mls @ 100 mls/ hr IVPB Q6 [facility] Last Admin: 03/12/17 03:03 Dose: 100 mls/hr Levalbuterol HCl (Xopenex) 1.25 mg INH RQ6 [facility] Last Admin: 03/12/17 07:51 Dose: 1.25 mg Levothyroxine Sodium (Synthroid) 12.5 mcg PO DAILY@0630 [facility] Last Admin: 03/12/17 05:40 Dose: 12.5 mcg Lorazepam (Ativan) 0.5 mg PO HS PRN PRN Reason: Insomnia Last Admin: 03/09/17 22:31 Dose: 0.5 mg Metoprolol Succinate (Toprol Xl) 25 mg PO DAILY [facility] Last Admin: 03/12/17 09:51 Dose: 25 mg Mirtazapine (Remeron) 7.5 mg PO HS PRN PRN Reason: Insomnia Potassium Chloride (Klor-Con 10) 10 meq PO DAILY [facility] Last Admin: 03/12/17 09:52 Dose: 10 meq Prednisone (Prednisone Tab) 30 mg PO DAILY [facility] Last Admin: 03/12/17 09:57 Dose: 30 mg - Labs Labs: 03/12/17 09:00 03/12/17 09:00 - Constitutional Appears: No Acute Distress, Older Than Stated Age, Chronically Ill - Head Exam Head Exam: NORMAL INSPECTION, NORMOCEPHALIC - Eye Exam Eye Exam: EOMI, Normal appearance Pupil Exam: NORMAL ACCOMODATION - ENT Exam ENT Exam: Mucous Membranes Moist, Normal External Ear Exam - Neck Exam Neck Exam: Full ROM. absent: Meningismus - Respiratory Exam Respiratory Exam: Rales, Rhonchi, NORMAL BREATHING PATTERN. absent: Wheezes, Respiratory Distress - Cardiovascular Exam Cardiovascular Exam: REGULAR RHYTHM, +S1, +S2 - GI/Abdominal Exam GI & Abdominal Exam: Soft, Normal Bowel Sounds. absent: Tenderness - Extremities Exam Extremities Exam: Full ROM, Normal Capillary Refill. absent: Calf Tenderness, Pedal Edema - Back Exam Back Exam: absent: CVA tenderness (L), CVA tenderness (R) - Neurological Exam Neurological Exam: Alert, Awake Additional comments: oriented to persona nd place moves all extremities - Psychiatric Exam Psychiatric exam: Normal Affect, Normal Mood - Skin Skin Exam: Dry, Normal Color, Warm Assessment and Plan - Assessment and Plan (Free Text) Assessment: 77 F with PMH AFIB, HLD, Hypothyroidism, COPD, Schizophrenia was initially admitted to the [facility] for worsening paranoia and psychosis on 02/15 . While in the Psych unit , she developed Pneumonia and was admitted to Telemetry on . Her Pneumonia resolved , rpt CT of Chest post therapy revealed resolution of infiltrates. She was then transferred back to the GeroPsych unit for further mgt of her Psychosis on 02/27. On 03/08, she developed low grade fever and respiratory insufficiency and was again readmitted to the Acute Medical floor. 1. Sepsis likely sec to Aspiration Pneumonia ( POA) - pt was initially placed on High Flow Oxygen, at present , she is saturating well on 3 liters Oxygen per NC - cont IV Zosyn - ID consulted- Dr Oliveira -Pulm consulted- Dr Sandoval 2.COPD Exacerbation cont Bronchodilators cont Prednisone 3.Acute Hypoxemic Respiratory Failure, improving off High Flow Oxygen and doing well on 3 liters NC sat 97-98% 4. A. Fib , Paroxysmal , with RVR was on Cardizem drip - now off and rate controlled cont Toprol and Multaq cont Eliquis cardio consulted- Dr Diez 6.Hypothyroidism cont Levothyroxine 7.Schizophrenia cont Clozaril q am and hs Remeron HS for sleep Avoid benzos haldol PRN for agitation Psychiatry consult Pt is calm and cooperative , will d/c 1:1 , transfer pt close to nurses station 8. Hypokalemia prob sec to diuretics DVT prophylaxis On Eliquis SCD
--- NOTE | 2017-03-12 12:42 | CP.PCM.PN ---
Subjective - Date & Time of Evaluation Date of Evaluation: 03/12/17 Time of Evaluation: 13:00 - Subjective Subjective: F/U Respiratory Failure Pt awake, able to talk, confused, with no specific complaint, doesn't look in any respiratory distress Objective - Vital Signs/Intake and Output Vital Signs (last 24 hours): Temp Pulse Resp BP Pulse Ox 98.2 F 85 18 91/60 L 97 03/12/17 12:17 03/12/17 12:17 03/12/17 12:17 03/12/17 12:03/12/17 12:17 - Medications Medications: Current Medications Apixaban (Eliquis) 2.5 mg PO BID [facility] PRN Reason: Protocol Last Admin: 03/12/17 09:54 Dose: 2.5 mg Clotrimazole (Lotrimin 1% Cream) 1 applic TOP BID [facility] Last Admin: 03/11/17 18:47 Dose: Not Given Clozapine (Clozaril) 200 mg PO HS [facility] Last Admin: 03/11/17 21:58 Dose: 200 mg Clozapine (Clozaril) 100 mg PO DAILY [facility] Last Admin: 03/12/17 09:53 Dose: 100 mg Diltiazem HCl (Cardizem) 120 mg PO BID [facility] Last Admin: 03/12/17 09:53 Dose: 120 mg Dronedarone (Multaq) 400 mg PO BID [facility] Last Admin: 03/12/17 09:56 Dose: 400 mg Famotidine (Pepcid) 20 mg PO BID [facility] Last Admin: 03/12/17 09:53 Dose: 20 mg Furosemide (Lasix) 20 mg PO DAILY [facility] Last Admin: 03/12/17 09:52 Dose: 20 mg Guaifenesin/Dextromethorphan (Mucinex-Dm 600-30 Mg) 1 tab PO BID [facility] Last Admin: 03/12/17 09:56 Dose: 1 tab Piperacillin Sod/Tazobactam (Sod 2.25 gm/ Sodium Chloride) 100 mls @ 100 mls/ hr IVPB Q6 [facility] Last Admin: 03/12/17 10:11 Dose: 100 mls/hr Levalbuterol HCl (Xopenex) 1.25 mg INH RQ6 [facility] Last Admin: 03/12/17 07:51 Dose: 1.25 mg Levothyroxine Sodium (Synthroid) 12.5 mcg PO DAILY@0630 [facility] Last Admin: 03/12/17 05:40 Dose: 12.5 mcg Lorazepam (Ativan) 0.5 mg PO HS PRN PRN Reason: Insomnia Last Admin: 03/09/17 22:31 Dose: 0.5 mg Metoprolol Succinate (Toprol Xl) 25 mg PO DAILY [facility] Last Admin: 03/12/17 09:51 Dose: 25 mg Mirtazapine (Remeron) 7.5 mg PO HS PRN PRN Reason: Insomnia Potassium Chloride (Klor-Con 10) 10 meq PO DAILY [facility] Last Admin: 03/12/17 09:52 Dose: 10 meq Prednisone (Prednisone Tab) 30 mg PO DAILY [facility] Last Admin: 03/12/17 09:57 Dose: 30 mg - Labs Labs: 03/12/17 09:00 03/12/17 09:00 - Constitutional Appears: No Acute Distress, Chronically Ill - Head Exam Head Exam: NORMAL INSPECTION - Eye Exam Eye Exam: PERRL - ENT Exam ENT Exam: Normal Oropharynx - Neck Exam Neck Exam: Normal Inspection - Respiratory Exam Respiratory Exam: Decreased Breath Sounds (at bases), Rhonchi (scattered) - Cardiovascular Exam Cardiovascular Exam: REGULAR RHYTHM - GI/Abdominal Exam GI & Abdominal Exam: Soft, Normal Bowel Sounds - Extremities Exam Extremities Exam: Normal Inspection - Back Exam Back Exam: NORMAL INSPECTION - Neurological Exam Neurological Exam: Awake Additional comments: Confused, not following commands, moves all extremities, generalized weakness. - Psychiatric Exam Additional comments: Calm - Skin Skin Exam: Warm Assessment and Plan (1) Acute hypoxemic respiratory failure Status: Acute (2) COPD with acute exacerbation Status: Acute (3) Pneumonia Status: Acute - Assessment and Plan (Free Text) Plan: Continue Duoneb, Zosyn as per ID.
--- NOTE | 2017-03-12 14:12 | PQF GENQUE ---
Dr. Escobar, If in agreement with the diagnosis of SIRS is it do to an infectious process versus non-infectious process?: POA OR: Disagree: SIRS ruled out OR: Unable to determine OR: Other explanation of clinical finding ER note: Imp: COPD, SIRS 03/09 [facility] [employer] note: currently admitted for acute hypoxemic resp failure; [facility]IL[employer] was called for pt. desatting to 80% 03/09: Pulmonary note; to ER [facility] from Geropsych increased moderate to severe SOB associated to chest congestion, intermittent cough, productive yellowish phlegms, non bloody, TMAx: 100.4. Worsening symptom: Respiratory Failure, Pt found with with decreased Sat in the 70's even with the V Mask at 50%: Impression: Acute hypoxemic respiratory failure Status: Acute and COPD acute exacerbation Status: Acute 03/09:Attending progress note; admitted to telemetry diagnosed with acute Hypoxemic respiratory failure Imp: Acute hypoxemic Respiratory Failure, COPD Acute Exacerbation 03/11: Pulmonary progress note :CT Chest recurrent Pneumonia , no P/E 03/11: Attending progress note : Acute hypoxemic respiratory failure ;b/l lower lobe pneumonia probably sec to aspiration --CTA read as large left lower lobe infiltrate and small right lower lobe infiltrate 03/11: ID note: with hypoxemia and desaturation. no fever only has minimal leukocytosis and much lower than prior admission ( is also on steroids)--- .Etiology for her hypoxemia might be multifactorial COPD exacerbation vs cardiac as pt. was found to be in a.fib with rapid RVR. CT chest report noted, however pt. has already completed 14 days of broad spectrum antibiotics. aspiration pneumonitis is also a high possibility. Temp: 100.4->98.8 Pulse :97->104->95->93->104->95 Resp: 30-.>22->26 This form is a permanent part of the medical record Clarification of your documentation is requested to better reflect the severity of illness and intensity of treatment of your patient. Indicators present [] Specify: [] [] Specify: [] [] Specify: [] [] Specify: [] Location in the medical record that reflects the above clinical findings: [] Treatment Provided: [] PHYSICIAN'S RESPONSE Sepsis sec to Aspiration Pneumonia ( POA_) Based on your medical judgment of the clinical indicators outlined above please clarify the following: [] Practitioner response [] If unable to determine, please check the box, sign and date. Present On Admission (POA) Indicator: [] Present at the time of admission [] Not present at the time of admission [] Clinically Undetermined In responding to this query, please exercise your independent professional judgment. The fact that a question is asked does not imply that any particular answer is desired or expected. Thank you for your clarification on this documentation. If you have any questions please call:[ ] * Thank you, [ ] wood fuel pellet[employer]
--- NOTE | 2017-03-12 14:47 | CP.PCM.PN ---
Subjective - Date & Time of Evaluation Date of Evaluation: 03/12/17 Time of Evaluation: 13:00 - Subjective Subjective: ID Note- Pt. seen and examined today. no new events. pt. resting comfortably in bed. Objective - Vital Signs/Intake and Output Vital Signs (last 24 hours): Temp Pulse Resp BP Pulse Ox 98.2 F 85 18 91/60 L 97 03/12/17 12:17 03/12/17 12:17 03/12/17 12:17 03/12/17 12:17 03/12/17 12:17 - Medications Medications: Current Medications Apixaban (Eliquis) 2.5 mg PO BID [facility] PRN Reason: Protocol Last Admin: 03/12/17 09:54 Dose: 2.5 mg Clotrimazole (Lotrimin 1% Cream) 1 applic TOP BID [facility] Last Admin: 03/11/17 18:47 Dose: Not Given Clozapine (Clozaril) 200 mg PO HS [facility] Last Admin: 03/11/17 21:58 Dose: 200 mg Clozapine (Clozaril) 100 mg PO DAILY [facility] Last Admin: 03/12/17 09:53 Dose: 100 mg Diltiazem HCl (Cardizem) 120 mg PO BID [facility] Last Admin: 03/12/17 09:53 Dose: 120 mg Dronedarone (Multaq) 400 mg PO BID [facility] Last Admin: 03/12/17 09:56 Dose: 400 mg Famotidine (Pepcid) 20 mg PO BID [facility] Last Admin: 03/12/17 09:53 Dose: 20 mg Furosemide (Lasix) 20 mg PO DAILY [facility] Last Admin: 03/12/17 09:52 Dose: 20 mg Guaifenesin/Dextromethorphan (Mucinex-Dm 600-30 Mg) 1 tab PO BID [facility] Last Admin: 03/12/17 09:56 Dose: 1 tab Piperacillin Sod/Tazobactam (Sod 2.25 gm/ Sodium Chloride) 100 mls @ 100 mls/ hr IVPB Q6 [facility] Last Admin: 03/12/17 10:11 Dose: 100 mls/hr Levalbuterol HCl (Xopenex) 1.25 mg INH RQ6 [facility] Last Admin: 03/12/17 13:24 Dose: Not Given Levothyroxine Sodium (Synthroid) 12.5 mcg PO DAILY@0630 [facility] Last Admin: 03/12/17 05:40 Dose: 12.5 mcg Lorazepam (Ativan) 0.5 mg PO HS PRN PRN Reason: Insomnia Last Admin: 03/09/17 22:31 Dose: 0.5 mg Metoprolol Succinate (Toprol Xl) 25 mg PO DAILY [facility] Last Admin: 03/12/17 09:51 Dose: 25 mg Mirtazapine (Remeron) 7.5 mg PO HS PRN PRN Reason: Insomnia Potassium Chloride (Klor-Con 10) 10 meq PO DAILY [facility] Last Admin: 03/12/17 09:52 Dose: 10 meq Prednisone (Prednisone Tab) 30 mg PO DAILY [facility] Last Admin: 03/12/17 09:57 Dose: 30 mg - Labs Labs: - Additional Findings Additional findings: - Constitutional Appears: No Acute Distress - Head Exam Head Exam: ATRAUMATIC - Eye Exam Eye Exam: EOMI - Neck Exam Neck exam: Positive for: Full Rom - Respiratory Exam Respiratory Exam: NORMAL BREATHING PATTERN Additional comments: bibasilar crackles no wheezing - Cardiovascular Exam Cardiovascular Exam: Irregular Rhythm Additional comments: irregularly irregular - GI/Abdominal Exam GI & Abdominal Exam: Normal Bowel Sounds, Soft Additional comments: NT, Nd - Extremities Exam Extremities exam: Positive for: normal inspection - Neurological Exam Additional comments: awake no agitation currently Laboratory Results - last 72 hr 03/10/17 03/10/17 03/11/17 05:45 05:45 06:10 WBC 11.2 H RBC 3.58 L Hgb 10.7 L Hct 33.0 L MCV 92.0 MCH 29.9 MCHC 32.5 L RDW 15.6 H Plt Count 187 MPV Neut % (Auto) Lymph % (Auto) Kingfisher % (Auto) Eos % (Auto) Baso % (Auto) Neut # Lymph # Kingfisher # Eos # Baso # Neutrophils % (Manual) Lymphocytes % (Manual) Monocytes % (Manual) Platelet Estimate Hypochromasia (manual) Anisocytosis (manual) Tear Drop Cells Ovalocytes Schistocytes pCO2 pO2 HCO3 ABG pH ABG Total CO2 ABG O2 Saturation ABG O2 Content ABG Base Excess ABG Hemoglobin ABG Carboxyhemoglobin POC ABG HHb (Measured) ABG Methemoglobin ABG O2 Capacity Bernardo Test A-a O2 Difference Hgb O2 Saturation FiO2 Blood Gas Comments Sodium 136 139 Potassium 3.3 L 3.5 L Chloride 102 102 Carbon Dioxide 30 30 Anion Gap 7 L 11 BUN 20 H 21 H Creatinine 0.7 0.7 Est GFR ( Amer) > 60 > 60 Est GFR (Non-Af Amer) > 60 > 60 Random Glucose 86 88 Calcium 8.1 L 8.7 TSH 3rd Generation 1.06 03/11/17 03/11/17 03/12/17 06:10 14:06 09:00 WBC 12.9 H 13.1 H RBC 3.77 L 3.82 Hgb 11.2 L 11.3 L Hct 34.2 34.7 MCV 90.8 90.6 MCH 29.7 29.6 MCHC 32.7 L 32.7 L RDW 15.1 H 15.2 H Plt Count 235 236 MPV 8.8 8.2 Neut % (Auto) 86.7 H 80.8 H Lymph % (Auto) 9.4 L 14.2 L Kingfisher % (Auto) 3.6 4.6 Eos % (Auto) 0.0 0.1 Baso % (Auto) 0.3 0.3 Neut # 11.2 H 10.5 H Lymph # 1.2 1.9 Kingfisher # 0.5 0.6 Eos # 0.0 0.0 Baso # 0.0 0.0 Neutrophils % (Manual) 89 H Lymphocytes % (Manual) 8 L Monocytes % (Manual) 3 Platelet Estimate Normal Hypochromasia (manual) Slight Anisocytosis (manual) Slight Tear Drop Cells Slight Ovalocytes Slight Schistocytes Slight pCO2 42 pO2 74 L HCO3 33.0 H ABG pH 7.52 H ABG Total CO2 35.6 H ABG O2 Saturation 97.0 ABG O2 Content 15.1 ABG Base Excess 10.4 H ABG Hemoglobin 11.3 L ABG Carboxyhemoglobin 1.2 POC ABG HHb (Measured) 2.9 ABG Methemoglobin 1.4 ABG O2 Capacity 15.6 L Bernardo Test Yes A-a O2 Difference 109.0 Hgb O2 Saturation 94.4 L FiO2 33.0 Blood Gas Comments 3l/m nc.rb Sodium Potassium Chloride Carbon Dioxide Anion Gap BUN Creatinine Est GFR ( Amer) Est GFR (Non-Af Amer) Random Glucose Calcium TSH 3rd Generation 03/12/17 09:00 WBC RBC Hgb Hct MCV MCH MCHC RDW Plt Count MPV Neut % (Auto) Lymph % (Auto) Kingfisher % (Auto) Eos % (Auto) Baso % (Auto) Neut # Lymph # Kingfisher # Eos # Baso # Neutrophils % (Manual) Lymphocytes % (Manual) Monocytes % (Manual) Platelet Estimate Hypochromasia (manual) Anisocytosis (manual) Tear Drop Cells Ovalocytes Schistocytes pCO2 pO2 HCO3 ABG pH ABG Total CO2 ABG O2 Saturation ABG O2 Content ABG Base Excess ABG Hemoglobin ABG Carboxyhemoglobin POC ABG HHb (Measured) ABG Methemoglobin ABG O2 Capacity Bernardo Test A-a O2 Difference Hgb O2 Saturation FiO2 Blood Gas Comments Sodium 141 Potassium 3.1 L Chloride 103 Carbon Dioxide 33 H Anion Gap 8 L BUN 22 H Creatinine 0.9 Est GFR ( Amer) > 60 Est GFR (Non-Af Amer) > 60 Random Glucose 90 Calcium 9.0 TSH 3rd Generation Microbiology 03/11/17 07:46 Sputum Gram Stain - Final 03/08/17 12:00 Blood-Venous Blood Culture - Preliminary NO GROWTH AFTER 4 DAYS 03/08/17 15:32 Urine,Catheterized Urine Culture - Final No Growth (<1,000 CFU/ML) Assessment and Plan (1) Acute hypoxemic respiratory failure Status: Acute (2) Atrial fibrillation with RVR Status: Acute (3) COPD with acute exacerbation Status: Acute - Assessment and Plan (Free Text) Assessment: A/P- 77 year old female with schizophrenia, COPD, hypothyroidism, A.Fib with recent pneumonia and fever sna dleukocytsois who was treated with 14 days of IV abx ( meropenem and vanco) did well and was transferred back to [facility] again readmitted with hypoxemia and desaturation. no fever only has minimal leukocytosis and much lowert than prior admission ( is also on steroids) blood cx- neg sputum cx- pending plan- pt. might need frequent suctioning as she has thick sputum and can't expectorate. in the interim advise to continue with IV zosyn for COPD exacerbation, possible asp pneumonitis. day #2 already tested neg for mycoplasma. await urine legionella. keep HOB elevated. bronchodilators and pulmonary treatment as per translational specialist. if no improvement may need bronchoscopy.
[2017-03-13] MEDS: Levalbuterol 1.25 MG/3 ML Inhal Soln UD INH SCH ×4 (01:01→19:25)
[2017-03-13] MEDS: Levothyroxine 25 MCG TAB PO SCH (06:17)
[2017-03-13 08:00] LABS: HEMOGLOBIN 10.9 g/dL (12.0-16.0); MEAN CELL VOLUME 90.6 fl (81.0-99.0); MEAN CORPUSCULAR HEMOGLOBIN 29.6 pg (27.0-31.0); MEAN CORPUSCULAR HGB CONC 32.7 g/dL (33.0-37.0); RBC 3.68 Mil/uL (3.80-5.20); RED CELL DISTRIBUTION WIDTH 15.5 % (11.5-14.5); WHITE BLOOD COUNT 11.3 K/uL (4.8-10.8)
[2017-03-13 08:22] LABS: ALBUMIN 2.8 g/dL (3.5-5.0); ALT/SGPT 28 U/L (9-52); AST/SGOT 17 U/L (14-36); BLOOD UREA NITROGEN 26 mg/dl (7-17); CALCIUM 8.8 mg/dL (8.4-10.2); GFR AFRICAN-AMERICAN > 60; GFR NON-AFRICAN AMERICAN > 60
[2017-03-13] MEDS: guaiFENesin-DM 600-30 mg ER Tab PO SCH ×2 (08:38→16:05)
[2017-03-13] MEDS: Metoprolol Succinate 25 mg XL Tab PO SCH (08:40)
[2017-03-13] MEDS: Potassium Chloride 10 mEq ER Tab PO SCH (08:41)
--- NOTE | 2017-03-13 09:32 | CP.PCM.PN ---
Subjective - Date & Time of Evaluation Date of Evaluation: 03/13/17 Time of Evaluation: 09:00 - Subjective Subjective: In good spirits this am calm , cooperative feeding herself for breakfast No fever + cough no SOB + wheezing no abd pain Objective - Vital Signs/Intake and Output Vital Signs (last 24 hours): Temp Pulse Resp BP Pulse Ox 97.5 F L 76 20 128/67 93 L 03/13/17 08:00 03/13/17 08:40 03/13/17 08:00 03/13/17 08:40 03/13/17 08:00 - Medications Medications: Current Medications Albuterol/Ipratropium (Duoneb 3 Mg/0.5 Mg (3 Ml) Ud) 3 ml INH RQID [facility] Apixaban (Eliquis) 2.5 mg PO BID [facility] PRN Reason: Protocol Last Admin: 03/13/17 08:36 Dose: 2.5 mg Clotrimazole (Lotrimin 1% Cream) 1 applic TOP BID [facility] Last Admin: 03/13/17 08:37 Dose: 1 applic Clozapine (Clozaril) 200 mg PO HS [facility] Last Admin: 03/12/17 21:44 Dose: 200 mg Clozapine (Clozaril) 100 mg PO DAILY [facility] Last Admin: 03/13/17 08:35 Dose: 100 mg Diltiazem HCl (Cardizem) 120 mg PO BID [facility] Last Admin: 03/13/17 08:35 Dose: 120 mg Dronedarone (Multaq) 400 mg PO BID [facility] Last Admin: 03/13/17 08:38 Dose: 400 mg Famotidine (Pepcid) 20 mg PO BID [facility] Last Admin: 03/13/17 08:39 Dose: 20 mg Furosemide (Lasix) 20 mg PO DAILY [facility] Last Admin: 03/13/17 08:36 Dose: 20 mg Guaifenesin/Dextromethorphan (Mucinex-Dm 600-30 Mg) 1 tab PO BID [facility] Last Admin: 03/13/17 08:38 Dose: 1 tab Piperacillin Sod/Tazobactam (Sod 2.25 gm/ Sodium Chloride) 100 mls @ 100 mls/ hr IVPB Q6 [facility] Last Admin: 03/13/17 04:45 Dose: 100 mls/hr Levalbuterol HCl (Xopenex) 1.25 mg INH RQ6 [facility] Last Admin: 03/13/17 07:57 Dose: 1.25 mg Levothyroxine Sodium (Synthroid) 12.5 mcg PO DAILY@0630 [facility] Last Admin: 03/13/17 06:17 Dose: 12.5 mcg Lorazepam (Ativan) 0.5 mg PO HS PRN PRN Reason: Insomnia Last Admin: 03/09/17 22:31 Dose: 0.5 mg Metoprolol Succinate (Toprol Xl) 25 mg PO DAILY [facility] Last Admin: 03/13/17 08:40 Dose: 25 mg Mirtazapine (Remeron) 7.5 mg PO HS PRN PRN Reason: Insomnia Potassium Chloride (Klor-Con 10) 10 meq PO DAILY [facility] Last Admin: 03/13/17 08:41 Dose: 10 meq Prednisone (Prednisone Tab) 30 mg PO DAILY [facility] Last Admin: 03/13/17 08:39 Dose: 30 mg - Labs Labs: 03/13/17 06:00 03/13/17 06:00 - Constitutional Appears: No Acute Distress, Older Than Stated Age, Chronically Ill - Head Exam Head Exam: NORMAL INSPECTION, NORMOCEPHALIC - Eye Exam Eye Exam: EOMI, Normal appearance Pupil Exam: NORMAL ACCOMMODATION - ENT Exam ENT Exam: Mucous Membranes Moist, Normal External Ear Exam - Neck Exam Neck Exam: Full ROM. absent: Meningismus - Respiratory Exam Respiratory Exam: + wheezing ,Rales, Rhonchi, NORMAL BREATHING PATTERN. absent :Respiratory Distress - Cardiovascular Exam Cardiovascular Exam: REGULAR RHYTHM, +S1, +S2 - GI/Abdominal Exam GI & Abdominal Exam: Soft, Normal Bowel Sounds. absent: Tenderness - Extremities Exam Extremities Exam: Full ROM, Normal Capillary Refill. absent: Calf Tenderness, Pedal Edema - Back Exam Back Exam: absent: CVA tenderness (L), CVA tenderness (R) - Neurological Exam Neurological Exam: Alert, Awake Additional comments: oriented to person and place moves all extremities - Psychiatric Exam Psychiatric exam: Normal Affect, Normal Mood - Skin Skin Exam: Dry, Normal Color, Warm Assessment and Plan - Assessment and Plan (Free Text) Assessment: 77 F with PMH AFIB, HLD, Hypothyroidism, COPD, Schizophrenia was initially admitted to the [facility] for worsening paranoia and psychosis on 02/15 . While in the Psych unit , she developed Pneumonia and was admitted to Telemetry on . Her Pneumonia resolved , rpt CT of Chest post therapy revealed resolution of infiltrates. She was then transferred back to the [facility] unit for further mgt of her Psychosis on 02/27. On 03/08, she developed low grade fever and respiratory insufficiency and was again readmitted to the Acute Medical floor. 1. Sepsis likely sec to Aspiration Pneumonia ( POA) - pt was initially placed on High Flow Oxygen, at present , she is saturating well on 3 liters Oxygen per NC - cont IV Zosyn - ID consulted- Dr Oliveira -Pulm consulted- Dr Sandoval - Blood c/s : neg - Sputum c/s : neg so far 2.COPD Exacerbation cont Bronchodilators, RTC Duoneb cont Prednisone 3.Acute Hypoxemic Respiratory Failure, improving off High Flow Oxygen and doing well on 3 liters NC sat 97-98% 4. A. Fib , Paroxysmal , with RVR was on Cardizem drip - now off and rate controlled cont Toprol and Multaq cont Eliquis Cardio consulted- Dr Diez 6.Hypothyroidism cont Levothyroxine 7.Schizophrenia cont Clozaril q am and hs Remeron HS for sleep Avoid benzos haldol PRN for agitation Psychiatry consult- needs re-eval - ? [facility] [place] Pt is calm and cooperative d/c 1:1 and transfered pt to a room close to nurses station 8. Hypokalemia prob sec to diuretics KCl 10 meq daily monitor BMP DVT prophylaxis On Eliquis SCD
--- NOTE | 2017-03-13 11:37 | CP.PCM.CON ---
History of Present Illness - History of Present Illness History of Present Illness: Psychiatry consult called to evaluate schizophrenia HPI: 77 F with PMH AFIB, HLD, hypothyroid, COPD, schizophrenia was initially admitted to [facility] for worsening paranoia and psychosis. Patient then developed sepsis 2/2 pneumonia and was admitted as inpatient. Patient was successfully treated, and then readmitted to [facility] for further management and treatment of her delusions. Patient decompensated medically, had low oxygen saturation, became delirious and had to be transferred back to medicine for further medical treatment. At this time patient is only oriented to self, mumble when she talks and is difficult to understand. She is non-linear on conversation. Denies hallucinations, but likely continues to have baseline delusions, although she is difficult to understand. PMSH: AFIB, HLD, hypothyroid, COPD, schizophrenia, appendectomy, breast lumpectomy, cholecystectomy, L knee replacement PPHx: As per family patient had numerous admissions in the past for schizophrenia, the last admission was 2 years ago at [facility]. PMD: Dr. Tobin PMHx: hypertension, hypercholesterolemia, schizophrenia, and COPD All: NKDA SHx: lives in a assisted, POA are son + [id number] MSE: A + O x 1 (self only), sleepy but arousable, calm, cooperative, speech slurred/mumbles, thought content- non-linear, possible delusions, but difficult to assess, denies hallucinations, SI/HI, poor I/J. Impression: 77 F with PMH AFIB, HLD, hypothyroid, COPD, schizophrenia continues to be medically ill. Patient's mental presentation unlikely to improve until her medical issues resolve. At this time patient is too medically ill for treatment on an inpatient psychiatric unit. -Continue Clozapine 100 mg PO AM/ 200 mg PO HS -Patient's acute medical needs are not able to met on an inpatient psychiatric unit; would recommend discharge back to the assisted when she is medically stable as her currently presentation is likely due to her continued medical issues rather than her chronic mental illness Past Patient History - Tetanus Immunizations Tetanus Immunization: Unknown - Past Medical History & Family History Past Medical History?: Yes - Past Social History Smoking Status: Former Smoker Alcohol: None Drugs: Denies Home Situation {Lives}: With Family - CARDIAC Hx Cardiac Disorders: Yes Hx Atrial Fibrillation: Yes Hx Hypercholesterolemia: Yes Hx Hypertension: Yes - PULMONARY Hx Respiratory Disorders: Yes Hx Asthma: Yes Hx Chronic Obstructive Pulmonary Disease (COPD): Yes Hx Pneumonia: Yes - NEUROLOGICAL Hx Neurological Disorder: Yes Hx Dementia: Yes Hx Seizures: Yes - HEENT Hx HEENT Problems: No - RENAL Hx Chronic Kidney Disease: No - ENDOCRINE/METABOLIC Hx Endocrine Disorders: Yes Hx Hypothyroidism: Yes - HEMATOLOGICAL/ONCOLOGICAL Hx Blood Disorders: Yes Hx Cancer: Yes (colon) - INTEGUMENTARY Hx Dermatological Problems: No - MUSCULOSKELETAL/RHEUMATOLOGICAL Hx Musculoskeletal Disorders: Yes Hx Falls: Yes - GASTROINTESTINAL Hx Gastrointestinal Disorders: Yes Hx Gastroesophageal Reflux: Yes - GENITOURINARY/GYNECOLOGICAL Hx Genitourinary Disorders: Yes - PSYCHIATRIC Hx Psychophysiologic Disorder: Yes Hx Anxiety: Yes Hx Schizophrenia: Yes Hx Substance Use: No - SURGICAL HISTORY Hx Surgeries: Yes Hx Appendectomy: Yes Hx Cholecystectomy: Yes - ANESTHESIA Hx Anesthesia: Yes Hx Anesthesia Reactions: No Meds Allergies/Adverse Reactions: Allergies Allergy/AdvReac Type Severity Reaction Status Date / Time No Known Allergies Allergy Verified 02/22/17 13:39 - Medications Medications: Current Medications Albuterol/Ipratropium (Duoneb 3 Mg/0.5 Mg (3 Ml) Ud) 3 ml INH RQID JOON Apixaban (Eliquis) 2.5 mg PO BID [facility] PRN Reason: Protocol Last Admin: 03/13/17 08:36 Dose: 2.5 mg Clotrimazole (Lotrimin 1% Cream) 1 applic TOP BID [facility] Last Admin: 03/13/17 08:37 Dose: 1 applic Clozapine (Clozaril) 200 mg PO HS [facility] Last Admin: 03/12/17 21:44 Dose: 200 mg Clozapine (Clozaril) 100 mg PO DAILY [facility] Last Admin: 03/13/17 08:35 Dose: 100 mg Diltiazem HCl (Cardizem) 120 mg PO BID [facility] Last Admin: 03/13/17 08:35 Dose: 120 mg Dronedarone (Multaq) 400 mg PO BID [facility] Last Admin: 03/13/17 08:38 Dose: 400 mg Famotidine (Pepcid) 20 mg PO BID [facility] Last Admin: 03/13/17 08:39 Dose: 20 mg Furosemide (Lasix) 20 mg PO DAILY [facility] Last Admin: 03/13/17 08:36 Dose: 20 mg Guaifenesin/Dextromethorphan (Mucinex-Dm 600-30 Mg) 1 tab PO BID [facility] Last Admin: 03/13/17 08:38 Dose: 1 tab Piperacillin Sod/Tazobactam (Sod 2.25 gm/ Sodium Chloride) 100 mls @ 100 mls/ hr IVPB Q6 [facility] Last Admin: 03/13/17 09:51 Dose: 100 mls/hr Levalbuterol HCl (Xopenex) 1.25 mg INH RQ6 [facility] Last Admin: 03/13/17 07:57 Dose: 1.25 mg Levothyroxine Sodium (Synthroid) 12.5 mcg PO DAILY@0630 [facility] Last Admin: 03/13/17 06:17 Dose: 12.5 mcg Lorazepam (Ativan) 0.5 mg PO HS PRN PRN Reason: Insomnia Last Admin: 03/09/17 22:31 Dose: 0.5 mg Metoprolol Succinate (Toprol Xl) 25 mg PO DAILY [facility] Last Admin: 03/13/17 08:40 Dose: 25 mg Mirtazapine (Remeron) 7.5 mg PO HS PRN PRN Reason: Insomnia Potassium Chloride (Klor-Con 10) 10 meq PO DAILY [facility] Last Admin: 03/13/17 08:41 Dose: 10 meq Prednisone (Prednisone Tab) 30 mg PO DAILY [facility] Last Admin: 03/13/17 08:39 Dose: 30 mg Sennosides (Senokot Tab) 8.6 mg PO BID [facility] Results - Vital Signs Recent Vital Signs: Last Vital Signs Temp 97.5 F L 03/13/17 08:00 Pulse 76 03/13/17 08:40 Resp 20 03/13/17 08:00 BP 128/67 03/13/17 08:40 Pulse Ox 93 L 03/13/17 08:00 - Labs Result Diagrams: 03/13/17 06:00 03/13/17 06:00 Labs: Laboratory Results - last 24 hr 03/13/17 03/13/17 06:00 06:00 WBC 11.3 H RBC 3.68 L Hgb 10.9 L Hct 33.3 L MCV 90.6 MCH 29.6 MCHC 32.7 L RDW 15.5 H Plt Count 255 Sodium 143 Potassium 3.6 Chloride 104 Carbon Dioxide 36 H Anion Gap 7 L BUN 26 H Creatinine 0.9 Est GFR ( Amer) > 60 Est GFR (Non-Af Amer) > 60 Random Glucose 85 Calcium 8.8 Total Bilirubin 0.8 AST 17 ALT 28 Alkaline Phosphatase 92 Total Protein 5.5 L Albumin 2.8 L Globulin 2.8 Albumin/Globulin Ratio 1.0
[2017-03-13] MEDS: Albuterol-Ipratrop 3 mg / 0.5 (3 ml) UD INH SCH ×3 (12:40→19:23)
--- NOTE | 2017-03-13 14:01 | CP.PCM.PN ---
Subjective - Date & Time of Evaluation Date of Evaluation: 03/13/17 Time of Evaluation: 12:00 - Subjective Subjective: F/U Respiratory failure. Pt confused, calm, able to talk, cough on and off. Objective - Vital Signs/Intake and Output Vital Signs (last 24 hours): Temp Pulse Resp BP Pulse Ox 97.9 F 74 20 98/62 L 93 L 03/13/17 12:00 03/13/17 12:00 03/13/17 12:00 03/13/17 12:00 03/13/17 12:00 - Medications Medications: Current Medications Albuterol/Ipratropium (Duoneb 3 Mg/0.5 Mg (3 Ml) Ud) 3 ml INH RQID [facility] Last Admin: 03/13/17 12:40 Dose: 3 ml Apixaban (Eliquis) 2.5 mg PO BID [facility] PRN Reason: Protocol Last Admin: 03/13/17 08:36 Dose: 2.5 mg Clotrimazole (Lotrimin 1% Cream) 1 applic TOP BID [facility] Last Admin: 03/13/17 08:37 Dose: 1 applic Clozapine (Clozaril) 200 mg PO HS [facility] Last Admin: 03/12/17 21:44 Dose: 200 mg Clozapine (Clozaril) 100 mg PO DAILY [facility] Last Admin: 03/13/17 08:35 Dose: 100 mg Diltiazem HCl (Cardizem) 120 mg PO BID [facility] Last Admin: 03/13/17 08:35 Dose: 120 mg Dronedarone (Multaq) 400 mg PO BID [facility] Last Admin: 03/13/17 08:38 Dose: 400 mg Famotidine (Pepcid) 20 mg PO BID [facility] Last Admin: 03/13/17 08:39 Dose: 20 mg Furosemide (Lasix) 20 mg PO DAILY [facility] Last Admin: 03/13/17 08:36 Dose: 20 mg Guaifenesin/Dextromethorphan (Mucinex-Dm 600-30 Mg) 1 tab PO BID [facility] Last Admin: 03/13/17 08:38 Dose: 1 tab Piperacillin Sod/Tazobactam (Sod 2.25 gm/ Sodium Chloride) 100 mls @ 100 mls/ hr IVPB Q6 [facility] Last Admin: 03/13/17 09:51 Dose: 100 mls/hr Levalbuterol HCl (Xopenex) 1.25 mg INH RQ6 [facility] Last Admin: 03/13/17 07:57 Dose: 1.25 mg Levothyroxine Sodium (Synthroid) 12.5 mcg PO DAILY@0630 [facility] Last Admin: 03/13/17 06:17 Dose: 12.5 mcg Lorazepam (Ativan) 0.5 mg PO HS PRN PRN Reason: Insomnia Last Admin: 03/09/17 22:31 Dose: 0.5 mg Metoprolol Succinate (Toprol Xl) 25 mg PO DAILY [facility] Last Admin: 03/13/17 08:40 Dose: 25 mg Mirtazapine (Remeron) 7.5 mg PO HS PRN PRN Reason: Insomnia Potassium Chloride (Klor-Con 10) 10 meq PO DAILY [facility] Last Admin: 03/13/17 08:41 Dose: 10 meq Prednisone (Prednisone Tab) 30 mg PO DAILY [facility] Last Admin: 03/13/17 08:39 Dose: 30 mg Sennosides (Senokot Tab) 8.6 mg PO BID [facility] - Labs Labs: 03/13/17 06:00 03/13/17 06:00 - Constitutional Appears: No Acute Distress, Chronically Ill - Head Exam Head Exam: NORMAL INSPECTION - Eye Exam Eye Exam: PERRL - ENT Exam ENT Exam: Normal Oropharynx - Neck Exam Neck Exam: Normal Inspection - Respiratory Exam Respiratory Exam: Decreased Breath Sounds (at bases), Rhonchi (scattered) - Cardiovascular Exam Cardiovascular Exam: REGULAR RHYTHM - GI/Abdominal Exam GI & Abdominal Exam: Soft, Normal Bowel Sounds - Extremities Exam Extremities Exam: Normal Inspection - Back Exam Back Exam: NORMAL INSPECTION - Neurological Exam Neurological Exam: Awake Additional comments: Confused, calm, no focal motor deficit, generalized weakness. - Psychiatric Exam Additional comments: Calm - Skin Skin Exam: Warm Assessment and Plan (1) Acute hypoxemic respiratory failure Status: Acute (2) COPD with acute exacerbation Status: Acute (3) Pneumonia Status: Acute - Assessment and Plan (Free Text) Plan: Continue Zosyn,Duoneb, Solumedrol, Xopenex.
[2017-03-14] MEDS: Levalbuterol 1.25 MG/3 ML Inhal Soln UD INH SCH ×4 (01:03→19:39)
[2017-03-14] MEDS: Levothyroxine 25 MCG TAB PO SCH (06:23)
--- NOTE | 2017-03-14 07:43 | RAD ---
HISTORY: PNA COMPARISON: 03/08/2017 FINDINGS: LUNGS: No active pulmonary disease. PLEURA: No significant pleural effusion identified, no pneumothorax apparent. CARDIOVASCULAR: Normal. OSSEOUS STRUCTURES: No significant abnormalities. VISUALIZED UPPER ABDOMEN: Normal. OTHER FINDINGS: None. IMPRESSION: No active disease.
[2017-03-14] MEDS: Albuterol-Ipratrop 3 mg / 0.5 (3 ml) UD INH SCH (07:45)
[2017-03-14] MEDS ORDERED: Albuterol-Ipratrop 3 mg / 0.5 (3 ml) UD INH PRN (07:56)
[2017-03-14] MEDS: Potassium Chloride 10 mEq ER Tab PO SCH (09:25)
[2017-03-14] MEDS: guaiFENesin-DM 600-30 mg ER Tab PO SCH ×2 (09:26→16:50)
[2017-03-14] MEDS: Metoprolol Succinate 25 mg XL Tab PO SCH (09:27)
--- NOTE | 2017-03-14 09:58 | CP.PCM.PN ---
Subjective - Date & Time of Evaluation Date of Evaluation: 03/14/17 Time of Evaluation: 08:30 - Subjective Subjective: No fever saturating good on 3 lters NC still with productive cough denies CP no abd pain tolerating PO diet Objective - Vital Signs/Intake and Output Vital Signs (last 24 hours): Temp Pulse Resp BP Pulse Ox 97.5 F L 77 20 136/85 97 03/14/17 08:00 03/14/17 09:27 03/14/17 08:00 03/14/17 09:27 03/14/17 08:00 - Medications Medications: Current Medications Albuterol/Ipratropium (Duoneb 3 Mg/0.5 Mg (3 Ml) Ud) 3 ml INH RQID PRN PRN Reason: Wheezing Apixaban (Eliquis) 2.5 mg PO BID [facility] PRN Reason: Protocol Last Admin: 03/14/17 09:24 Dose: 2.5 mg Clotrimazole (Lotrimin 1% Cream) 1 applic TOP BID [facility] Last Admin: 03/14/17 09:25 Dose: 1 applic Clozapine (Clozaril) 200 mg PO HS [facility] Last Admin: 03/13/17 21:35 Dose: 200 mg Clozapine (Clozaril) 100 mg PO DAILY [facility] Last Admin: 03/14/17 09:21 Dose: 100 mg Diltiazem HCl (Cardizem) 120 mg PO BID [facility] Last Admin: 03/14/17 09:21 Dose: 120 mg Dronedarone (Multaq) 400 mg PO BID [facility] Last Admin: 03/14/17 09:26 Dose: 400 mg Famotidine (Pepcid) 20 mg PO BID [facility] Last Admin: 03/14/17 09:27 Dose: 20 mg Furosemide (Lasix) 20 mg PO DAILY [facility] Last Admin: 03/14/17 09:25 Dose: 20 mg Guaifenesin/Dextromethorphan (Mucinex-Dm 600-30 Mg) 1 tab PO BID [facility] Last Admin: 03/14/17 09:26 Dose: 1 tab Piperacillin Sod/Tazobactam (Sod 2.25 gm/ Sodium Chloride) 100 mls @ 100 mls/ hr IVPB Q6 [facility] Last Admin: 03/14/17 09:20 Dose: 100 mls/hr Levalbuterol HCl (Xopenex) 1.25 mg INH RQ6 [facility] Last Admin: 03/14/17 07:44 Dose: 1.25 mg Levothyroxine Sodium (Synthroid) 12.5 mcg PO DAILY@0630 [facility] Last Admin: 03/14/17 06:23 Dose: 12.5 mcg Lorazepam (Ativan) 0.5 mg PO HS PRN PRN Reason: Insomnia Last Admin: 03/13/17 23:20 Dose: 0.5 mg Metoprolol Succinate (Toprol Xl) 25 mg PO DAILY [facility] Last Admin: 03/14/17 09:27 Dose: 25 mg Mirtazapine (Remeron) 7.5 mg PO HS PRN PRN Reason: Insomnia Last Admin: 03/13/17 23:19 Dose: 7.5 mg Potassium Chloride (Klor-Con 10) 10 meq PO DAILY [facility] Last Admin: 03/14/17 09:25 Dose: 10 meq Prednisone (Prednisone Tab) 30 mg PO DAILY [facility] Last Admin: 03/14/17 09:27 Dose: 30 mg Sennosides (Senokot Tab) 8.6 mg PO BID [facility] Last Admin: 03/14/17 09:27 Dose: 8.6 mg - Labs Labs: 03/13/17 06:00 03/13/17 06:00 - Constitutional Appears: No Acute Distress, Older Than Stated Age, Chronically Ill - Head Exam Head Exam: NORMAL INSPECTION, NORMOCEPHALIC - Eye Exam Eye Exam: EOMI, Normal appearance Pupil Exam: NORMAL ACCOMMODATION - ENT Exam ENT Exam: Mucous Membranes Moist, Normal External Ear Exam - Neck Exam Neck Exam: Full ROM. absent: Meningismus - Respiratory Exam Respiratory Exam: + wheezing ,Rales, Rhonchi, NORMAL BREATHING PATTERN. absent :Respiratory Distress - Cardiovascular Exam Cardiovascular Exam: REGULAR RHYTHM, +S1, +S2 - GI/Abdominal Exam GI & Abdominal Exam: Soft, Normal Bowel Sounds. absent: Tenderness - Extremities Exam Extremities Exam: Full ROM, Normal Capillary Refill. absent: Calf Tenderness, Pedal Edema - Back Exam Back Exam: absent: CVA tenderness (L), CVA tenderness (R) - Neurological Exam Neurological Exam: Alert, Awake Additional comments: oriented to person and place moves all extremities speech dysarthric however comprehensible - Psychiatric Exam Psychiatric exam: Normal Affect, Normal Mood - Skin Skin Exam: Dry, Normal Color, Warm Assessment and Plan - Assessment and Plan (Free Text) Assessment: 77 F with PMH AFIB, HLD, Hypothyroidism, COPD, Schizophrenia was initially admitted to the Geropsych for worsening paranoia and psychosis on 02/15 . While in the Psych unit , she developed Pneumonia and was admitted to Telemetry on . Her Pneumonia resolved, rpt CT of Chest post therapy revealed resolution of infiltrates. She was then transferred back to the GeroPsych unit for further mgt of her Psychosis on 02/27. On 03/08, she developed low grade fever and respiratory insufficiency and rapid A Fib and was again readmitted to the Acute Medical floor. 1. Sepsis likely sec to Aspiration Pneumonia ( POA) - pt was initially placed on High Flow Oxygen, at present , she is saturating well on 3 liters Oxygen per NC - cont IV Zosyn - ID consulted- Dr Oliveira -Pulm consulted- Dr Sandoval - Blood c/s : neg - Sputum c/s : neg so far 2.COPD Exacerbation cont Bronchodilators, RTC Duoneb cont Prednisone 3.Acute Hypoxemic Respiratory Failure, improving off High Flow Oxygen and doing well on 3 liters NC sat 97-98% 4. A. Fib , Paroxysmal , with RVR was on Cardizem drip - now off and rate controlled cont Toprol and Multaq cont Eliquis Cardio consulted- Dr Diez/Jocelyn 6.Hypothyroidism cont Levothyroxine 7.Schizophrenia cont Clozaril q am and hs Remeron HS for sleep Avoid benzos haldol PRN for agitation Psychiatry consulted- per Psych , pt's medical needs cannot be met in the Step unit so they cannot take her back Pt is calm and cooperative d/c 1:1 and transferred pt to a room close to nurses station 8. Hypokalemia prob sec to diuretics KCl 10 meq daily monitor BMP DVT prophylaxis On Eliquis SCD
--- NOTE | 2017-03-14 10:30 | CP.PCM.CON ---
History of Present Illness - History of Present Illness History of Present Illness: This 77 -year-old female who was hospitalized for schizophrenia was transferred to the telemetry floor because of oxygen desaturation and during the transit from the emergency room to the floor was found to have atrial fibrillation which was documented on an electrocardiogram on March 08. She was given intravenous Cardizem and converted back to sinus rhythm which she has maintained ever since. She has a history of hypertension and COPD and is now being treated for pneumonia with intravenous antibiotic. There is no prior history of myocardial infarction or congestive cardiac failure. Her history was obtained from her chart. On examination this was an elderly lady who did not appear to be aware of her surroundings. She was not able to answer simple questions and was confused. Her telemetry showed steady sinus rhythm at rates between 60 and 80 bpm with rare premature atrial beats. Her blood pressure was 124/74 mmHg. Her jugular venous pressure was not elevated and there was no edema hour and lower extremity the pedal pulses were well felt. There were no carotid bruits. Extremities were warm nailbeds were pink and there was no central or peripheral cyanosis. Her respiratory rate was 16 breaths per minute. Her apex was not palpable. First and second heart sounds were normal. There was no murmur or gallop and there were no rales. Expiration was slightly prolonged and there were scattered crepitations at both bases. Her electro-cardiogram showed sinus rhythm with nonspecific ST-T changes. An electrocardiogram taken at 6 PM on March 08 showed atrial fibrillation with nonspecific ST changes. There were no Q waves. An echocardiogram showed an apex with mildly dyskinetic motion. This was suggestive off for possible old apical myocardial infarction. Overall left ventricular systolic function was preserved. No significant valvular patchy was detected. Her lab data was noted. Her hemoglobin was 10.9 g and hematocrit was 33.3%. A mild leukocytosis is resolving. Her arterial blood gases showed a moderate degree of hypoxia with an FiO2 of 33%. Her creatinine level was normal and electrolytes were essentially normal. IMPRESSION: Transient atrial fibrillation in a patient with significant COPD and stable coronary artery disease. 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 Overall left ventricular systolic function is preserved. History of hypertension with schizophrenia. The patient needs to be on oral anticoagulation to protect against systemic embolization. To further evaluate the finding of possible apical infarct the patient should undergo a nuclear stress test when she is stable from a psychiatric point of view to cooperate in the study. Past Patient History - Tetanus Immunizations Tetanus Immunization: Unknown - Past Medical History & Family History Past Medical History?: Yes - Past Social History Smoking Status: Former Smoker Alcohol: None Drugs: Denies Home Situation {Lives}: With Family - CARDIAC Hx Cardiac Disorders: Yes Hx Atrial Fibrillation: Yes Hx Hypercholesterolemia: Yes Hx Hypertension: Yes - PULMONARY Hx Respiratory Disorders: Yes Hx Asthma: Yes Hx Chronic Obstructive Pulmonary Disease (COPD): Yes Hx Pneumonia: Yes - NEUROLOGICAL Hx Neurological Disorder: Yes Hx Dementia: Yes Hx Seizures: Yes - HEENT Hx HEENT Problems: No - RENAL Hx Chronic Kidney Disease: No - ENDOCRINE/METABOLIC Hx Endocrine Disorders: Yes Hx Hypothyroidism: Yes - HEMATOLOGICAL/ONCOLOGICAL Hx Blood Disorders: Yes Hx Cancer: Yes (colon) - INTEGUMENTARY Hx Dermatological Problems: No - MUSCULOSKELETAL/RHEUMATOLOGICAL Hx Musculoskeletal Disorders: Yes Hx Falls: Yes - GASTROINTESTINAL Hx Gastrointestinal Disorders: Yes Hx Gastroesophageal Reflux: Yes - GENITOURINARY/GYNECOLOGICAL Hx Genitourinary Disorders: Yes - PSYCHIATRIC Hx Psychophysiologic Disorder: Yes Hx Anxiety: Yes Hx Schizophrenia: Yes Hx Substance Use: No - SURGICAL HISTORY Hx Surgeries: Yes Hx Appendectomy: Yes Hx Cholecystectomy: Yes - ANESTHESIA Hx Anesthesia: Yes Hx Anesthesia Reactions: No Meds Allergies/Adverse Reactions: Allergies Allergy/AdvReac Type Severity Reaction Status Date / Time No Known Allergies Allergy Verified 02/22/17 13:39 - Medications Medications: Current Medications Albuterol/Ipratropium (Duoneb 3 Mg/0.5 Mg (3 Ml) Ud) 3 ml INH RQID PRN PRN Reason: Wheezing Apixaban (Eliquis) 2.5 mg PO BID [facility] PRN Reason: Protocol Last Admin: 03/14/17 09:24 Dose: 2.5 mg Clotrimazole (Lotrimin 1% Cream) 1 applic TOP BID [facility] Last Admin: 03/14/17 09:25 Dose: 1 applic Clozapine (Clozaril) 200 mg PO HS [facility] Last Admin: 03/13/17 21:35 Dose: 200 mg Clozapine (Clozaril) 100 mg PO DAILY [facility] Last Admin: 03/14/17 09:21 Dose: 100 mg Diltiazem HCl (Cardizem) 120 mg PO BID [facility] Last Admin: 03/14/17 09:21 Dose: 120 mg Dronedarone (Multaq) 400 mg PO BID [facility] Last Admin: 03/14/17 09:26 Dose: 400 mg Famotidine (Pepcid) 20 mg PO BID [facility] Last Admin: 03/14/17 09:27 Dose: 20 mg Furosemide (Lasix) 20 mg PO DAILY [facility] Last Admin: 03/14/17 09:25 Dose: 20 mg Guaifenesin/Dextromethorphan (Mucinex-Dm 600-30 Mg) 1 tab PO BID [facility] Last Admin: 03/14/17 09:26 Dose: 1 tab Piperacillin Sod/Tazobactam (Sod 2.25 gm/ Sodium Chloride) 100 mls @ 100 mls/ hr IVPB Q6 [facility] Last Admin: 03/14/17 09:20 Dose: 100 mls/hr Levalbuterol HCl (Xopenex) 1.25 mg INH RQ6 [facility] Last Admin: 03/14/17 07:44 Dose: 1.25 mg Levothyroxine Sodium (Synthroid) 12.5 mcg PO DAILY@0630 [facility] Last Admin: 03/14/17 06:23 Dose: 12.5 mcg Lorazepam (Ativan) 0.5 mg PO HS PRN PRN Reason: Insomnia Last Admin: 03/13/17 23:20 Dose: 0.5 mg Metoprolol Succinate (Toprol Xl) 25 mg PO DAILY [facility] Last Admin: 03/14/17 09:27 Dose: 25 mg Mirtazapine (Remeron) 7.5 mg PO HS PRN PRN Reason: Insomnia Last Admin: 03/13/17 23:19 Dose: 7.5 mg Potassium Chloride (Klor-Con 10) 10 meq PO DAILY [facility] Last Admin: 03/14/17 09:25 Dose: 10 meq Prednisone (Prednisone Tab) 30 mg PO DAILY [facility] Last Admin: 03/14/17 09:27 Dose: 30 mg Sennosides (Senokot Tab) 8.6 mg PO BID [facility] Last Admin: 03/14/17 09:27 Dose: 8.6 mg Results - Vital Signs Recent Vital Signs: Last Vital Signs Temp 97.5 F L 03/14/17 08:00 Pulse 77 03/14/17 09:27 Resp 20 03/14/17 08:00 BP 136/85 03/14/17 09:27 Pulse Ox 97 03/14/17 08:00 - Labs Result Diagrams: 03/13/17 06:00 08/05/17 06:00
--- NOTE | 2017-03-14 13:21 | CP.PCM.PN ---
Subjective - Date & Time of Evaluation Date of Evaluation: 03/14/17 Time of Evaluation: 13:00 - Subjective Subjective: F/U Respiratory failure. Confused, agitated last night and today, trying to get out of bed, had Ativan, with mumbling sounds, coughing on and off. Objective - Vital Signs/Intake and Output Vital Signs (last 24 hours): Temp Pulse Resp BP Pulse Ox 97.5 F L 72 20 114/70 97 03/14/17 12:49 03/14/17 12:49 03/14/17 12:49 03/14/17 12:49 03/14/17 12:49 - Medications Medications: Current Medications Albuterol/Ipratropium (Duoneb 3 Mg/0.5 Mg (3 Ml) Ud) 3 ml INH RQID PRN PRN Reason: Wheezing Apixaban (Eliquis) 5 mg PO DAILY [facility] PRN Reason: Protocol Clotrimazole (Lotrimin 1% Cream) 1 applic TOP BID [facility] Last Admin: 03/14/17 09:25 Dose: 1 applic Clozapine (Clozaril) 200 mg PO HS [facility] Last Admin: 03/13/17 21:35 Dose: 200 mg Clozapine (Clozaril) 100 mg PO DAILY [facility] Last Admin: 03/14/17 09:21 Dose: 100 mg Diltiazem HCl (Cardizem) 120 mg PO BID [facility] Last Admin: 03/14/17 09:21 Dose: 120 mg Dronedarone (Multaq) 400 mg PO BID [facility] Last Admin: 03/14/17 09:26 Dose: 400 mg Famotidine (Pepcid) 20 mg PO BID [facility] Last Admin: 03/14/17 09:27 Dose: 20 mg Furosemide (Lasix) 20 mg PO DAILY [facility] Last Admin: 03/14/17 09:25 Dose: 20 mg Guaifenesin/Dextromethorphan (Mucinex-Dm 600-30 Mg) 1 tab PO BID [facility] Last Admin: 03/14/17 09:26 Dose: 1 tab Piperacillin Sod/Tazobactam (Sod 2.25 gm/ Sodium Chloride) 100 mls @ 100 mls/ hr IVPB Q6 [facility] Last Admin: 03/14/17 09:20 Dose: 100 mls/hr Levalbuterol HCl (Xopenex) 1.25 mg INH RQ6 [facility] Last Admin: 03/14/17 07:44 Dose: 1.25 mg Levothyroxine Sodium (Synthroid) 12.5 mcg PO DAILY@0630 [facility] Last Admin: 03/14/17 06:23 Dose: 12.5 mcg Lorazepam (Ativan) 0.5 mg PO HS PRN PRN Reason: Insomnia Last Admin: 03/13/17 23:20 Dose: 0.5 mg Mirtazapine (Remeron) 7.5 mg PO HS PRN PRN Reason: Insomnia Last Admin: 03/13/17 23:19 Dose: 7.5 mg Potassium Chloride (Klor-Con 10) 10 meq PO DAILY [facility] Last Admin: 03/14/17 09:25 Dose: 10 meq Prednisone (Prednisone Tab) 30 mg PO DAILY [facility] Last Admin: 03/14/17 09:27 Dose: 30 mg Sennosides (Senokot Tab) 8.6 mg PO BID [facility] Last Admin: 03/14/17 09:27 Dose: 8.6 mg - Labs Labs: 03/13/17 06:00 03/13/17 06:00 - Constitutional Appears: No Acute Distress, Chronically Ill - Head Exam Head Exam: NORMAL INSPECTION - Eye Exam Eye Exam: PERRL - ENT Exam ENT Exam: Normal Oropharynx - Neck Exam Neck Exam: Normal Inspection - Respiratory Exam Respiratory Exam: Decreased Breath Sounds (at bases), Rhonchi (scattered) - Cardiovascular Exam Cardiovascular Exam: REGULAR RHYTHM - GI/Abdominal Exam GI & Abdominal Exam: Soft, Normal Bowel Sounds - Extremities Exam Extremities Exam: Normal Inspection - Back Exam Back Exam: NORMAL INSPECTION - Neurological Exam Neurological Exam: Awake Additional comments: Pt with mumbling sounds, not following commands, moves all extremities, generalized weakness. - Psychiatric Exam Psychiatric exam: Agitated - Skin Skin Exam: Warm Assessment and Plan (1) Acute hypoxemic respiratory failure Status: Resolved (2) COPD with acute exacerbation Status: Resolved (3) Pneumonia Status: Resolved - Assessment and Plan (Free Text) Plan: COPD Exacerbation and PNA resolved ,CXR (-) taper steroids , Xopenex, Mucinex.
[2017-03-15] MEDS: Levalbuterol 1.25 MG/3 ML Inhal Soln UD INH SCH ×3 (01:05→13:32)
[2017-03-15] MEDS: Levothyroxine 25 MCG TAB PO SCH (06:30)
[2017-03-15 07:50] LABS: BLOOD UREA NITROGEN 23 mg/dl (7-17); CALCIUM 9.2 mg/dL (8.4-10.2); GFR AFRICAN-AMERICAN > 60; GFR NON-AFRICAN AMERICAN > 60
[2017-03-15 08:00] VITALS: RESP 18
[2017-03-15] MEDS: guaiFENesin-DM 600-30 mg ER Tab PO SCH (09:09)
[2017-03-15] MEDS: Potassium Chloride 10 mEq ER Tab PO SCH (09:10)
[2017-03-15 12:12] VITALS: BP 95/65; PULSE 80; TEMP 97.9; O2SAT 97
--- NOTE | 2017-03-15 13:03 | CP.PCM.PN ---
Subjective - Date & Time of Evaluation Date of Evaluation: 03/15/17 Time of Evaluation: 13:03 - Subjective Subjective: ID Note- Pt. seen and examined today. pt. resting comfortably without any complaints. no new events overnight. pt. is being d/c back to [facility] today as per the hospitalist. Objective - Vital Signs/Intake and Output Vital Signs (last 24 hours): Temp Pulse Resp BP Pulse Ox 97.9 F 80 18 95/65 L 97 03/15/17 12:11 03/15/17 12:11 03/15/17 12:11 03/15/17 12:11 03/15/17 12:11 - Medications Medications: Current Medications Albuterol/Ipratropium (Duoneb 3 Mg/0.5 Mg (3 Ml) Ud) 3 ml INH RQID PRN PRN Reason: Wheezing Apixaban (Eliquis) 5 mg PO BID [facility] PRN Reason: Protocol Last Admin: 03/15/17 09:12 Dose: 5 mg Clotrimazole (Lotrimin 1% Cream) 1 applic TOP BID [facility] Last Admin: 03/15/17 09:33 Dose: 1 applic Clozapine (Clozaril) 200 mg PO HS [facility] Last Admin: 03/14/17 21:42 Dose: Not Given Clozapine (Clozaril) 100 mg PO DAILY [facility] Last Admin: 03/15/17 09:33 Dose: 100 mg Diltiazem HCl (Cardizem) 120 mg PO BID [facility] Last Admin: 03/15/17 09:11 Dose: 120 mg Dronedarone (Multaq) 400 mg PO BID [facility] Last Admin: 03/15/17 09:10 Dose: 400 mg Famotidine (Pepcid) 20 mg PO BID [facility] Last Admin: 03/15/17 09:10 Dose: 20 mg Furosemide (Lasix) 20 mg PO DAILY [facility] Last Admin: 03/15/17 09:11 Dose: 20 mg Guaifenesin/Dextromethorphan (Mucinex-Dm 600-30 Mg) 1 tab PO BID [facility] Last Admin: 03/15/17 09:09 Dose: 1 tab Piperacillin Sod/Tazobactam (Sod 2.25 gm/ Sodium Chloride) 100 mls @ 100 mls/ hr IVPB Q6 [facility] Last Admin: 03/15/17 09:34 Dose: 100 mls/hr Levalbuterol HCl (Xopenex) 1.25 mg INH RQ6 [facility] Last Admin: 03/15/17 07:48 Dose: 1.25 mg Levothyroxine Sodium (Synthroid) 12.5 mcg PO DAILY@0630 [facility] Last Admin: 03/15/17 06:30 Dose: 12.5 mcg Mirtazapine (Remeron) 7.5 mg PO HS PRN PRN Reason: Insomnia Last Admin: 03/13/17 23:19 Dose: 7.5 mg Potassium Chloride (Klor-Con 10) 10 meq PO DAILY [facility] Last Admin: 03/15/17 09:10 Dose: 10 meq Prednisone (Prednisone Tab) 30 mg PO DAILY [facility] Last Admin: 03/15/17 09:13 Dose: 30 mg Sennosides (Senokot Tab) 8.6 mg PO BID [facility] Last Admin: 03/15/17 09:09 Dose: 8.6 mg - Labs Labs: - Constitutional Appears: No Acute Distress - Neck Exam Neck Exam: Full ROM - Respiratory Exam Respiratory Exam: NORMAL BREATHING PATTERN Additional comments: good aeration B/L no wheezing - Cardiovascular Exam Cardiovascular Exam: RRR, +S1, +S2 - GI/Abdominal Exam GI & Abdominal Exam: Soft, Normal Bowel Sounds Additional comments: NT, ND - Extremities Exam Extremities Exam: Normal Inspection - Neurological Exam Neurological Exam: Awake - Additional Findings Additional findings: Laboratory Results - last 72 hr 03/13/17 03/13/17 03/15/17 06:00 06:00 07:15 WBC 11.3 H RBC 3.68 L Hgb 10.9 L Hct 33.3 L MCV 90.6 MCH 29.6 MCHC 32.7 L RDW 15.5 H Plt Count 255 Sodium 143 142 Potassium 3.6 3.8 Chloride 104 102 Carbon Dioxide 36 H 33 H Anion Gap 7 L 11 BUN 26 H 23 H Creatinine 0.9 0.8 Est GFR ( Amer) > 60 > 60 Est GFR (Non-Af Amer) > 60 > 60 Random Glucose 85 88 Calcium 8.8 9.2 Total Bilirubin 0.8 AST 17 ALT 28 Alkaline Phosphatase 92 Total Protein 5.5 L Albumin 2.8 L Globulin 2.8 Albumin/Globulin Ratio 1.0 Microbiology 03/11/17 07:46 Sputum Gram Stain - Final 03/11/17 07:46 Sputum Sputum Culture - Final NORMAL ORAL JUMA 03/08/17 12:00 Blood-Venous Blood Culture - Final NO GROWTH AFTER 5 DAYS 03/08/17 12:00 Blood-Venous Gram Stain - Final TEST NOT PERFORMED 03/08/17 15:32 Urine,Catheterized Urine Culture - Final No Growth (<1,000 CFU/ML) Accession No. : [id number] Patient Name / ID : LUIS ALBERTO SCALES / [id number] Exam Date : 03/14/2017 07:19:25 ( Approved ) Study Comment : Sex / Age : F / 77Y Creator : Nino Garcia MD Dictator : Nino Garcia MD Title Insurance Sales Representative : Pattern Maker : Nino Garcia MD Approver2 : Report Date : 03/14/2017 07:37:29 My Comment : HISTORY: PNA COMPARISON: 03/08/2017 FINDINGS: LUNGS: No active pulmonary disease. PLEURA: No significant pleural effusion identified, no pneumothorax apparent. CARDIOVASCULAR: Normal. OSSEOUS STRUCTURES: No significant abnormalities. VISUALIZED UPPER ABDOMEN: Normal. OTHER FINDINGS: None. IMPRESSION: No active disease. Assessment and Plan (1) Acute hypoxemic respiratory failure Status: Acute (2) Atrial fibrillation with RVR Status: Acute (3) COPD with acute exacerbation Status: Acute - Assessment and Plan (Free Text) Assessment: A/P- 77 year old female with schizophrenia, COPD, hypothyroidism, A.Fib with recent pneumonia and fever sna dleukocytsois who was treated with 14 days of IV abx ( meropenem and vanco) did well and was transferred back to [facility] again was readmitted with hypoxemia and desaturation. clinically improved no fever leukocytosis much improved, almost resolved blood cx- neg sputum cx- negative, normal juma repeat cxr- no active disease as per report. plan- pt. has completed 5 days of IV zosyn for aspiration Pneumonitis and COPD exacerbation. clinically much improved. d/c IV abx today. keep HOB elevated, monitor aspiration precautions specially during meals. bronchodilators and pulmonary treatment as per assistant housekeeping manager. will sign off the case. Please re-consult PRN. above d/w hospitalist.
--- NOTE | 2017-03-15 15:08 | CP.PCM.DIS ---
Provider - Provider Date of Admission: 03/08/17 14:43 Attending physician: Mando Cuello MD Consults: Dr Roxanne Gamez Time Spent in preparation of Discharge (in minutes): 35 Diagnosis - Discharge Diagnosis (1) COPD with acute exacerbation Status: Acute Priority: High Comment: continue Bronchodilators and Prednisone (2) Atrial fibrillation with RVR Status: Acute Comment: presently in sinus with controlled rate. continue Cardizem and Multag. continue Eliquis (3) HTN (hypertension) Status: Chronic (4) Hypothyroidism Status: Chronic Comment: continue Levothyroxine (5) Pneumonia Status: Acute Comment: completed one week course of IV Zosyn. repeat CXRay was clear. suction oral airway as needed. place patient frequently in upright position specially when eating Hospital Course - Lab Results Lab Results: Micro Results 03/11/17 07:46 Sputum Gram Stain - Final 03/11/17 07:46 Sputum Sputum Culture - Final NORMAL ORAL [place] 03/08/17 15:32 Urine,Catheterized Urine Culture - Final No Growth (<1,000 CFU/ML) Most Recent Lab Values WBC 11.3 K/uL (4.8-10.8) H 03/13/17 06:00 RBC 3.68 Mil/uL (3.80-5.20) L 03/13/17 06:00 Hgb 10.9 g/dL (12.0-16.0) L 03/13/17 06:00 Hct 33.3 % (34.0-47.0) L 03/13/17 06:00 MCV 90.6 fl (81.0-99.0) 03/13/17 06:00 MCH 29.6 pg (27.0-31.0) 03/13/17 06:00 MCHC 32.7 g/dL (33.0-37.0) L 03/13/17 06:00 RDW 15.5 % (11.5-14.5) H 03/13/17 06:00 Plt Count 255 K/uL (130-400) 03/13/17 06:00 MPV 8.2 fl (7.2-11.7) 03/12/17 09:00 Neut % (Auto) 80.8 % (50.0-75.0) H 03/12/17 09:00 Lymph % (Auto) 14.2 % (20.0-40.0) L 03/12/17 09:00 [place] % (Auto) 4.6 % (0.0-10.0) 03/12/17 09:00 Eos % (Auto) 0.1 % (0.0-4.0) 03/12/17 09:00 Baso % (Auto) 0.3 % (0.0-2.0) 03/12/17 09:00 Neut # 10.5 K/uL (1.8-7.0) H 03/12/17 09:00 Lymph # 1.9 K/uL (1.0-4.3) 03/12/17 09:00 [place] # 0.6 K/uL (0.0-0.8) 03/12/17 09:00 Eos # 0.0 K/uL (0.0-0.7) 03/12/17 09:00 Baso # 0.0 K/uL (0.0-0.2) 03/12/17 09:00 Neutrophils % (Manual) 89 % (42-75) H 03/11/17 06:10 Lymphocytes % (Manual) 8 % (20-50) L 03/11/17 06:10 Monocytes % (Manual) 3 % (0-10) 03/11/17 06:10 Platelet Estimate Normal (NORMAL) 03/11/17 06:10 Hypochromasia (manual) Slight 03/11/17 06:10 Anisocytosis (manual) Slight 03/11/17 06:10 Tear Drop Cells Slight 03/11/17 06:10 Ovalocytes Slight 03/11/17 06:10 Schistocytes Slight 03/11/17 06:10 D-Dimer, Quantitative 325 ng/mlDDU (0-230) H 03/08/17 12:00 pCO2 42 mm/Hg (35-45) 03/11/17 14:06 pO2 74 mm/Hg (80-100) L 03/11/17 14:06 HCO3 33.0 mmol/L (21-28) H 03/11/17 14:06 ABG pH 7.52 (7.35-7.45) H 03/11/17 14:06 ABG Total CO2 35.6 mmol/L (22-28) H 03/11/17 14:06 ABG O2 Saturation 97.0 % (95-98) 03/11/17 14:06 ABG O2 Content 15.1 ML/dL (15-23) 03/11/17 14:06 ABG Base Excess 10.4 mmol/L (-2.0-3.0) H 03/11/17 14:06 ABG Hemoglobin 11.3 g/dL (11.7-17.4) L 03/11/17 14:06 ABG Carboxyhemoglobin 1.2 % (0.5-1.5) 03/11/17 14:06 POC ABG HHb (Measured) 2.9 % (0.0-5.0) 03/11/17 14:06 ABG Methemoglobin 1.4 % (0.0-3.0) 03/11/17 14:06 ABG O2 Capacity 15.6 mL/dL (16-24) L 03/11/17 14:06 Bernardo Test Yes 03/11/17 14:06 VBG pH 7.45 (7.32-7.43) H 03/08/17 12:20 VBG pCO2 52 mmHg (40-60) 03/08/17 12:20 VBG HCO3 32.1 mmol/L 03/08/17 12:20 VBG Total CO2 37.7 mmol/L (22-28) H 03/08/17 12:20 VBG O2 Sat (Calc) 65.2 % (40-65) H 03/08/17 12:20 VBG Base Excess 10.2 mmol/L (0.0-2.0) H 03/08/17 12:20 VBG Potassium 3.6 mmol/L (3.6-5.2) 03/08/17 12:20 A-a O2 Difference 109.0 mm/Hg 03/11/17 14:06 Hgb O2 Saturation 94.4 % (95.0-98.0) L 03/11/17 14:06 Sodium 140.0 mmol/L (132-148) 03/08/17 12:20 Chloride 103.0 mmol/L (98-107) 03/08/17 12:20 Glucose 138 mg/dL (65-105) H 03/08/17 12:20 Lactate 1.7 mmol/L (0.7-2.1) 03/08/17 12:20 Vent Mode Vm 03/09/17 13:35 FiO2 33.0 % 03/11/17 14:06 Blood Gas Comments 3l/m nc.rb 03/11/17 14:06 Sodium 142 mmol/l (132-148) 03/15/17 07:15 Potassium 3.8 MMOL/L (3.6-5.0) 03/15/17 07:15 Chloride 102 mmol/L (98-107) 03/15/17 07:15 Carbon Dioxide 33 mmol/L (22-30) H 03/15/17 07:15 Anion Gap 11 (10-20) 03/15/17 07:15 BUN 23 mg/dl (7-17) H 03/15/17 07:15 Creatinine 0.8 mg/dL (0.7-1.2) 03/15/17 07:15 Est GFR ( Amer) > 60 03/15/17 07:15 Est GFR (Non-Af Amer) > 60 03/15/17 07:15 Random Glucose 88 mg/dL (65-105) 03/15/17 07:15 Calcium 9.2 mg/dL (8.4-10.2) 03/15/17 07:15 Total Bilirubin 0.8 mg/dl (0.2-1.3) 03/13/17 06:00 AST 17 U/L (14-36) 03/13/17 06:00 ALT 28 U/L (9-52) 03/13/17 06:00 Alkaline Phosphatase 92 U/L (38-126) 03/13/17 06:00 Troponin I 0.0490 ng/mL (0.00-0.120) 03/08/17 19:03 Total Protein 5.5 G/DL (6.3-8.2) L 03/13/17 06:00 Albumin 2.8 g/dL (3.5-5.0) L 03/13/17 06:00 Globulin 2.8 gm/dL (2.2-3.9) 03/13/17 06:00 Albumin/Globulin Ratio 1.0 (1.0-2.1) 03/13/17 06:00 TSH 3rd Generation 1.06 mIU/ML (0.46-4.68) 03/11/17 06:10 Venous Blood Potassium 3.6 mmol/L (3.6-5.2) 03/08/17 12:20 Urine Color Straw (YELLOW) 03/08/17 15:32 Urine Clarity Clear (Clear) 03/08/17 15:32 Urine pH 7.0 (5.0-8.0) 03/08/17 15:32 Ur Specific Walker 1.010 (1.003-1.030) 03/08/17 15:32 Urine Protein Negative mg/dL (NEGATIVE) 03/08/17 15:32 Urine Glucose (UA) Neg mg/dL (Normal) 03/08/17 15:32 Urine Ketones Negative mg/dL (NEGATIVE) 03/08/17 15:32 Urine Blood Negative (NEGATIVE) 03/08/17 15:32 Urine Nitrate Negative (NEGATIVE) 03/08/17 15:32 Urine Bilirubin Negative (NEGATIVE) 03/08/17 15:32 Urine Urobilinogen 0.2-1.0 mg/dL (0.2-1.0) 03/08/17 15:32 Ur Leukocyte Esterase Neg Jeanne/uL (Negative) 03/08/17 15:32 Urine Microscopic WBC < 1 /hpf (0-5) 03/08/17 15:32 Ur Squamous Epith Cells < 1 /hpf (0-5) 03/08/17 15:32 Hyaline Casts 0-2 /hpf (0-2) 03/08/17 15:32 - Hospital Course Hospital Course: 77 yo female with history of AFIB, HLD, Hypothyroidism, COPD and Schizophrenia was admitted to the [facility] for worsening paranoia and psychosis on 2016. While in the [facility] unit patient became SOB with associated coughing and fever. She was diagnosed with Bilateral Lower Pneumonia and admitted to telemetry where she was started on IV Meropenem and Vancomycin. Pt did well and was sent back to [facility]. She completed 2 weeks of IV antibiotics but then noted to be congested and desaturating. She was diagnosed with Hypoxemic Respiratory Failure secondary to Aspiration Pneumonia and re-admitted to telemetry. She also developed AFib with RVR and was treated with IV Cardizem followed with Cardizem drip. Pt went back into sinus rhythm and was maintained on PO Cardizem. She was put on IV Zosyn and did well. Patient presently doing well and [facility]. Advised was given for ASPIRATION PRECAUTION with frequent suctioning and putting patient frequently in upright position specially when feeding. Discharge Exam - Head Exam Head Exam: NORMAL INSPECTION - Eye Exam Eye Exam: absent: Scleral icterus - ENT Exam ENT Exam: Mucous Membranes Moist - Respiratory Exam Respiratory Exam: Decreased Breath Sounds. absent: Wheezes, Respiratory Distress - Cardiovascular Exam Cardiovascular Exam: REGULAR RHYTHM, +S4, Systolic Murmur - GI/Abdominal Exam GI & Abdominal Exam: Soft. absent: Tenderness - Rectal Exam Rectal Exam: Deferred - Neurological Exam Neurological exam: Alert, Oriented x3 - Psychiatric Exam Psychiatric exam: Normal Affect - Skin Skin Exam: Dry, Intact Discharge Plan - Follow Up Plan Condition: FAIR [facility] Additional Instructions: suction frequently as needed; keep patient upright specially when eating aspiration precaution
== END 2017-03-15 15:15 | DRG 871 ==
LOC: H.ER 11:05 → H.ERHOLD 14:43 → H.TEL 18:56
DX: A41.9 Sepsis, unspecified organism (principal); J69.0 Pneumonitis due to inhalation of food and vomit; J96.01 Acute respiratory failure with hypoxia; J44.1 Chronic obstructive pulmonary disease with (acute) exacerbation; J98.11 Atelectasis; I31.3 Pericardial effusion (noninflammatory); K21.9 Gastro-esophageal reflux disease without esophagitis; I48.0 Paroxysmal atrial fibrillation; E87.6 Hypokalemia; I51.7 Cardiomegaly; I25.10 Atherosclerotic heart disease of native coronary artery without angina pectoris; E03.9 Hypothyroidism, unspecified; I10 Essential (primary) hypertension; E78.5 Hyperlipidemia, unspecified; E78.00 Pure hypercholesterolemia, unspecified; F20.9 Schizophrenia, unspecified; F03.90 Unspecified dementia, unspecified severity, without behavioral disturbance, psychotic disturbance, mood disturbance, and anxiety; J45.909 Unspecified asthma, uncomplicated; F41.9 Anxiety disorder, unspecified; Z79.01 Long term (current) use of anticoagulants; Z96.652 Presence of left artificial knee joint; Z85.038 Personal history of other malignant neoplasm of large intestine; Z87.891 Personal history of nicotine dependence; Z87.01 Personal history of pneumonia (recurrent); Z90.49 Acquired absence of other specified parts of digestive tract